=== PATIENT | female | born 2005 | race Caucasian/White ===

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

== ENCOUNTER 2025-04-12 18:46 | Emergency (ER) | payer OTHER, SELFPAY ==
--- OUTSIDE RECORDS SUMMARY | 2025-04-12 18:53 | XMS REPORT | Continuity of Care Document ---
Author Name Unknown Address [address] [facility] [address] [place] [address] [facility] Address [address] [facility] [place] [address] Care Team Providers Care [facility] Name Role Phone Deon Pradip Primary Care Physician [phone] Maggy Lee CNM Attending Clinician [phone] CHRISTEL VERA Attending Clinician Unavailable CHEPE LIU Attending Clinician Unavailable Teena Rao Attending Clinician [phone] Debbie Rasheed MD Attending Clinician [phone] DEBBIE RASHEED Attending Clinician Unavailable Unknown, Attending Attending Clinician Unavailab Maira Beckham RN Attending Clinician Unav ailJAMIL Pitts Attending Clinician Unavail able Doctor Unassigned, [place] Attending Clinician U navailable [place] WHJamil VELEZ Attending Clinician + MAGGY LEE Attending Clinician Unavaila glenna Loyola RN, [place]line Attending Clinician Unavailjaquelin Willis MD, Lonnie Loco Attending Clinician [phone] CARIDAD BONE Attending Clinician Unavailable Douglas Adan MD Attending Clinician [phone] Johanna Reis MD Attending Clinician [phone] Duncan SIMMONS, Michelle Ornelas Attending Clinician Unavaila LETTY Blanco Attending Clinician Unav ailable Ultrasound, Ang-Mfm Attending Clinician UnavailFemi Smith MD Attending Clinician [phone] Andria Moore MD, Letty Attending Clinician + FEMI SORIANO Attending Clinician Unavailable FEMI SORIANO Attending Clinician Unavailable Mk COFFEY, Violeta Cottrell Attending Clinician [phone] VIOLETA SEGURA Attending Clinician Unavailable WAQAS RODRIGUEZ Attending Clinician Unavailable Liliana Saenz Attending Clinician Unavailjaquelin Rodriguez MD, Waqas Hampton Attending Clinician [phone] Tomas COFFEY, Mariajose Attending Clinician [phone] MARIAJOSE NUNEZ Attending Clinician Unavailable MARIAJOSE NUNEZ Attending Clinician Unavailable Jacquie Moon RN Attending Clinician Unavailab le Only, Adc Pob2 Test Attending Clinician Unavailtacos Sage INTERPRETIVE PROGRAM COORDINATOR, Kristine Attending Clinician [phone] KRISTINE SAGE Attending Clinician Unavailable Only, Adc Test Attending Clinician Unavailable Johanna Conti MD Attending Clinician [phone] JOHANNA CONTI Attending Clinician UnavailLonnie Maynard MD Admitting Clinician [phone] LONNIE WILLIS Admitting Clinician Unavailjaquelin driscoll Payers Payer Name Policy Type Policy Number Effective Date Expirati on Date Source Problems Condition Name Condition Details Condition Category Status Onset Date Resolution Date Last Treatment Date Treating Clinician Comments Source Encounter for IUD insertion Encounter for IUD insertion Disease Active 2022-09 0-30 00:00: 00 [facility] control counseling control counseling Disease Active 6-16 00:00: 00 [facility] PUPP (pruritic urticarial papules and plaques of ) PUPP (pruritic urticarial papules and plaques of ) Disease Active 3-15 00:00: 00 [facility] Anemia of mother in , antepartum Anemia of mother in , antepartum Disease Active 2-02 00:00: 00 [facility] Anemia, Anemia, Disease Resolve d 5-02 00:00: 00 2023-02-18 00:00:00 2023-02-18 12:59:45 [facility] Chorioamni onitis Chorioamni onitis Disease Resolve d 2022-0 4-11 00:00: 00 2023-02-18 00:00:00 2023-02-18 12:59:44 [facility] Pre-eclamp harrison in third trimester Pre-eclamp harrison in third trimester Disease Resolve d 2022-0 4-10 00:00: 00 2023-02-18 00:00:00 2023-02-18 12:59:43 [facility] PUPP (pruritic urticarial papules and plaques of ) PUPP (pruritic urticarial papules and plaques of ) Disease Resolve d 2022-0 3-15 00:00: 00 2023-02-18 00:00:00 2023-02-18 12:59:41 [facility] (spontaneo us vaginal delivery) (spontaneo us vaginal delivery) Disease Resolve d 2022-0 4-12 00:00: 00 2023-01-04 00:00:00 2023-01-04 13:27:29 [facility] Single live Single live Disease Resolve d 2022-0 4-12 00:00: 00 2023-01-04 00:00:00 2023-01-04 13:27:25 [facility] Acute blood loss anemia Acute blood loss anemia Disease Resolve d 2022-0 4-12 00:00: 00 2023-01-04 00:00:00 2023-01-04 13:27:15 [facility] Obstetrica l laceration Obstetrica l laceration Disease Resolve d 2022-0 4-12 00:00: 00 2023-01-04 00:00:00 2023-01-04 13:27:13 [facility] Chlamydia infection during Chlamydia infection during Disease Resolve d 2022-0 3-24 00:00: 00 2023-01-04 00:00:00 2023-01-04 13:27:18 Overview: Formattin g of this note might be different from the original. pendign trish [facility] Anemia of mother in , antepartum Anemia of mother in , antepartum Disease Resolve d 0 2-02 00:00: 00 2023-01-04 00:00:00 2023-01-04 13:27:16 [facility] Abnormal quad screen Abnormal quad screen Disease Resolve d 2022-0 1-05 00:00: 00 2023-01-04 00:00:00 2023-01-04 13:27:14 Overview: Formattin g of this note might be different from the original. pendign detailed ultrasoun d/ genetics [facility] GBS (group B streptococ cus) UTI complicati ng GBS (group B streptococ cus) UTI complicati ng Disease Resolve d 2021-09 0-18 00:00: 00 2023-01-04 00:00:00 2023-01-04 13:27:11 Overview: Formattin g of this note might be different from the original. neg trish [facility] Susceptibl e to varicella (non-immun e), currently Susceptibl e to varicella (non-immun e), currently Disease Resolve d 2021-09 0-13 00:00: 00 2023-01-04 00:00:00 2023-01-04 13:27:28 [facility] Rubella non-immune status, antepartum Rubella non-immune status, antepartum Disease Resolve d 2021-09 0-13 00:00: 00 2023-01-04 00:00:00 2023-01-04 13:27:24 Overview: Formattin g of this note might be different from the original. Address pp [facility] Supervisio n of high-risk with insufficie nt care Supervisio n of high-risk with insufficie nt care Disease Resolve d 2021-09 0-12 00:00: 00 2023-01-04 00:00:00 2023-01-04 13:27:26 [facility] Nausea/vom iting in Nausea/vom iting in Disease Resolve d 2021-09 0-12 00:00: 00 2023-01-04 00:00:00 2023-01-04 13:27:21 [facility] UTI symptoms UTI symptoms Disease Resolve d 2021-09 0-12 00:00: 00 2023-01-04 00:00:00 2023-01-04 13:27:30 [facility] Allergies, Adverse Reactions, Alerts Allergy Name Allergy Type Status Severity Reaction(s) Onset Date Inactive Date Treating Clinician Comments Source NO KNOWN ALLERGIE S Drug Class Active [facility] Social History Social Habit Start Date Stop Date Quantity Comments Source ASSERTION 2022-03-31 00:00:00 [facility] Alcoholic beverage intake 2024-03-07 00:00:00 2024-03-07 00:00:00 Ex-drinker (finding) [facility] Alcohol intake 2023-12-16 00:00:00 2023-12-16 00:00:00 Ex-drinker (finding) [facility] History of Social function 2023-02-18 00:00:00 2023-02-18 00:00:00 [facility] Exposure to SARS-CoV-2 (event) 2022-12-25 00:00:00 2023-01-04 09:11:00 Not sure [facility] Tobacco use and exposure 2022-12-14 00:00:00 2022-12-14 00:00:00 Smokeless tobacco non-user [facility] Sex assigned at 2005 00:00:00 2005 00:00:00 [facility] Smoking Status Start Date Stop Date Source Tobacco smoking consumption unknown [facility] Never smoked tobacco [facility] Medications Ordered Medication Name Filled Medication Name Start Date Stop Date Current Medication? Ordering Clinician Indication Dosage Frequency Signature (SIG) Comments Components Source doxycycline hyclate 100 mg capsule 7-03 00:00: 00 Yes [id number] 100mg Take 1 capsule by mouth every 12 (twelve) hours. [facility] moxifloxaci n 400 mg tablet 4-14 00:00: 00 Yes [id number] 400mg Take 1 tablet by mouth in the morning. [facility] doxycycline hyclate 100 mg tablet 12-17 00:00: 00 03-07 00:00 :00 No [id number] 100mg Take 1 tablet by mouth in the morning and 1 tablet in the evening. [facility] doxycycline hyclate 100 mg tablet 12-16 00:00: 00 12-17 00:00 :00 No [id number] 100mg Take 1 tablet by mouth in the morning and 1 tablet in the evening. Do all this for 7 days. [facility] moxifloxaci n 400 mg tablet 12-16 00:00: 00 12-17 00:00 :00 No [id number] 400mg Take 1 tablet by mouth in the morning for 7 days. [facility] copper (PARAGARD T 380A) IUD 1 Intra Uterine Device 2022-09 21:00: 00 07-04 20:03 :00 No [id number] 1{IUD} [facility] human papillomav vac,9-guido(P F) (GARDASIL-9 ) syringe 0.5 mL 12-15 00:14: 00 Yes .5mL 0.5 mL, Intramuscu lar, ONCE-PRIOR TO DISCHARGE, 1 dose, Starting on Tue12/14/22 at 1914, Until Discontinu ed, Routine, Give vaccine prior to discharge [facility] rho(D) immune globulin (RHOGAM) syringe 300 mcg 12-15 00:14: 00 Yes 300ug 300 mcg, Intramuscu lar, ONCE, For 1 dose, Conditiona l, Routine [facility] ampicillin (POLYCILLIN -N) 2,000 mg in NaCl 0.9% (NS) 100 mL MINI-BAG 12-14 20:00: 00 12-15 19:59 :00 No 2g 2,000 mg (2 g), IV Piggyback, Q6H ABX, 4 doses, First dose (after last reorder) on Tue12/14/22 at 1500, Last dose on Tue12/15/22 at 0900, Administer over 30 Minutes, 100 mL
Reas on for Anti-Infec tive: Empiric Therapy for Suspected Infection< br>Empiric Therapy Site: Pelvic
Duration of therapy: 72 hours [facility] ibuprofen (IBU) tablet 600 mg 12-14 13:31: 28 Yes 600mg 600 mg, Oral, Q6HPRN, Starting on Tue12/14/22 at 08, Until Discontinu ed, Routine, Pain (scale 4-6) [facility] acetaminoph en (TYLENOL) tablet 650 mg 12-14 13:31: 28 Yes 650mg 650 mg, Oral, Q6HPRN, Starting on Tue12/14/22 at 0831, Until Discontinu ed, Routine, Pain (scale 1-3) [facility] diphenhydrA MINE (BENADRYL) tablet 25 mg 12-14 13:31: 28 Yes 25mg 25 mg, Oral, Q6HPRN, Starting on Tue12/14/22 at 08, Until Discontinu ed, Routine, Sleep, Itching [facility] ondansetron (ZOFRAN (PF)) injection 4 mg 12-14 13:31: 28 Yes 4mg 4 mg, Slow IV Push, Q8HPRN, Starting on Tue12/14/22 at 0831, Until Discontinu ed, Routine, Nausea and Vomiting (N/V) [facility] simethicone (GAS RELIEF (SIMETHICON E)) chewable tablet 160 mg 12-14 13:31: 28 Yes 160mg 160 mg, Oral, PC+HSPRN, Starting on Tue12/14/22 at 0831, Until Discontinu ed, Routine, Gas [facility] docusate (COLACE) capsule 200 mg 12-14 13:31: 28 Yes 200mg 200 mg, Oral, QDAILYPRN, Starting on Tue12/14/22 at 0831, Until Discontinu ed, Routine, Constipati on [facility] magnesium hydroxide (MILK OF MAGNESIA) 400 mg/5 mL suspension 30 mL 12-14 13:31: 28 Yes 30mL 30 mL, Oral, QDAILYPRN, Starting on Tue12/14/22 at 0831, Until Discontinu ed, Routine, Constipati on [facility] benzocaine- menthol (DERMOPLAST ) 20-0.5 % topical spray 12-14 13:31: 28 Yes Topical, PRN, Starting on Tue12/14/22 at 0831, Until Discontinu ed, Routine, Perineum discomfort [facility] tobramycin (NEBCIN) 280 mg in NaCl 0.9% (NS) piggyback 12-14 13:30: 00 12-14 13:31 :33 No 5mg/kg 280 mg (rounded from 288 mg = 5 mg/kg ?57.6 kg Adjusted weight), IV Piggyback, Q24H ABX, 2 doses, First dose on Tue12/14/22 at 0830, Last dose on Tue12/15/22 at 0830, Administer over 30 Minutes, 50 mL
Reas on for Anti-Infec tive: Empiric Therapy for Suspected Infection< br>Empiric Therapy Site: Pelvic
Duration of therapy: 72 hours [facility] lactated ringers IV infusion 500 mL 12-14 07:45: 00 12-14 07:08 :00 No 500mL at 999 mL/hr, 500 mL, IV Infusion, ONCE, 1 dose, On Tue12/14/22 at 0245, Routine [facility] ropivacaine 0.2 % (NAROPIN (PF)) epidural infusion 12-14 07:24: 00 12-14 14:11 :53 No Epidural, CONTINUOUS PRN, Starting on Tue12/14/22 at 0224, Until Discontinu ed, Routine, Intra-op [facility] lidocaine-e pinephrine (XYLOCAINE W/EPINEPHRI NE) 1.5 %-1:200,000 injection 12-14 07:16: 00 12-14 14:11 :53 No Epidural, ONCE INTRA PROCEDURE, Starting on Tue12/14/22 at 0216, Until Discontinu ed, Routine, Intra-op [facility] sodium citrate-cit juan antonio acid (BICITRA) 500-334 mg/5 mL solution 30 mL 12-14 06:51: 03 12-14 07:07 :00 No 30mL 30 mL, Oral, PRE-PROCED URE ONCE, 1 dose, Starting on Tue12/14/22 at 0151, Until Tue12/14/22 at 0207, Routine, Surgery/Pr ocedure [facility] proMETHazin e (PHENERGAN) 25 mg in NS 50 mL IV piggyback (CNR) 12-14 04:45: 00 12-14 05:10 :48 No 25mg 25 mg, IV Piggyback, at 200 mL/hr Administer over 15 Minutes, ONCE, 1 dose, On Tue12/13/22 at 2345, Routine [facility] butorphanol (STADOL) injection 1 mg 12-14 04:45: 00 12-14 04:16 :00 No 1mg 1 mg, IV Push, ONCE, 1 dose, On Tue12/13/22 at 2345, Routine [facility] oxytocin (PITOCIN) 30 units in NS 500 mL IV infusion 12-14 04:34: 31 12-14 13:31 :30 No 2mU/min at 2-40 mL/hr, IV Infusion, TITRATE, Starting on Tue12/13/22 at 2334, Until Tue12/14/22 at 0831, JAZMYNE [facility] D5W-LR IV infusion 1,000 mL 12-14 02:25: 17 12-14 13:31 :30 No 1000mL at 1-125 mL/hr, IV Infusion, TITRATE, Starting on Tue12/13/22 at 2125, Until Tue12/14/22 at 0831, Routine [facility] ferrous sulfate 325 mg (65 mg iron) tablet 11-26 00:00: 00 12-16 00:00 :00 No [id number] 325mg Take 1 tablet by mouth in the morning and 1 tablet in the evening. [facility] ascorbic acid, vitamin C, 500 mg tablet 11-26 00:00: 00 12-16 00:00 :00 No [id number] 500mg Take 1 tablet by mouth in the morning and 1 tablet at noon and 1 tablet in the evening. [facility] azithromyci n 500 mg tablet 11-26 00:00: 00 11-27 04:59 :00 No [id number] 1000mg Take 2 tablets by mouth once now for 1 dose. [facility] fluconazole (DIFLUCAN) 150 mg tablet 11-24 00:00: 00 11-25 04:59 :00 No [id number] 150mg Take 1 tablet by mouth once now for 1 dose. [facility] ferrous sulfate 325 mg (65 mg iron) tablet 10-07 00:00: 00 12-16 00:00 :00 No [id number] 325mg Take 1 tablet by mouth in the morning and 1 tablet in the evening. [facility] ascorbic acid, vitamin C, 500 mg tablet 10-07 00:00: 00 12-16 00:00 :00 No [id number] 500mg Take 1 tablet by mouth in the morning and 1 tablet at noon and 1 tablet in the evening. [facility] ampicillin 500 mg capsule 2021-09 00:00: 00 07-03 04:59 :00 No [id number] 500mg Take 1 capsule by mouth 4 (four) times daily for 10 days. [facility] multivitami n ( VITAMIN) tablet 2021-09 00:00: 00 12-16 00:00 :00 No [id number] 1{tbl} Take 1 tablet by mouth in the morning. [facility] proMETHazin e 25 mg tablet 2021-09 00:00: 00 12-16 00:00 :00 No [id number] 25mg Take 1 tablet by mouth every 6 (six) hours as needed for Nausea and Vomiting (N/V). [facility] Nitrofurant oin&Nit. Macrocryst (MACROBID) 100 mg capsule 2022-1 0-12 00:00: 00 06-27 04:59 :00 No [id number] 100mg Take 1 capsule by mouth in the morning and 1 capsule in the evening. Do all this for 10 days. [facility] No known medications 24 16:02: 25 No [facility] Immunizations Ordered Immunization Name Filled Immunization Name Date Status Comments Source TDAP 2022-10-06 00:00:00 Completed [facility] TDAP 2022-10-06 00:00:00 Completed [facility] TDAP 2022-10-06 00:00:00 Completed [facility] TDAP 2022-10-06 00:00:00 Completed [facility] TDAP 2022-10-06 00:00:00 Completed [facility] TDAP 2022-10-06 00:00:00 Completed [facility] TDAP 2022-10-06 00:00:00 Completed [facility] TDAP 2022-10-06 00:00:00 Completed [facility] TDAP 2022-10-06 00:00:00 Completed [facility] TDAP 2022-10-06 00:00:00 Completed [facility] TDAP 2022-10-06 00:00:00 Completed [facility] TDAP 2022-10-06 00:00:00 Completed [facility] TDAP 2022-10-06 00:00:00 Completed [facility] TDAP 2022-10-06 00:00:00 Completed [facility] TDAP 2022-10-06 00:00:00 Completed [facility] TDAP 2022-10-06 00:00:00 Completed [facility] TDAP 2022-10-06 00:00:00 Completed [facility] TDAP 2022-10-06 00:00:00 Completed [facility] TDAP 2022-10-06 00:00:00 Completed [facility] TDAP 2022-10-06 00:00:00 Completed [facility] TDAP 2022-10-06 00:00:00 Completed [facility] TDAP 2022-10-06 00:00:00 Completed [facility] TDAP 2022-10-06 00:00:00 Completed [facility] TDAP 2022-10-06 00:00:00 Completed [facility] TDAP 2022-10-06 00:00:00 Completed [facility] TDAP 2022-10-06 00:00:00 Completed [facility] Meningococcal Polysaccharide (groups A, C, Y and W-135) conjugate vaccine (MCV4P) 2017-01-26 00:00:00 Completed [facility] TDAP 2017-01-26 00:00:00 Completed [facility] HPV9 2017-01-26 00:00:00 Completed [facility] Meningococcal Polysaccharide (groups A, C, Y and W-135) conjugate vaccine (MCV4P) 2017-01-26 00:00:00 Completed [facility] TDAP 2017-01-26 00:00:00 Completed [facility] HPV9 2017-01-26 00:00:00 Completed [facility] HPV9 2017-01-26 00:00:00 Completed [facility] HPV9 2017-01-26 00:00:00 Completed [facility] HPV9 2017-01-26 00:00:00 Completed [facility] Meningococcal Polysaccharide (groups A, C, Y and W-135) conjugate vaccine (MCV4P) 2017-01-26 00:00:00 Completed [facility] TDAP 2017-01-26 00:00:00 Completed [facility] HPV9 2017-01-26 00:00:00 Completed [facility] Meningococcal Polysaccharide (groups A, C, Y and W-135) conjugate vaccine (MCV4P) 2017-01-26 00:00:00 Completed [facility] TDAP 2017-01-26 00:00:00 Completed [facility] HPV9 2017-01-26 00:00:00 Completed [facility] HPV9 2016-05-12 00:00:00 Completed [facility] HPV9 2016-05-12 00:00:00 Completed [facility] HPV9 2016-05-12 00:00:00 Completed [facility] HPV9 2016-05-12 00:00:00 Completed [facility] HPV9 2016-05-12 00:00:00 Completed [facility] HPV9 2016-05-12 00:00:00 Completed [facility] HPV9 2016-05-12 00:00:00 Completed [facility] MMR 2009-04-28 00:00:00 Completed [facility] Polio (IPV/OPV) 2009-04-28 00:00:00 Completed [facility] Varicella (varivax)(chicken pox) 2009-04-28 00:00:00 Completed [facility] HEPA,NOS 2009-04-28 00:00:00 Completed [facility] MMR 2009-04-28 00:00:00 Completed [facility] Polio (IPV/OPV) 2009-04-28 00:00:00 Completed [facility] Varicella (varivax)(chicken pox) 2009-04-28 00:00:00 Completed [facility] HEPA,NOS 2009-04-28 00:00:00 Completed [facility] MMR 2009-04-28 00:00:00 Completed [facility] Polio (IPV/OPV) 2009-04-28 00:00:00 Completed [facility] Varicella (varivax)(chicken pox) 2009-04-28 00:00:00 Completed [facility] HEPA,NOS 2009-04-28 00:00:00 Completed [facility] MMR 2009-04-28 00:00:00 Completed [facility] Polio (IPV/OPV) 2009-04-28 00:00:00 Completed [facility] Varicella (varivax)(chicken pox) 2009-04-28 00:00:00 Completed [facility] HEPA,NOS 2009-04-28 00:00:00 Completed [facility] DTaP, Unspecified Formulation 2006-07-11 00:00:00 Completed [facility] HIB 4 Dose Schedule 2006-07-11 00:00:00 Completed [facility] DTaP, Unspecified Formulation 2006-07-11 00:00:00 Completed [facility] HIB 4 Dose Schedule 2006-07-11 00:00:00 Completed [facility] DTaP, Unspecified Formulation 2006-07-11 00:00:00 Completed [facility] HIB 4 Dose Schedule 2006-07-11 00:00:00 Completed [facility] DTaP, Unspecified Formulation 2006-07-11 00:00:00 Completed [facility] HIB 4 Dose Schedule 2006-07-11 00:00:00 Completed [facility] MMR 2006-05-18 00:00:00 Completed [facility] Pneumococcal 7 Conjugate, PCV7 (Prevnar7) 2006-05-18 00:00:00 Completed [facility] Varicella (varivax)(chicken pox) 2006-05-18 00:00:00 Completed [facility] HEPATITIS A 2006-05-18 00:00:00 Completed [facility] MMR 2006-05-18 00:00:00 Completed [facility] Pneumococcal 7 Conjugate, PCV7 (Prevnar7) 2006-05-18 00:00:00 Completed [facility] Varicella (varivax)(chicken pox) 2006-05-18 00:00:00 Completed [facility] HEPATITIS A 2006-05-18 00:00:00 Completed [facility] MMR 2006-05-18 00:00:00 Completed [facility] Pneumococcal 7 Conjugate, PCV7 (Prevnar7) 2006-05-18 00:00:00 Completed [facility] Varicella (varivax)(chicken pox) 2006-05-18 00:00:00 Completed [facility] HEPATITIS A 2006-05-18 00:00:00 Completed [facility] MMR 2006-05-18 00:00:00 Completed [facility] Pneumococcal 7 Conjugate, PCV7 (Prevnar7) 2006-05-18 00:00:00 Completed [facility] Varicella (varivax)(chicken pox) 2006-05-18 00:00:00 Completed [facility] HEPATITIS A 2006-05-18 00:00:00 Completed [facility] Pneumococcal 7 Conjugate, PCV7 (Prevnar7) 2005 00:00:00 Completed [facility] IPV 2005 00:00:00 Completed [facility] DTaP, Unspecified Formulation 2005 00:00:00 Completed [facility] Hep B, Adol or Pedi Dosage 2005 00:00:00 Completed [facility] HIB 4 Dose Schedule 2005 00:00:00 Completed [facility] Pneumococcal 7 Conjugate, PCV7 (Prevnar7) 2005 00:00:00 Completed [facility] IPV 2005 00:00:00 Completed [facility] DTaP, Unspecified Formulation 2005 00:00:00 Completed [facility] Hep B, Adol or Pedi Dosage 2005 00:00:00 Completed [facility] HIB 4 Dose Schedule 2005 00:00:00 Completed [facility] Pneumococcal 7 Conjugate, PCV7 (Prevnar7) 2005 00:00:00 Completed [facility] IPV 2005 00:00:00 Completed [facility] DTaP, Unspecified Formulation 2005 00:00:00 Completed [facility] Hep B, Adol or Pedi Dosage 2005 00:00:00 Completed [facility] HIB 4 Dose Schedule 2005 00:00:00 Completed [facility] Pneumococcal 7 Conjugate, PCV7 (Prevnar7) 2005 00:00:00 Completed [facility] IPV 2005 00:00:00 Completed [facility] DTaP, Unspecified Formulation 2005 00:00:00 Completed [facility] Hep B, Adol or Pedi Dosage 2005 00:00:00 Completed [facility] HIB 4 Dose Schedule 2005 00:00:00 Completed [facility] Pneumococcal 7 Conjugate, PCV7 (Prevnar7) 2005 00:00:00 Completed [facility] IPV 2005 00:00:00 Completed [facility] DTaP, Unspecified Formulation 2005 00:00:00 Completed [facility] Hep B, Adol or Pedi Dosage 2005 00:00:00 Completed [facility] HIB 4 Dose Schedule 2005 00:00:00 Completed [facility] Pneumococcal 7 Conjugate, PCV7 (Prevnar7) 2005 00:00:00 Completed [facility] IPV 2005 00:00:00 Completed [facility] DTaP, Unspecified Formulation 2005 00:00:00 Completed [facility] Hep B, Adol or Pedi Dosage 2005 00:00:00 Completed [facility] HIB 4 Dose Schedule 2005 00:00:00 Completed [facility] Pneumococcal 7 Conjugate, PCV7 (Prevnar7) 2005 00:00:00 Completed [facility] IPV 2005 00:00:00 Completed [facility] DTaP, Unspecified Formulation 2005 00:00:00 Completed [facility] Hep B, Adol or Pedi Dosage 2005 00:00:00 Completed [facility] HIB 4 Dose Schedule 2005 00:00:00 Completed [facility] Pneumococcal 7 Conjugate, PCV7 (Prevnar7) 2005 00:00:00 Completed [facility] IPV 2005 00:00:00 Completed [facility] DTaP, Unspecified Formulation 2005 00:00:00 Completed [facility] Hep B, Adol or Pedi Dosage 2005 00:00:00 Completed [facility] HIB 4 Dose Schedule 2005 00:00:00 Completed [facility] Pneumococcal 7 Conjugate, PCV7 (Prevnar7) 2005 00:00:00 Completed [facility] IPV 2005 00:00:00 Completed [facility] DTaP, Unspecified Formulation 2005 00:00:00 Completed [facility] Hep B, Adol or Pedi Dosage 2005 00:00:00 Completed [facility] HIB 4 Dose Schedule 2005 00:00:00 Completed [facility] Pneumococcal 7 Conjugate, PCV7 (Prevnar7) 2005 00:00:00 Completed [facility] IPV 2005 00:00:00 Completed [facility] DTaP, Unspecified Formulation 2005 00:00:00 Completed [facility] Hep B, Adol or Pedi Dosage 2005 00:00:00 Completed [facility] HIB 4 Dose Schedule 2005 00:00:00 Completed [facility] Pneumococcal 7 Conjugate, PCV7 (Prevnar7) 2005 00:00:00 Completed [facility] IPV 2005 00:00:00 Completed [facility] DTaP, Unspecified Formulation 2005 00:00:00 Completed [facility] Hep B, Adol or Pedi Dosage 2005 00:00:00 Completed [facility] HIB 4 Dose Schedule 2005 00:00:00 Completed [facility] Pneumococcal 7 Conjugate, PCV7 (Prevnar7) 2005 00:00:00 Completed [facility] IPV 2005 00:00:00 Completed [facility] DTaP, Unspecified Formulation 2005 00:00:00 Completed [facility] Hep B, Adol or Pedi Dosage 2005 00:00:00 Completed [facility] HIB 4 Dose Schedule 2005 00:00:00 Completed [facility] Hep B, Adol or Pedi Dosage 2005 00:00:00 Completed [facility] Hep B, Adol or Pedi Dosage 2005 00:00:00 Completed [facility] Hep B, Adol or Pedi Dosage 2005 00:00:00 Completed [facility] Hep B, Adol or Pedi Dosage 2005 00:00:00 Completed [facility] TDAP Unknown Completed [facility] HPV9 Unknown Completed [facility] DTaP, Unspecified Formulation Unknown Completed [facility] HEPA,NOS Unknown Completed [facility] HEPATITIS A Unknown Completed [facility] Hep B, Adol or Pedi Dosage Unknown Completed [facility] HIB 4 Dose Schedule Unknown Completed [facility] Meningococcal Polysaccharide (groups A, C, Y and W-135) conjugate vaccine (MCV4P) Unknown Completed [facility] MMR Unknown Completed [facility] Pneumococcal 7 Conjugate, PCV7 (Prevnar7) Unknown Completed [facility] Polio (IPV/OPV) Unknown Completed [facility] IPV Unknown Completed [facility] Varicella (varivax)(chicken pox) Unknown Completed [facility] TDAP Unknown Completed [facility] HPV9 Unknown Completed [facility] DTaP, Unspecified Formulation Unknown Completed [facility] HEPA,NOS Unknown Completed [facility] HEPATITIS A Unknown Completed [facility] Hep B, Adol or Pedi Dosage Unknown Completed [facility] HIB 4 Dose Schedule Unknown Completed [facility] Meningococcal Polysaccharide (groups A, C, Y and W-135) conjugate vaccine (MCV4P) Unknown Completed [facility] MMR Unknown Completed [facility] Pneumococcal 7 Conjugate, PCV7 (Prevnar7) Unknown Completed [facility] Polio (IPV/OPV) Unknown Completed [facility] IPV Unknown Completed [facility] Varicella (varivax)(chicken pox) Unknown Completed [facility] TDAP Unknown Completed [facility] HPV9 Unknown Completed [facility] DTaP, Unspecified Formulation Unknown Completed [facility] HEPA,NOS Unknown Completed [facility] HEPATITIS A Unknown Completed [facility] Hep B, Adol or Pedi Dosage Unknown Completed [facility] HIB 4 Dose Schedule Unknown Completed [facility] Meningococcal Polysaccharide (groups A, C, Y and W-135) conjugate vaccine (MCV4P) Unknown Completed [facility] MMR Unknown Completed [facility] Pneumococcal 7 Conjugate, PCV7 (Prevnar7) Unknown Completed [facility] Polio (IPV/OPV) Unknown Completed [facility] IPV Unknown Completed [facility] Varicella (varivax)(chicken pox) Unknown Completed [facility] TDAP Unknown Completed [facility] HPV9 Unknown Completed [facility] DTaP, Unspecified Formulation Unknown Completed [facility] HEPA,NOS Unknown Completed [facility] HEPATITIS A Unknown Completed [facility] Hep B, Adol or Pedi Dosage Unknown Completed [facility] HIB 4 Dose Schedule Unknown Completed [facility] Meningococcal Polysaccharide (groups A, C, Y and W-135) conjugate vaccine (MCV4P) Unknown Completed [facility] MMR Unknown Completed [facility] Pneumococcal 7 Conjugate, PCV7 (Prevnar7) Unknown Completed [facility] Polio (IPV/OPV) Unknown Completed [facility] IPV Unknown Completed [facility] Varicella (varivax)(chicken pox) Unknown Completed [facility] TDAP Unknown Completed [facility] HPV9 Unknown Completed [facility] DTaP, Unspecified Formulation Unknown Completed [facility] HEPA,NOS Unknown Completed [facility] HEPATITIS A Unknown Completed [facility] Hep B, Adol or Pedi Dosage Unknown Completed [facility] HIB 4 Dose Schedule Unknown Completed [facility] Meningococcal Polysaccharide (groups A, C, Y and W-135) conjugate vaccine (MCV4P) Unknown Completed [facility] MMR Unknown Completed [facility] Pneumococcal 7 Conjugate, PCV7 (Prevnar7) Unknown Completed [facility] Polio (IPV/OPV) Unknown Completed [facility] IPV Unknown Completed [facility] Varicella (varivax)(chicken pox) Unknown Completed [facility] HEPA,NOS Unknown Completed [facility] HEPATITIS A Unknown Completed [facility] Meningococcal Polysaccharide (groups A, C, Y and W-135) conjugate vaccine (MCV4P) Unknown Completed [facility] Polio (IPV/OPV) Unknown Completed [facility] TDAP Unknown Completed [facility] HPV9 Unknown Completed [facility] DTaP, Unspecified Formulation Unknown Completed [facility] Hep B, Adol or Pedi Dosage Unknown Completed [facility] HIB 4 Dose Schedule Unknown Completed [facility] MMR Unknown Completed [facility] Pneumococcal 7 Conjugate, PCV7 (Prevnar7) Unknown Completed [facility] IPV Unknown Completed [facility] Varicella (varivax)(chicken pox) Unknown Completed [facility] HEPA,NOS Unknown Completed [facility] HEPATITIS A Unknown Completed [facility] Meningococcal Polysaccharide (groups A, C, Y and W-135) conjugate vaccine (MCV4P) Unknown Completed [facility] Polio (IPV/OPV) Unknown Completed [facility] TDAP Unknown Completed [facility] HPV9 Unknown Completed [facility] DTaP, Unspecified Formulation Unknown Completed [facility] Hep B, Adol or Pedi Dosage Unknown Completed [facility] HIB 4 Dose Schedule Unknown Completed [facility] MMR Unknown Completed [facility] Pneumococcal 7 Conjugate, PCV7 (Prevnar7) Unknown Completed [facility] IPV Unknown Completed [facility] Varicella (varivax)(chicken pox) Unknown Completed [facility] TDAP Unknown Completed [facility] HPV9 Unknown Completed [facility] DTaP, Unspecified Formulation Unknown Completed [facility] HEPA,NOS Unknown Completed [facility] HEPATITIS A Unknown Completed [facility] Hep B, Adol or Pedi Dosage Unknown Completed [facility] HIB 4 Dose Schedule Unknown Completed [facility] Meningococcal Polysaccharide (groups A, C, Y and W-135) conjugate vaccine (MCV4P) Unknown Completed [facility] MMR Unknown Completed [facility] Pneumococcal 7 Conjugate, PCV7 (Prevnar7) Unknown Completed [facility] Polio (IPV/OPV) Unknown Completed [facility] IPV Unknown Completed [facility] Varicella (varivax)(chicken pox) Unknown Completed [facility] TDAP Unknown Completed [facility] HPV9 Unknown Completed [facility] DTaP, Unspecified Formulation Unknown Completed [facility] HEPA,NOS Unknown Completed [facility] HEPATITIS A Unknown Completed [facility] Hep B, Adol or Pedi Dosage Unknown Completed [facility] HIB 4 Dose Schedule Unknown Completed [facility] Meningococcal Polysaccharide (groups A, C, Y and W-135) conjugate vaccine (MCV4P) Unknown Completed [facility] MMR Unknown Completed [facility] Pneumococcal 7 Conjugate, PCV7 (Prevnar7) Unknown Completed [facility] Polio (IPV/OPV) Unknown Completed [facility] IPV Unknown Completed [facility] Varicella (varivax)(chicken pox) Unknown Completed [facility] Vital Signs Vital Name Observation Time Observation Value Comments S ource Systolic blood pressure 2024-03-07 21:13:00 106 mm[Hg] [facility] Diastolic blood pressure 2024-03-07 21:13:00 69 mm[Hg] [facility] Heart rate 2024-03-07 21:13:00 91 /min [facility] Body temperature 2024-03-07 21:13:00 36 Ner[facility] Respiratory rate 2024-03-07 21:13:00 18 /min [facility] Body height 2024-03-07 21:13:00 165.1 cm [facility] Body weight 2024-03-07 21:13:00 46.176 kg [facility] BMI 2024-03-07 21:13:00 16.94 kg/m2 [facility] Systolic blood pressure 2023-12-17 00:27:00 130 mm[Hg] [facility] Diastolic blood pressure 2023-12-17 00:27:00 72 mm[Hg] [facility] Heart rate 2023-12-17 00:27:00 90 /min [facility] Body temperature 2023-12-17 00:27:00 37.06 Neris [facility] Respiratory rate 2023-12-17 00:27:00 15 /min [facility] Body height 2023-12-17 00:27:00 165.1 cm [facility] Body weight 2023-12-17 00:27:00 45.587 kg [facility] BMI 2023-12-17 00:27:00 16.72 kg/m2 [facility] Body mass index (BMI) [Percentile] Per age and sex 2023-12-17 00:27:00 1.03 % [facility] Oxygen saturation in Arterial blood by Pulse oximetry 2023-12-17 00:27:00 100 /min [facility] Systolic blood pressure 2023-07-04 19:38:00 133 mm[Hg] [facility] Diastolic blood pressure 2023-07-04 19:38:00 89 mm[Hg] [facility] Heart rate 2023-07-04 19:38:00 87 /min [facility] Body temperature 2023-07-04 19:38:00 36.5 Ner[place] [facility] Body height 2023-07-04 19:38:00 167.6 cm [facility] Body weight 2023-07-04 19:38:00 43.545 kg [facility] BMI 2023-07-04 19:38:00 15.49 kg/m2 [facility] Body mass index (BMI) [Percentile] Per age and sex 2023-07-04 19:38:00 0.06 % [facility] Oxygen saturation in Arterial blood by Pulse oximetry 2023-07-04 19:38:00 97 /min [facility] Systolic blood pressure 2023-02-18 16:07:00 117 mm[Hg] [facility] Diastolic blood pressure 2023-02-18 16:07:00 78 mm[Hg] [facility] Heart rate 2023-02-18 16:07:00 86 /min [facility] Body temperature 2023-02-18 16:07:00 36.56 Neris [facility] Respiratory rate 2023-02-18 16:07:00 16 /min [facility] Body height 2023-02-18 16:07:00 165.1 cm [facility] Body weight 2023-02-18 16:07:00 47.265 kg [facility] BMI 2023-02-18 16:07:00 17.34 kg/m2 [facility] Body mass index (BMI) [Percentile] Per age and sex 2023-02-18 16:07:00 3.81 % [facility] Systolic blood pressure 2023-01-04 14:12:00 127 mm[Hg] [facility] Diastolic blood pressure 2023-01-04 14:12:00 82 mm[Hg] [facility] Heart rate 2023-01-04 14:12:00 88 /min [facility] Body temperature 2023-01-04 14:12:00 36.22 [place]er[place] [facility] Respiratory rate 2023-01-04 14:12:00 18 /min [facility] Body height 2023-01-04 14:12:00 165.1 cm [facility] Body weight 2023-01-04 14:12:00 48.11 kg [facility] BMI 2023-01-04 14:12:00 17.65 kg/m2 [facility] Body mass index (BMI) [Percentile] Per age and sex 2023-01-04 14:12:00 5.90 % [facility] Systolic blood pressure 2022-12-16 12:46:00 138 mm[Hg] [facility] Diastolic blood pressure 2022-12-16 12:46:00 96 mm[Hg] [facility] Heart rate 2022-12-16 12:46:00 75 /min [facility] Body temperature 2022-12-16 12:46:00 36.44 Ner[place] [facility] Respiratory rate 2022-12-16 12:46:00 18 /min [facility] Oxygen saturation in Arterial blood by Pulse oximetry 2022-12-16 12:46:00 100 /min [facility] Body height 2022-12-14 00:51:00 165.1 cm [facility] Body weight 2022-12-14 00:51:00 58.605 kg [facility] BMI 2022-12-14 00:51:00 21.50 kg/m2 [facility] Body mass index (BMI) [Percentile] Per age and sex 2022-12-14 00:51:00 53.59 % [facility] Systolic blood pressure 2022-12-13 21:11:00 140 mm[Hg] [facility] Diastolic blood pressure 2022-12-13 21:11:00 60 mm[Hg] [facility] Heart rate 2022-12-13 21:08:00 82 /min [facility] Body temperature 2022-12-13 21:04:00 36.33 Ner[place] [facility] Respiratory rate 2022-12-13 21:04:00 18 /min [facility] Body height 2022-12-13 21:04:00 165.1 cm [facility] Body weight 2022-12-13 21:04:00 58.605 kg [facility] BMI 2022-12-13 21:04:00 21.50 kg/m2 [facility] Body mass index (BMI) [Percentile] Per age and sex 2022-12-13 21:04:00 53.59 % [facility] Systolic blood pressure 2022-12-08 19:28:00 131 mm[Hg] [facility] Diastolic blood pressure 2022-12-08 19:28:00 89 mm[Hg] [facility] Heart rate 2022-12-08 19:28:00 83 /min [facility] Body temperature 2022-12-08 19:28:00 36.39 Ner[place] [facility] Respiratory rate 2022-12-08 19:28:00 18 /min [facility] Body height 2022-12-08 19:28:00 165.1 cm [facility] Body weight 2022-12-08 19:28:00 58.605 kg [facility] BMI 2022-12-08 19:28:00 21.50 kg/m2 [facility] Body mass index (BMI) [Percentile] Per age and sex 2022-12-08 19:28:00 53.64 % [facility] Systolic blood pressure 2022-11-24 20:23:00 128 mm[Hg] [facility] Diastolic blood pressure 2022-11-24 20:23:00 82 mm[Hg] [facility] Heart rate 2022-11-24 20:23:00 77 /min [facility] Body temperature 2022-11-24 20:23:00 36.39 Ner[place] [facility] Respiratory rate 2022-11-24 20:23:00 18 /min [facility] Body height 2022-11-24 20:23:00 165.1 cm [facility] Body weight 2022-11-24 20:23:00 57.743 kg [facility] BMI 2022-11-24 20:23:00 21.18 kg/m2 [facility] Body mass index (BMI) [Percentile] Per age and sex 2022-11-24 20:23:00 49.81 % [facility] Systolic blood pressure 2022-11-17 20:37:00 121 mm[Hg] [facility] Diastolic blood pressure 2022-11-17 20:37:00 62 mm[Hg] [facility] Heart rate 2022-11-17 20:37:00 84 /min [facility] Body temperature 2022-11-17 20:37:00 36.33 Ner[place] [facility] Respiratory rate 2022-11-17 20:37:00 18 /min [facility] Body height 2022-11-17 20:37:00 165.1 cm [facility] Body weight 2022-11-17 20:37:00 57.561 kg [facility] BMI 2022-11-17 20:37:00 21.12 kg/m2 [facility] Body mass index (BMI) [Percentile] Per age and sex 2022-11-17 20:37:00 49.12 % [facility] Systolic blood pressure 2022-11-03 21:43:00 107 mm[Hg] [facility] Diastolic blood pressure 2022-11-03 21:43:00 74 mm[Hg] [facility] Heart rate 2022-11-03 21:43:00 85 /min [facility] Body temperature 2022-11-03 21:43:00 36 Ner[place] [facility] Respiratory rate 2022-11-03 21:43:00 18 /min [facility] Body height 2022-11-03 21:43:00 165.1 cm [facility] Body weight 2022-11-03 21:43:00 56.382 kg [facility] BMI 2022-11-03 21:43:00 20.68 kg/m2 [facility] Body mass index (BMI) [Percentile] Per age and sex 2022-11-03 21:43:00 43.45 % [facility] Systolic blood pressure 2022-10-20 20:06:00 100 mm[Hg] [facility] Diastolic blood pressure 2022-10-20 20:06:00 62 mm[Hg] [facility] Heart rate 2022-10-20 20:06:00 80 /min [facility] Body temperature 2022-10-20 20:06:00 35.33 Ner[place] [facility] Respiratory rate 2022-10-20 20:06:00 18 /min [facility] Body height 2022-10-20 20:06:00 165.1 cm [facility] Body weight 2022-10-20 20:06:00 53.842 kg [facility] BMI 2022-10-20 20:06:00 19.75 kg/m2 [facility] Body mass index (BMI) [Percentile] Per age and sex 2022-10-20 20:06:00 30.59 % [facility] Systolic blood pressure 2022-10-06 19:31:00 110 mm[Hg] [facility] Diastolic blood pressure 2022-10-06 19:31:00 69 mm[Hg] [facility] Heart rate 2022-10-06 19:31:00 82 /min [facility] Body temperature 2022-10-06 19:31:00 36.33 Ner[place] [facility] Respiratory rate 2022-10-06 19:31:00 18 /min [facility] Body height 2022-10-06 19:31:00 160 cm [facility] Body weight 2022-10-06 19:31:00 53.252 kg [facility] BMI 2022-10-06 19:31:00 20.80 kg/m2 [facility] Body mass index (BMI) [Percentile] Per age and sex 2022-10-06 19:31:00 45.44 % [facility] Systolic blood pressure 2022-09-08 21:21:00 99 mm[Hg] [facility] Diastolic blood pressure 2022-09-08 21:21:00 67 mm[Hg] [facility] Heart rate 2022-09-08 21:21:00 94 /min [facility] Body temperature 2022-09-08 21:21:00 36.94 Ner[place] [facility] Respiratory rate 2022-09-08 21:21:00 16 /min [facility] Body height 2022-09-08 21:21:00 160 cm [facility] Body weight 2022-09-08 21:21:00 51.166 kg [facility] BMI 2022-09-08 21:21:00 19.98 kg/m2 [facility] Body mass index (BMI) [Percentile] Per age and sex 2022-09-08 21:21:00 34.41 % [facility] Systolic blood pressure 2022-08-25 19:13:00 102 mm[Hg] [facility] Diastolic blood pressure 2022-08-25 19:13:00 49 mm[Hg] [facility] Heart rate 2022-08-25 19:13:00 81 /min [facility] Body temperature 2022-08-25 19:13:00 36.61 Neris [facility] Respiratory rate 2022-08-25 19:13:00 18 /min [facility] Body height 2022-08-25 19:13:00 160 cm [facility] Body weight 2022-08-25 19:13:00 50.037 kg [facility] BMI 2022-08-25 19:13:00 19.54 kg/m2 [facility] Body mass index (BMI) [Percentile] Per age and sex 2022-08-25 19:13:00 28.38 % [facility] Systolic blood pressure 2022-06-16 15:09:00 121 mm[Hg] [facility] Diastolic blood pressure 2022-06-16 15:09:00 85 mm[Hg] [facility] Heart rate 2022-06-16 15:09:00 100 /min [facility] Body temperature 2022-06-16 15:09:00 36.44 Ner[place] [facility] Respiratory rate 2022-06-16 15:09:00 18 /min [facility] Body height 2022-06-16 15:09:00 160 cm [facility] Body weight 2022-06-16 15:09:00 45.927 kg [facility] BMI 2022-06-16 15:09:00 17.94 kg/m2 [facility] Body mass index (BMI) [Percentile] Per age and sex 2022-06-16 15:09:00 9.73 % [facility] Procedures Procedure Date / Time Performed Performing Clinician Source DISCLOSURE AND CONSENT, MEDICAL AND SURGICAL PROCEDURES 2023-07-08 05:01:00 Doctor Unassigned, [place] [facility] POCT TEST 2023-07-04 19:40:00 Benjamin Shipman [facility] POCT TEST 2023-02-18 16:20:00 Benjamin Shipman [facility] URINALYSIS 2022-12-16 14:27:00 Tamara Isamar [facility] SGOT (ASPARTATE AMINO TRANSFER) 2022-12-16 13:49:00 Tamara [facility] CREATININE 2022-12-16 13:49:00 Tamara [facility] ALANINE AMINO TRANSFERASE(SGPT 2022-12-16 13:49:00 Tamara [facility] LACTATE DEHYDROGENASE 2022-12-16 13:49:00 Tamara [facility] URIC ACID 2022-12-16 13:49:00 Tamara [facility] CBC WITH DIFF 2022-12-16 13:49:00 Tamara Isamar [facility] EXTRA TUBE LAV 2022-12-16 13:49:00 Lonnie Willis [facility] EXTRA TUBE LT. GREEN 2022-12-16 13:49:00 Ricky Willis [facility] CBC WITH DIFF 2022-12-15 08:53:00 Leda Orosco [facility] VENOUS CORD GAS 2022-12-14 12:58:00 Davian Warren [facility] CENTRAL NEURAXIAL BLOCK 2022-12-14 07:24:00 Douglas Adan [facility] SGOT (ASPARTATE AMINO TRANSFER) 2022-12-14 02:40:00 [facility] 2022-12-14 02:40:00 Moni [facility] ALANINE AMINO TRANSFERASE(SGPT 2022-12-14 02:40:00 Moni [facility] LACTATE DEHYDROGENASE 2022-12-14 02:40:00 Moni [facility] URIC ACID 2022-12-14 02:40:00 Moni [facility] CBC WITH DIFF 2022-12-14 02:40:00 Alley Montenegro [facility] URINALYSIS 2022-12-14 02:40:00 Moni [facility] HEPATITIS B SURFACE ANTIGEN 2022-12-14 02:40:00 Kelvin [facility] HB ABO GROUPING 2022-12-14 02:40:00 Kelvni [facility] GC & CHLAMYDIA AMPLIFIED ASSAY 2022-12-14 02:40:00 Kelvin [facility] RHO (D) IMMUNE GLOBULIN 2022-12-14 02:40:00 Chilango Orosco [facility] PROTEIN CREAT RATIO URINE RANDOM 2022-12-14 02:40:00 Moni [facility] HIV 1/2 AG-AB WITH REFLEX 2022-12-14 02:40:00 Kelvin [facility] SYPHILIS IGG/IGM 2022-12-14 02:40:00 Kelvin [facility] POCT URINALYSIS 2022-12-13 21:06:00 Jamil Shipman [facility] DME/SUPPLY JUSTIFICATION 2022-12-10 05:01:00 Doc tor Unassigned, [place] [facility] POCT URINALYSIS 2022-12-08 19:30:00 Jamil Shipman [facility] POCT URINALYSIS 2022-11-24 20:24:00 Jamil Shipman [facility] POCT URINALYSIS 2022-11-17 20:40:00 Jamil Shipman [facility] SECOND AND THIRD TRIMESTER ULTRASOUND 2022-11-10 19:46:00 Jamil Shipman [facility] POCT URINALYSIS 2022-11-03 21:44:00 Jamil Shipman [facility] POCT URINALYSIS 2022-10-20 20:07:00 Jamil Shipman [facility] TDAP VACCINE, >11 YRS, IM 2022-10-06 19:56:47 Jamil Shipman [facility] POCT URINALYSIS 2022-10-06 19:34:00 Jamil Shipman [facility] ASSIGNMENT OF BENEFITS 2022-10-06 19:23:02 Docto r Unassigned, [place] [facility] POCT URINALYSIS 2022-09-08 00:00:00 Jamil Shipman [facility] POCT URINALYSIS 2022-08-25 19:14:00 Jamil Shipman [facility] CBC WITH DIFF 2022-06-16 16:25:00 Jamil Shipman [facility] RUBELLA SCREEN IGG 2022-06-16 16:25:00 Fam Shipman [facility] VZV ANTIBODY SCREEN 2022-06-16 16:25:00 Benjamin Shipman [facility] HEPATITIS B SURFACE ANTIGEN 2022-06-16 16:25:00 Jamil Shipman [facility] HB ABO GROUPING 2022-06-16 16:25:00 Jamil Shipman [facility] URINE CULTURE 2022-06-16 16:25:00 Jamil Shipman [facility] GC & CHLAMYDIA AMPLIFIED ASSAY 2022-06-16 16:25:00 Jamil Shipman [facility] HIV 1/2 AG-AB WITH REFLEX 2022-06-16 16:25:00 Jamil Shipman [facility] GALV ONLY - SYPHILIS IGG/IGM 2022-06-16 16:25:00 Jamil Shipman [facility] POCT URINALYSIS W/O SPECIFIC GRAVITY 2022-06-16 15:01:00 Jamil Shipman [facility] POCT TEST 2022-06-16 15:00:00 Benjamin Shipman [facility] VACCINATION OF A MINOR 2022-06-16 14:36:53 Docto r Unassigned, [place] [facility] Encounters Start Date/Time End Date/Time Encounter Type Admission Type Attending Clinicians Care Facility Care Department Encounter ID Source 2024-03-09 00:00:00 2024-03-09 10:53:17 Telephone Maggy Lee [facility] INSURANCE REPRESENTATIVE [facility] & CHILD [facility] 1.2.840.114 350.1.13.10 4.2.7.2.686 [id number] [facility] 2024-03-07 15:45:00 2024-03-07 16:37:51 Outpatient R CHRISTEL VERA [facility] [id number] [facility] 2024-03-07 15:45:00 2024-03-07 16:37:51 Office Visit Christel Vera [facility] INSURANCE REPRESENTATIVE [facility] MATERNAL & CHILD [facility] 1.2.840.114 350.1.13.10 4.2.7.2.686 [id number] 107 [id number] [facility] 2024-01-18 10:00:00 2024-01-18 10:00:00 Outpatient R CHEPE LIU [facility] [id number] [facility] 2023-12-18 00:00:00 2023-12-18 00:00:00 Telephone Teena Leahy [facility] 1.2.840.114 350.1.13.10 4.2.7.2.686 [id number] 370 [id number] [facility] 2023-12-18 00:00:00 2023-12-18 00:00:00 Telephone Debbie Rasheed [facility] 1.84114 350.1.13.10 4.2.7.2.686 [id number] 370 [id number] [facility] 2023-12-17 00:00:00 2023-12-17 00:00:00 Telephone ElianTeena stevens [facility] 1.84114 350.1.13.10 4.2.7.2.686 [id number] [facility] 2023-12-16 19:20:00 2023-12-16 19:44:08 Outpatient R DEBBIE RASHEED [facility] [id number] [facility] 2023-12-16 19:20:00 2023-12-16 19:44:08 Urgent Care Debbie Rasheed Unknown, Attending [facility] 1.84114 350.1.13.10 4.2.7.2.686 [id number] 370 [id number] [facility] 2023-11-09 00:00:00 2023-11-09 00:00:00 Telephone Maira Temple [facility] 1..114 350.1.13.10 4.2.7.2.686 [id number] [facility] 2023-08-17 13:30:00 2023-08-17 13:30:00 Outpatient R JAMIL SHIPMAN [facility] [id number] [facility] 2023-07-08 00:00:00 2023-07-08 00:00:00 Orders Only Doctor Unassigned, [place] [facility] 1..114 350.1.13.10 4.2.7.2.686 [id number] [facility] 2023-07-04 14:30:00 2023-07-04 15:04:48 Outpatient R JAMIL SHIPMAN [facility] [id number] [facility] 2023-07-04 14:30:00 2023-07-04 15:04:48 Office Visit Jamil Shipman [facility] INSURANCE REPRESENTATIVE [facility] CHILD [facility] 1.2.840.114 350.1.13.10 4.2.7.2.686 [id number] 107 [id number] [facility] 2023-04-27 14:30:00 2023-04-27 14:30:00 Outpatient R JAMIL SHIPMAN [facility] [id number] [facility] 2023-04-27 00:00:00 2023-04-27 00:00:00 Telephone Jamil Shipman [facility] INSURANCE REPRESENTATIVE [facility] 1..840.114 350.1.13.10 4.2.7.2.686 [id number] 107 [id number] [facility] 2023-03-31 08:30:00 2023-03-31 08:30:00 Outpatient R JAMIL SHIPMAN [facility] [id number] [facility] 2023-03-16 00:00:00 2023-03-16 00:00:00 Telephone Jamil [facility] .2.840.114 350.1.13.10 4.2.7.2.686 [id number] 107 [id number] [facility] 2023-03-09 13:00:00 2023-03-09 13:00:00 Outpatient R JAMIL SHIPMAN [facility] [id number] [facility] 2023-02-18 10:45:00 2023-02-18 11:25:44 Outpatient R JAMIL SHIPMAN [facility] [id number] [facility] 2023-02-18 10:45:00 2023-02-18 11:25:44 Office Visit Jamil Shipman [facility] INSURANCE REPRESENTATIVE [facility] 1.2.840.114 350.1.13.10 4.2.7.2.686 [id number] [facility] 2023-01-04 08:45:00 2023-01-04 13:05:21 Outpatient R SANJIVCeciMAGGY [facility] [id number] [facility] 2023-01-04 08:45:00 2023-01-04 13:05:21 Routine Visit Maggy Lee [facility] INSURANCE REPRESENTATIVE [facility] MATERNAL & CHILD [facility] 1.2.840.114 350.1.13.10 4.2.7.2.686 [id number] 107 [id number] [facility] 2022-12-25 00:00:00 2022-12-25 00:00:00 Nurse Triage Milla [facility] 1.2.840.114 350.1.13.10 4.2.7.2.686 [id number] [facility] 2022-12-13 19:11:00 2022-12-16 12:49:00 Hospital Encounter Lonnie Willis [facility] 1.2.840.114 350.1.13.10 4.2.7.2.686 [id number] [facility] 2022-12-16 00:00:00 2022-12-16 00:00:00 Encounter 1.2.840.1 [id number] 3.104.2.7 .[id number] 1.2.840.114 350.1.13.10 4.2.7.2.696 [id number] [facility] 2022-12-14 01:54:00 2022-12-14 08:53:00 [facility] 1.2.840.114 350.1.13.10 4.2.7.2.686 [id number] [facility] 2022-12-13 16:00:00 2022-12-13 16:15:08 Outpatient R JAMIL SHIPMAN [facility] [id number] [facility] 2022-12-13 16:00:00 2022-12-13 16:15:08 Outpatient R JAMIL SHIPMAN [facility] [id number] [facility] 2022-12-13 16:00:00 2022-12-13 16:15:08 Routine Visit Jamil Shipman [facility] INSURANCE REPRESENTATIVE [facility] & CHILD [facility] 1.2.840.114 350.1.13.10 4.2.7.2.686 [id number] [facility] 2022-12-10 00:00:00 2022-12-10 00:00:00 Orders Only Doctor Unassigned, [place] [facility] 1.2.840.114 350.1.13.10 4.2.7.2.686 [id number] [facility] 2022-12-10 00:00:00 2022-12-10 00:00:00 Nurse Triage Michelle Song [facility] 1.2840.114 350.1.13.10 4.2.7.2.686 [id number] [facility] 2022-12-09 00:00:00 2022-12-09 00:00:00 Abstract Jamil Shipman [facility] INSURANCE REPRESENTATIVE [facility] & CHILD [facility] 1.2840.114 350.1.13.10 4.2.7.2.686 [id number] [facility] 2022-12-08 15:30:00 2022-12-08 15:30:00 Routine Visit Jamil Shipman [facility] INSURANCE REPRESENTATIVE [facility] & [facility]ILD [facility] 1.2.840.114 350.1.13.10 4.2.7.2.686 [id number] [facility] 2022-12-08 13:30:00 2022-12-08 14:57:22 Outpatient P LETTY MARTÍNEZ [facility] [id number] [facility] 2022-12-08 13:30:00 2022-12-08 14:00:00 Front Office Clerk Visit Ultrasound, Femi Parker Gay [facility] INSURANCE REPRESENTATIVE [facility] & CHILD [facility] .840.114 350.1.13.10 4.2.7.2.686 [id number] [facility] 2022-12-01 16:00:00 2022-12-01 16:00:00 Outpatient R JAMIL SHIPMAN [facility] [id number] [facility] 2022-11-25 00:00:00 2022-11-25 00:00:00 Telephone Jamil Shipman [facility] INSURANCE REPRESENTATIVE [facility] & [facility] .840.114 350.1.13.10 4.2.7.2.686 [id number] 107 [id number] [facility] 2022-11-24 15:45:00 2022-11-24 16:00:00 Routine Visit Jamil Shipman [facility] INSURANCE REPRESENTATIVE [facility] & [facility] .840.114 350.1.13.10 4.2.7.2.686 [id number] 107 [id number] [facility] 2022-11-24 15:45:00 2022-11-24 15:45:00 Outpatient R JAMIL SIHPMAN [facility] [id number] [facility] 2022-11-18 00:00:00 2022-11-18 00:00:00 Abstract Jamil Shipman [facility] INSURANCE REPRESENTATIVE [facility] ..840.114 350.1.13.10 4.2.7.2.686 [id number] 107 [id number] [facility] 2022-11-17 15:30:00 2022-11-17 15:57:14 Outpatient R JAMIL SHIPMAN [facility] [id number] [facility] 2022-11-17 15:30:00 2022-11-17 15:57:14 Routine Visit Jamil Shipman [facility] INSURANCE REPRESENTATIVE [facility] & [facility] 1.2840.114 350.1.13.10 4.2.7.2.686 [id number] 107 [id number] [facility] 2022-11-13 00:00:00 2022-11-13 00:00:00 Nurse Triage Merline Loyola [facility] 1.2.114 350.1.13.10 4.2.7.2.686 [id number] [facility] 2022-11-10 13:30:00 2022-11-10 14:20:18 Front Office Clerk Visit Ultrasound, Femi Parker [facility] INSURANCE REPRESENTATIVE [facility] 1.840.114 350.1.13.10 4.2.7.2.686 [id number] [facility] 2022-11-10 13:30:00 2022-11-10 13:30:00 Outpatient P FEMI SORIANO SHANNON [facility] [id number] [facility] 2022-11-03 15:30:00 2022-11-03 15:58:36 Outpatient R JAMIL SHIPMAN [facility] [id number] [facility] 2022-11-03 15:30:00 2022-11-03 15:58:36 Routine Visit Jamil Shipman [facility] INSURANCE REPRESENTATIVE [facility] 1.2840.114 350.1.13.10 4.2.7.2.686 [id number] 107 [id number] [facility] 2022-10-20 14:00:00 2022-10-20 14:32:17 Outpatient R JAMIL SHIPMAN [facility] [id number] [facility] 2022-10-20 14:00:00 2022-10-20 14:32:17 Routine Visit Jamil Shipman [facility] INSURANCE REPRESENTATIVE [facility] 1.2.840.114 350.1.13.10 4.2.7.2.686 [id number] 107 [id number] [facility] 2022-10-18 00:00:00 2022-10-18 00:00:00 Telephone Jamil Shipman [facility] INSURANCE REPRESENTATIVE [facility] 1.2.840.114 350.1.13.10 4.2.7.2.686 [id number] 107 [id number] [facility] 2022-10-07 00:00:00 2022-10-07 00:00:00 Telephone Jamil Shipman [facility] INSURANCE REPRESENTATIVE [facility] 1.2.840.114 350.1.13.10 4.2.7.2.686 [id number] 107 [id number] [facility] 2022-10-06 13:15:00 2022-10-06 14:15:36 Outpatient R JAMIL SHIPMAN [facility] [id number] [facility] 2022-10-06 13:15:00 2022-10-06 14:15:36 Routine Visit Jamil Shipman [facility] INSURANCE REPRESENTATIVE [facility] 1.2.840.114 350.1.13.10 4.2.7.2.686 [id number] 107 [id number] [facility] 2022-10-06 00:00:00 2022-10-06 00:00:00 Orders Only Doctor Unassigned, [place] [facility] 1.2.840.114 350.1.13.10 4.2.7.2.686 [id number] [facility] 2022-10-06 00:00:00 2022-10-06 00:00:00 Abstract Fam Shipmanjaiden Martínez [facility] INSURANCE REPRESENTATIVE [facility] MATERNAL & CHILD [facility] 1.2.840.114 350.1.13.10 4.2.7.2.686 [id number] [facility] 2022-09-30 13:00:00 2022-09-30 14:12:43 Front Office Clerk Visit Ultrasound, Violeta Graham [facility] INSURANCE REPRESENTATIVE [facility] 1.2.840.114 350.1.13.10 4.2.7.2.686 [id number] [facility] 2022-09-30 13:00:00 2022-09-30 13:00:00 Outpatient VIOLETA AMOS [facility] [id number] [facility] 2022-09-17 09:45:00 2022-09-17 09:56:01 Outpatient WAQAS BETANCUR [facility] [id number] [facility] 2022-09-17 09:45:00 2022-09-17 09:56:01 Telemedici ne Visit Liliana Saenz Joseph W [facility] INSURANCE REPRESENTATIVE [facility] 1.2.840.114 350.1.13.10 4.2.7.2.686 [id number] [facility] 2022-09-09 15:00:00 2022-09-09 16:00:00 Front Office Clerk Visit Ultrasound, Mariajose Esparza [facility] INSURANCE REPRESENTATIVE [facility] 1.2.840.114 350.1.13.10 4.2.7.2.686 [id number] [facility] 2022-09-09 15:00:00 2022-09-09 15:00:00 Outpatient MARIAJOSE HERRERA SANGEETA [facility] [id number] [facility] 2022-09-09 00:00:00 2022-09-09 00:00:00 Telephone Arjunwenceslaofelix Jamil [facility] INSURANCE REPRESENTATIVE [facility] 1.2.840.114 350.1.13.10 4.2.7.2.686 [id number] [facility] 2022-09-09 00:00:00 2022-09-09 00:00:00 Abstract Umberto Jamil Martínez [facility] INSURANCE REPRESENTATIVE [facility] 1.2.840.114 350.1.13.10 4.2.7.2.686 [id number] 107 [id number] [facility] 2022-09-08 14:45:00 2022-09-08 15:42:06 Outpatient R JAMIL SHIPMAN [facility] [id number] [facility] 2022-09-08 14:45:00 2022-09-08 15:42:06 Routine Visit Jamil Shipman [facility] INSURANCE REPRESENTATIVE [facility] CHILD [facility] 1.2.840.114 350.1.13.10 4.2.7.2.686 [id number] [facility] 2022-08-25 13:15:00 2022-08-25 13:46:15 Outpatient R JAMIL SHIPMAN [facility] [id number] [facility] 2022-08-25 13:15:00 2022-08-25 13:46:15 Routine Visit Jamil [facility] INSURANCE REPRESENTATIVE [facility] 1.2.840.114 350.1.13.10 4.2.7.2.686 [id number] [facility] 2022-08-23 00:00:00 2022-08-23 00:00:00 Telephone Jamil Shipman [facility] INSURANCE REPRESENTATIVE [facility] 1.2.840.114 350.1.13.10 4.2.7.2.686 [id number] 107 [id number] [facility] 2022-08-17 00:00:00 2022-08-17 00:00:00 Telephone Jamil Shipman [facility] INSURANCE REPRESENTATIVE [facility] 1.2.840.114 350.1.13.10 4.2.7.2.686 [id number] 107 [id number] [facility] 2022-07-14 11:00:00 2022-07-14 11:00:00 Outpatient P [facility] [id number] [facility] 2022-07-07 13:30:00 2022-07-07 13:30:00 Outpatient P [facility] [id number] [facility] 2022-07-01 00:00:00 2022-07-01 00:00:00 Telephone Jamil Shipman [facility] INSURANCE REPRESENTATIVE [facility] 1.2840.114 350.1.13.10 4.2.7.2.686 [id number] [facility] 2022-06-22 00:00:00 2022-06-22 00:00:00 Telephone Jamil Shipman [facility] INSURANCE REPRESENTATIVE [facility] 1.2.840.114 350.1.13.10 4.2.7.2.686 [id number] 107 [id number] [facility] 2022-06-16 10:00:00 2022-06-16 11:32:10 Outpatient R JAMIL SHIPMAN [facility] [id number] [facility] 2022-06-16 10:00:00 2022-06-16 11:32:10 Initial Visit Jamil Shipman [facility] INSURANCE REPRESENTATIVE [facility] 1.2.840.114 350.1.13.10 4.2.7.2.686 [id number] 107 [id number] [facility] 2022-06-16 00:00:00 2022-06-16 00:00:00 Orders Only Doctor Unassigned, [place] [facility] 1.840.114 350.1.13.10 4.2.7.2.686 [id number] [facility] 2022-06-11 10:00:00 2022-06-11 10:00:00 Outpatient JAMIL SINCLAIR [facility] [id number] [facility] 2021-09-29 00:00:00 2021-09-29 00:00:00 Letter (Out) Jacquie Moon [facility] 1.840.114 350.1.13.10 4.2.7.2.686 [id number] [facility] 2021-09-28 15:15:00 2021-09-28 16:05:33 Laboratory Only Only, Adc Pob2 Test Kristine Sage [facility] 1.840.114 350.1.13.10 4.2.7.2.686 [id number] [facility] 2021-09-28 15:15:00 2021-09-28 15:15:00 Outpatient KRISTINE CERVANTES [facility] [id number] [facility] 2021-09-24 15:00:00 2021-09-24 15:15:00 Laboratory Only Only, Adc Test Johanna Conti [facility] 1.840.114 350.1.13.10 4.2.7.2.686 [id number] [facility] 2021-09-24 15:00:00 2021-09-24 15:00:00 Outpatient Mary Alice [facility] [id number] [facility] 2021-09-24 00:00:00 2021-09-24 00:00:00 Orders Only Doctor Unassigned, [place] [facility] 1.2840.114 350.1.13.10 4.2.7.2.686 [id number] [facility] Results Test Description Test Time Test Comments Results Result Co mments Source [facility] [id number] 19:40:00* Test Item Value Reference Range Interpretation Comme nts POCT PREG (test code = 1605) Negative On board controls acceptable with C Line (test code = 3574) Yes POCT PREG LOT # (test code = 3575) POCT PREG TEST DATE ( test code = 3576) Lab Interpretation (test cod e = 19886-5) Normal [facility] [id number] 16:24:00* Test Item Value Reference Range Interpretation Comme nts POCT PREG (test code = 1605) Negative On board controls acceptable with C Line (test code = 3574) Yes POCT PREG LOT # (test code = 3575) POCT PREG TEST DATE (test code = 3576) RICHELLE (test code = RICHELLE) accurate developme nt and interpretation of all internal controls [facility] [id number] 16:24:00* Test Item Value Reference Range Interpretation Comme nts POCT PREG (test code = 1605) Negative On board controls acceptable with C Line (test code = 3574) Yes POCT PREG LOT # (test code = 3575) POCT PREG TEST DATE (test code = 3576) RICHELLE (test code = RICHELLE) accurate developme nt and interpretation of all internal controls [facility] [id number] 16:24:00* Test Item Value Reference Range Interpretation Comme nts POCT PREG (test code = 1605) Negative On board controls acceptable with C Line (test code = 3574) Yes POCT PREG LOT # (test code = 3575) POCT PREG TEST DATE (test code = 3576) RICHELLE (test code = RICHELLE) accurate developme nt and interpretation of all internal controls [facility] [id number] 16:24:00* Test Item Value Reference Range Interpretation Comme nts POCT PREG (test code = 1605) Negative On board controls acceptable with C Line (test code = 3574) Yes POCT PREG LOT # (test code = 3575) POCT PREG TEST DATE (test code = 3576) RICHELLE (test code = RICHELLE) accurate developme nt and interpretation of all internal controls [facility][id number] 14:16:06* Test Item Value Reference Range Interpretation Comme nts ALTv (test code = 1742-6) 12 U/L 5-35 Lab Interpretation (test cod e = 73480-3) [facility] AM[facility]2022-12-16 14:16:06* Test Item Value Reference Range Interpretation Comme nts AST(SGOT) (test code = 2417223692) 37 U/L 13-40 Lab Interpretation (test cod e = 56327-8) [facility] 14:16:05* Test Item Value Reference Range Interpretation Comme nts CREATININE (test code = 0630173903) 0.59 mg/dL 0.50-1.04 RICHELLE (test code = RICHELLE) Association of Glomerular Filtration Rate (GFR) and Staging of Kidney Disease* + --+ --+ ------+| GFR (mL/min/1.73 m2) ?| With Kidney Damage ?| ?Without Kidney Damage+ --------+ --------+ +| ?>90 ?| ?Stage one ?| ? Normal ?+ ---+ ---+ -------+| ?60-89 ?| ?Stage two ?| ? Decreased GFR ? + --+ --+ ------+| ?30-59 ?| ?Stage three ?| ? Stage three ? + --+ --+ ------+| ?15-29 ?| ?Stage four ? | ? Stage four ?+ ---+ ---+ -------+| ?<15 (or dialysis) ? ?| ?Stage five ? | ? Stage five ?+ ---+ ---+ -------+ *Each stage assumes the associated GFR level has been in effect for at least three months. ?Stages 1 to 5, with or without kidney disease, indicate chronic kidney disease. Notes: Determination of stages one and two (with eGFR >59mL/min/1.73 m2) requires estimation of kidney damage for at least three months as defined by structural or functional abnormalities of the kidney, manifested by either:Pathological abnormalities or Markers of kidney damage (including abnormalities in the composition of the blood or urine or abnormalities in imaging tests). Lab Interpretation (test code = 83117-9) [id number] 14:16:05* Test Item Value Reference Range Interpretation Comme nts URIC ACID (test code = 4256235991) 5.9 mg/dL 2.9-6.0 Lab Interpretation (test cod e = 62131-5) Normal [facility] HospitalLACTATE [id number] 14:16:05* Test Item Value Reference Range Interpretation Comme nts LDH (test code = 4183879207) 235 U/L 120-246 Lab Interpretation (test cod e = 37381-0) Normal [facility]CB WITH [id number] 14:09:06* Test Item Value Reference Range Interpretation Comme nts WBC (test code = 6690-2) 11.18 See_Comment [Automated joiza [email or web address]] The system which generated this result transmitted reference range: 4.50 - 13.50 10*3/?L. The reference range was not used to interpret this result as normal/abnormal. RBC (test code = 789-8) 2.78 See_Comment L [Automated joiza [email or web address]] The system which generated this result transmitted reference range: 4.10 - 5.10 10*6/?L. The reference range was not used to interpret this result as normal/abnormal. HGB (test code = 718-7) 7.3 g/dL 12.0-16.0 L HCT (test code = 4544-3) 23.6 % 36.0-45.0 L MCV (test code = 787-2) 84.9 fL 78.0-95.0 MCH (test code = 785-6) 26.3 pg 26.0-32.0 MCHC (test code = 786-4) 30.9 g/dL 32.0-36.0 L RDW-SD (test code = 62063-1) 53.2 fL 38.5-49.0 H RDW-CV (test code = 788-0) 17.6 % 11.5-14.0 H PLT (test code = 777-3) 214 See_Comment [Automated messa ge] The system which generated this result transmitted reference range: 135 - 361 10*3/?L. The reference range was not used to interpret this result as normal/abnormal. MPV (test code = 98617-3) 10.8 fL 9.4-13.3 NRBC/100 WBC (test code = 1981870879) 0.0 See_Comment [Automated me ssage] The system which generated this result transmitted reference range: 0.0 - 10.0 /100 WBCs. The reference range was not used to interpret this result as normal/abnormal. NRBC x10^3 (test code = 3375811093) See_Comment [Automated messa ge] The system which generated this result transmitted reference range: 10*3/?L. The reference range was not used to interpret this result as normal/abnormal. GRAN MAT (NEUT) % (test code = 770-8) 72.2 % IMM GRAN % (test code = 4036102888) 0.70 % LYMPH % (test code = 736-9) 21.5 % MONO % (test code = 5905-5) 4.0 % EOS % (test code = 713-8) 1.4 % BASO % (test code = 706-2) 0.2 % GRAN MAT x10^3(ANC) (test code = 5599921002) 8.07 10*3/uL 1.50-10.30 IMM GRAN x10^3 (test code = 7733038140) 0.08 10*3/uL 0.00-0.06 H LYMPH x10^3 (test code = 731-0) 2.40 10*3/uL 0.70-7.40 MONO x10^3 (test code = 742-7) 0.45 10*3/uL 0.00-0.50 EOS x10^3 (test code = 711-2) 0.16 10*3/uL 0.00-0.40 BASO x10^3 (test code = 704-7) 0.00-0.10 Lab Interpretation (test code = 88862-0) [facility]normal [facility] IMMUNE [id number] 00:14:56* Test Item Value Reference Range Interpretation Comme nts RHIG CANDIDATE? (test code = 5188) No- see comment Patient is not a candidate for RhIg- Patient is Rh Positive.Performed at [facility] Laboratory Services - [facility] [address] [place] [id number] Free: [phone] No. [id number] [facility] ONLY - SYPHILIS IGG/[id number] 14:37:43* Test Item Value Reference Range Interpretation Comme [facility] Syphilis IgG/IgM (test code = 25253-3) Non-reactive Non-reactive RICHELLE (test code = RICHELLE) Non-reactive - No serologic evidence of T. pallidum infection. Cannot exclude incubating or early syphilis. Submit a second specimen in 2-4 weeks if syphilis is clinically suspected. Equivocal - Further testing to follow. Reactive - Further testing to follow. Lab Interpretation (test code = 72479-4) Normal [facility] HospitalVENOUS CORD [id number] 13:10:06* Test Item Value Reference Range Interpretation Comme [facility] VENOUS BASE EXCESS, CORD (test code = 5975165584) -4.4 mEq/L VENOUS PH, CORD (test code = 3960401063) 7.33 7.25-7.45 VENOUS PC02, CORD (test code = 9407128442) 42 See_Comment [Automated me ssage] The system which generated this result transmitted reference range: 27 - 49 mmHg. The reference range was not used to interpret this result as normal/abnormal. VENOUS PO2, CORD (test code = 2595784428) 16 See_Comment L [Automated me ssage] The system which generated this result transmitted reference range: 17 - 41 mmHg. The reference range was not used to interpret this result as normal/abnormal. VENOUS BICARBONATE, CORD (test code = 2815721362) 21 See_Comment [Automa chan message] The system which generated this result transmitted reference range: 12 - 29 mEq/L. The reference range was not used to interpret this result as normal/abnormal. Lab Interpretation (test code = 11206-5) Abnormal [facility] 1/2 AG-AB WITH [id number] 04:11:14* Test Item Value Reference Range Interpretation Comme [facility] HIV Semi-quantitative (test code = 64857-6) 0.08 Negative RICHELLE (test code = RICHELLE) Non-reactive for HIV-1 antigen and HIV-1/HIV-2 antibodies. ?No laboratory evidence of HIV infection. ?Repeat in 2-4 weeks if acute HIV infection is suspected. [facility] HospitalHepatitis B Surface [id number] 04:02:55 * Test Item Value Reference Range Interpretation Comme [facility] HBsAg Semi-Quantitative (linda t code = 5195-3) 0.05 Negative [facility] HospitalLactate Nymghjxwyovvz5461-41-36 03:29:49* Test Item Value Reference Range Interpretation Comme nts LDH (test code = 2374820375) 378 U/L 120-246 H Slight hemolysis Lab Interpretation (test code = 61431-5) Abnormal [facility] HospitalUric Acid [id number] 03:29:29* Test Item Value Reference Range Interpretation Comme [facility] URIC ACID (test code = 7539235901) 7.1 mg/dL 2.9-6.0 H Lab Interpretation (test cod e = 25592-4) Abnormal [facility] HospitalSerum Lhncqwitnt5334-67-22 03:29:29* Test Item Value Reference Range Interpretation Comme nts CREATININE (test code = 4309044395) 0.60 mg/dL 0.50-1.04 RICHELLE (test code = RICHELLE) Association of Glomerular Filtration Rate (GFR) and Staging of Kidney Disease* + --+ --+ ------+| GFR (mL/min/1.73 m2) ?| With Kidney Damage ?| ?Without Kidney Damage+ --------+ --------+ +| ?>90 ?| ?Stage one ?| ? Normal ?+ ---+ ---+ -------+| ?60-89 ?| ?Stage two ?| ? Decreased GFR ? + --+ --+ ------+| ?30-59 ?| ?Stage three ?| ? Stage three ? + --+ --+ ------+| ?15-29 ?| ?Stage four ? | ? Stage four ?+ ---+ ---+ -------+| ?<15 (or dialysis) ? ?| ?Stage five ? | ? Stage five ?+ ---+ ---+ -------+ *Each stage assumes the associated GFR level has been in effect for at least three months. ?Stages 1 to 5, with or without kidney disease, indicate chronic kidney disease. Notes: Determination of stages one and two (with eGFR >59mL/min/1.73 m2) requires estimation of kidney damage for at least three months as defined by structural or functional abnormalities of the kidney, manifested by either:Pathological abnormalities or Markers of kidney damage (including abnormalities in the composition of the blood or urine or abnormalities in imaging tests). Lab Interpretation (test code = 95840-2) Normal [facility] HospitalSGOT (Asparate Amino Transfer)2022-12-14 03:29:29* Test Item Value Reference Range Interpretation Comme nts AST(SGOT) (test code = 8195201365) 24 U/L 13-40 Lab Interpretation (test cod e = 61645-7) Normal [facility] HospitalAlanine Amino Transferase (SGPT)2022-12-14 03:29:29* Test Item Value Reference Range Interpretation Comme nts ALTv (test code = 1742-6) 10 U/L 5-35 Lab Interpretation (test cod e = 76400-4) Normal [facility] HospitalCBC with [id number] 03:06:00* Test Item Value Reference Range Interpretation Comme nts WBC (test code = 6690-2) 8.50 See_Comment [Automated joiza ge] The system which generated this result transmitted reference range: 4.50 - 13.50 10*3/?L. The reference range was not used to interpret this result as normal/abnormal. RBC (test code = 789-8) 3.23 See_Comment L [Automated joiza ge] The system which generated this result transmitted reference range: 4.10 - 5.10 10*6/?L. The reference range was not used to interpret this result as normal/abnormal. HGB (test code = 718-7) 8.5 g/dL 12.0-16.0 L HCT (test code = 4544-3) 27.5 % 36.0-45.0 L MCV (test code = 787-2) 85.1 fL 78.0-95.0 MCH (test code = 785-6) 26.3 pg 26.0-32.0 MCHC (test code = 786-4) 30.9 g/dL 32.0-36.0 L RDW-SD (test code = 48513-4) 52.6 fL 38.5-49.0 H RDW-CV (test code = 788-0) 17.1 % 11.5-14.0 H PLT (test code = 777-3) 218 See_Comment [Automated messa ge] The system which generated this result transmitted reference range: 135 - 361 10*3/?L. The reference range was not used to interpret this result as normal/abnormal. MPV (test code = 02699-8) 11.8 fL 9.4-13.3 NRBC/100 WBC (test code = 5189806602) 0.0 See_Comment [Automated me ssage] The system which generated this result transmitted reference range: 0.0 - 10.0 /100 WBCs. The reference range was not used to interpret this result as normal/abnormal. NRBC x10^3 (test code = 3231149081) See_Comment [Automated messa ge] The system which generated this result transmitted reference range: 10*3/?L. The reference range was not used to interpret this result as normal/abnormal. GRAN MAT (NEUT) % (test code = 770-8) 81.1 % IMM GRAN % (test code = 3025948013) 0.60 % LYMPH % (test code = 736-9) 12.5 % MONO % (test code = 5905-5) 5.6 % EOS % (test code = 713-8) 0.0 % BASO % (test code = 706-2) 0.2 % GRAN MAT x10^3(ANC) (test code = 9098427723) 6.89 10*3/uL 1.50-10.30 IMM GRAN x10^3 (test code = 0155203970) 0.05 10*3/uL 0.00-0.06 LYMPH x10^3 (test code = 731-0) 1.06 10*3/uL 0.70-7.40 MONO x10^3 (test code = 742-7) 0.48 10*3/uL 0.00-0.50 EOS x10^3 (test code = 711-2) 0.00-0.40 BASO x10^3 (test code = 704-7) 0.00-0.10 Lab Interpretation (test code = 32839-3) Abnormal [facility] HospitalType and Screen - ONCE [id number] 02:47:00 * Test Item Value Reference Range Interpretation Comme nts ABO & RH (test code = 20) A POSITIVE IAT (test code = 1185) Negative [facility] URINALYSIS W SPECIFIC [id number] 21:06:00* Test Item Value Reference Range Interpretation Comme nts POCT U SP GRAV (test code = 3255) . 1.005-1.025 POCT PH U (test code = 3254) . 5-8 POCT U LEUK EST (test code = 3263) . Negative - N egative POCT U NIT (test code = 3262) . Negative - Negati ve POCT U PROT (test code = 3259) 3+ Negative - Negat kelvin POCT U GLU (test code = 3256) neg Negative - Negati ve POCT U KETONE (test code = 3258) . Negative - Neg ative POCT U UROBILI (test code = 3260) . 0.2-1 POCT U BILI (test code = 3261) . Negative - Negat kelvin POCT U BLD (test code = 3257) . Negative - Negati ve POCT U COLOR (test code = 3266) . POCT U APPEAR (test code = 3267) . [facility] URINALYSIS W SPECIFIC [id number] 19:30:00* Test Item Value Reference Range Interpretation Comme nts POCT U SP GRAV (test code = 3255) . 1.005-1.025 POCT PH U (test code = 3254) . 5-8 POCT U LEUK EST (test code = 3263) . Negative - N egative POCT U NIT (test code = 3262) . Negative - Negati ve POCT U PROT (test code = 3259) . Negative - Negat kelvin POCT U GLU (test code = 3256) trace Negative - Negati ve POCT U KETONE (test code = 3258) neg Negative - Neg ative POCT U UROBILI (test code = 3260) . 0.2-1 POCT U BILI (test code = 3261) . Negative - Negat kelvin POCT U BLD (test code = 3257) . Negative - Negati ve POCT U COLOR (test code = 3266) . POCT U APPEAR (test code = 3267) . [facility] URINALYSIS W SPECIFIC [id number] 20:24:00* Test Item Value Reference Range Interpretation Comme nts POCT U SP GRAV (test code = 3255) . 1.005-1.025 POCT PH U (test code = 3254) . 5-8 POCT U LEUK EST (test code = 3263) . Negative - N egative POCT U NIT (test code = 3262) . Negative - Negati ve POCT U PROT (test code = 3259) 1+ Negative - Negat kelvin POCT U GLU (test code = 3256) Neg Negative - Negati ve POCT U KETONE (test code = 3258) . Negative - Neg ative POCT U UROBILI (test code = 3260) . 0.2-1 POCT U BILI (test code = 3261) . Negative - Negat kelvin POCT U BLD (test code = 3257) . Negative - Negati ve POCT U COLOR (test code = 3266) . POCT U APPEAR (test code = 3267) . [facility] URINALYSIS W SPECIFIC [id number] 20:40:00* Test Item Value Reference Range Interpretation Comme nts POCT U SP GRAV (test code = 3255) . 1.005-1.025 POCT PH U (test code = 3254) . 5-8 POCT U LEUK EST (test code = 3263) . Negative - N egative POCT U NIT (test code = 3262) . Negative - Negati ve POCT U PROT (test code = 3259) 1+ Negative - Negat kelvin POCT U GLU (test code = 3256) Neg Negative - Negati ve POCT U KETONE (test code = 3258) . Negative - Neg ative POCT U UROBILI (test code = 3260) . 0.2-1 POCT U BILI (test code = 3261) . Negative - Negat kelvin POCT U BLD (test code = 3257) . Negative - Negati ve POCT U COLOR (test code = 3266) . POCT U APPEAR (test code = 3267) [facility] URINALYSIS W SPECIFIC [id number] 21:44:00* Test Item Value Reference Range Interpretation Comme nts POCT U SP GRAV (test code = 3255) . 1.005-1.025 POCT PH U (test code = 3254) . 5-8 POCT U LEUK EST (test code = 3263) . Negative - N egative POCT U NIT (test code = 3262) . Negative - Negati ve POCT U PROT (test code = 3259) trace Negative - Negat kelvin POCT U GLU (test code = 3256) neg Negative - Negati ve POCT U KETONE (test code = 3258) . Negative - Neg ative POCT U UROBILI (test code = 3260) . 0.2-1 POCT U BILI (test code = 3261) . Negative - Negat kelvin POCT U BLD (test code = 3257) . Negative - Negati ve POCT U COLOR (test code = 3266) . POCT U APPEAR (test code = 3267) . [facility] URINALYSIS W SPECIFIC [id number] 20:08:00* Test Item Value Reference Range Interpretation Comme nts POCT U SP GRAV (test code = 3255) . 1.005-1.025 POCT PH U (test code = 3254) . 5-8 POCT U LEUK EST (test code = 3263) . Negative - N egative POCT U NIT (test code = 3262) . Negative - Negati ve POCT U PROT (test code = 3259) 1+ Negative - Negat kelvin POCT U GLU (test code = 3256) neg Negative - Negati ve POCT U KETONE (test code = 3258) . Negative - Neg ative POCT U UROBILI (test code = 3260) . 0.2-1 POCT U BILI (test code = 3261) . Negative - Negat kelvin POCT U BLD (test code = 3257) . Negative - Negati ve POCT U COLOR (test code = 3266) . POCT U APPEAR (test code = 3267) . [facility] URINALYSIS W SPECIFIC [id number] 19:34:00* Test Item Value Reference Range Interpretation Comme nts POCT U SP GRAV (test code = 3255) . 1.005-1.025 POCT PH U (test code = 3254) . 5-8 POCT U LEUK EST (test code = 3263) . Negative - N egative POCT U NIT (test code = 3262) . Negative - Negati ve POCT U PROT (test code = 3259) 1+ Negative - Negat kelvin POCT U GLU (test code = 3256) Neg Negative - Negati ve POCT U KETONE (test code = 3258) . Negative - Neg ative POCT U UROBILI (test code = 3260) . 0.2-1 POCT U BILI (test code = 3261) . Negative - Negat kelvin POCT U BLD (test code = 3257) . Negative - Negati ve POCT U COLOR (test code = 3266) POCT U APPEAR (test code = 3267) [facility] URINALYSIS W SPECIFIC [id number] 19:34:00* Test Item Value Reference Range Interpretation Comme nts POCT U SP GRAV (test code = 3255) . 1.005-1.025 POCT PH U (test code = 3254) . 5-8 POCT U LEUK EST (test code = 3263) . Negative - N egative POCT U NIT (test code = 3262) . Negative - Negati ve POCT U PROT (test code = 3259) 1+ Negative - Negat kelvin POCT U GLU (test code = 3256) Neg Negative - Negati ve POCT U KETONE (test code = 3258) . Negative - Neg ative POCT U UROBILI (test code = 3260) . 0.2-1 POCT U BILI (test code = 3261) . Negative - Negat kelvin POCT U BLD (test code = 3257) . Negative - Negati ve POCT U COLOR (test code = 3266) POCT U APPEAR (test code = 3267) [facility] URINALYSIS W SPECIFIC [id number] 19:34:00* Test Item Value Reference Range Interpretation Comme nts POCT U SP GRAV (test code = 3255) . 1.005-1.025 POCT PH U (test code = 3254) . 5-8 POCT U LEUK EST (test code = 3263) . Negative - N egative POCT U NIT (test code = 3262) . Negative - Negati ve POCT U PROT (test code = 3259) 1+ Negative - Negat kelvin POCT U GLU (test code = 3256) Neg Negative - Negati ve POCT U KETONE (test code = 3258) . Negative - Neg ative POCT U UROBILI (test code = 3260) . 0.2-1 POCT U BILI (test code = 3261) . Negative - Negat kelvin POCT U BLD (test code = 3257) . Negative - Negati ve POCT U COLOR (test code = 3266) POCT U APPEAR (test code = 3267) [facility] URINALYSIS W SPECIFIC [id number] 21:24:00* Test Item Value Reference Range Interpretation Comme nts POCT U SP GRAV (test code = 3255) . 1.005-1.025 POCT PH U (test code = 3254) . 5-8 POCT U LEUK EST (test code = 3263) . Negative - Negative POCT U NIT (test code = 3262) . Negative - Negati ve POCT U PROT (test code = 3259) trace Negative - Negat kelvin POCT U GLU (test code = 3256) negative Negative - Negati ve POCT U KETONE (test code = 3258) . Negative - Neg ative POCT U UROBILI (test code = 3260) . 0.2-1 POCT U BILI (test code = 3261) . Negative - Negat kelvin POCT U BLD (test code = 3257) . Negative - Negati ve POCT U COLOR (test code = 3266) . POCT U APPEAR (test code = 3267) . [facility] URINALYSIS W SPECIFIC [id number] 19:14:00* Test Item Value Reference Range Interpretation Comme nts POCT U SP GRAV (test code = 3255) . 1.005-1.025 POCT PH U (test code = 3254) . 5-8 POCT U LEUK EST (test code = 3263) . Negative - N egative POCT U NIT (test code = 3262) . Negative - Negati ve POCT U PROT (test code = 3259) Trace Negative - Negat kelvin POCT U GLU (test code = 3256) Neg Negative - Negati ve POCT U KETONE (test code = 3258) . Negative - Neg ative POCT U UROBILI (test code = 3260) . 0.2-1 POCT U BILI (test code = 3261) . Negative - Negat kelvin POCT U BLD (test code = 3257) . Negative - Negati ve POCT U COLOR (test code = 3266) . POCT U APPEAR (test code = 3267) . [facility] URINALYSIS W SPECIFIC [id number] 19:14:00* Test Item Value Reference Range Interpretation Comme nts POCT U SP GRAV (test code = 3255) . 1.005-1.025 POCT PH U (test code = 3254) . 5-8 POCT U LEUK EST (test code = 3263) . Negative - N egative POCT U NIT (test code = 3262) . Negative - Negati ve POCT U PROT (test code = 3259) Trace Negative - Negat kelvin POCT U GLU (test code = 3256) Neg Negative - Negati ve POCT U KETONE (test code = 3258) . Negative - Neg ative POCT U UROBILI (test code = 3260) . 0.2-1 POCT U BILI (test code = 3261) . Negative - Negat kelvin POCT U BLD (test code = 3257) . Negative - Negati ve POCT U COLOR (test code = 3266) . POCT U APPEAR (test code = 3267) . [facility] URINALYSIS W SPECIFIC [id number] 19:14:00* Test Item Value Reference Range Interpretation Comme nts POCT U SP GRAV (test code = 3255) . 1.005-1.025 POCT PH U (test code = 3254) . 5-8 POCT U LEUK EST (test code = 3263) . Negative - N egative POCT U NIT (test code = 3262) . Negative - Negati ve POCT U PROT (test code = 3259) Trace Negative - Negat kelvin POCT U GLU (test code = 3256) Neg Negative - Negati ve POCT U KETONE (test code = 3258) . Negative - Neg ative POCT U UROBILI (test code = 3260) . 0.2-1 POCT U BILI (test code = 3261) . Negative - Negat kelvin POCT U BLD (test code = 3257) . Negative - Negati ve POCT U COLOR (test code = 3266) . POCT U APPEAR (test code = 3267) . [facility] [id number] 19:14:00* Test Item Value Reference Range Interpretation Comme nts POCT U SP GRAV (test code = 3255) . 1.005-1.025 POCT PH U (test code = 3254) . 5-8 POCT U LEUK EST (test code = 3263) . Negative - N egative POCT U NIT (test code = 3262) . Negative - Negati ve POCT U PROT (test code = 3259) Trace Negative - Negat kelvin POCT U GLU (test code = 3256) Neg Negative - Negati ve POCT U KETONE (test code = 3258) . Negative - Neg ative POCT U UROBILI (test code = 3260) . 0.2-1 POCT U BILI (test code = 3261) . Negative - Negat kelvin POCT U BLD (test code = 3257) . Negative - Negati ve POCT U COLOR (test code = 3266) . POCT U APPEAR (test code = 3267) . [facility] HospitalVZV ANTIBODY [id number] 17:05:33* Test Item Value Reference Range Interpretation Comme [facility] VZV IgG antibody (test code = 10136-5) Negative Negative RICHELLE (test code = RICHELLE) Positive - Indicat es the patient was exposed to VZV through infection or vaccination.Negative - Indicates the patient could be susceptible to VZV infection.Equivocal - A second specimen should be sent for testing. [facility] HospitalRUBELLA SCREEN (ERLINDA) [id number] 17:05:13 * Test Item Value Reference Range Interpretation Comme [facility] Rubella screen IgG (test code = 0082117374) Equivocal Negative RICHELLE (test code = RICHELLE) Positive - Indicat es the patient was exposed to Rubella through infection or vaccination.Negative - Indicates the patient could be susceptible to Rubella infection.Equivocal - A second specimen should be sent. [facility]GAL[facility] - [place]PHILIS [id number] 15:58:45* Test Item Value Reference Range Interpretation Comme nts Syphilis IgG/IgM (test code = 80242-3) Non-reactive Non-reactive RICHELLE (test code = RICHELLE) Non-reactive - No serologic evidence of T. pallidum infection. Cannot exclude incubating or early syphilis. Submit a second specimen in 2-4 weeks if syphilis is clinically suspected. Equivocal - Further testing to follow. Reactive - Further testing to follow. Lab Interpretation (test code = 35425-9) Normal [facility]HIV [facility]/2 AG-AB WITH [id number] 06:51:47* Test Item Value Reference Range Interpretation Comme nts HIV Semi-quantitative (test code = 76652-3) Negative Negative RICHELLE (test code = RICHELLE) Non-reactive for HIV-1 antigen and HIV-1/HIV-2 antibodies. ?No laboratory evidence of HIV infection. ?Repeat in 2-4 weeks if acute HIV infection is suspected. [facility] HospitalHEPATITIS B SURFACE [id number] 04:40:24 * Test Item Value Reference Range Interpretation Comme nts HBsAg Semi-Quantitative (linda t code = 5195-3) Negative Negative [facility] HospitalCBC WITH [id number] 04:08:51* Test Item Value Reference Range Interpretation Comme nts WBC (test code = 6690-2) See_Comment [Automated joiza ge] The system which generated this result transmitted reference range: 4.50 - 13.50 10*3/?L. The reference range was not used to interpret this result as normal/abnormal. RBC (test code = 789-8) See_Comment [Automated joiza ge] The system which generated this result transmitted reference range: 4.10 - 5.10 10*6/?L. The reference range was not used to interpret this result as normal/abnormal. HGB (test code = 718-7) 13.3 g/dL 12-16 HCT (test code = 4544-3) 38.7 % 36-45 MCV (test code = 787-2) 90.6 fL 78-95 MCH (test code = 785-6) 31.1 pg 26-32 MCHC (test code = 786-4) 34.4 g/dL 32-36 RDW-SD (test code = 62658-9) 38.3 fL 38.5-49 L RDW-CV (test code = 788-0) 11.7 % 11.5-14 PLT (test code = 777-3) See_Comment [Automated joiza [email or web address]] The system which generated this result transmitted reference range: 135 - 361 10*3/?L. The reference range was not used to interpret this result as normal/abnormal. MPV (test code = 03356-1) 10.6 fL 9.4-13.3 IPF % (test code = 4551192545) 3.2 % 0-7.4 Platelet count measured by fluorescence method. NRBC/100 WBC (test code = 5220885518) See_Comment [Automated 1010datage] The system which generated this result transmitted reference range: 0.0 - 10.0 /100 WBCs. The reference range was not used to interpret this result as normal/abnormal. NRBC x10^3 (test code = 1040677827) See_Comment [Automated Instabeat] The system which generated this result transmitted reference range: 10*3/?L. The reference range was not used to interpret this result as normal/abnormal. GRAN MAT (NEUT) % (test code = 770-8) 77.9 % IMM GRAN % (test code = 2638896529) 0.40 % LYMPH % (test code = 736-9) 15.9 % MONO % (test code = 5905-5) 5.5 % EOS % (test code = 713-8) 0.1 % BASO % (test code = 706-2) 0.2 % GRAN MAT x10^3(ANC) (test code = 9910037332) 7.06 10*3/uL 1.5-10.3 IMM GRAN x10^3 (test code = 4671046422) 0.04 10*3/uL 0-0.06 LYMPH x10^3 (test code = 731-0) 1.44 10*3/uL 0.7-7.4 MONO x10^3 (test code = 742-7) 0.50 10*3/uL 0-0.5 EOS x10^3 (test code = 711-2) 0-0.4 BASO x10^3 (test code = 704-7) 0-0.1 BANDS (test code = 9775360478) Increased A Lab Interpretation (test code = 11931-1) [facility]normal [facility] [id number] 04:05:19 * Test Item Value Reference Range Interpretation Comme nts ABO & RH (test code = 20) A POSITIVE Performed at [facility] Laboratory Services - [facility] Blood [address] Free: [phone] No. [id number] IAT (test code = 1185) Negative Performed at [facility] Laboratory Services [facility] Blood [address] Free: [phone] No. [id number] [facility]/O SPECIFIC [id number] 15:01:00* Test Item Value Reference Range Interpretation Comme nts POCT PH U (test code = 3254) 6 mg/dl 5-8 POCT U LEUK EST (test code = 3263) 2+ Negative - Negative POCT U NIT (test code = 3262) Neg Negative - Negati ve POCT U PROT (test code = 3259) 1+ Negative - Negat kelvin POCT U GLU (test code = 3256) Neg Negative - Negati ve POCT U KETONE (test code = 3258) None Negative - Neg ative POCT U BLD (test code = 3257) Large Negative - Negati ve [facility] W/O SPECIFIC [id number] 15:01:00* Test Item Value Reference Range Interpretation Comme nts POCT PH U (test code = 3254) 6 mg/dl 5-8 POCT U LEUK EST (test code = 3263) 2+ Negative - Negative POCT U NIT (test code = 3262) Neg Negative - Negati ve POCT U PROT (test code = 3259) 1+ Negative - Negat kelvin POCT U GLU (test code = 3256) Neg Negative - Negati ve POCT U KETONE (test code = 3258) None Negative - Neg ative POCT U BLD (test code = 3257) Large Negative - Negati ve [facility] [id number] 15:00:00* Test Item Value Reference Range Interpretation Comme nts POCT PREG (test code = 1605) Positive On board controls acceptable with C Line (test code = 3574) Yes POCT PREG LOT # (test code = 3575) POCT PREG TEST DATE ( test code = 3576) [facility] [id number] 15:00:00* Test Item Value Reference Range Interpretation Comme nts POCT PREG (test code = 1605) Positive On board controls acceptable with C Line (test code = 3574) Yes POCT PREG LOT # (test code = 3575) POCT PREG TEST DATE ( test code = 3576) [facility], NAAT, [id number] 19:24:50* Test Item Value Reference Range Interpretation Comme nts GONORRHEA, NAAT (test code = 28986) NEGATIVE NEGATIVE IMPORTANT NO JOSÉ MIGUEL: SEE ANNOUNCEMENT AT [email or web address] Note: Assay methodology is nucleic acid amplification by traffic counter mediated amplification (TMA) utilizing the Aptima Combo 2 Assay. CHLAMYDIA, NAAT (test code = 04412) NEGATIVE NEGATIVE IMPORTANT NO JOSÉ MIGUEL: SEE ANNOUNCEMENT AT [email or web address] [email or web address] Note: Assay methodology is nucleic acid amplification by traffic counter mediated amplification (TMA) utilizing the Aptima Combo 2 Assay. VAGINAL PATHOGENS DNA [id number] 17:16:50* Test Item Value Reference Range Interpretation Comme nts PARAG SPECIES (test code = 32201) NEGATIVE NEGATIVE G. VAGINALIS (test code = 86920) POSITIVE NEGATIVE A T. VAGINALIS (test code = 11186) NEGATIVE NEGATIVE UNLESS OTHERWISE INDICATED, ALL TESTING PERFORMED [facility] [address] [place] [address] BRIM PLATER: VAMSI HEATON M.D. CLIA NUMBER [id number] [facility] [place]. [id number] 04:27:22* Test Item Value Reference Range Interpretation Comme nts RPR RESULT (test code = 3501) NON-REACTIVE NON-REACTIVE RPR TITER (test code = 3500) NOT INDIC. TITER NOT INDIC. HIV 1/2 4TH GEN, RFLX [id number] 03:17:47* Test Item Value Reference Range Interpretation Comme nts HIV 1/2 4TH GEN, RFLX CONF ( test code = 3514) NON-REACTIVE NON-REACTIVE HEPATITIS PANEL, [id number] 03:17:47* Test Item Value Reference Range Interpretation Comme nts HEPATITIS A IgM (test code = 02395) NON-REACTIVE NON-REACTIVE HEPATITIS B CORE IgM (test code = 4644) NON-REACTIVE NON-REACTIVE HEPATITIS B SURF AG (test code = 2739) NON-REACTIVE NON-REACTIVE HEPATITIS C ANTIBODY (test code = 4675) NON-REACTIVE NON-REACTIVE INTERPRETATION HEPATITIS A: (test code = 2552) (NOTE) Hepatitis A serology shows no evidence of acute hepatitis A. INTERPRETATION HEPATITIS B: (test code = 63447) (NOTE) Hepatitis B serology shows no evidence of acute hepatitis B andno indication of exposure to hepatitis B virus in the previous von eight months. INTERPRETATION HEPATITIS C: (test code = 67335) (NOTE) Hepatitis C serology shows no evidence of exposure to hepatitisC virus at this time. It can take up to 12 months after exposure tothe hepatitis C virus for antibodies to become detectable in the blood in certain patients. Notes Date/Time Note Provider Source 2024-03-09 10:52:32 Called pt, discussed results and poc. Verbalized understanding. Elizabeth Durand RN 03/09/24 10:53 AM [facility], [facility] 2024-03-09 08:14:03 Called pt, no answer. Left vm. Elizabeth Durand RN 03/09/24 8:14 AM [facility] 2024-03-09 07:00:38 Please call patient and let her know she does have chlamydia and to take doxycycline that was prescribed to her on 03/07. Her partner already tested positive and is being treated. T [facility] 2023-12-18 16:56:51 Pt states moxifloxacin is not covered under insurance plan. Pt advised this is the preferred tx and she could use a GoodRx coupon or pay out of pocket. Pt states she will try t find a coupon but may need alternative rx if original is unaffordable. Pt will call back for further assistance. Lauren Matos RN [facility] 2023-12-18 16:28:43 LM for pt to return call. Lauren Matos RN [facility] 2023-12-18 16:24:12 Carlos Jefferson is a 18 year old female Patient calling about medication and questions regarding what they are for. Please call [phone] (home) Shani Bansal [facility] 2023-12-18 09:13:09 Resent medications to [facility] 2023-12-18 08:53:58 Carlos Jefferson is a 18 year old female Patient would like doxycycline hyclate 100 mg tablet and moxifloxacin 400 mg tablet be sent to [facility] [address] [facility] 2023-12-17 17:13:34 Patient positive for Chlamydia and M. Genitalium Reviewed results with her, educated on safe sex practices. LMP was last week and she has IUD All questions were answered. [facility] 2023-11-09 09:01:55 Carlos Jefferson [id number] 11/09/23 Incoming call from patient after receiving a text message from [facility] regarding Wellness preventative womens exam. Current overdue topics are as follows Health Maintenance Due Topic Date Due MENINGOCOCCAL VACCINE (2 - 2-dose series) 2021 MENINGOCOCCAL B VACCINES (1 of 2 - Risk Bexsero 2-dose series) Never done SDOH Financial Resource Strain Never done SDOH Food Insecurity Never done SDOH Transportation Needs Never done HEPATITIS C (HCV) SCREEN Never done WELL CARE VISIT: 12-21 YEARS (yearly) 06/16/2023 Incoming call from patient who received a text for a wellness visit. Patient states "I have not had a pap smear in a couple of years and I have an IUD that needs to be checked also. Can you please schedule me for a Well women exam in [place], [place]. It is closer to where I live. Thank you." Patient was scheduled for Thursday January 18, 2024 at 10:00 AM and arriving at 9:45 AM at our [facility]. Patient was given the date, time and location of our clinic. Maira Temple RN 11/09/2023 9:02 AM NDER Maira Temple RN [facility] 2023-04-27 16:11:06 Formatting of this n ote might be different from the original. Patient has appointment scheduled for 07/04/23. Rafaela Sosa [facility] 2023-04-27 15:12:13 Formatting of this n ote might be different from the original. Pt requesting r/s procedure appt Anastasiia Cline [facility]
--- NOTE | 2025-04-12 18:54 | EDPHYS ---
Physician Documentation [facility] Name: Samina Daly Age: 20 yrs Sex: Female : 2005 Arrival Date: 04/12/2025 Time: 18:46 Bed IW1 Private MD: ED Physician Arik Calles HPI: 04/12 18:51 This 20 yrs old Female presents to ER via Unassigned with complaints of STD Exposure. kb 18:51 Pt is a 20 year old female who presents for possible STD. States her sexual partner kb developed bumps on his penis yesterday so she wanted to get checked. Denies any symptoms, including dysuria, vaginal discharge, lesions. . Historical: - Allergies: 19:10 NKDA; bp - PMHx: 19:10 allergies; bp - Immunization history:: Adult Immunizations up to date. - Infectious Disease History:: Denies. - Social history:: Smoking status: Patient reports the use of cigarette tobacco products, unknown amount. ROS: 18:50 Constitutional: As per HPI kb Exam: 18:53 Constitutional: This is a well developed, well nourished patient who is awake, alert, kb and in no acute distress. Head/Face: Normocephalic, atraumatic. ENT: Moist Mucous membranes Respiratory: Respirations even and unlabored. No increased work of breathing. Talking in full sentences Skin: Warm, dry with normal turgor. Normal color. MS/ Extremity: Pulses equal, no cyanosis. Neurovascular intact. Full, normal range of motion. Neuro: Awake and alert, GCS 15, oriented to person, place, time, and situation. Vital Signs: 19:09 BP 121 / 76; Pulse 80; Resp 16; Temp 98; Pulse Ox 100% ; bp MDM: 18:49 Medical Screening Exam initiated kb 18:53 Differential diagnosis: sti, uti. Data reviewed: vital signs, nurses notes. Historians kb other than the Patient: Spouse/Significant Other: significant other. Counseling: I had a detailed discussion with the patient and/or guardian regarding the historical points, exam findings, and any diagnostic results supporting the discharge/admit diagnosis, the need for outpatient follow up, an OB/Gyne specialist, to return to the emergency department if symptoms worsen or persist or if there are any questions or concerns that arise at home. Administered Medications: No medications were administered Disposition Summary: 04/12/25 18:54 Discharge Ordered Notes: Location: Home kb Condition: Stable kb Diagnosis - Person with feared health complaint in whom no diagnosis is made kb Followup: kb - With: Emergency Department - When: As needed - Reason: Worsening of condition Followup: kb - With: Private Physician - When: 2 - 3 days - Reason: Recheck today's complaints, Continuance of care, Re-evaluation by your physician Discharge Instructions: - Discharge Summary Sheet kb - Preventing Sexually Transmitted Infections, Adult kb Forms: - Medication Reconciliation Form kb - Antibiotic Education kb - Prescription Opioid Use kb - Patient Portal Instructions kb - Leadership Thank You Letter kb Signatures: Cynthia Jordan FNP-C FNP-Bonifacio Menjivar, RN RN bp
--- NOTE | 2025-04-12 19:11 | ER ---
Nurse's Notes [facility] Name: Samina Daly Age: 20 yrs Sex: Female : 2005 Arrival Date: 04/12/2025 Time: 18:46 Bed IW1 Private MD: Diagnosis: Person with feared health complaint in whom no diagnosis is made Presentation: 04/12 19:09 Chief complaint: Patient states: EXPOSURE TO POSSIBLE HERPES. Coronavirus screen: At bp this time, the client does not indicate any symptoms associated with coronavirus-19. Ebola Screen: No symptoms or risks identified at this time. Initial Sepsis Screen: Does the patient meet any 2 criteria? No. Patient's initial sepsis screen is negative. Does the patient have a suspected source of infection? No. Patient's initial sepsis screen is negative. Risk Assessment: Do you want to hurt yourself or someone else? Patient reports no desire to harm self or others. Onset of symptoms is unknown. 19:09 Method Of Arrival: Ambulatory bp 19:09 Acuity: SOCORRO 5 bp Triage Assessment: 19:10 General: Appears in no apparent distress. Behavior is appropriate for age. Pain: Denies bp pain. EENT: No deficits noted. Neuro: No deficits noted. Cardiovascular: No deficits noted. Respiratory: No deficits noted. GI: No signs and/or symptoms were reported involving the gastrointestinal system. : No deficits noted. Derm: No deficits noted. Musculoskeletal: No deficits noted. Historical: - Allergies: 19:10 NKDA; bp - PMHx: 19:10 allergies; bp - Immunization history:: Adult Immunizations up to date. - Infectious Disease History:: Denies. - Social history:: Smoking status: Patient reports the use of cigarette tobacco products, unknown amount. Screenin:[address] [facility] ED Fall Risk Assessment (Adult) History of falling in the last 3 months, kd3 including since admission No falls in past 3 months (0 pts) Confusion or Disorientation No (0 pts) Intoxicated or Sedated No (0 pts) Impaired Gait No (0 pts) Mobility Assist Device Used No (0 pt) Altered Elimination No (0 pt) Score/Fall Risk Level 0 - 2 = Low Risk Maintained a safe environment. Abuse screen: Denies threats or abuse. Denies injuries from another. Nutritional screening: No deficits noted. Tuberculosis screening: No symptoms or risk factors identified. Assessment: 19:09 General: Appears in no apparent distress. Behavior is calm, cooperative. Pain: Denies kd3 pain. Neuro: Level of Consciousness is awake, alert, obeys commands, Oriented to person, place, time, situation. Cardiovascular: Patient's skin is warm and dry. Respiratory: Airway is patent Trachea midline Respiratory effort is even, unlabored, Respiratory pattern is regular, symmetrical. Vital Signs: 19:09 BP 121 / 76; Pulse 80; Resp 16; Temp 98; Pulse Ox 100% ; bp ED Course: 18:48 Patient arrived in ED. gl 18:49 Cyn[facility]C [facility] kb 18:49 Arik Calles MD is Attending Physician. kb 19:09 Bonifacio Blair, RN is Primary Nurse. bp 19:09 Patient has correct armband on for positive identification. Provided Education on: STD kd3 clinic . 19:09 No provider procedures requiring assistance completed. Patient did not have IV access kd3 during this emergency room visit. 19:10 Triage completed. bp 19:10 Arm band placed on. bp Administered Medications: No medications were administered Medication: 19:09 VIS not applicable for this client. kd3 Outcome: 18:54 Discharge ordered by MD. kb 19:09 Discharged to home ambulatory, kd3 19:09 Condition: stable 19:09 Discharge instructions given to patient, Instructed on discharge instructions, follow up and referral plans. Demonstrated understanding of instructions, follow-up care, 19:11 Patient left the ED. kd3 Signatures: Cynthia Jordan FNP-C FNP-Bonifacio Menjivar, RN RN bp Jessy Sahni RN RN kd3 Rosalie Hamm, Reg Reg gl
[2025-04-12 19:30] VITALS: BP 121/76; TEMP 98; O2SAT 100
== END 2025-04-12 19:11 | disposition home or self-care (01) ==
LOC: ER 18:46
DX: Z71.1 Person with feared health complaint in whom no diagnosis is made (principal)
CPT/HCPCS: 99282

== ENCOUNTER 2025-04-14 13:23 | Emergency (ER) | payer SELFPAY ==
--- OUTSIDE RECORDS SUMMARY | 2025-04-14 13:33 | XMS REPORT | Continuity of Care Document ---
Author Name Unknown Address [address] [facility] [address] [place] [address] [facility] Address [address] [facility] [place] [address] Care Team Providers Care Control Specialist Name Role Phone Amyjackie Pradip Primary Care Physician [phone] Maggy Lee CNM Attending Clinician [phone] CHARLIE EWING Attending Clinician Unavailable CHEPE LIU Attending Clinician Unavailable Teena Rao Attending Clinician [phone] Wili COFFEY, Debbie Attending Clinician [phone] DEBBIE RASHEED Attending Clinician Unavailable Unknown, Attending Attending Clinician Unavailab Maira Beckham RN Attending Clinician Unav ailable AKINSIJAMIL KINGSLEY Attending Clinician Unavail able Doctor Unassigned, [place] Attending Clinician U navailable Akinsipe WHJamil VELEZ Attending Clinician + MAGGY LEE Attending Clinician Unavaila glenna Loyola RN, Merline Attending Clinician Unavailjaquelin Willis MD, Lonnie Loco Attending Clinician [phone] CARIDAD BONE Attending Clinician Unavailable Antionette COFFEY, Douglas Attending Clinician [phone] Chato COFFEY, Johanna Attending Clinician [phone] Duncan SIMMONS, Michelle Ornelas Attending Clinician Unavaila LETTY Blanco Attending Clinician Unav ailable Ultrasound, Ang-Mfm Attending Clinician Unavaila glenna Soriano MD, Femi Loco Attending Clinician [phone] Andria Moore MD, Letty Attending Clinician + FEMI SORIANO Attending Clinician Unavailable FEMI SORIANO Attending Clinician Unavailable Mk COFFEY, Violeta Cottrell Attending Clinician [phone] VIOLETA SEGURA Attending Clinician Unavailable WAQAS RODRIGUEZ Attending Clinician Unavailable Liliana Saenz Attending Clinician Unavailjaquelin Rodriguez MD, Waqas Hampton Attending Clinician [phone] Tomas COFFEY, Mariajose Attending Clinician [phone] MARIAJOSE NUNEZ Attending Clinician Unavailable MARIAJOSE NUNEZ Attending Clinician Unavailable Red SIMMONS, Jacquie Ornelas Attending Clinician Unavailab le Only, Adc Pob2 Test Attending Clinician Unavailtacos COLLINSP, Kristine Attending Clinician [phone] KRISTINE SAGE Attending Clinician Unavailable Only, Adc Test Attending Clinician Unavailable Johanna Conti MD Attending Clinician [phone] JOHANNA CONTI Attending Clinician UnavailLonnie Maynard MD Admitting Clinician [phone] LONNIE WILLIS Admitting Clinician Unavailjaquelin driscoll Payers Payer Name Policy Type Policy Number Effective Date Expirati on Date Source Problems Condition Name Condition Details Condition Category Status Onset Date Resolution Date Last Treatment Date Treating Clinician Comments Source Encounter for IUD insertion Encounter for IUD insertion Disease Active 2022-09 0-30 00:00: 00 [facility] control counseling control counseling Disease Active 6-16 00:00: 00 [facility] PUPP (pruritic urticarial papules and plaques of ) PUPP (pruritic urticarial papules and plaques of ) Disease Active 3-15 00:00: 00 [facility] Anemia of mother in , antepartum Anemia of mother in , antepartum Disease Active 2-02 00:00: 00 [facility] Anemia, Anemia, Disease Resolve d 5-02 00:00: 00 2023-02-18 00:00:00 2023-02-18 12:59:45 [facility] Chorioamni onitis Chorioamni onitis Disease Resolve d 2022-0 4-11 00:00: 00 2023-02-18 00:00:00 2023-02-18 12:59:44 [facility] Pre-eclamp harrison in third trimester Pre-eclamp harrison in third trimester Disease Resolve d 2022-0 4-10 00:00: 00 2023-02-18 00:00:00 2023-02-18 12:59:43 [facility] PUPP (pruritic urticarial papules and plaques of ) PUPP (pruritic urticarial papules and plaques of ) Disease Resolve d 2022-0 3-15 00:00: 00 2023-02-18 00:00:00 2023-02-18 12:59:41 [facility] (spontaneo us vaginal delivery) (spontaneo us vaginal delivery) Disease Resolve d 2022-0 4-12 00:00: 00 2023-01-04 00:00:00 2023-01-04 13:27:29 [facility] Single live Single live Disease Resolve d 2022-0 4-12 00:00: 00 2023-01-04 00:00:00 2023-01-04 13:27:25 [facility] Acute blood loss anemia Acute blood loss anemia Disease Resolve d 2022-0 4-12 00:00: 00 2023-01-04 00:00:00 2023-01-04 13:27:15 [facility] Obstetrica l laceration Obstetrica l laceration Disease Resolve d 2022-0 4-12 00:00: 00 2023-01-04 00:00:00 2023-01-04 13:27:13 [facility] Chlamydia infection during Chlamydia infection during Disease Resolve d 2022-0 3-24 00:00: 00 2023-01-04 00:00:00 2023-01-04 13:27:18 Overview: Formattin g of this note might be different from the original. pendign trish [facility] Anemia of mother in , antepartum Anemia of mother in , antepartum Disease Resolve d 2-02 00:00: 00 2023-01-04 00:00:00 2023-01-04 13:27:16 [facility] Abnormal quad screen Abnormal quad screen Disease Resolve d 1-05 00:00: 00 2023-01-04 00:00:00 2023-01-04 13:27:14 Overview: Formattin g of this note might be different from the original. pendign detailed ultrasoun d/ genetics [facility] GBS (group B streptococ cus) UTI complicati ng GBS (group B streptococ cus) UTI complicati ng Disease Resolve d 2021-09 0-18 00:00: 00 2023-01-04 00:00:00 2023-01-04 13:27:11 Overview: Formattin g of this note might be different from the original. neg trish [facility] Susceptibl e to varicella (non-immun e), currently Susceptibl e to varicella (non-immun e), currently Disease Resolve d 2021-09 0-13 00:00: 00 2023-01-04 00:00:00 2023-01-04 13:27:28 [facility] Rubella non-immune status, antepartum Rubella non-immune status, antepartum Disease Resolve d 2021-09 0-13 00:00: 00 2023-01-04 00:00:00 2023-01-04 13:27:24 Overview: Formattin g of this note might be different from the original. Address pp [facility] Supervisio n of high-risk with insufficie nt care Supervisio n of high-risk with insufficie nt care Disease Resolve d 2021-09 0-12 00:00: 00 2023-01-04 00:00:00 2023-01-04 13:27:26 [facility] Nausea/vom iting in Nausea/vom iting in Disease Resolve d 2021-09 0-12 00:00: 00 2023-01-04 00:00:00 2023-01-04 13:27:21 [facility] UTI symptoms UTI symptoms Disease Resolve d 2021-09 0-12 00:00: 00 2023-01-04 00:00:00 2023-01-04 13:27:30 [facility] Allergies, Adverse Reactions, Alerts Allergy Name Allergy Type Status Severity Reaction(s) Onset Date Inactive Date Treating Clinician Comments Source NO KNOWN ALLERGIE S Drug Class Active [facility] Social History Social Habit Start Date Stop Date Quantity Comments Source ASSERTION 2022-03-31 00:00:00 [facility] Gender identity [facility] Alcoholic beverage intake 2024-03-07 00:00:00 2024-03-07 00:00:00 Ex-drinker (finding) [facility] Alcohol intake 2023-12-16 00:00:00 2023-12-16 00:00:00 Ex-drinker (finding) [facility] History of Social function 2023-02-18 00:00:00 2023-02-18 00:00:00 [facility] Exposure to SARS-CoV-2 (event) 2022-12-25 00:00:00 2023-01-04 09:11:00 Not sure [facility] Tobacco use and exposure 2022-12-14 00:00:00 2022-12-14 00:00:00 Smokeless tobacco non-user [facility] Sex assigned at 2005 00:00:00 2005 00:00:00 [facility] Smoking Status Start Date Stop Date Source Tobacco smoking consumption unknown [facility] Never smoked tobacco [facility] Medications Ordered Medication Name Filled Medication Name Start Date Stop Date Current Medication? Ordering Clinician Indication Dosage Frequency Signature (SIG) Comments Components Source doxycycline hyclate 100 mg capsule 7-03 00:00: 00 Yes [id number] 100mg Take 1 capsule by mouth every 12 (twelve) hours. [facility] moxifloxaci n 400 mg tablet 4-14 00:00: 00 Yes [id number] 400mg Take 1 tablet by mouth in the morning. [facility] doxycycline hyclate 100 mg tablet 12-17 00:00: 00 03-07 00:00 :00 No [id number] 100mg Take 1 tablet by mouth in the morning and 1 tablet in the evening. [facility] doxycycline hyclate 100 mg tablet 12-16 00:00: 00 12-17 00:00 :00 No [id number] 100mg Take 1 tablet by mouth in the morning and 1 tablet in the evening. Do all this for 7 days. [facility] moxifloxaci n 400 mg tablet 12-16 00:00: 00 12-17 00:00 :00 No [id number] 400mg Take 1 tablet by mouth in the morning for 7 days. [facility] copper (PARAGARD T 380A) IUD 1 Intra Uterine Device 2022-09 21:00: 00 07-04 20:03 :00 No [id number] 1{IUD} [facility] human papillomav vac,9-guido(P F) (GARDASIL-9 ) syringe 0.5 mL 12-15 00:14: 00 Yes .5mL 0.5 mL, Intramuscu lar, ONCE-PRIOR TO DISCHARGE, 1 dose, Starting on Tue12/14/22 at 1914, Until Discontinu ed, Routine, Give vaccine prior to discharge [facility] rho(D) immune globulin (RHOGAM) syringe 300 mcg 12-15 00:14: 00 Yes 300ug 300 mcg, Intramuscu lar, ONCE, For 1 dose, Conditiona l, Routine [facility] ampicillin (POLYCILLIN -N) 2,000 mg in NaCl [...] Site: Pelvic
Duration of therapy: 72 hours [facility] ibuprofen (IBU) tablet 600 mg 12-14 13:31: 28 Yes 600mg 600 mg, Oral, Q6HPRN, Starting on Tue12/14/22 at 0831, Until Discontinu ed, Routine, Pain (scale 4-6) [facility] acetaminoph en (TYLENOL) tablet 650 mg 12-14 13:31: 28 Yes 650mg 650 mg, Oral, Q6HPRN, Starting on Tue12/14/22 at 0831, Until Discontinu ed, Routine, Pain (scale 1-3) [facility] diphenhydrA MINE (BENADRYL) tablet 25 mg 12-14 13:31: 28 Yes 25mg 25 mg, Oral, Q6HPRN, Starting on Tue12/14/22 at 830, Until Discontinu ed, Routine, Sleep, Itching [facility] ondansetron (ZOFRAN (PF)) injection 4 mg 12-14 13:31: 28 Yes 4mg 4 mg, Slow IV Push, Q8HPRN, Starting on Tue12/14/22 at 0831, Until Discontinu ed, Routine, Nausea and Vomiting (N/V) [facility] simethicone (GAS RELIEF (SIMETHICON E)) chewable tablet 160 mg 12-14 13:31: 28 Yes 160mg 160 mg, Oral, PC+HSPRN, Starting on Tue12/14/22 at 0831, Until Discontinu ed, Routine, Gas [facility] docusate (COLACE) capsule 200 mg 12-14 13:31: 28 Yes 200mg 200 mg, Oral, QDAILYPRN, Starting on Tue12/14/22 at 0831, Until Discontinu ed, Routine, Constipati on [facility] magnesium hydroxide (MILK OF MAGNESIA) 400 mg/5 mL suspension 30 mL 12-14 13:31: 28 Yes 30mL 30 mL, Oral, QDAILYPRN, Starting on Tue12/14/22 at 0831, Until Discontinu ed, Routine, Constipati on [facility] benzocaine- menthol (DERMOPLAST ) 20-0.5 % topical spray 12-14 13:31: 28 Yes Topical, PRN, Starting on Tue12/14/22 at 0831, Until Discontinu ed, Routine, Perineum discomfort [facility] tobramycin (NEBCIN) 280 mg in NaCl 0.9% [...] Site: Pelvic
Duration of therapy: 72 hours [facility] lactated ringers IV infusion 500 mL 12-14 07:45: 00 12-14 07:08 :00 No 500mL at 999 mL/hr, 500 mL, IV Infusion, ONCE, 1 dose, On Tue12/14/22 at 0245, Routine [facility] ropivacaine 0.2 % (NAROPIN (PF)) epidural infusion 12-14 07:24: 00 12-14 14:11 :53 No Epidural, CONTINUOUS PRN, Starting on Tue12/14/22 at 0224, Until Discontinu ed, Routine, Intra-op [facility] lidocaine-e pinephrine (XYLOCAINE W/EPINEPHRI NE) 1.5 %-1:200,000 injection 12-14 07:16: 00 12-14 14:11 :53 No Epidural, ONCE INTRA PROCEDURE, Starting on Tue12/14/22 at 0216, Until Discontinu ed, Routine, Intra-op [facility] sodium citrate-cit juan antonio acid (BICITRA) 500-334 mg/5 mL solution 30 mL 12-14 06:51: 03 12-14 07:07 :00 No 30mL 30 mL, Oral, PRE-PROCED URE ONCE, 1 dose, Starting on Tue12/14/22 at 0151, Until Tue12/14/22 at 0207, Routine, Surgery/Pr ocedure [facility] proMETHazin e (PHENERGAN) 25 mg in NS 50 mL IV piggyback (CNR) 12-14 04:45: 00 12-14 05:10 :48 No 25mg 25 mg, IV Piggyback, at 200 mL/hr Administer over 15 Minutes, ONCE, 1 dose, On Tue12/13/22 at 2345, Routine [facility] butorphanol (STADOL) injection 1 mg 12-14 04:45: 00 12-14 04:16 :00 No 1mg 1 mg, IV Push, ONCE, 1 dose, On Tue12/13/22 at 2345, Routine [facility] oxytocin (PITOCIN) 30 units in NS 500 mL IV infusion 12-14 04:34: 31 12-14 13:31 :30 No 2mU/min at 2-40 mL/hr, IV Infusion, TITRATE, Starting on Tue12/13/22 at 2334, Until Tue12/14/22 at 0831, JAZMYNE [facility] D5W-LR IV infusion 1,000 mL 12-14 02:25: 17 12-14 13:31 :30 No 1000mL at 1-125 mL/hr, IV Infusion, TITRATE, Starting on Tue12/13/22 at 2125, Until Tue12/14/22 at 0831, Routine [facility] ferrous sulfate 325 mg (65 mg iron) tablet 11-26 00:00: 00 12-16 00:00 :00 No [id number] 325mg Take 1 tablet by mouth in the morning and 1 tablet in the evening. [facility] ascorbic acid, vitamin C, 500 mg tablet 11-26 00:00: 00 12-16 00:00 :00 No [id number] 500mg Take 1 tablet by mouth in the morning and 1 tablet at noon and 1 tablet in the evening. [facility] azithromyci n 500 mg tablet 11-26 00:00: 00 11-27 04:59 :00 No [id number] 1000mg Take 2 tablets by mouth once now for 1 dose. [facility] fluconazole (DIFLUCAN) 150 mg tablet 11-24 00:00: 00 11-25 04:59 :00 No [id number] 150mg Take 1 tablet by mouth once now for 1 dose. [facility] ferrous sulfate 325 mg (65 mg iron) tablet 10-07 00:00: 00 12-16 00:00 :00 No [id number] 325mg Take 1 tablet by mouth in the morning and 1 tablet in the evening. [facility] ascorbic acid, vitamin C, 500 mg tablet 10-07 00:00: 12-16 00:00 :00 No [id number] 500mg Take 1 tablet by mouth in the morning and 1 tablet at noon and 1 tablet in the evening. [facility] ampicillin 500 mg capsule 2021-09 00:00: 00 07-03 04:59 :00 No [id number] 500mg Take 1 capsule by mouth 4 (four) times daily for 10 days. [facility] multivitami n ( VITAMIN) tablet 2021-09 00:00: 00 12-16 00:00 :00 No [id number] 09 1{tbl} Take 1 tablet by mouth in the morning. [facility] proMETHazin e 25 mg tablet 2021-09 00:00: 00 12-16 00:00 :00 No [id number] 25mg Take 1 tablet by mouth every 6 (six) hours as needed for Nausea and Vomiting (N/V). [facility] Nitrofurant oin&Nit. Macrocryst (MACROBID) 100 mg capsule 2021-09 0 00:00: 00 06-27 04:59 :00 No [id number] 100mg Take 1 capsule by mouth in the morning and 1 capsule in the evening. Do all this for 10 days. [facility] No known medications 24 16:02: 25 No [facility] Immunizations Ordered Immunization Name Filled Immunization Name Date Status Comments Source TDAP 2022-10-06 00:00:00 Completed [facility] TDAP 2022-10-06 00:00:00 Completed [facility] TDAP 2022-10-06 00:00:00 Completed [facility] TDAP 2022-10-06 00:00:00 Completed [facility] TDAP 2022-10-06 00:00:00 Completed [facility] TDAP 2022-10-06 00:00:00 Completed [facility] TDAP 2022-10-06 00:00:00 Completed [facility] TDAP 2022-10-06 00:00:00 Completed [facility] TDAP 2022-10-06 00:00:00 Completed [facility] TDAP 2022-10-06 00:00:00 Completed [facility] TDAP 2022-10-06 00:00:00 Completed [facility] TDAP 2022-10-06 00:00:00 Completed [facility] TDAP 2022-10-06 00:00:00 Completed [facility] TDAP 2022-10-06 00:00:00 Completed [facility] TDAP 2022-10-06 00:00:00 Completed [facility] TDAP 2022-10-06 00:00:00 Completed [facility] TDAP 2022-10-06 00:00:00 Completed [facility] TDAP 2022-10-06 00:00:00 Completed [facility] TDAP 2022-10-06 00:00:00 Completed [facility] TDAP 2022-10-06 00:00:00 Completed [facility] TDAP 2022-10-06 00:00:00 Completed [facility] TDAP 2022-10-06 00:00:00 Completed [facility] TDAP 2022-10-06 00:00:00 Completed [facility] TDAP 2022-10-06 00:00:00 Completed [facility] TDAP 2022-10-06 00:00:00 Completed [facility] TDAP 2022-10-06 00:00:00 Completed [facility] Meningococcal Polysaccharide (groups A, C, Y and W-135) conjugate vaccine (MCV4P) 2017-01-26 00:00:00 Completed [facility] TDAP 2017-01-26 00:00:00 Completed [facility] HPV9 2017-01-26 00:00:00 Completed [facility] Meningococcal Polysaccharide (groups A, C, Y and W-135) conjugate vaccine (MCV4P) 2017-01-26 00:00:00 Completed [facility] TDAP 2017-01-26 00:00:00 Completed [facility] HPV9 2017-01-26 00:00:00 Completed [facility] HPV9 2017-01-26 00:00:00 Completed [facility] HPV9 2017-01-26 00:00:00 Completed [facility] HPV9 2017-01-26 00:00:00 Completed [facility] Meningococcal Polysaccharide (groups A, C, Y and W-135) conjugate vaccine (MCV4P) 2017-01-26 00:00:00 Completed [facility] TDAP 2017-01-26 00:00:00 Completed [facility] HPV9 2017-01-26 00:00:00 Completed [facility] Meningococcal Polysaccharide (groups A, C, Y and W-135) conjugate vaccine (MCV4P) 2017-01-26 00:00:00 Completed [facility] TDAP 2017-01-26 00:00:00 Completed [facility] HPV9 2017-01-26 00:00:00 Completed [facility] HPV9 2016-05-12 00:00:00 Completed [facility] HPV9 2016-05-12 00:00:00 Completed [facility] HPV9 2016-05-12 00:00:00 Completed [facility] HPV9 2016-05-12 00:00:00 Completed [facility] HPV9 2016-05-12 00:00:00 Completed [facility] HPV9 2016-05-12 00:00:00 Completed [facility] HPV9 2016-05-12 00:00:00 Completed [facility] MMR 2009-04-28 00:00:00 Completed [facility] Polio (IPV/OPV) 2009-04-28 00:00:00 Completed [facility] Varicella (varivax)(chicken pox) 2009-04-28 00:00:00 Completed [facility] HEPA,NOS 2009-04-28 00:00:00 Completed [facility] MMR 2009-04-28 00:00:00 Completed [facility] Polio (IPV/OPV) 2009-04-28 00:00:00 Completed [facility] Varicella (varivax)(chicken pox) 2009-04-28 00:00:00 Completed [facility] HEPA,NOS 2009-04-28 00:00:00 Completed [facility] MMR 2009-04-28 00:00:00 Completed [facility] Polio (IPV/OPV) 2009-04-28 00:00:00 Completed [facility] Varicella (varivax)(chicken pox) 2009-04-28 00:00:00 Completed [facility] HEPA,NOS 2009-04-28 00:00:00 Completed [facility] MMR 2009-04-28 00:00:00 Completed [facility] Polio (IPV/OPV) 2009-04-28 00:00:00 Completed [facility] Varicella (varivax)(chicken pox) 2009-04-28 00:00:00 Completed [facility] HEPA,NOS 2009-04-28 00:00:00 Completed [facility] DTaP, Unspecified Formulation 2006-07-11 00:00:00 Completed [facility] HIB 4 Dose Schedule 2006-07-11 00:00:00 Completed [facility] DTaP, Unspecified Formulation 2006-07-11 00:00:00 Completed [facility] HIB 4 Dose Schedule 2006-07-11 00:00:00 Completed [facility] DTaP, Unspecified Formulation 2006-07-11 00:00:00 Completed [facility] HIB 4 Dose Schedule 2006-07-11 00:00:00 Completed [facility] DTaP, Unspecified Formulation 2006-07-11 00:00:00 Completed [facility] HIB 4 Dose Schedule 2006-07-11 00:00:00 Completed [facility] MMR 2006-05-18 00:00:00 Completed [facility] Pneumococcal 7 Conjugate, PCV7 (Prevnar7) 2006-05-18 00:00:00 Completed [facility] Varicella (varivax)(chicken pox) 2006-05-18 00:00:00 Completed [facility] HEPATITIS A 2006-05-18 00:00:00 Completed [facility] MMR 2006-05-18 00:00:00 Completed [facility] Pneumococcal 7 Conjugate, PCV7 (Prevnar7) 2006-05-18 00:00:00 Completed [facility] Varicella (varivax)(chicken pox) 2006-05-18 00:00:00 Completed [facility] HEPATITIS A 2006-05-18 00:00:00 Completed [facility] MMR 2006-05-18 00:00:00 Completed [facility] Pneumococcal 7 Conjugate, PCV7 (Prevnar7) 2006-05-18 00:00:00 Completed [facility] Varicella (varivax)(chicken pox) 2006-05-18 00:00:00 Completed [facility] HEPATITIS A 2006-05-18 00:00:00 Completed [facility] MMR 2006-05-18 00:00:00 Completed [facility] Pneumococcal 7 Conjugate, PCV7 (Prevnar7) 2006-05-18 00:00:00 Completed [facility] Varicella (varivax)(chicken pox) 2006-05-18 00:00:00 Completed [facility] HEPATITIS A 2006-05-18 00:00:00 Completed [facility] Pneumococcal 7 Conjugate, PCV7 (Prevnar7) 2005 00:00:00 Completed [facility] IPV 2005 00:00:00 Completed [facility] DTaP, Unspecified Formulation 2005 00:00:00 Completed [facility] [facility] Adol or Pedi Dosage 2005 00:00:00 Completed [facility] HIB 4 Dose Schedule 2005 00:00:00 Completed [facility] Pneumococcal 7 Conjugate, PCV7 (Prevnar7) 2005 00:00:00 Completed [facility] IPV 2005 00:00:00 Completed [facility] DTaP, Unspecified Formulation 2005 00:00:00 Completed [facility] Hep B, Adol or Pedi Dosage 2005 00:00:00 Completed [facility] HIB 4 Dose Schedule 2005 00:00:00 Completed [facility] Pneumococcal 7 Conjugate, PCV7 (Prevnar7) 2005 00:00:00 Completed [facility] IPV 2005 00:00:00 Completed [facility] DTaP, Unspecified Formulation 2005 00:00:00 Completed [facility] Hep B, Adol or Pedi Dosage 2005 00:00:00 Completed [facility] HIB 4 Dose Schedule 2005 00:00:00 Completed [facility] Pneumococcal 7 Conjugate, PCV7 (Prevnar7) 2005 00:00:00 Completed [facility] IPV 2005 00:00:00 Completed [facility] DTaP, Unspecified Formulation 2005 00:00:00 Completed [facility] Hep B, Adol or Pedi Dosage 2005 00:00:00 Completed [facility] HIB 4 Dose Schedule 2005 00:00:00 Completed [facility] Pneumococcal 7 Conjugate, PCV7 (Prevnar7) 2005 00:00:00 Completed [facility] IPV 2005 00:00:00 Completed [facility] DTaP, Unspecified Formulation 2005 00:00:00 Completed [facility] Hep B, Adol or Pedi Dosage 2005 00:00:00 Completed [facility] HIB 4 Dose Schedule 2005 00:00:00 Completed [facility] Pneumococcal 7 Conjugate, PCV7 (Prevnar7) 2005 00:00:00 Completed [facility] IPV 2005 00:00:00 Completed [facility] DTaP, Unspecified Formulation 2005 00:00:00 Completed [facility] Hep B, Adol or Pedi Dosage 2005 00:00:00 Completed [facility] HIB 4 Dose Schedule 2005 00:00:00 Completed [facility] Pneumococcal 7 Conjugate, PCV7 (Prevnar7) 2005 00:00:00 Completed [facility] IPV 2005 00:00:00 Completed [facility] DTaP, Unspecified Formulation 2005 00:00:00 Completed [facility] Hep B, Adol or Pedi Dosage 2005 00:00:00 Completed [facility] HIB 4 Dose Schedule 2005 00:00:00 Completed [facility] Pneumococcal 7 Conjugate, PCV7 (Prevnar7) 2005 00:00:00 Completed [facility] IPV 2005 00:00:00 Completed [facility] DTaP, Unspecified Formulation 2005 00:00:00 Completed [facility] Hep B, Adol or Pedi Dosage 2005 00:00:00 Completed [facility] HIB 4 Dose Schedule 2005 00:00:00 Completed [facility] Pneumococcal 7 Conjugate, PCV7 (Prevnar7) 2005 00:00:00 Completed [facility] IPV 2005 00:00:00 Completed [facility] DTaP, Unspecified Formulation 2005 00:00:00 Completed [facility] Hep B, Adol or Pedi Dosage 2005 00:00:00 Completed [facility] HIB 4 Dose Schedule 2005 00:00:00 Completed [facility] Pneumococcal 7 Conjugate, PCV7 (Prevnar7) 2005 00:00:00 Completed [facility] IPV 2005 00:00:00 Completed [facility] DTaP, Unspecified Formulation 2005 00:00:00 Completed [facility] Hep B, Adol or Pedi Dosage 2005 00:00:00 Completed [facility] HIB 4 Dose Schedule 2005 00:00:00 Completed [facility] Pneumococcal 7 Conjugate, PCV7 (Prevnar7) 2005 00:00:00 Completed [facility] IPV 2005 00:00:00 Completed [facility] DTaP, Unspecified Formulation 2005 00:00:00 Completed [facility] Hep B, Adol or Pedi Dosage 2005 00:00:00 Completed [facility] HIB 4 Dose Schedule 2005 00:00:00 Completed [facility] Pneumococcal 7 Conjugate, PCV7 (Prevnar7) 2005 00:00:00 Completed [facility] IPV 2005 00:00:00 Completed [facility] DTaP, Unspecified Formulation 2005 00:00:00 Completed [facility] Hep B, Adol or Pedi Dosage 2005 00:00:00 Completed [facility] HIB 4 Dose Schedule 2005 00:00:00 Completed [facility] Hep B, Adol or Pedi Dosage 2005 00:00:00 Completed [facility] Hep B, Adol or Pedi Dosage 2005 00:00:00 Completed [facility] Hep B, Adol or Pedi Dosage 2005 00:00:00 Completed [facility] Hep B, Adol or Pedi Dosage 2005 00:00:00 Completed [facility] TDAP Unknown Completed [facility] HPV9 Unknown Completed [facility] DTaP, Unspecified Formulation Unknown Completed [facility] HEPA,NOS Unknown Completed [facility] HEPATITIS A Unknown Completed [facility] Hep B, Adol or Pedi Dosage Unknown Completed [facility] HIB 4 Dose Schedule Unknown Completed [facility] Meningococcal Polysaccharide (groups A, C, Y and W-135) conjugate vaccine (MCV4P) Unknown Completed [facility] MMR Unknown Completed [facility] Pneumococcal 7 Conjugate, PCV7 (Prevnar7) Unknown Completed [facility] Polio (IPV/OPV) Unknown Completed [facility] IPV Unknown Completed [facility] Varicella (varivax)(chicken pox) Unknown Completed [facility] TDAP Unknown Completed [facility] HPV9 Unknown Completed [facility] DTaP, Unspecified Formulation Unknown Completed [facility] HEPA,NOS Unknown Completed [facility] HEPATITIS A Unknown Completed [facility] Hep B, Adol or Pedi Dosage Unknown Completed [facility] HIB 4 Dose Schedule Unknown Completed [facility] Meningococcal Polysaccharide (groups A, C, Y and W-135) conjugate vaccine (MCV4P) Unknown Completed [facility] MMR Unknown Completed [facility] Pneumococcal 7 Conjugate, PCV7 (Prevnar7) Unknown Completed [facility] Polio (IPV/OPV) Unknown Completed [facility] IPV Unknown Completed [facility] Varicella (varivax)(chicken pox) Unknown Completed [facility] TDAP Unknown Completed [facility] HPV9 Unknown Completed [facility] DTaP, Unspecified Formulation Unknown Completed [facility] HEPA,NOS Unknown Completed [facility] HEPATITIS A Unknown Completed [facility] Hep B, Adol or Pedi Dosage Unknown Completed [facility] HIB 4 Dose Schedule Unknown Completed [facility] Meningococcal Polysaccharide (groups A, C, Y and W-135) conjugate vaccine (MCV4P) Unknown Completed [facility] MMR Unknown Completed [facility] Pneumococcal 7 Conjugate, PCV7 (Prevnar7) Unknown Completed [facility] Polio (IPV/OPV) Unknown Completed [facility] IPV Unknown Completed [facility] Varicella (varivax)(chicken pox) Unknown Completed [facility] TDAP Unknown Completed [facility] HPV9 Unknown Completed [facility] DTaP, Unspecified Formulation Unknown Completed [facility] HEPA,NOS Unknown Completed [facility] HEPATITIS A Unknown Completed [facility] Hep B, Adol or Pedi Dosage Unknown Completed [facility] HIB 4 Dose Schedule Unknown Completed [facility] Meningococcal Polysaccharide (groups A, C, Y and W-135) conjugate vaccine (MCV4P) Unknown Completed [facility] MMR Unknown Completed [facility] Pneumococcal 7 Conjugate, PCV7 (Prevnar7) Unknown Completed [facility] Polio (IPV/OPV) Unknown Completed [facility] IPV Unknown Completed [facility] Varicella (varivax)(chicken pox) Unknown Completed [facility] TDAP Unknown Completed [facility] HPV9 Unknown Completed [facility] DTaP, Unspecified Formulation Unknown Completed [facility] HEPA,NOS Unknown Completed [facility] HEPATITIS A Unknown Completed [facility] Hep B, Adol or Pedi Dosage Unknown Completed [facility] HIB 4 Dose Schedule Unknown Completed [facility] Meningococcal Polysaccharide (groups A, C, Y and W-135) conjugate vaccine (MCV4P) Unknown Completed [facility] MMR Unknown Completed [facility] Pneumococcal 7 Conjugate, PCV7 (Prevnar7) Unknown Completed [facility] Polio (IPV/OPV) Unknown Completed [facility] IPV Unknown Completed [facility] Varicella (varivax)(chicken pox) Unknown Completed [facility] HEPA,NOS Unknown Completed [facility] HEPATITIS A Unknown Completed [facility] Meningococcal Polysaccharide (groups A, C, Y and W-135) conjugate vaccine (MCV4P) Unknown Completed [facility] Polio (IPV/OPV) Unknown Completed [facility] TDAP Unknown Completed [facility] HPV9 Unknown Completed [facility] DTaP, Unspecified Formulation Unknown Completed [facility] Hep B, Adol or Pedi Dosage Unknown Completed [facility] HIB 4 Dose Schedule Unknown Completed [facility] MMR Unknown Completed [facility] Pneumococcal 7 Conjugate, PCV7 (Prevnar7) Unknown Completed [facility] IPV Unknown Completed [facility] Varicella (varivax)(chicken pox) Unknown Completed [facility] HEPA,NOS Unknown Completed [facility] HEPATITIS A Unknown Completed [facility] Meningococcal Polysaccharide (groups A, C, Y and W-135) conjugate vaccine (MCV4P) Unknown Completed [facility] Polio (IPV/OPV) Unknown Completed [facility] TDAP Unknown Completed [facility] HPV9 Unknown Completed [facility] DTaP, Unspecified Formulation Unknown Completed [facility] Hep B, Adol or Pedi Dosage Unknown Completed [facility] HIB 4 Dose Schedule Unknown Completed [facility] MMR Unknown Completed [facility] Pneumococcal 7 Conjugate, PCV7 (Prevnar7) Unknown Completed [facility] IPV Unknown Completed [facility] Varicella (varivax)(chicken pox) Unknown Completed [facility] TDAP Unknown Completed [facility] HPV9 Unknown Completed [facility] DTaP, Unspecified Formulation Unknown Completed [facility] HEPA,NOS Unknown Completed [facility] HEPATITIS A Unknown Completed [facility] Hep B, Adol or Pedi Dosage Unknown Completed [facility] HIB 4 Dose Schedule Unknown Completed [facility] Meningococcal Polysaccharide (groups A, C, Y and W-135) conjugate vaccine (MCV4P) Unknown Completed [facility] MMR Unknown Completed [facility] Pneumococcal 7 Conjugate, PCV7 (Prevnar7) Unknown Completed [facility] Polio (IPV/OPV) Unknown Completed [facility] IPV Unknown Completed [facility] Varicella (varivax)(chicken pox) Unknown Completed [facility] TDAP Unknown Completed [facility] HPV9 Unknown Completed [facility] DTaP, Unspecified Formulation Unknown Completed [facility] HEPA,NOS Unknown Completed [facility] HEPATITIS A Unknown Completed [facility] Hep B, Adol or Pedi Dosage Unknown Completed [facility] HIB 4 Dose Schedule Unknown Completed [facility] Meningococcal Polysaccharide (groups A, C, Y and W-135) conjugate vaccine (MCV4P) Unknown Completed [facility] MMR Unknown Completed [facility] Pneumococcal 7 Conjugate, PCV7 (Prevnar7) Unknown Completed [facility] Polio (IPV/OPV) Unknown Completed [facility] IPV Unknown Completed [facility] Varicella (varivax)(chicken pox) Unknown Completed [facility] Vital Signs Vital Name Observation Time Observation Value Comments S ource Systolic blood pressure 2024-03-07 21:13:00 106 mm[Hg] [facility] Diastolic blood pressure 2024-03-07 21:13:00 69 mm[Hg] [facility] Heart rate 2024-03-07 21:13:00 91 /min [facility] Body temperature 2024-03-07 21:13:00 36 Neris [facility] Respiratory rate 2024-03-07 21:13:00 18 /min [facility] Body height 2024-03-07 21:13:00 165.1 cm [facility] Body weight 2024-03-07 21:13:00 46.176 kg [facility] BMI 2024-03-07 21:13:00 16.94 kg/m2 [facility] Systolic blood pressure 2023-12-17 00:27:00 130 mm[Hg] [facility] Diastolic blood pressure 2023-12-17 00:27:00 72 mm[Hg] [facility] Heart rate 2023-12-17 00:27:00 90 /min [facility] Body temperature 2023-12-17 00:27:00 37.06 [place]eris [facility] Respiratory rate 2023-12-17 00:27:00 15 /min [facility] Body height 2023-12-17 00:27:00 165.1 cm [facility] Body weight 2023-12-17 00:27:00 45.587 kg [facility] BMI 2023-12-17 00:27:00 16.72 kg/m2 [facility] Body mass index (BMI) [Percentile] Per age and sex 2023-12-17 00:27:00 1.03 % [facility] Oxygen saturation in Arterial blood by Pulse oximetry 2023-12-17 00:27:00 100 /min [facility] Systolic blood pressure 2023-07-04 19:38:00 133 mm[Hg] [facility] Diastolic blood pressure 2023-07-04 19:38:00 89 mm[Hg] [facility] Heart rate 2023-07-04 19:38:00 87 /min [facility] Body temperature 2023-07-04 19:38:00 36.5 Neris [facility] Body height 2023-07-04 19:38:00 167.6 cm [facility] Body weight 2023-07-04 19:38:00 43.545 kg [facility] BMI 2023-07-04 19:38:00 15.49 kg/m2 [facility] Body mass index (BMI) [Percentile] Per age and sex 2023-07-04 19:38:00 0.06 % [facility] Oxygen saturation in Arterial blood by Pulse oximetry 2023-07-04 19:38:00 97 /min [facility] Systolic blood pressure 2023-02-18 16:07:00 117 mm[Hg] [facility] Diastolic blood pressure 2023-02-18 16:07:00 78 mm[Hg] [facility] Heart rate 2023-02-18 16:07:00 86 /min [facility] Body temperature 2023-02-18 16:07:00 36.56 Neris [facility] Respiratory rate 2023-02-18 16:07:00 16 /min [facility] Body height 2023-02-18 16:07:00 165.1 cm [facility] Body weight 2023-02-18 16:07:00 47.265 kg [facility] BMI 2023-02-18 16:07:00 17.34 kg/m2 [facility] Body mass index (BMI) [Percentile] Per age and sex 2023-02-18 16:07:00 3.81 % [facility] Systolic blood pressure 2023-01-04 14:12:00 127 mm[Hg] [facility] Diastolic blood pressure 2023-01-04 14:12:00 82 mm[Hg] [facility] Heart rate 2023-01-04 14:12:00 88 /min [facility] Body temperature 2023-01-04 14:12:00 36.22 Neris [facility] Respiratory rate 2023-01-04 14:12:00 18 /min [facility] Body height 2023-01-04 14:12:00 165.1 cm [facility] Body weight 2023-01-04 14:12:00 48.11 kg [facility] BMI 2023-01-04 14:12:00 17.65 kg/m2 [facility] Body mass index (BMI) [Percentile] Per age and sex 2023-01-04 14:12:00 5.90 % [facility] Systolic blood pressure 2022-12-16 12:46:00 138 mm[Hg] [facility] Diastolic blood pressure 2022-12-16 12:46:00 96 mm[Hg] [facility] Heart rate 2022-12-16 12:46:00 75 /min [facility] Body temperature 2022-12-16 12:46:00 36.44 Neris [facility] Respiratory rate 2022-12-16 12:46:00 18 /min [facility] Oxygen saturation in Arterial blood by Pulse oximetry 2022-12-16 12:46:00 100 /min [facility] Body height 2022-12-14 00:51:00 165.1 cm [facility] Body weight 2022-12-14 00:51:00 58.605 kg [facility] BMI 2022-12-14 00:51:00 21.50 kg/m2 [facility] Body mass index (BMI) [Percentile] Per age and sex 2022-12-14 00:51:00 53.59 % [facility] Systolic blood pressure 2022-12-13 21:11:00 140 mm[Hg] [facility] Diastolic blood pressure 2022-12-13 21:11:00 60 mm[Hg] [facility] Heart rate 2022-12-13 21:08:00 82 /min [facility] Body temperature 2022-12-13 21:04:00 36.33 Neirs [facility] Respiratory rate 2022-12-13 21:04:00 18 /min [facility] Body height 2022-12-13 21:04:00 165.1 cm [facility] Body weight 2022-12-13 21:04:00 58.605 kg [facility] BMI 2022-12-13 21:04:00 21.50 kg/m2 [facility] Body mass index (BMI) [Percentile] Per age and sex 2022-12-13 21:04:00 53.59 % [facility] Systolic blood pressure 2022-12-08 19:28:00 131 mm[Hg] [facility] Diastolic blood pressure 2022-12-08 19:28:00 89 mm[Hg] [facility] Heart rate 2022-12-08 19:28:00 83 /min [facility] Body temperature 2022-12-08 19:28:00 36.39 Neris [facility] Respiratory rate 2022-12-08 19:28:00 18 /min [facility] Body height 2022-12-08 19:28:00 165.1 cm [facility] Body weight 2022-12-08 19:28:00 58.605 kg [facility] BMI 2022-12-08 19:28:00 21.50 kg/m2 [facility] Body mass index (BMI) [Percentile] Per age and sex 2022-12-08 19:28:00 53.64 % [facility] Systolic blood pressure 2022-11-24 20:23:00 128 mm[Hg] [facility] Diastolic blood pressure 2022-11-24 20:23:00 82 mm[Hg] [facility] Heart rate 2022-11-24 20:23:00 77 /min [facility] Body temperature 2022-11-24 20:23:00 36.39 Neris [facility] Respiratory rate 2022-11-24 20:23:00 18 /min [facility] Body height 2022-11-24 20:23:00 165.1 cm [facility] Body weight 2022-11-24 20:23:00 57.743 kg [facility] BMI 2022-11-24 20:23:00 21.18 kg/m2 [facility] Body mass index (BMI) [Percentile] Per age and sex 2022-11-24 20:23:00 49.81 % [facility] Systolic blood pressure 2022-11-17 20:37:00 121 mm[Hg] [facility] Diastolic blood pressure 2022-11-17 20:37:00 62 mm[Hg] [facility] Heart rate 2022-11-17 20:37:00 84 /min [facility] Body temperature 2022-11-17 20:37:00 36.33 Neris [facility] Respiratory rate 2022-11-17 20:37:00 18 /min [facility] Body height 2022-11-17 20:37:00 165.1 cm [facility] Body weight 2022-11-17 20:37:00 57.561 kg [facility] BMI 2022-11-17 20:37:00 21.12 kg/m2 [facility] Body mass index (BMI) [Percentile] Per age and sex 2022-11-17 20:37:00 49.12 % [facility] Systolic blood pressure 2022-11-03 21:43:00 107 mm[Hg] [facility] Diastolic blood pressure 2022-11-03 21:43:00 74 mm[Hg] [facility] Heart rate 2022-11-03 21:43:00 85 /min [facility] Body temperature 2022-11-03 21:43:00 36 Neris [facility] Respiratory rate 2022-11-03 21:43:00 18 /min [facility] Body height 2022-11-03 21:43:00 165.1 cm [facility] Body weight 2022-11-03 21:43:00 56.382 kg [facility] BMI 2022-11-03 21:43:00 20.68 kg/m2 [facility] Body mass index (BMI) [Percentile] Per age and sex 2022-11-03 21:43:00 43.45 % [facility] Systolic blood pressure 2022-10-20 20:06:00 100 mm[Hg] [facility] Diastolic blood pressure 2022-10-20 20:06:00 62 mm[Hg] [facility] Heart rate 2022-10-20 20:06:00 80 /min [facility] Body temperature 2022-10-20 20:06:00 35.33 Neris [facility] Respiratory rate 2022-10-20 20:06:00 18 /min [facility] Body height 2022-10-20 20:06:00 165.1 cm [facility] Body weight 2022-10-20 20:06:00 53.842 kg [facility] BMI 2022-10-20 20:06:00 19.75 kg/m2 [facility] Body mass index (BMI) [Percentile] Per age and sex 2022-10-20 20:06:00 30.59 % [facility] Systolic blood pressure 2022-10-06 19:31:00 110 mm[Hg] [facility] Diastolic blood pressure 2022-10-06 19:31:00 69 mm[Hg] [facility] Heart rate 2022-10-06 19:31:00 82 /min [facility] Body temperature 2022-10-06 19:31:00 36.33 Neirs [facility] Respiratory rate 2022-10-06 19:31:00 18 /min [facility] Body height 2022-10-06 19:31:00 160 cm [facility] Body weight 2022-10-06 19:31:00 53.252 kg [facility] BMI 2022-10-06 19:31:00 20.80 kg/m2 [facility] Body mass index (BMI) [Percentile] Per age and sex 2022-10-06 19:31:00 45.44 % [facility] Systolic blood pressure 2022-09-08 21:21:00 99 mm[Hg] [facility] Diastolic blood pressure 2022-09-08 21:21:00 67 mm[Hg] [facility] Heart rate 2022-09-08 21:21:00 94 /min [facility] Body temperature 2022-09-08 21:21:00 36.94 [place]eris [facility] Respiratory rate 2022-09-08 21:21:00 16 /min [facility] Body height 2022-09-08 21:21:00 160 cm [facility] Body weight 2022-09-08 21:21:00 51.166 kg [facility] BMI 2022-09-08 21:21:00 19.98 kg/m2 [facility] Body mass index (BMI) [Percentile] Per age and sex 2022-09-08 21:21:00 34.41 % [facility] Systolic blood pressure 2022-08-25 19:13:00 102 mm[Hg] [facility] Diastolic blood pressure 2022-08-25 19:13:00 49 mm[Hg] [facility] Heart rate 2022-08-25 19:13:00 81 /min [facility] Body temperature 2022-08-25 19:13:00 36.61 Neris [facility] Respiratory rate 2022-08-25 19:13:00 18 /min [facility] Body height 2022-08-25 19:13:00 160 cm [facility] Body weight 2022-08-25 19:13:00 50.037 kg [facility] BMI 2022-08-25 19:13:00 19.54 kg/m2 [facility] Body mass index (BMI) [Percentile] Per age and sex 2022-08-25 19:13:00 28.38 % [facility] Systolic blood pressure 2022-06-16 15:09:00 121 mm[Hg] [facility] Diastolic blood pressure 2022-06-16 15:09:00 85 mm[Hg] [facility] Heart rate 2022-06-16 15:09:00 100 /min [facility] Body temperature 2022-06-16 15:09:00 36.44 Neris [facility] Respiratory rate 2022-06-16 15:09:00 18 /min [facility] Body height 2022-06-16 15:09:00 160 cm [facility] Body weight 2022-06-16 15:09:00 45.927 kg [facility] BMI 2022-06-16 15:09:00 17.94 kg/m2 [facility] Body mass index (BMI) [Percentile] Per age and sex 2022-06-16 15:09:00 9.73 % [facility] Procedures Procedure Date / Time Performed Performing Clinician Source DISCLOSURE AND CONSENT, MEDICAL AND SURGICAL PROCEDURES 2023-07-08 05:01:00 Doctor Unassigned, [place] [facility] POCT TEST 2023-07-04 19:40:00 Benjamin Shipman [facility] POCT TEST 2023-02-18 16:20:00 Benjamin Shipman [facility] URINALYSIS 2022-12-16 14:27:00 Tamara Isamar [facility] SGOT (ASPARTATE AMINO TRANSFER) 2022-12-16 13:49:00 Tamara [facility] CREATININE 2022-12-16 13:49:00 Tamara [facility] ALANINE AMINO TRANSFERASE(SGPT 2022-12-16 13:49:00 Tamara [facility] LACTATE DEHYDROGENASE 2022-12-16 13:49:00 Tamara [facility] URIC ACID 2022-12-16 13:49:00 Tamara [facility] CBC WITH DIFF 2022-12-16 13:49:00 Tamara Isamar [facility] EXTRA TUBE LAV 2022-12-16 13:49:00 Lonnie Willis [facility] EXTRA TUBE LT. GREEN 2022-12-16 13:49:00 Ricky Willis [facility] CBC WITH DIFF 2022-12-15 08:53:00 Leda Orosco [facility] VENOUS CORD GAS 2022-12-14 12:58:00 Davian Warren [facility] CENTRAL NEURAXIAL BLOCK 2022-12-14 07:24:00 Douglas Adan [facility] SGOT (ASPARTATE AMINO TRANSFER) 2022-12-14 02:40:00 Younes, [facility] CREATININE 2022-12-14 02:40:00 [facility] ALANINE AMINO TRANSFERASE(SGPT 2022-12-14 02:40:00 Moni [facility] LACTATE DEHYDROGENASE 2022-12-14 02:40:00 Moni [facility] URIC ACID 2022-12-14 02:40:00 [facility] CBC WITH DIFF 2022-12-14 02:40:00 Alley Montenegro [facility] URINALYSIS 2022-12-14 02:40:00 Mon[facility] HEPATITIS B SURFACE ANTIGEN 2022-12-14 02:40:00 [facility] HB ABO GROUPING 2022-12-14 02:40:00 [facility] GC & CHLAMYDIA AMPLIFIED ASSAY 2022-12-14 02:40:00 [facility] RHO (D) IMMUNE GLOBULIN 2022-12-14 02:40:00 Chilango Orosco [facility] PROTEIN CREAT RATIO URINE RANDOM 2022-12-14 02:40:00 Moni [facility] HIV 1/2 AG-AB WITH REFLEX 2022-12-14 02:40:00 [facility] SYPHILIS IGG/IGM 2022-12-14 02:40:00 [facility] POCT URINALYSIS 2022-12-13 21:06:00 Jamil Shipman [facility] DME/SUPPLY JUSTIFICATION 2022-12-10 05:01:00 Doc tor Unassigned, [place] [facility] POCT URINALYSIS 2022-12-08 19:30:00 Jamil Shipman [facility] POCT URINALYSIS 2022-11-24 20:24:00 Jamil Shipman [facility] POCT URINALYSIS 2022-11-17 20:40:00 Jamil Shipman [facility] SECOND AND THIRD TRIMESTER ULTRASOUND 2022-11-10 19:46:00 Jamil Shipman [facility] POCT URINALYSIS 2022-11-03 21:44:00 Jamil Shipman [facility] POCT URINALYSIS 2022-10-20 20:07:00 Jamil Shipman [facility] TDAP VACCINE, >11 YRS, IM 2022-10-06 19:56:47 Jamil Shipman [facility] POCT URINALYSIS 2022-10-06 19:34:00 Jamil Shipman [facility] ASSIGNMENT OF BENEFITS 2022-10-06 19:23:02 Docto r Unassigned, [place] [facility] POCT URINALYSIS 2022-09-08 00:00:00 Jamil Shipman [facility] POCT URINALYSIS 2022-08-25 19:14:00 Jamil Shipman [facility] CBC WITH DIFF 2022-06-16 16:25:00 Jamil Shipman [facility] RUBELLA SCREEN IGG 2022-06-16 16:25:00 Mikki Shipman [facility] VZV ANTIBODY SCREEN 2022-06-16 16:25:00 Benjamin Shipman [facility] HEPATITIS B SURFACE ANTIGEN 2022-06-16 16:25:00 Jamil Shipman [facility] HB ABO GROUPING 2022-06-16 16:25:00 Jamil Shipman [facility] URINE CULTURE 2022-06-16 16:25:00 Jamil Shipman [facility] GC & CHLAMYDIA AMPLIFIED ASSAY 2022-06-16 16:25:00 Jamil Shipman [facility] HIV 1/2 AG-AB WITH REFLEX 2022-06-16 16:25:00 Jamil Shipman [facility] GALV ONLY - SYPHILIS IGG/IGM 2022-06-16 16:25:00 Jamil Shipman [facility] POCT URINALYSIS W/O SPECIFIC GRAVITY 2022-06-16 15:01:00 Jamil Shipman [facility] POCT TEST 2022-06-16 15:00:00 Benjamin Shipman [facility] VACCINATION OF A MINOR 2022-06-16 14:36:53 Docto r Unassigned, [place] [facility] Encounters Start Date/Time End Date/Time Encounter Type Admission Type Attending Clinicians Care Facility Care Department Encounter ID Source 2024-03-09 00:00:00 2024-03-09 10:53:17 Telephone Maggy Lee [facility] MAKEUP ARTIST [facility] MATERNAL & CHILD HEALTH [facility] 1..840.114 350.1.13.10 4.2.7.2.686 [id number] 107 [id number] [facility] 2024-03-07 15:45:00 2024-03-07 16:37:51 Outpatient R CHARLIE EWING [facility] [id number] [facility] 2024-03-07 15:45:00 2024-03-07 16:37:51 Office Visit [facility] MAKEUP ARTIST [facility] MATERNAL & CHILD [facility] 1..840.114 350.1.13.10 4.2.7.2.686 [id number] [facility] 2024-01-18 10:00:00 2024-01-18 10:00:00 Outpatient R CHEPE LIU [facility] [id number] [facility] 2023-12-18 00:00:00 2023-12-18 00:00:00 Telephone Teena Leahy [facility] 1..840.114 350.1.13.10 4.2.7.2.686 [id number] [facility] 2023-12-18 00:00:00 2023-12-18 00:00:00 Telephone Debbie Rasheed [facility] MEDICAL OFFICE BU[facility] 1.840.114 350.1.13.10 4.2.7.2.686 [id number] 370 [id number] [facility] 2023-12-17 00:00:00 2023-12-17 00:00:00 Telephone EliandmitriallynTeena [facility] MED[facility] OFFICE BU[facility] 1..114 350.1.13.10 4.2.7.2.686 [id number] [facility] 2023-12-16 19:20:00 2023-12-16 19:44:08 Outpatient R DEBBIE RASHEED [facility] [id number] [facility] 2023-12-16 19:20:00 2023-12-16 19:44:08 Urgent Care WiliDebbie Unknown, Attending [facility] MEDICAL OFFICE BUILDING 1.114 350.1.13.10 4.2.7.2.686 [id number] [facility] 2023-11-09 00:00:00 2023-11-09 00:00:00 Telephone Maira Temple [facility] 1..114 350.1.13.10 4.2.7.2.686 [id number] [facility] 2023-08-17 13:30:00 2023-08-17 13:30:00 Outpatient R JAMIL SHIPMAN [facility] [id number] [facility] 2023-07-08 00:00:00 2023-07-08 00:00:00 Orders Only Doctor Unassigned, [place] [facility] 1.114 350.1.13.10 4.2.7.2.686 [id number] [facility] 2023-07-04 14:30:00 2023-07-04 15:04:48 Outpatient R JAMIL SHIPMAN [facility] [id number] [facility] 2023-07-04 14:30:00 2023-07-04 15:04:48 Office Visit Jamil Shipman [place] MAKEUP ARTIST [facility] CHILD [facility] 1..840.114 350.1.13.10 4.2.7.2.686 [id number] [facility] 2023-04-27 14:30:00 2023-04-27 14:30:00 Outpatient R JAMIL SHIPMAN [facility] [id number] [facility] 2023-04-27 00:00:00 2023-04-27 00:00:00 Telephone Jamil Shipman [place] MAKEUP ARTIST [facility] 1..840.114 350.1.13.10 4.2.7.2.686 [id number] [facility] 2023-03-31 08:30:00 2023-03-31 08:30:00 Outpatient R JAMIL SHIPMAN [facility] [id number] [facility] 2023-03-16 00:00:00 2023-03-16 00:00:00 Telephone Jamil Shipman [facility] MAKEUP ARTIST [facility] 1..840.114 350.1.13.10 4.2.7.2.686 [id number] [facility] 2023-03-09 13:00:00 2023-03-09 13:00:00 Outpatient R JAMIL SHIPMAN [facility] [id number] [facility] 2023-02-18 10:45:00 2023-02-18 11:25:44 Outpatient R JAMIL SHIPMAN [facility] [id number] [facility] 2023-02-18 10:45:00 2023-02-18 11:25:44 Office Visit Jamil Shipman [facility] MAKEUP ARTIST [facility] 1.2.840.114 350.1.13.10 4.2.7.2.686 [id number] [facility] 2023-01-04 08:45:00 2023-01-04 13:05:21 Outpatient R MILINDMADAYMAGGY [facility] [id number] [facility] 2023-01-04 08:45:00 2023-01-04 13:05:21 Routine Visit Maggy Lee [facility] MAKEUP ARTIST [facility] MATERNAL & [facility] 1.2.840.114 350.1.13.10 4.2.7.2.686 [id number] 107 [id number] [facility] 2022-12-25 00:00:00 2022-12-25 00:00:00 Nurse Triage Milla [facility] 1.2.840.114 350.1.13.10 4.2.7.2.686 [id number] [facility] 2022-12-13 19:11:00 2022-12-16 12:49:00 Hospital Encounter Lonnie Willis [facility] 1.2.840.114 350.1.13.10 4.2.7.2.686 [id number] [facility] 2022-12-16 00:00:00 2022-12-16 00:00:00 Encounter 1.2.840.1 [id number] 3.104.2.7 [id number] 1.2.840.114 350.1.13.10 4.2.7.2.696 [id number] [facility] 2022-12-14 01:54:00 2022-12-14 08:53:00 [facility] 1.2.840.114 350.1.13.10 4.2.7.2.686 [id number] [facility] 2022-12-13 16:00:00 2022-12-13 16:15:08 Outpatient R JAMIL SHIPMAN [facility] [id number] [facility] 2022-12-13 16:00:00 2022-12-13 16:15:08 Outpatient R JAMIL SHIPMAN [place] JAIM[facility] [id number] [facility] 2022-12-13 16:00:00 2022-12-13 16:15:08 Routine Visit Jamil Shipman [facility] MAKEUP ARTIST [facility] & CHILD [facility] 1.2.840.114 350.1.13.10 4.2.7.2.686 [id number] [facility] 2022-12-10 00:00:00 2022-12-10 00:00:00 Orders Only Doctor Unassigned, [place] [facility] 1.2.840.114 350.1.13.10 4.2.7.2.686 [id number] [facility] 2022-12-10 00:00:00 2022-12-10 00:00:00 Nurse Triage Michelle Song [facility] 1.2.840.114 350.1.13.10 4.2.7.2.686 [id number] [facility] 2022-12-09 00:00:00 2022-12-09 00:00:00 Abstract Jamil Shipman [facility] MAKEUP ARTIST [facility] & CHILD [facility] 1.2.840.114 350.1.13.10 4.2.7.2.686 [id number] [facility] 2022-12-08 15:30:00 2022-12-08 15:30:00 Routine Visit Jamil Shipman [facility] MAKEUP ARTIST [facility] CHILD [facility] 1.2.840.114 350.1.13.10 4.2.7.2.686 [id number] [facility] 2022-12-08 13:30:00 2022-12-08 14:57:22 Outpatient P LETTY MARTÍNEZ [facility] [id number] [facility] 2022-12-08 13:30:00 2022-12-08 14:00:00 Manager Of Sustainability Visit Ultrasound, Femi Parker Gay [facility] MAKEUP ARTIST [facility] CHILD [facility] 1..840.114 350.1.13.10 4.2.7.2.686 [id number] [facility] 2022-12-01 16:00:00 2022-12-01 16:00:00 Outpatient R JAMIL SHIPMAN [facility] [id number] [facility] 2022-11-25 00:00:00 2022-11-25 00:00:00 Telephone Jamil Shipman [facility] MAKEUP ARTIST [facility] 1..840.114 350.1.13.10 4.2.7.2.686 [id number] [facility] 2022-11-24 15:45:00 2022-11-24 16:00:00 Routine Visit Jamil Shipman [facility] MAKEUP ARTIST [facility]ILD [facility] ..840.114 350.1.13.10 4.2.7.2.686 [id number] 107 [id number] [facility] 2022-11-24 15:45:00 2022-11-24 15:45:00 Outpatient R JAMIL SHIPMAN [facility] [id number] [facility] 2022-11-18 00:00:00 2022-11-18 00:00:00 Abstract Jamil Shipman [facility] MAKEUP ARTIST [facility] 1..840.114 350.1.13.10 4.2.7.2.686 [id number] [facility] 2022-11-17 15:30:00 2022-11-17 15:57:14 Outpatient R JAMIL SHIPMAN [facility] [id number] [facility] 2022-11-17 15:30:00 2022-11-17 15:57:14 Routine Visit Jamil Shipman [facility] MAKEUP ARTIST [facility]ILD [facility] 1.2.840.114 350.1.13.10 4.2.7.2.686 [id number] [facility] 2022-11-13 00:00:00 2022-11-13 00:00:00 Nurse Triage Merline Loyola [facility] 1.2840.114 350.1.13.10 4.2.7.2.686 [id number] [facility] 2022-11-10 13:30:00 2022-11-10 14:20:18 Manager Of Sustainability Visit Ultrasound, Femi Parker [facility] MAKEUP ARTIST [facility] 1.2.840.114 350.1.13.10 4.2.7.2.686 [id number] [facility] 2022-11-10 13:30:00 2022-11-10 13:30:00 Outpatient FEMI MELCHOR SHANNON [facility] [id number] [facility] 2022-11-03 15:30:00 2022-11-03 15:58:36 Outpatient R JAMIL SHIPMAN [facility] [id number] [facility] 2022-11-03 15:30:00 2022-11-03 15:58:36 Routine Visit Jamil [facility] 1.2840.114 350.1.13.10 4.2.7.2.686 [id number] 107 [id number] [facility] 2022-10-20 14:00:00 2022-10-20 14:32:17 Outpatient R JAMIL SHIPMAN [facility] [id number] [facility] 2022-10-20 14:00:00 2022-10-20 14:32:17 Routine Visit Jamil Shipman [place] MAKEUP ARTIST [facility] 1.2.840.114 350.1.13.10 4.2.7.2.686 [id number] [facility] 2022-10-18 00:00:00 2022-10-18 00:00:00 Telephone Jamil Shipman [facility] MAKEUP ARTIST [facility] 1.2.840.114 350.1.13.10 4.2.7.2.686 [id number] [facility] 2022-10-07 00:00:00 2022-10-07 00:00:00 Telephone Jamil Shipman [facility] MAKEUP ARTIST [facility] 1.2.840.114 350.1.13.10 4.2.7.2.686 [id number] [facility] 2022-10-06 13:15:00 2022-10-06 14:15:36 Outpatient R JAMIL SHIPMAN [facility] [id number] [facility] 2022-10-06 13:15:00 2022-10-06 14:15:36 Routine Visit Jamil Shipman [facility] MAKEUP ARTIST [facility] 1.2.840.114 350.1.13.10 4.2.7.2.686 [id number] [facility] 2022-10-06 00:00:00 2022-10-06 00:00:00 Orders Only Doctor Unassigned, [place] [facility] 1.2.840.114 350.1.13.10 4.2.7.2.686 [id number] [facility] 2022-10-06 00:00:00 2022-10-06 00:00:00 Abstract Jamil Shipman [facility] MAKEUP ARTIST [facility] MATERNAL & CHILD [facility] 1.2.840.114 350.1.13.10 4.2.7.2.686 [id number] [facility] 2022-09-30 13:00:00 2022-09-30 14:12:43 Manager Of Sustainability Visit Ultrasound, Violeta Graham [facility] MAKEUP ARTIST [facility] CHILD [facility] 1.2.840.114 350.1.13.10 4.2.7.2.686 [id number] [facility] 2022-09-30 13:00:00 2022-09-30 13:00:00 Outpatient VIOLETA AMOS [facility] [id number] [facility] 2022-09-17 09:45:00 2022-09-17 09:56:01 Outpatient WAQAS BETANCUR [facility] [id number] [facility] 2022-09-17 09:45:00 2022-09-17 09:56:01 Telemedici ne Visit Liliana Saenz Joseph W [facility] MAKEUP ARTIST [facility]ILD [facility] 1.2.840.114 350.1.13.10 4.2.7.2.686 [id number] [facility] 2022-09-09 15:00:00 2022-09-09 16:00:00 Manager Of Sustainability Visit Ultrasound, Mariajose Esparza [facility] MAKEUP ARTIST [facility]ILD [facility] 1.2.840.114 350.1.13.10 4.2.7.2.686 [id number] [facility] 2022-09-09 15:00:00 2022-09-09 15:00:00 Outpatient P MARIAJOSE NUNEZ SANGEETA [facility] [id number] [facility] 2022-09-09 00:00:00 2022-09-09 00:00:00 Telephone Jamil Shipman [facility] MAKEUP ARTIST [facility] 1.2.840.114 350.1.13.10 4.2.7.2.686 [id number] [facility] 2022-09-09 00:00:00 2022-09-09 00:00:00 Abstract Jamil Shipman [facility] MAKEUP ARTIST [facility] 1.2.840.114 350.1.13.10 4.2.7.2.686 [id number] [facility] 2022-09-08 14:45:00 2022-09-08 15:42:06 Outpatient R JAMIL SHIPMAN [facility] [id number] [facility] 2022-09-08 14:45:00 2022-09-08 15:42:06 Routine Visit UmbertoJamil Tanya [facility] MAKEUP ARTIST [facility] 1.840.114 350.1.13.10 4.2.7.2.686 [id number] [facility] 2022-08-25 13:15:00 2022-08-25 13:46:15 Outpatient R MIKKI SHIPMANOLA [facility] [id number] [facility] 2022-08-25 13:15:00 2022-08-25 13:46:15 Routine Visit Jamil Shipman [place] MAKEUP ARTIST [facility] 1.2.840.114 350.1.13.10 4.2.7.2.686 [id number] [facility] 2022-08-23 00:00:00 2022-08-23 00:00:00 Telephone ArjunwenceslaofelixJamil Tanya [facility] MAKEUP ARTIST [facility] 1.2.840.114 350.1.13.10 4.2.7.2.686 [id number] [facility] 2022-08-17 00:00:00 2022-08-17 00:00:00 Telephone Jamil Shipman [facility] MAKE[facility] ARTIST [facility] 1.2.840.114 350.1.13.10 4.2.7.2.686 [id number] [facility] 2022-07-14 11:00:00 2022-07-14 11:00:00 Outpatient P [facility] [id number] [facility] 2022-07-07 13:30:00 2022-07-07 13:30:00 Outpatient P [facility] [id number] [facility] 2022-07-01 00:00:00 2022-07-01 00:00:00 Telephone Jamil Shipman [facility] MAKEUP ARTIST [facility] 1.2.840.114 350.1.13.10 4.2.7.2.686 [id number] [facility] 2022-06-22 00:00:00 2022-06-22 00:00:00 Telephone Jamil Shipman [facility] MAKEUP ARTIST [facility] 1.2.840.114 350.1.13.10 4.2.7.2.686 [id number] [facility] 2022-06-16 10:00:00 2022-06-16 11:32:10 Outpatient R JAMIL SHIPMAN [facility] [id number] [facility] 2022-06-16 10:00:00 2022-06-16 11:32:10 Initial Visit Jamil Shipman [facility] MAKEUP ARTIST [facility] 1.2.840.114 350.1.13.10 4.2.7.2.686 [id number] [facility] 2022-06-16 00:00:00 2022-06-16 00:00:00 Orders Only Doctor Unassigned, [place] [facility] 1.840.114 350.1.13.10 4.2.7.2.686 [id number] [facility] 2022-06-11 10:00:00 2022-06-11 10:00:00 Outpatient JAMIL SINCLAIR [facility] [id number] [facility] 2021-09-29 00:00:00 2021-09-29 00:00:00 Letter (Out) Jacquie Moon [facility] 1.84.114 350.1.13.10 4.2.7.2.686 [id number] [facility] 2021-09-28 15:15:00 2021-09-28 16:05:33 Laboratory Only Only, Adc Pob2 Test DonnyKristine morales [facility] 1.84.114 350.1.13.10 4.2.7.2.686 [id number] [facility] 2021-09-28 15:15:00 2021-09-28 15:15:00 Outpatient HENOK CERVANTESTA [facility] [id number] [facility] 2021-09-24 15:00:00 2021-09-24 15:15:00 Laboratory Only Only, Adc Test Johanna Conti [facility] 1.84.114 350.1.13.10 4.2.7.2.686 [id number] [facility] 2021-09-24 15:00:00 2021-09-24 15:00:00 Outpatient R [facility]ITO [facility] [id number] [facility] 2021-09-24 00:00:00 2021-09-24 00:00:00 Orders Only Doctor Unassigned, [place] [facility] 1.84114 350.1.13.10 4.2.7.2.686 [id number] [facility] Results Test Description Test Time Test Comments Results Result Co mments Source [facility] [id number] 19:40:00* Test Item Value Reference Range Interpretation Comme nts POCT PREG (test code = 1605) Negative On board controls acceptable with C Line (test code = 3574) Yes POCT PREG LOT # (test code = 3575) POCT PREG TEST DATE ( test code = 3576) Lab Interpretation (test cod e = 91889-0) Normal [facility] [id number] 16:24:00* Test Item Value Reference Range Interpretation Comme nts POCT PREG (test code = 1605) Negative On board controls acceptable with C Line (test code = 3574) Yes POCT PREG LOT # (test code = 3575) POCT PREG TEST DATE (test code = 3576) RICHELLE (test code = RICHELLE) accurate developme nt and interpretation of all internal controls [facility] [id number] 16:24:00* Test Item Value Reference Range Interpretation Comme nts POCT PREG (test code = 1605) Negative On board controls acceptable with C Line (test code = 3574) Yes POCT PREG LOT # (test code = 3575) POCT PREG TEST DATE (test code = 3576) RICHELLE (test code = RICHELLE) accurate developme nt and interpretation of all internal controls [facility] [id number] 16:24:00* Test Item Value Reference Range Interpretation Comme nts POCT PREG (test code = 1605) Negative On board controls acceptable with C Line (test code = 3574) Yes POCT PREG LOT # (test code = 3575) POCT PREG TEST DATE (test code = 3576) RICHELLE (test code = RICHELLE) accurate developme nt and interpretation of all internal controls [facility] [id number] 16:24:00* Test Item Value Reference Range Interpretation Comme nts POCT PREG (test code = 1605) Negative On board controls acceptable with C Line (test code = 3574) Yes POCT PREG LOT # (test code = 3575) POCT PREG TEST DATE (test code = 3576) RICHELLE (test code = RICHELLE) accurate developme nt and interpretation of all internal controls [facility] AMINO TRANSFERASE([id number] 14:16:06* Test Item Value Reference Range Interpretation Comme nts ALTv (test code = 1742-6) 12 U/L 5-35 Lab Interpretation (test cod e = 15316-6) Normal [facility] (ASPARTATE AMINO TRANSFER)2022-12-16 14:16:06* Test Item Value Reference Range Interpretation Comme nts AST(SGOT) (test code = 8604352710) 37 U/L 13-40 Lab Interpretation (test cod e = 87058-9) Normal [facility]AT[facility]INE2023-04-13 14:16:05* Test Item Value Reference Range Interpretation Comme nts CREATININE (test code = 4243910377) 0.59 mg/dL 0.50-1.04 RICHELLE (test code = [...] imaging tests). Lab Interpretation (test code = 35562-7) Normal [facility] CampusURIC [id number] 14:16:05* Test Item Value Reference Range Interpretation Comme nts URIC ACID (test code = 6334090465) 5.9 mg/dL 2.9-6.0 Lab Interpretation (test cod e = 99912-0) Normal [facility] CampusLACTATE [id number] 14:16:05* Test Item Value Reference Range Interpretation Comme nts LDH (test code = 1037958572) 235 U/L 120-246 Lab Interpretation (test cod e = 38478-4) Normal [facility] CampusCB WITH [id number] 14:09:06* Test Item Value Reference Range Interpretation Comme nts WBC (test code = 6690-2) 11.18 See_Comment [Automated BIBA Apparels] The system which generated this result transmitted reference range: 4.50 - 13.50 10*3/?L. The reference range was not used to interpret this result as normal/abnormal. RBC (test code = 789-8) 2.78 See_Comment L [Automated BIBA Apparels] The system which generated this result transmitted [...] g/dL 32.0-36.0 L RDW-SD (test code = 81558-4) 53.2 fL 38.5-49.0 H RDW-CV (test code = 788-0) 17.6 % 11.5-14.0 H PLT (test code = 777-3) 214 See_Comment [Automated messa ge] The system which generated this result transmitted reference range: 135 - 361 10*3/?L. The reference range was not used to interpret this result as normal/abnormal. MPV (test code = 63922-5) 10.8 fL 9.4-13.3 NRBC/100 WBC (test code = 2655156586) 0.0 See_Comment [Automated me ssage] The system which generated this result transmitted reference range: 0.0 - 10.0 /100 WBCs. The reference range was not used to interpret this result as normal/abnormal. NRBC x10^3 (test code = 8006797128) See_Comment [Automated messa ge] The system which generated this result transmitted reference range: 10*3/?L. The reference range was not used to interpret this result as normal/abnormal. GRAN MAT (NEUT) % (test code = 770-8) 72.2 % IMM GRAN % (test code = 3171578277) 0.70 % LYMPH % (test code = 736-9) 21.5 % MONO % (test code = 5905-5) 4.0 % EOS % (test code = 713-8) 1.4 % BASO % (test code = 706-2) 0.2 % GRAN MAT x10^3(ANC) (test code = 2571947608) 8.07 10*3/uL 1.50-10.30 IMM GRAN x10^3 (test code = 6612520793) 0.08 10*3/uL 0.00-0.06 H LYMPH x10^3 (test code = 731-0) 2.40 10*3/uL 0.70-7.40 MONO x10^3 (test code = 742-7) 0.45 10*3/uL 0.00-0.50 EOS x10^3 (test code = 711-2) 0.16 10*3/uL 0.00-0.40 BASO x10^3 (test code = 704-7) 0.00-0.10 Lab Interpretation (test code = 00804-9) Abnormal [facility] (D) IMMUNE [id number] 00:14:56* Test Item Value Reference Range Interpretation Comme nts RHIG CANDIDATE? (test code = 5188) No- see comment Patient is not a candidate for RhIg- Patient is Rh Positive.Performed at [facility] Laboratory Services - [facility] Blood [address] [address] Free: [phone] No. [id number] [facility] ONLY - SYPHILIS [id number] 14:37:43* Test Item Value Reference Range Interpretation Comme nts Syphilis IgG/IgM (test code = 68253-1) Non-reactive Non-reactive RICHELLE (test code = RICHELLE) Non-reactive - No serologic evidence of T. pallidum infection. Cannot exclude incubating or early syphilis. Submit a second specimen in 2-4 weeks if syphilis is clinically suspected. Equivocal - Further testing to follow. Reactive - Further testing to follow. Lab Interpretation (test code = 10877-3) Normal [facility] CampusVENOUS CORD [id number] 13:10:06* Test Item Value Reference Range Interpretation Comme [facility] VENOUS BASE EXCESS, CORD (test code = 0273216197) -4.4 mEq/L VENOUS PH, CORD (test code = 9186248415) 7.33 7.25-7.45 VENOUS PC02, CORD (test code = 0001241280) 42 See_Comment [Automated me ssage] The system which generated this result transmitted reference range: 27 - 49 mmHg. The reference range was not used to interpret this result as normal/abnormal. VENOUS PO2, CORD (test code = 7214084714) 16 See_Comment L [Automated me ssage] The system which generated this result transmitted reference range: 17 - 41 mmHg. The reference range was not used to interpret this result as normal/abnormal. VENOUS BICARBONATE, CORD (test code = 2873937439) 21 See_Comment [Automa chan message] The system which generated this result transmitted reference range: 12 - 29 mEq/L. The reference range was not used to interpret this result as normal/abnormal. Lab Interpretation (test code = 23185-2) Abnormal [facility] CampusHI 1/2 AG-AB WITH [id number] 04:11:14* Test Item Value Reference Range Interpretation Comme [facility] HIV Semi-quantitative (test code = 81639-5) 0.08 Negative RICHELLE (test code = RICHELLE) Non-reactive for HIV-1 antigen and HIV-1/HIV-2 antibodies. ?No laboratory evidence of HIV infection. ?Repeat in 2-4 weeks if acute HIV infection is suspected. [facility] CampusHepatitis B Surface [id number] 04:02:55 * Test Item Value Reference Range Interpretation Comme [facility] HBsAg Semi-Quantitative (linda t code = 5195-3) 0.05 Negative [facility] CampusLactate [id number] 03:29:49* Test Item Value Reference Range Interpretation Comme [facility] LDH (test code = 3714665778) 378 U/L 120-246 H Slight hemolysis Lab Interpretation (test code = 76112-2) Abnormal [facility] CampusUric Acid [id number] 03:29:29* Test Item Value Reference Range Interpretation Comme [facility] URIC ACID (test code = 4696660649) 7.1 mg/dL 2.9-6.0 H Lab Interpretation (test cod e = 46028-8) Abnormal [facility] CampusSerum [id number] 03:29:29* Test Item Value Reference Range Interpretation Comme [facility] CREATININE (test code = 2370719812) 0.60 mg/dL 0.50-1.04 RICHELLE (test code = [...] imaging tests). Lab Interpretation (test code = 80503-2) Normal [facility] CampusSGOT (Asparate Amino Transfer)2022-12-14 03:29:29* Test Item Value Reference Range Interpretation Comme nts AST(SGOT) (test code = 0486461848) 24 U/L 13-40 Lab Interpretation (test cod e = 43287-6) Normal [facility] CampusAlanine Amino Transferase (SGPT)2022-12-14 03:29:29* Test Item Value Reference Range Interpretation Comme nts ALTv (test code = 1742-6) 10 U/L 5-35 Lab Interpretation (test cod e = 72030-4) Normal [facility] CampusCBC with [id number] 03:06:00* Test Item Value Reference Range Interpretation Comme nts WBC (test code = 6690-2) 8.50 See_Comment [Automated Loehmann'sa ge] The system which generated this result transmitted reference range: 4.50 - 13.50 10*3/?L. The reference range was not used to interpret this result as normal/abnormal. RBC (test code = 789-8) 3.23 See_Comment L [Automated Loehmann'sa ge] The system which generated this result [...] g/dL 32.0-36.0 L RDW-SD (test code = 57624-5) 52.6 fL 38.5-49.0 H RDW-CV (test code = 788-0) 17.1 % 11.5-14.0 H PLT (test code = 777-3) 218 See_Comment [Automated messa ge] The system which generated this result transmitted reference range: 135 - 361 10*3/?L. The reference range was not used to interpret this result as normal/abnormal. MPV (test code = 23114-7) 11.8 fL 9.4-13.3 NRBC/100 WBC (test code = 0321004658) 0.0 See_Comment [Automated GoldenSUN ssage] The system which generated this result transmitted reference range: 0.0 - 10.0 /100 WBCs. The reference range was not used to interpret this result as normal/abnormal. NRBC x10^3 (test code = 6020147877) See_Comment [Automated messa ge] The system which generated this result transmitted reference range: 10*3/?L. The reference range was not used to interpret this result as normal/abnormal. GRAN MAT (NEUT) % (test code = 770-8) 81.1 % IMM GRAN % (test code = 4799496666) 0.60 % LYMPH % (test code = 736-9) 12.5 % MONO % (test code = 5905-5) 5.6 % EOS % (test code = 713-8) 0.0 % BASO % (test code = 706-2) 0.2 % GRAN MAT x10^3(ANC) (test code = 0136876013) 6.89 10*3/uL 1.50-10.30 IMM GRAN x10^3 (test code = 7571670321) 0.05 10*3/uL 0.00-0.06 LYMPH x10^3 (test code = 731-0) 1.06 10*3/uL 0.70-7.40 MONO x10^3 (test code = 742-7) 0.48 10*3/uL 0.00-0.50 EOS x10^3 (test code = 711-2) 0.00-0.40 BASO x10^3 (test code = 704-7) 0.00-0.10 Lab Interpretation (test code = 59863-8) Abnormal [facility] CampusType and Screen - ONCE [id number] 02:47:00 * Test Item Value Reference Range Interpretation Comme nts ABO & RH (test code = 20) A POSITIVE IAT (test code = 1185) Negative [facility] CampusPOCT URINALYSIS W SPECIFIC [id number] 21:06:00* Test Item Value Reference Range Interpretation [...] U APPEAR (test code = 3267) . [facility] CampusPOCT URINALYSIS W SPECIFIC [id number] 19:30:00* Test Item Value Reference Range Interpretation [...] U APPEAR (test code = 3267) . [facility] URINALYSIS W SPECIFIC [id number] 20:24:00* Test Item Value Reference Range Interpretation [...] U APPEAR (test code = 3267) . [facility] URINALYSIS W SPECIFIC [id number] 20:40:00* Test Item Value Reference Range Interpretation [...] POCT U APPEAR (test code = 3267) [facility] URINALYSIS W SPECIFIC [id number] 21:44:00* Test Item Value Reference Range Interpretation [...] U APPEAR (test code = 3267) . [facility] URINALYSIS W SPECIFIC [id number] 20:08:00* Test Item Value Reference Range Interpretation [...] U APPEAR (test code = 3267) . [facility] URINALYSIS W SPECIFIC [id number] 19:34:00* Test Item Value Reference Range Interpretation [...] POCT U APPEAR (test code = 3267) [facility] URINALYSIS W SPECIFIC [id number] 19:34:00* Test Item Value Reference Range Interpretation [...] POCT U APPEAR (test code = 3267) [facility] URINALYSIS W SPECIFIC [id number] 19:34:00* Test Item Value Reference Range Interpretation [...] POCT U APPEAR (test code = 3267) [facility] URINALYSIS W SPECIFIC [id number] 21:24:00* Test Item Value Reference Range Interpretation [...] U APPEAR (test code = 3267) . [facility] URINALYSIS W SPECIFIC [id number] 19:14:00* Test Item Value Reference Range Interpretation [...] U APPEAR (test code = 3267) . [facility] URINALYSIS W SPECIFIC [id number] 19:14:00* Test Item Value Reference Range Interpretation [...] U APPEAR (test code = 3267) . [facility] URINALYSIS W SPECIFIC [id number] 19:14:00* Test Item Value Reference Range Interpretation [...] U APPEAR (test code = 3267) . [facility]POCT URINALYSIS W SPECIFIC [id number] 19:14:00* Test Item Value Reference Range Interpretation [...] U APPEAR (test code = 3267) . [facility] CampusVZV ANTIBODY [id number] 17:05:33* Test Item Value Reference Range Interpretation Comme [facility] VZV IgG antibody (test code = 02260-1) Negative Negative RICHELLE (test code = RICHELLE) Positive - Indicat es the patient was exposed to VZV through infection or vaccination.Negative - Indicates the patient could be susceptible to VZV infection.Equivocal - A second specimen should be sent for testing. [facility] CampusRUBELLA SCREEN (ERLINDA) [id number] 17:05:13 * Test Item Value Reference Range Interpretation Comme [facility] Rubella screen IgG (test code = 6584426457) Equivocal Negative RICHELLE (test code = RICHELLE) Positive - Indicat es the patient was exposed to Rubella through infection or vaccination.Negative - Indicates the patient could be susceptible to Rubella infection.Equivocal - A second specimen should be sent. [facility] CampusGALV ONLY - SYPHILIS [id number] 15:58:45* Test Item Value Reference Range Interpretation Comme nts Syphilis IgG/IgM (test code = 87096-0) Non-reactive Non-reactive RICHELLE (test code = RICHELLE) Non-reactive - No serologic evidence of T. pallidum infection. Cannot exclude incubating or early syphilis. Submit a second specimen in 2-4 weeks if syphilis is clinically suspected. Equivocal - Further testing to follow. Reactive - Further testing to follow. Lab Interpretation (test code = 17851-2) [facility] WITH [id number] 06:51:47* Test Item Value Reference Range Interpretation Comme nts HIV Semi-quantitative (test code = 35544-3) Negative Negative RICHELLE (test code = RICHELLE) Non-reactive for HIV-1 antigen and HIV-1/HIV-2 antibodies. ?No laboratory evidence of HIV infection. ?Repeat in 2-4 weeks if acute HIV infection is suspected. [facility] CampusHEPATITIS B SURFACE [id number] 04:40:24 * Test Item Value Reference Range Interpretation Comme nts HBsAg Semi-Quantitative (linda t code = 5195-3) Negative Negative [facility] CampusCBC WITH [id number] 04:08:51* Test Item Value Reference Range Interpretation Comme nts WBC (test code = 6690-2) See_Comment [Automated Loehmann'sa ge] The system which generated this result transmitted reference range: 4.50 - 13.50 10*3/?L. The reference range was not used to interpret this result as normal/abnormal. RBC (test code = 789-8) See_Comment [Automated Loehmann'sa ge] The system which generated this result [...] 34.4 g/dL 32-36 RDW-SD (test code = 14372-9) 38.3 fL 38.5-49 L RDW-CV (test code = 788-0) 11.7 % 11.5-14 PLT (test code = 777-3) See_Comment [Automated Loehmann'sa ge] The system which generated this result transmitted reference range: 135 - 361 10*3/?L. The reference range was not used to interpret this result as normal/abnormal. MPV (test code = 31635-7) 10.6 fL 9.4-13.3 IPF % (test code = 7985386818) 3.2 % 0-7.4 Platelet count measured by fluorescence method. NRBC/100 WBC (test code = 5900051981) See_Comment [Automated GoldenSUN ssage] The system which generated this result transmitted reference range: 0.0 - 10.0 /100 WBCs. The reference range was not used to interpret this result as normal/abnormal. NRBC x10^3 (test code = 1196064402) See_Comment [Automated Loehmann'sa [employer]] The system which generated this result transmitted reference range: 10*3/?L. The reference range was not used to interpret this result as normal/abnormal. GRAN MAT (NEUT) % (test code = 770-8) 77.9 % IMM GRAN % (test code = 0299095453) 0.40 % LYMPH % (test code = 736-9) 15.9 % MONO % (test code = 5905-5) 5.5 % EOS % (test code = 713-8) 0.1 % BASO % (test code = 706-2) 0.2 % GRAN MAT x10^3(ANC) (test code = 1975306713) 7.06 10*3/uL 1.5-10.3 IMM GRAN x10^3 (test code = 2312740376) 0.04 10*3/uL 0-0.06 LYMPH x10^3 (test code = 731-0) 1.44 10*3/uL 0.7-7.4 MONO x10^3 (test code = 742-7) 0.50 10*3/uL 0-0.5 EOS x10^3 (test code = 711-2) 0-0.4 BASO x10^3 (test code = 704-7) 0-0.1 BANDS (test code = 4480686710) Increased A Lab Interpretation (test code = 22166-3) Abnormal [facility] CampusPRENATAL WORKUP, BLOOD [id number] 04:05:19 * Test Item Value Reference Range Interpretation Comme nts ABO & RH (test code = 20) A POSITIVE Performed at [facility] Laboratory Services - [facility] Blood [address] [address]X[employer] Free: [phone] No. [id number] IAT (test code = 1185) Negative Performed at [facility] Laboratory Services [facility] Blood [address] Free: [phone] No. [id number] [facility] URINALYSIS W/O SPECIFIC [id number] 15:01:00* Test Item Value Reference Range Interpretation [...] = 3257) Large Negative - Negati ve [facility] URINALYSIS W/O SPECIFIC [id number] 15:01:00* Test Item Value Reference Range Interpretation [...] = 3257) Large Negative - Negati ve [facility] CampusPOCT [id number] 15:00:00* Test Item Value Reference Range Interpretation Comme nts POCT PREG (test code = 1605) Positive On board controls acceptable with C Line (test code = 3574) Yes POCT PREG LOT # (test code = 3575) POCT PREG TEST DATE ( test code = 3576) [facility] CampusPOCT [id number] 15:00:00* Test Item Value Reference Range Interpretation Comme nts POCT PREG (test code = 1605) Positive On board controls acceptable with C Line (test code = 3574) Yes POCT PREG LOT # (test code = 3575) POCT PREG TEST DATE ( test code = 3576) [facility] CampusCT/NG, NAAT, [id number] 19:24:50* Test Item Value Reference Range Interpretation Comme nts GONORRHEA, NAAT (test code = 91693) NEGATIVE NEGATIVE IMPORTANT NO JOSÉ MIGUEL: SEE ANNOUNCEMENT AT [email or web address] heCobasUrineKit Note: Assay methodology is nucleic acid amplification by registered nurse renal mediated amplification (TMA) utilizing the Aptima Combo 2 Assay. CHLAMYDIA, NAAT (test code = 89574) NEGATIVE NEGATIVE IMPORTANT NO JOSÉ MIGUEL: SEE ANNOUNCEMENT AT [email or web address] heCobasUrineKit Note: Assay methodology is nucleic acid amplification by registered nurse renal mediated amplification (TMA) utilizing the Aptima Combo 2 Assay. VAGINAL PATHOGENS DNA [id number] 17:16:50* Test Item Value Reference Range Interpretation Comme nts PARAG SPECIES (test code = 53750) NEGATIVE NEGATIVE G. VAGINALIS (test code = 31158) POSITIVE NEGATIVE A T. VAGINALIS (test code = 19264) NEGATIVE NEGATIVE UNLESS OTHERWISE INDICATED, ALL TESTING PERFORMED ATCLINICAL PATHOLOGY [employer] [address] [place] [address] [employer]: VAMSI HEATON M.D. CLIA NUMBER [id number] [place]. [id number] 04:27:22* Test Item Value Reference Range Interpretation Comme nts RPR RESULT (test code = 3501) NON-REACTIVE NON-REACTIVE RPR TITER (test code = 3500) NOT INDIC. TITER NOT INDIC. HIV 1/2 4TH GEN, RFLX [id number] 03:17:47* Test Item Value Reference Range Interpretation Comme nts HIV 1/2 4TH GEN, RFLX CONF ( test code = 3514) NON-REACTIVE NON-REACTIVE HEPATITIS PANEL, [id number] 03:17:47* Test Item Value Reference Range Interpretation Comme nts HEPATITIS A IgM (test code = 27991) NON-REACTIVE NON-REACTIVE HEPATITIS B CORE IgM (test code = 4644) NON-REACTIVE NON-REACTIVE HEPATITIS B SURF AG (test code = 2739) NON-REACTIVE NON-REACTIVE HEPATITIS C ANTIBODY (test code = 4675) NON-REACTIVE NON-REACTIVE INTERPRETATION HEPATITIS A: (test code = 2552) (NOTE) Hepatitis A serology shows no evidence of acute hepatitis A. INTERPRETATION HEPATITIS B: (test code = 57634) (NOTE) Hepatitis B serology shows no evidence of acute hepatitis B andno indication of exposure to hepatitis B virus in the previous von eight months. INTERPRETATION HEPATITIS C: (test code = 49184) (NOTE) Hepatitis C serology shows no evidence of exposure to hepatitisC virus at this time. It can take up to 12 months after exposure tothe hepatitis C virus for antibodies to become detectable in the blood in certain patients. Notes Date/Time Note Provider Source 2024-03-09 10:52:32 Called pt, discussed results and poc. Verbalized understanding. Elizabeth Durand RN 03/09/24 10:53 [facility] 2024-03-09 08:14:03 Called pt, no answer. Left vm. Elizabeth Durand RN 03/09/24 8:14 [facility] 2024-03-09 07:00:38 Please call patient and let her know she does have chlamydia and to take doxycycline that was prescribed to her on 03/07. Her partner already tested positive and is being treated. T [facility] 2023-12-18 16:56:51 Pt states moxifloxacin is not covered under insurance plan. Pt advised this is the preferred tx and she could use a GoodRx coupon or pay out of pocket. Pt states she will try t find a coupon but may need alternative rx if original is unaffordable. Pt will call back for further assistance. Lauren Matos RN [facility] 2023-12-18 16:28:43 LM for pt to return call. Lauren Matos RN [facility] 2023-12-18 16:24:12 Carlos Jefferson is a 18 year old female Patient calling about medication and questions regarding what they are for. Please call [phone] (home) Shani Bansal [facility] 2023-12-18 09:13:09 Resent medications to [facility] 2023-12-18 08:53:58 Carlos Jefferson is a 18 year old female Patient would like doxycycline hyclate 100 mg tablet and moxifloxacin 400 mg tablet be sent to [facility] [address] [id number] Irene Puente [facility] 2023-12-17 17:13:34 Patient positive for Chlamydia and M. Genitalium Reviewed results with her, educated on safe sex practices. LMP was last week and she has IUD All questions were answered. [facility] 2023-11-09 09:01:55 Carlos Jefferson [id number] 11/09/23 Incoming call from patient after receiving [...] me for a [facility] exam in [place], [place]. It is closer to where I live. Thank you." Patient was scheduled for Thursday January 18, 2024 at 10:00 AM and arriving at 9:45 AM at our [facility]. Patient was given the date, time and location of our clinic. Maira Temple RN 11/09/2023 9:02 AM [employer] ATTACHER Maira Temple RN [facility] 2023-04-27 16:11:06 Formatting of this n ote might be different from the original. Patient has appointment scheduled for 07/04/23. Rafaela Sosa [facility] 2023-04-27 15:12:13 Formatting of this n ote might be different from the original. Pt requesting r/s procedure appt Anastasiia Cline [facility]
--- NOTE | 2025-04-14 13:55 | EDPHYS ---
Physician Documentation [facility] Name: Samina Daly Age: 20 yrs Sex: Female : 2005 Arrival Date: 04/14/2025 Time: 13:23 Bed 12 Private MD: ED Physician Candice Barcenas HPI: 04/14 14:41 This 20 yrs old Female presents to ER via Ambulatory with complaints of dr5 Vaginal Itching, Vaginal Discomfort, Vaginal Swelling, Pain With Urination. 14:41 The patient presents with a possible exposure to a sexually transmitted disease. Onset: dr5 The symptoms/episode began/occurred acutely. Patient is a 20-year-old female with no past history coming in with vaginal pain and burning this been going on for the past day. Patient reports she had sexual intercourse with her boyfriend who was diagnosed with herpes. Patient reports that her rash looks just like his rash. Patient is requesting medications for herpes.. 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 - Infectious Disease History:: Denies. - Social history:: Smoking status: Patient uses street drugs, marijuana. ROS: 14:41 Constitutional: as per hpi dr5 Exam: 14:41 Constitutional: This is a well developed, well nourished patient who is awake, alert, dr5 and in no acute distress. Head/Face: Normocephalic, atraumatic. Eyes: Pupils equal round and reactive to light, extra-ocular motions intact. Lids and lashes normal. Conjunctiva and sclera are non-icteric and not injected. Cornea within normal limits. Periorbital areas with no swelling, redness, or edema. Neck: Trachea midline, no thyromegaly or masses palpated, and no cervical lymphadenopathy. Supple, full range of motion without nuchal rigidity, or vertebral point tenderness. No Meningismus. Chest/axilla: Normal chest wall appearance and motion. Nontender with no deformity. No lesions are appreciated. Cardiovascular: Regular rate and rhythm with a normal S1 and S2. Normal PMI, no JVD. No pulse deficits. Respiratory: Lungs have equal breath sounds bilaterally, clear to auscultation. No rales, rhonchi or wheezes noted. No increased work of breathing, no retractions or nasal flaring. Back: No spinal tenderness. No costovertebral tenderness. Full range of motion. Skin: Warm, dry with normal turgor. Normal color with no rashes, no lesions, and no evidence of cellulitis. Neuro: Awake and alert, GCS 15, oriented to person, place, time, and situation. Cranial nerves II-XII grossly intact. Motor strength 5/5 in all extremities. Sensory grossly intact. Cerebellar exam normal. Normal gait. 14:56 : Patient declined exam., dr5 Vital Signs: 13:45 BP 118 / 62; Pulse 105; Resp 20; Temp 100.4; Pulse Ox 99% on R/A; Weight 45.36 kg; kj2 Height 5 ft. 5 in. ; 13:57 BP 119 / 64; Pulse 102; Resp 18; Temp 100.2; Pulse Ox 100% ; kj2 13:45 Body Mass Index 16.64 (45.36 kg, 165.1 cm) kj2 MDM: 13:35 Medical Screening Exam initiated dr5 14:41 Differential diagnosis: vaginosis, Herpes, gonorrhea, chlamydia. Data reviewed: vital dr5 signs, nurses notes. Care significantly affected by the following Social Determinants of Health: Poor access to healthcare and/or lack of insurance, Poor access to transportation, Problems related to employment. Counseling: I had a detailed discussion with the patient and/or guardian regarding the historical points, exam findings, and any diagnostic results supporting the discharge/admit diagnosis, the presence of at least one elevated blood pressure reading (>120/80) during this emergency department visit, the need for outpatient follow up, for definitive care, a family practitioner, to return to the emergency department if symptoms worsen or persist or if there are any questions or concerns that arise at home. Special discussion: I discussed with the patient/guardian in detail that at this point there is no indication for admission to the hospital. It is understood, however, that if the symptoms persist or worsen the patient needs to return immediately for re-evaluation. ED course: I gave patient [facility] on Tuesday information for free sexually-transmitted infection diseases screening. Given patient has intercourse with boyfriend with diagnosed herpes, will treat patient with Valtrex and have her follow-up primary care doctor as well as [facility]. Recommend alternating Tylenol and Motrin as needed for pain.. Administered Medications: No medications were administered Disposition Summary: 04/14/25 13:55 Discharge Ordered Notes: Location: Home dr5 Condition: Stable dr5 Diagnosis - Herpesviral infection, unspecified dr5 Followup: dr5 - With: Emergency Department - When: As needed - Reason: Worsening of condition Followup: dr5 - With: Private Physician - When: 1 - 2 days - Reason: Recheck today's complaints, Continuance of care, Re-evaluation by your physician Discharge Instructions: - Discharge Summary Sheet dr5 - Genital Herpes dr5 Forms: - Medication Reconciliation Form dr5 - Patient Portal Instructions dr5 - Leadership Thank You Letter dr5 Prescriptions: - Valtrex 1 gram Oral tablet - take 1 tablet ORAL route every 8 hours for 14 days; 40 tablet; Refills: 0, dr5 Product Selection Permitted Signatures: Dispatcher [employer] Kayleigh Padilla RN RN kj2 Kevin Posey, LINE OPERATOR-C LINE OPERATOR-Cdr5
--- NOTE | 2025-04-14 13:55 | ER ---
Nurse's Notes [facility] Name: Samina Daly Age: 20 yrs Sex: Female : 2005 Arrival Date: 04/14/2025 Time: 13:23 Bed 12 Private MD: Diagnosis: Herpesviral infection, unspecified Presentation: 04/14 13:45 Chief complaint: Patient states: vaginal discharge, luis, feels like my vagina is kj2 inflammed, spotting, body is hot and cold. Coronavirus screen: Client denies travel out of the [place] in the last 14 days. Ebola Screen: No symptoms or risks identified at this time. Initial Sepsis Screen: Does the patient meet any 2 criteria? No. Patient's initial sepsis screen is negative. Does the patient have a suspected source of infection? No. Patient's initial sepsis screen is negative. Risk Assessment: Do you want to hurt yourself or someone else? Patient reports no desire to harm self or others. Onset of symptoms was April 14, 2025. 13:45 Method Of Arrival: Ambulatory [facility] 13:45 Acuity: SOCORRO 3 kj2 Triage Assessment: 13:49 General: Appears in no apparent distress. Behavior is cooperative, anxious. Pain: kj2 Complains of pain in vagina Pain currently is 3 out of 10 on a pain scale. Neuro: Level of Consciousness is awake, alert, obeys commands, Oriented to person, place, time, situation. Cardiovascular: Patient's skin is warm and dry. Respiratory: Airway is patent Respiratory effort is unlabored. GI: No signs and/or symptoms were reported involving the gastrointestinal system. : Reports burning with urination, since yesterday. 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 - Infectious Disease History:: Denies. - Social history:: Smoking status: Patient uses street drugs, marijuana. Screenin:52 [facility] ED Fall Risk Assessment (Adult) History of falling in the last 3 months, kj2 including since admission No falls in past 3 months (0 pts) Confusion or Disorientation No (0 pts) Intoxicated or Sedated No (0 pts) Impaired Gait No (0 pts) Mobility Assist Device Used No (0 pt) Altered Elimination No (0 pt) Score/Fall Risk Level 0 - 2 = Low Risk Maintained a safe environment, Hourly rounding (assess needs \T\ fall precautionary measures) done. Abuse screen: Denies threats or abuse. Denies injuries from another. Nutritional screening: No deficits noted. Tuberculosis screening: No symptoms or risk factors identified. Assessment: 13:51 General: see triage assessment. kj2 14:13 Reassessment: UA cancelled per provider. kj2 Vital Signs: 13:45 BP 118 / 62; Pulse 105; Resp 20; Temp 100.4; Pulse Ox 99% on R/A; Weight 45.36 kg; kj2 Height 5 ft. 5 in. ; 13:57 BP 119 / 64; Pulse 102; Resp 18; Temp 100.2; Pulse Ox 100% ; kj2 13:45 Body Mass Index 16.64 (45.36 kg, 165.1 cm) kj2 ED Course: 13:30 Patient arrived in ED. cj3 13:34 [facility]C [facility]5 13:34 Candice Barcenas MD is Attending Physician. dr5 13:44 Kayleigh Serrano RN is Primary Nurse. kj2 13:48 Triage completed. kj2 13:50 Arm band placed on Patient placed in the treatment room. kj2 13:52 Patient has correct armband on for positive identification. Bed in low position. Call kj2 light in reach. Adult w/ patient. Provided Education on: call light. 14:12 No provider procedures requiring assistance completed. Patient did not have IV access kj2 during this emergency room visit. Administered Medications: No medications were administered Medication: 13:53 VIS not applicable for this client. kj2 Outcome: 13:55 Discharge ordered by . dr5 14:12 Discharged to home ambulatory, with friend, kj2 14:12 Condition: stable 14:12 Discharge instructions given to patient, Instructed on discharge instructions, follow up and referral plans. Demonstrated understanding of instructions, follow-up care, medications, Prescriptions given X 1, 14:13 Patient left the ED. kj2 Signatures: Kayleigh Serrano RN RN kj2 Kevin Posey FNP-C CASE REPAIRER-Cdr5 Ale Jones cj3
[2025-04-14 14:20] VITALS: BP 119/64; TEMP 100.2; O2SAT 100
== END 2025-04-14 14:13 | disposition home or self-care (01) ==
LOC: ER 13:23
DX: B00.9 Herpesviral infection, unspecified (principal)
CPT/HCPCS: 99283

== ENCOUNTER 2025-04-15 15:46 | Emergency (ER) | payer SELFPAY ==
--- OUTSIDE RECORDS SUMMARY | 2025-04-15 15:54 | XMS REPORT | Continuity of Care Document ---
Author Name Unknown Address [address] [facility] [address] [place] [address] [facility] Address [address] [facility] [place] [address] Care Team Providers Care Buyer Tobacco Head Name Role Phone Amyjackie Pradip Primary Care Physician [phone] Maggy Lee CNM Attending Clinician [phone] CHARLIE EWING Attending Clinician Unavailable CHEPE LIU Attending Clinician Unavailable Teena Rao Attending Clinician [phone] Wili COFFEY, Debbie Attending Clinician [phone] DEBBIE RASHEED Attending Clinician Unavailable Unknown, Attending Attending Clinician Unavailab Maira Beckham RN Attending Clinician Unav ailable AKINSIJAMIL KINGSLEY Attending Clinician Unavail able Doctor Unassigned, [place] Attending Clinician U navailable Akinsipe WHJamil VELEZ Attending Clinician + MAGGY LEE Attending Clinician Unavaila glenna Loyola RN, Merline Attending Clinician Unavailjaquelin Willis MD, Lonnie Loco Attending Clinician [phone] CARIDAD BONE Attending Clinician Unavailable Antionette COFFEY, Douglas Attending Clinician [phone] Chato COFFEY, Johanna Attending Clinician [phone] Duncan SIMMONS, Michelle Ornelas Attending Clinician Unavaila LETTY Blanco Attending Clinician Unav ailable Ultrasound, Ang-Mfm Attending Clinician Unavaila glenna Soriano MD, Femi Loco Attending Clinician [phone] Andria Moore MD, Letty Attending Clinician + FEMI SORIANO Attending Clinician Unavailable FEMI SORIANO Attending Clinician Unavailable Mk COFFEY, Violeta Cottrell Attending Clinician [phone] VIOLETA SEGURA Attending Clinician Unavailable AWQAS RODRIGUEZ Attending Clinician Unavailable Liliana Saenz Attending Clinician Unavailjaquelin Rodriguez MD, Waqas Hampton Attending Clinician [phone] Tomas COFFEY, Mariajose Attending Clinician [phone] MARIAJOSE NUNEZ Attending Clinician Unavailable MARIAJOSE NUNEZ Attending Clinician Unavailable Red SIMMONS, Jacquie Ornelas Attending Clinician Unavailab le Only, Adc Pob2 Test Attending Clinician Unavailtacos COLLINSP, Kristine Attending Clinician [phone] KRISTINE SAGE Attending Clinician Unavailable Only, Adc Test Attending Clinician Unavailable Johanna Conti MD Attending Clinician [phone] JOHANNA CONTI Attending Clinician UnavailLonnie Maynard MD Admitting Clinician [phone] LONNIE WILLIS Admitting Clinician Unavailjaquelin driscoll Payers Payer Name Policy Type Policy Number Effective Date Expirati on Date Source Problems Condition Name Condition Details Condition Category Status Onset Date Resolution Date Last Treatment Date Treating Clinician Comments Source Encounter for IUD insertion Encounter for IUD insertion Disease Active 2022-09 0-30 00:00: 00 [facility] control counseling control counseling Disease Active 6-16 00:00: 00 [facility] PUPP (pruritic urticarial papules and plaques of ) PUPP (pruritic urticarial papules and plaques of ) Disease Active 3-15 00:00: 00 [facility] Anemia of mother in , antepartum Anemia of mother in , antepartum Disease Active 2-02 00:00: 00 [facility] Anemia, Anemia, Disease Resolve d 5-02 00:00: 00 2023-02-18 00:00:00 2023-02-18 12:59:45 [facility] Chorioamni onitis Chorioamni onitis Disease Resolve d 2022-0 4-11 00:00: 00 2023-02-18 00:00:00 2023-02-18 12:59:44 [facility] Pre-eclamp harrison in third trimester Pre-eclamp harrison in third trimester Disease Resolve d 2022-0 4-10 00:00: 00 2023-02-18 00:00:00 2023-02-18 12:59:43 [facility] PUPP (pruritic urticarial papules and plaques of ) PUPP (pruritic urticarial papules and plaques of ) Disease Resolve d 2022-0 3-15 00:00: 00 2023-02-18 00:00:00 2023-02-18 12:59:41 [facility] (spontaneo us vaginal delivery) (spontaneo us vaginal delivery) Disease Resolve d 2022-0 4-12 00:00: 00 2023-01-04 00:00:00 2023-01-04 13:27:29 [facility] Single live Single live Disease Resolve d 2022-0 4-12 00:00: 00 2023-01-04 00:00:00 2023-01-04 13:27:25 [facility] Acute blood loss anemia Acute blood loss anemia Disease Resolve d 2022-0 4-12 00:00: 00 2023-01-04 00:00:00 2023-01-04 13:27:15 [facility] Obstetrica l laceration Obstetrica l laceration Disease Resolve d 2022-0 4-12 00:00: 00 2023-01-04 00:00:00 2023-01-04 13:27:13 [facility] Chlamydia infection during Chlamydia infection during Disease Resolve d 2022-0 3-24 00:00: 00 2023-01-04 00:00:00 2023-01-04 13:27:18 Overview: Formattin g of this note might be different from the original. pendign trish [facility] Anemia of mother in , antepartum Anemia of mother in , antepartum Disease Resolve d 2-02 00:00: 00 2023-01-04 00:00:00 2023-01-04 13:27:16 [facility] Abnormal quad screen Abnormal quad screen Disease Resolve d 1-05 00:00: 00 2023-01-04 00:00:00 2023-01-04 13:27:14 Overview: Formattin g of this note might be different from the original. pendign detailed ultrasoun d/ genetics [facility] GBS (group B streptococ cus) UTI complicati ng GBS (group B streptococ cus) UTI complicati ng Disease Resolve d 2021-09 0-18 00:00: 00 2023-01-04 00:00:00 2023-01-04 13:27:11 Overview: Formattin g of this note might be different from the original. neg trish [facility] Susceptibl e to varicella (non-immun e), currently Susceptibl e to varicella (non-immun e), currently Disease Resolve d 2021-09 0-13 00:00: 00 2023-01-04 00:00:00 2023-01-04 13:27:28 [facility] Rubella non-immune status, antepartum Rubella non-immune status, antepartum Disease Resolve d 2021-09 0-13 00:00: 00 2023-01-04 00:00:00 2023-01-04 13:27:24 Overview: Formattin g of this note might be different from the original. Address pp [facility] Supervisio n of high-risk with insufficie nt care Supervisio n of high-risk with insufficie nt care Disease Resolve d 2021-09 0-12 00:00: 00 2023-01-04 00:00:00 2023-01-04 13:27:26 [facility] Nausea/vom iting in Nausea/vom iting in Disease Resolve d 2021-09 0-12 00:00: 00 2023-01-04 00:00:00 2023-01-04 13:27:21 [facility] UTI symptoms UTI symptoms Disease Resolve d 2021-09 0-12 00:00: 00 2023-01-04 00:00:00 2023-01-04 13:27:30 [facility] Allergies, Adverse Reactions, Alerts Allergy Name Allergy Type Status Severity Reaction(s) Onset Date Inactive Date Treating Clinician Comments Source NO KNOWN ALLERGIE S Drug Class Active [facility] Social History Social Habit Start Date Stop Date Quantity Comments Source ASSERTION 2022-03-31 00:00:00 [facility] Gender identity [facility] Alcoholic beverage intake 2024-03-07 00:00:00 2024-03-07 00:00:00 Ex-drinker (finding) [facility] Alcohol intake 2023-12-16 00:00:00 2023-12-16 00:00:00 Ex-drinker (finding) [facility] History of Social function 2023-02-18 00:00:00 2023-02-18 00:00:00 [facility] Exposure to SARS-CoV-2 (event) 2022-12-25 00:00:00 2023-01-04 09:11:00 Not sure [facility] Tobacco use and exposure 2022-12-14 00:00:00 2022-12-14 00:00:00 Smokeless tobacco non-user [facility] Sex assigned at 2005 00:00:00 2005 00:00:00 [facility] Smoking Status Start Date Stop Date Source Tobacco smoking consumption unknown [facility] Never smoked tobacco [facility] Medications Ordered Medication Name Filled Medication Name Start Date Stop Date Current Medication? Ordering Clinician Indication Dosage Frequency Signature (SIG) Comments Components Source doxycycline hyclate 100 mg capsule 7-03 00:00: 00 Yes [id number] 100mg Take 1 capsule by mouth every 12 (twelve) hours. [facility] moxifloxaci n 400 mg tablet 4-14 00:00: 00 Yes [id number] 400mg Take 1 tablet by mouth in the morning. [facility] doxycycline hyclate 100 mg tablet 12-17 00:00: 00 03-07 00:00 :00 No [id number] 100mg Take 1 tablet by mouth in the morning and 1 tablet in the evening. [facility] doxycycline hyclate 100 mg tablet 12-16 00:00: 00 12-17 00:00 :00 No [id number] 100mg Take 1 tablet by mouth in the morning and 1 tablet in the evening. Do all this for 7 days. [facility] moxifloxaci n 400 mg tablet 12-16 00:00: 00 12-17 00:00 :00 No [id number] 400mg Take 1 tablet by mouth in the morning for 7 days. [facility] copper (PARAGARD T 380A) IUD 1 Intra Uterine Device 2022-09 21:00: 00 07-04 20:03 :00 No [id number] 1{IUD} [facility] human papillomav vac,9-guido(P F) (GARDASIL-9 ) syringe 0.5 mL 12-15 00:14: 00 Yes .5mL 0.5 mL, Intramuscu lar, ONCE-PRIOR TO DISCHARGE, 1 dose, Starting on Tue12/14/22 at 1914, Until Discontinu ed, Routine, Give vaccine prior to discharge [facility] rho(D) immune globulin (RHOGAM) syringe 300 mcg 12-15 00:14: 00 Yes 300ug 300 mcg, Intramuscu lar, ONCE, For 1 dose, Conditiona l, Routine [facility] ampicillin (POLYCILLIN -N) 2,000 mg in [...] Site: Pelvic
Duration of therapy: 72 hours [facility] ibuprofen (IBU) tablet 600 mg 12-14 13:31: 28 Yes 600mg 600 mg, Oral, Q6HPRN, Starting on Tue12/14/22 at 0831, Until Discontinu ed, Routine, Pain (scale 4-6) [facility] acetaminoph en (TYLENOL) tablet 650 mg 12-14 13:31: 28 Yes 650mg 650 mg, Oral, Q6HPRN, Starting on Tue12/14/22 at 0831, Until Discontinu ed, Routine, Pain (scale 1-3) [facility] diphenhydrA MINE (BENADRYL) tablet 25 mg 12-14 13:31: 28 Yes 25mg 25 mg, Oral, Q6HPRN, Starting on Tue12/14/22 at 830, Until Discontinu ed, Routine, Sleep, Itching [facility] ondansetron (ZOFRAN (PF)) injection 4 mg 12-14 13:31: 28 Yes 4mg 4 mg, Slow IV Push, Q8HPRN, Starting on Tue12/14/22 at 0831, Until Discontinu ed, Routine, Nausea and Vomiting (N/V) [facility] simethicone (GAS RELIEF (SIMETHICON E)) chewable tablet 160 mg 12-14 13:31: 28 Yes 160mg 160 mg, Oral, PC+HSPRN, Starting on Tue12/14/22 at 0831, Until Discontinu ed, Routine, Gas [facility] docusate (COLACE) capsule 200 mg 12-14 13:31: 28 Yes 200mg 200 mg, Oral, QDAILYPRN, Starting on Tue12/14/22 at 0831, Until Discontinu ed, Routine, Constipati on [facility] magnesium hydroxide (MILK OF MAGNESIA) 400 mg/5 mL suspension 30 mL 12-14 13:31: 28 Yes 30mL 30 mL, Oral, QDAILYPRN, Starting on Tue12/14/22 at 0831, Until Discontinu ed, Routine, Constipati on [facility] benzocaine- menthol (DERMOPLAST ) 20-0.5 % topical spray 12-14 13:31: 28 Yes Topical, PRN, Starting on Tue12/14/22 at 0831, Until Discontinu ed, Routine, Perineum discomfort [facility] tobramycin (NEBCIN) 280 mg in NaCl [...] Site: Pelvic
Duration of therapy: 72 hours [facility] lactated ringers IV infusion 500 mL 12-14 07:45: 00 12-14 07:08 :00 No 500mL at 999 mL/hr, 500 mL, IV Infusion, ONCE, 1 dose, On Tue12/14/22 at 0245, Routine [facility] ropivacaine 0.2 % (NAROPIN (PF)) epidural infusion 12-14 07:24: 00 12-14 14:11 :53 No Epidural, CONTINUOUS PRN, Starting on Tue12/14/22 at 0224, Until Discontinu ed, Routine, Intra-op [facility] lidocaine-e pinephrine (XYLOCAINE W/EPINEPHRI NE) 1.5 %-1:200,000 injection 12-14 07:16: 00 12-14 14:11 :53 No Epidural, ONCE INTRA PROCEDURE, Starting on Tue12/14/22 at 0216, Until Discontinu ed, Routine, Intra-op [facility] sodium citrate-cit juan antonio acid (BICITRA) 500-334 mg/5 mL solution 30 mL 12-14 06:51: 03 12-14 07:07 :00 No 30mL 30 mL, Oral, PRE-PROCED URE ONCE, 1 dose, Starting on Tue12/14/22 at 0151, Until Tue12/14/22 at 0207, Routine, Surgery/Pr ocedure [facility] proMETHazin e (PHENERGAN) 25 mg in NS 50 mL IV piggyback (CNR) 12-14 04:45: 00 12-14 05:10 :48 No 25mg 25 mg, IV Piggyback, at 200 mL/hr Administer over 15 Minutes, ONCE, 1 dose, On Tue12/13/22 at 2345, Routine [facility] butorphanol (STADOL) injection 1 mg 12-14 04:45: 00 12-14 04:16 :00 No 1mg 1 mg, IV Push, ONCE, 1 dose, On Tue12/13/22 at 2345, Routine [facility] oxytocin (PITOCIN) 30 units in NS 500 mL IV infusion 12-14 04:34: 31 12-14 13:31 :30 No 2mU/min at 2-40 mL/hr, IV Infusion, TITRATE, Starting on Tue12/13/22 at 2334, Until Tue12/14/22 at 0831, JAZMYNE [facility] D5W-LR IV infusion 1,000 mL 12-14 02:25: 17 12-14 13:31 :30 No 1000mL at 1-125 mL/hr, IV Infusion, TITRATE, Starting on Tue12/13/22 at 2125, Until Tue12/14/22 at 0831, Routine [facility] ferrous sulfate 325 mg (65 mg iron) tablet 11-26 00:00: 00 12-16 00:00 :00 No [id number] 325mg Take 1 tablet by mouth in the morning and 1 tablet in the evening. [facility] ascorbic acid, vitamin C, 500 mg tablet 11-26 00:00: 00 12-16 00:00 :00 No [id number] 500mg Take 1 tablet by mouth in the morning and 1 tablet at noon and 1 tablet in the evening. [facility] azithromyci n 500 mg tablet 11-26 00:00: 00 11-27 04:59 :00 No [id number] 1000mg Take 2 tablets by mouth once now for 1 dose. [facility] fluconazole (DIFLUCAN) 150 mg tablet 11-24 00:00: 00 11-25 04:59 :00 No [id number] 150mg Take 1 tablet by mouth once now for 1 dose. [facility] ferrous sulfate 325 mg (65 mg iron) tablet 10-07 00:00: 00 12-16 00:00 :00 No [id number] 325mg Take 1 tablet by mouth in the morning and 1 tablet in the evening. [facility] ascorbic acid, vitamin C, 500 mg tablet 10-07 00:00: 12-16 00:00 :00 No [id number] 500mg Take 1 tablet by mouth in the morning and 1 tablet at noon and 1 tablet in the evening. [facility] ampicillin 500 mg capsule 2021-09 00:00: 00 07-03 04:59 :00 No [id number] 500mg Take 1 capsule by mouth 4 (four) times daily for 10 days. [facility] multivitami n ( VITAMIN) tablet 2021-09 00:00: 00 12-16 00:00 :00 No [id number] 09 1{tbl} Take 1 tablet by mouth in the morning. [facility] proMETHazin e 25 mg tablet 2021-09 00:00: 00 12-16 00:00 :00 No [id number] 25mg Take 1 tablet by mouth every 6 (six) hours as needed for Nausea and Vomiting (N/V). [facility] Nitrofurant oin&Nit. Macrocryst (MACROBID) 100 mg capsule 2021-09 0 00:00: 00 06-27 04:59 :00 No [id number] 100mg Take 1 capsule by mouth in the morning and 1 capsule in the evening. Do all this for 10 days. [facility] No known medications 24 16:02: [address] [facility] Immunizations Ordered Immunization Name Filled Immunization Name Date Status Comments Source TDAP 2022-10-06 00:00:00 Completed [facility] TDAP 2022-10-06 00:00:00 Completed [facility] TDAP 2022-10-06 00:00:00 Completed [facility] TDAP 2022-10-06 00:00:00 Completed [facility] TDAP 2022-10-06 00:00:00 Completed [facility] TDAP 2022-10-06 00:00:00 Completed [facility] TDAP 2022-10-06 00:00:00 Completed [facility] TDAP 2022-10-06 00:00:00 Completed [facility] TDAP 2022-10-06 00:00:00 Completed [facility] TDAP 2022-10-06 00:00:00 Completed [facility] TDAP 2022-10-06 00:00:00 Completed [facility] TDAP 2022-10-06 00:00:00 Completed [facility] TDAP 2022-10-06 00:00:00 Completed [facility] TDAP 2022-10-06 00:00:00 Completed [facility] TDAP 2022-10-06 00:00:00 Completed [facility] TDAP 2022-10-06 00:00:00 Completed [facility] TDAP 2022-10-06 00:00:00 Completed [facility] TDAP 2022-10-06 00:00:00 Completed [facility] TDAP 2022-10-06 00:00:00 Completed [facility] TDAP 2022-10-06 00:00:00 Completed [facility] TDAP 2022-10-06 00:00:00 Completed [facility] TDAP 2022-10-06 00:00:00 Completed [facility] TDAP 2022-10-06 00:00:00 Completed [facility] TDAP 2022-10-06 00:00:00 Completed [facility] TDAP 2022-10-06 00:00:00 Completed [facility] TDAP 2022-10-06 00:00:00 Completed [facility] Meningococcal Polysaccharide (groups A, C, Y and W-135) conjugate vaccine (MCV4P) 2017-01-26 00:00:00 Completed [facility] TDAP 2017-01-26 00:00:00 Completed [facility] HPV9 2017-01-26 00:00:00 Completed [facility] Meningococcal Polysaccharide (groups A, C, Y and W-135) conjugate vaccine (MCV4P) 2017-01-26 00:00:00 Completed [facility] TDAP 2017-01-26 00:00:00 Completed [facility] HPV9 2017-01-26 00:00:00 Completed [facility] HPV9 2017-01-26 00:00:00 Completed [facility] HPV9 2017-01-26 00:00:00 Completed [facility] HPV9 2017-01-26 00:00:00 Completed [facility] Meningococcal Polysaccharide (groups A, C, Y and W-135) conjugate vaccine (MCV4P) 2017-01-26 00:00:00 Completed [facility] TDAP 2017-01-26 00:00:00 Completed [facility] HPV9 2017-01-26 00:00:00 Completed [facility] Meningococcal Polysaccharide (groups A, C, Y and W-135) conjugate vaccine (MCV4P) 2017-01-26 00:00:00 Completed [facility] TDAP 2017-01-26 00:00:00 Completed [facility] HPV9 2017-01-26 00:00:00 Completed [facility] HPV9 2016-05-12 00:00:00 Completed [facility] HPV9 2016-05-12 00:00:00 Completed [facility] HPV9 2016-05-12 00:00:00 Completed [facility] HPV9 2016-05-12 00:00:00 Completed [facility] HPV9 2016-05-12 00:00:00 Completed [facility] HPV9 2016-05-12 00:00:00 Completed [facility] HPV9 2016-05-12 00:00:00 Completed [facility] MMR 2009-04-28 00:00:00 Completed [facility] Polio (IPV/OPV) 2009-04-28 00:00:00 Completed [facility] Varicella (varivax)(chicken pox) 2009-04-28 00:00:00 Completed [facility] HEPA,NOS 2009-04-28 00:00:00 Completed [facility] MMR 2009-04-28 00:00:00 Completed [facility] Polio (IPV/OPV) 2009-04-28 00:00:00 Completed [facility] Varicella (varivax)(chicken pox) 2009-04-28 00:00:00 Completed [facility] HEPA,NOS 2009-04-28 00:00:00 Completed [facility] MMR 2009-04-28 00:00:00 Completed [facility] Polio (IPV/OPV) 2009-04-28 00:00:00 Completed [facility] Varicella (varivax)(chicken pox) 2009-04-28 00:00:00 Completed [facility] HEPA,NOS 2009-04-28 00:00:00 Completed [facility] MMR 2009-04-28 00:00:00 Completed [facility] Polio (IPV/OPV) 2009-04-28 00:00:00 Completed [facility] Varicella (varivax)(chicken pox) 2009-04-28 00:00:00 Completed [facility] HEPA,NOS 2009-04-28 00:00:00 Completed [facility] DTaP, Unspecified Formulation 2006-07-11 00:00:00 Completed [facility] HIB 4 Dose Schedule 2006-07-11 00:00:00 Completed [facility] DTaP, Unspecified Formulation 2006-07-11 00:00:00 Completed [facility] HIB 4 Dose Schedule 2006-07-11 00:00:00 Completed [facility] DTaP, Unspecified Formulation 2006-07-11 00:00:00 Completed [facility] HIB 4 Dose Schedule 2006-07-11 00:00:00 Completed [facility] DTaP, Unspecified Formulation 2006-07-11 00:00:00 Completed [facility] HIB 4 Dose Schedule 2006-07-11 00:00:00 Completed [facility] MMR 2006-05-18 00:00:00 Completed [facility] Pneumococcal 7 Conjugate, PCV7 (Prevnar7) 2006-05-18 00:00:00 Completed [facility] Varicella (varivax)(chicken pox) 2006-05-18 00:00:00 Completed [facility] HEPATITIS A 2006-05-18 00:00:00 Completed [facility] MMR 2006-05-18 00:00:00 Completed [facility] Pneumococcal 7 Conjugate, PCV7 (Prevnar7) 2006-05-18 00:00:00 Completed [facility] Varicella (varivax)(chicken pox) 2006-05-18 00:00:00 Completed [facility] HEPATITIS A 2006-05-18 00:00:00 Completed [facility] MMR 2006-05-18 00:00:00 Completed [facility] Pneumococcal 7 Conjugate, PCV7 (Prevnar7) 2006-05-18 00:00:00 Completed [facility] Varicella (varivax)(chicken pox) 2006-05-18 00:00:00 Completed [facility] HEPATITIS A 2006-05-18 00:00:00 Completed [facility] MMR 2006-05-18 00:00:00 Completed [facility] Pneumococcal 7 Conjugate, PCV7 (Prevnar7) 2006-05-18 00:00:00 Completed [facility] Varicella (varivax)(chicken pox) 2006-05-18 00:00:00 Completed [facility] HEPATITIS A 2006-05-18 00:00:00 Completed [facility] Pneumococcal 7 Conjugate, PCV7 (Prevnar7) 2005 00:00:00 Completed [facility] IPV 2005 00:00:00 Completed [facility] DTaP, Unspecified Formulation 2005 00:00:00 Completed [facility] Hep B, Adol or Pedi Dosage 2005 00:00:00 Completed [facility] HIB 4 Dose Schedule 2005 00:00:00 Completed [facility] Pneumococcal 7 Conjugate, PCV7 (Prevnar7) 2005 00:00:00 Completed [facility] IPV 2005 00:00:00 Completed [facility] DTaP, Unspecified Formulation 2005 00:00:00 Completed [facility] Hep B, Adol or Pedi Dosage 2005 00:00:00 Completed [facility] HIB 4 Dose Schedule 2005 00:00:00 Completed [facility] Pneumococcal 7 Conjugate, PCV7 (Prevnar7) 2005 00:00:00 Completed [facility] IPV 2005 00:00:00 Completed [facility] DTaP, Unspecified Formulation 2005 00:00:00 Completed [facility] Hep B, Adol or Pedi Dosage 2005 00:00:00 Completed [facility] HIB 4 Dose Schedule 2005 00:00:00 Completed [facility] Pneumococcal 7 Conjugate, PCV7 (Prevnar7) 2005 00:00:00 Completed [facility] IPV 2005 00:00:00 Completed [facility] DTaP, Unspecified Formulation 2005 00:00:00 Completed [facility] Hep B, Adol or Pedi Dosage 2005 00:00:00 Completed [facility] HIB 4 Dose Schedule 2005 00:00:00 Completed [facility] Pneumococcal 7 Conjugate, PCV7 (Prevnar7) 2005 00:00:00 Completed [facility] IPV 2005 00:00:00 Completed [facility] DTaP, Unspecified Formulation 2005 00:00:00 Completed [facility] Hep B, Adol or Pedi Dosage 2005 00:00:00 Completed [facility] HIB 4 Dose Schedule 2005 00:00:00 Completed [facility] Pneumococcal 7 Conjugate, PCV7 (Prevnar7) 2005 00:00:00 Completed [facility] IPV 2005 00:00:00 Completed [facility] DTaP, Unspecified Formulation 2005 00:00:00 Completed [facility] Hep B, Adol or Pedi Dosage 2005 00:00:00 Completed [facility] HIB 4 Dose Schedule 2005 00:00:00 Completed [facility] Pneumococcal 7 Conjugate, PCV7 (Prevnar7) 2005 00:00:00 Completed [facility] IPV 2005 00:00:00 Completed [facility] DTaP, Unspecified Formulation 2005 00:00:00 Completed [facility] Hep B, Adol or Pedi Dosage 2005 00:00:00 Completed [facility] HIB 4 Dose Schedule 2005 00:00:00 Completed [facility] Pneumococcal 7 Conjugate, PCV7 (Prevnar7) 2005 00:00:00 Completed [facility] IPV 2005 00:00:00 Completed [facility] DTaP, Unspecified Formulation 2005 00:00:00 Completed [facility] Hep B, Adol or Pedi Dosage 2005 00:00:00 Completed [facility] HIB 4 Dose Schedule 2005 00:00:00 Completed [facility] Pneumococcal 7 Conjugate, PCV7 (Prevnar7) 2005 00:00:00 Completed [facility] IPV 2005 00:00:00 Completed [facility] DTaP, Unspecified Formulation 2005 00:00:00 Completed [facility] Hep B, Adol or Pedi Dosage 2005 00:00:00 Completed [facility] HIB 4 Dose Schedule 2005 00:00:00 Completed [facility] Pneumococcal 7 Conjugate, PCV7 (Prevnar7) 2005 00:00:00 Completed [facility] IPV 2005 00:00:00 Completed [facility] DTaP, Unspecified Formulation 2005 00:00:00 Completed [facility] Hep B, Adol or Pedi Dosage 2005 00:00:00 Completed [facility] HIB 4 Dose Schedule 2005 00:00:00 Completed [facility] Pneumococcal 7 Conjugate, PCV7 (Prevnar7) 2005 00:00:00 Completed [facility] IPV 2005 00:00:00 Completed [facility] DTaP, Unspecified Formulation 2005 00:00:00 Completed [facility] Hep B, Adol or Pedi Dosage 2005 00:00:00 Completed [facility] HIB 4 Dose Schedule 2005 00:00:00 Completed [facility] Pneumococcal 7 Conjugate, PCV7 (Prevnar7) 2005 00:00:00 Completed [facility] IPV 2005 00:00:00 Completed [facility] DTaP, Unspecified Formulation 2005 00:00:00 Completed [facility] Hep B, Adol or Pedi Dosage 2005 00:00:00 Completed [facility] HIB 4 Dose Schedule 2005 00:00:00 Completed [facility] Hep B, Adol or Pedi Dosage 2005 00:00:00 Completed [facility] Hep B, Adol or Pedi Dosage 2005 00:00:00 Completed [facility] Hep B, Adol or Pedi Dosage 2005 00:00:00 Completed [facility] Hep B, Adol or Pedi Dosage 2005 00:00:00 Completed [facility] TDAP Unknown Completed [facility] HPV9 Unknown Completed [facility] DTaP, Unspecified Formulation Unknown Completed [facility] HEPA,NOS Unknown Completed [facility] HEPATITIS A Unknown Completed [facility] Hep B, Adol or Pedi Dosage Unknown Completed [facility] HIB 4 Dose Schedule Unknown Completed [facility] Meningococcal Polysaccharide (groups A, C, Y and W-135) conjugate vaccine (MCV4P) Unknown Completed [facility] MMR Unknown Completed [facility] Pneumococcal 7 Conjugate, PCV7 (Prevnar7) Unknown Completed [facility] Polio (IPV/OPV) Unknown Completed [facility] IPV Unknown Completed [facility] Varicella (varivax)(chicken pox) Unknown Completed [facility] TDAP Unknown Completed [facility] HPV9 Unknown Completed [facility] DTaP, Unspecified Formulation Unknown Completed [facility] HEPA,NOS Unknown Completed [facility] HEPATITIS A Unknown Completed [facility] Hep B, Adol or Pedi Dosage Unknown Completed [facility] HIB 4 Dose Schedule Unknown Completed [facility] Meningococcal Polysaccharide (groups A, C, Y and W-135) conjugate vaccine (MCV4P) Unknown Completed [facility] MMR Unknown Completed [facility] Pneumococcal 7 Conjugate, PCV7 (Prevnar7) Unknown Completed [facility] Polio (IPV/OPV) Unknown Completed [facility] IPV Unknown Completed [facility] Varicella (varivax)(chicken pox) Unknown Completed [facility] TDAP Unknown Completed [facility] HPV9 Unknown Completed [facility] DTaP, Unspecified Formulation Unknown Completed [facility] HEPA,NOS Unknown Completed [facility] HEPATITIS A Unknown Completed [facility] Hep B, Adol or Pedi Dosage Unknown Completed [facility] HIB 4 Dose Schedule Unknown Completed [facility] Meningococcal Polysaccharide (groups A, C, Y and W-135) conjugate vaccine (MCV4P) Unknown Completed [facility] MMR Unknown Completed [facility] Pneumococcal 7 Conjugate, PCV7 (Prevnar7) Unknown Completed [facility] Polio (IPV/OPV) Unknown Completed [facility] IPV Unknown Completed [facility] Varicella (varivax)(chicken pox) Unknown Completed [facility] TDAP Unknown Completed [facility] HPV9 Unknown Completed [facility] DTaP, Unspecified Formulation Unknown Completed [facility] HEPA,NOS Unknown Completed [facility] HEPATITIS A Unknown Completed [facility] Hep B, Adol or Pedi Dosage Unknown Completed [facility] HIB 4 Dose Schedule Unknown Completed [facility] Meningococcal Polysaccharide (groups A, C, Y and W-135) conjugate vaccine (MCV4P) Unknown Completed [facility] MMR Unknown Completed [facility] Pneumococcal 7 Conjugate, PCV7 (Prevnar7) Unknown Completed [facility] Polio (IPV/OPV) Unknown Completed [facility] IPV Unknown Completed [facility] Varicella (varivax)(chicken pox) Unknown Completed [facility] TDAP Unknown Completed [facility] HPV9 Unknown Completed [facility] DTaP, Unspecified Formulation Unknown Completed [facility] HEPA,NOS Unknown Completed [facility] HEPATITIS A Unknown Completed [facility] Hep B, Adol or Pedi Dosage Unknown Completed [facility] HIB 4 Dose Schedule Unknown Completed [facility] Meningococcal Polysaccharide (groups A, C, Y and W-135) conjugate vaccine (MCV4P) Unknown Completed [facility] MMR Unknown Completed [facility] Pneumococcal 7 Conjugate, PCV7 (Prevnar7) Unknown Completed [facility] Polio (IPV/OPV) Unknown Completed [facility] IPV Unknown Completed [facility] Varicella (varivax)(chicken pox) Unknown Completed [facility] HEPA,NOS Unknown Completed [facility] HEPATITIS A Unknown Completed [facility] Meningococcal Polysaccharide (groups A, C, Y and W-135) conjugate vaccine (MCV4P) Unknown Completed [facility] Polio (IPV/OPV) Unknown Completed [facility] TDAP Unknown Completed [facility] HPV9 Unknown Completed [facility] DTaP, Unspecified Formulation Unknown Completed [facility] Hep B, Adol or Pedi Dosage Unknown Completed [facility] HIB 4 Dose Schedule Unknown Completed [facility] MMR Unknown Completed [facility] Pneumococcal 7 Conjugate, PCV7 (Prevnar7) Unknown Completed [facility] IPV Unknown Completed [facility] Varicella (varivax)(chicken pox) Unknown Completed [facility] HEPA,NOS Unknown Completed [facility] HEPATITIS A Unknown Completed [facility] Meningococcal Polysaccharide (groups A, C, Y and W-135) conjugate vaccine (MCV4P) Unknown Completed [facility] Polio (IPV/OPV) Unknown Completed [facility] TDAP Unknown Completed [facility] HPV9 Unknown Completed [facility] DTaP, Unspecified Formulation Unknown Completed [facility] Hep B, Adol or Pedi Dosage Unknown Completed [facility] HIB 4 Dose Schedule Unknown Completed [facility] MMR Unknown Completed [facility] Pneumococcal 7 Conjugate, PCV7 (Prevnar7) Unknown Completed [facility] IPV Unknown Completed [facility] Varicella (varivax)(chicken pox) Unknown Completed [facility] TDAP Unknown Completed [facility] HPV9 Unknown Completed [facility] DTaP, Unspecified Formulation Unknown Completed [facility] HEPA,NOS Unknown Completed [facility] HEPATITIS A Unknown Completed [facility] Hep B, Adol or Pedi Dosage Unknown Completed [facility] HIB 4 Dose Schedule Unknown Completed [facility] Meningococcal Polysaccharide (groups A, C, Y and W-135) conjugate vaccine (MCV4P) Unknown Completed [facility] MMR Unknown Completed [facility] Pneumococcal 7 Conjugate, PCV7 (Prevnar7) Unknown Completed [facility] Polio (IPV/OPV) Unknown Completed [facility] IPV Unknown Completed [facility] Varicella (varivax)(chicken pox) Unknown Completed [facility] TDAP Unknown Completed [facility] HPV9 Unknown Completed [facility] DTaP, Unspecified Formulation Unknown Completed [facility] HEPA,NOS Unknown Completed [facility] HEPATITIS A Unknown Completed [facility] Hep B, Adol or Pedi Dosage Unknown Completed [facility] HIB 4 Dose Schedule Unknown Completed [facility] Meningococcal Polysaccharide (groups A, C, Y and W-135) conjugate vaccine (MCV4P) Unknown Completed [facility] MMR Unknown Completed [facility] Pneumococcal 7 Conjugate, PCV7 (Prevnar7) Unknown Completed [facility] Polio (IPV/OPV) Unknown Completed [facility] IPV Unknown Completed [facility] Varicella (varivax)(chicken pox) Unknown Completed [facility] Vital Signs Vital Name Observation Time Observation Value Comments S ource Systolic blood pressure 2024-03-07 21:13:00 106 mm[Hg] [facility] Diastolic blood pressure 2024-03-07 21:13:00 69 mm[Hg] [facility] Heart rate 2024-03-07 21:13:00 91 /min [facility] Body temperature 2024-03-07 21:13:00 36 [place] Respiratory rate 2024-03-07 21:13:00 18 /min [facility] Body height 2024-03-07 21:13:00 165.1 cm [facility] Body weight 2024-03-07 21:13:00 46.176 kg [facility] BMI 2024-03-07 21:13:00 16.94 kg/m2 [facility] Systolic blood pressure 2023-12-17 00:27:00 130 mm[Hg] [facility] Diastolic blood pressure 2023-12-17 00:27:00 72 mm[Hg] [facility] Heart rate 2023-12-17 00:27:00 90 /min [facility] Body temperature 2023-12-17 00:27:00 37.06 [place] [facility] Respiratory rate 2023-12-17 00:27:00 15 /min [facility] Body height 2023-12-17 00:27:00 165.1 cm [facility] Body weight 2023-12-17 00:27:00 45.587 kg [facility] BMI 2023-12-17 00:27:00 16.72 kg/m2 [facility] Body mass index (BMI) [Percentile] Per age and sex 2023-12-17 00:27:00 1.03 % [facility] Oxygen saturation in Arterial blood by Pulse oximetry 2023-12-17 00:27:00 100 /min [facility] Systolic blood pressure 2023-07-04 19:38:00 133 mm[Hg] [facility] Diastolic blood pressure 2023-07-04 19:38:00 89 mm[Hg] [facility] Heart rate 2023-07-04 19:38:00 87 /min [facility] Body temperature 2023-07-04 19:38:00 36.5 [place] [facility] Body height 2023-07-04 19:38:00 167.6 cm [facility] Body weight 2023-07-04 19:38:00 43.545 kg [facility] BMI 2023-07-04 19:38:00 15.49 kg/m2 [facility] Body mass index (BMI) [Percentile] Per age and sex 2023-07-04 19:38:00 0.06 % [facility] Oxygen saturation in Arterial blood by Pulse oximetry 2023-07-04 19:38:00 97 /min [facility] Systolic blood pressure 2023-02-18 16:07:00 117 mm[Hg] [facility] Diastolic blood pressure 2023-02-18 16:07:00 78 mm[Hg] [facility] Heart rate 2023-02-18 16:07:00 86 /min [facility] Body temperature 2023-02-18 16:07:00 36.56 [place] [facility] Respiratory rate 2023-02-18 16:07:00 16 /min [facility] Body height 2023-02-18 16:07:00 165.1 cm [facility] Body weight 2023-02-18 16:07:00 47.265 kg [facility] BMI 2023-02-18 16:07:00 17.34 kg/m2 [facility] Body mass index (BMI) [Percentile] Per age and sex 2023-02-18 16:07:00 3.81 % [facility] Systolic blood pressure 2023-01-04 14:12:00 127 mm[Hg] [facility] Diastolic blood pressure 2023-01-04 14:12:00 82 mm[Hg] [facility] Heart rate 2023-01-04 14:12:00 88 /min [facility] Body temperature 2023-01-04 14:12:00 36.22 [place] [facility] Respiratory rate 2023-01-04 14:12:00 18 /min [facility] Body height 2023-01-04 14:12:00 165.1 cm [facility] Body weight 2023-01-04 14:12:00 48.11 kg [facility] BMI 2023-01-04 14:12:00 17.65 kg/m2 [facility] Body mass index (BMI) [Percentile] Per age and sex 2023-01-04 14:12:00 5.90 % [facility] Systolic blood pressure 2022-12-16 12:46:00 138 mm[Hg] [facility] Diastolic blood pressure 2022-12-16 12:46:00 96 mm[Hg] [facility] Heart rate 2022-12-16 12:46:00 75 /min [facility] Body temperature 2022-12-16 12:46:00 36.44 [place] [facility] Respiratory rate 2022-12-16 12:46:00 18 /min [facility] Oxygen saturation in Arterial blood by Pulse oximetry 2022-12-16 12:46:00 100 /min [facility] Body height 2022-12-14 00:51:00 165.1 cm [facility] Body weight 2022-12-14 00:51:00 58.605 kg [facility] BMI 2022-12-14 00:51:00 21.50 kg/m2 [facility] Body mass index (BMI) [Percentile] Per age and sex 2022-12-14 00:51:00 53.59 % [facility] Systolic blood pressure 2022-12-13 21:11:00 140 mm[Hg] [facility] Diastolic blood pressure 2022-12-13 21:11:00 60 mm[Hg] [facility] Heart rate 2022-12-13 21:08:00 82 /min [facility] Body temperature 2022-12-13 21:04:00 36.33 [place] [facility] Respiratory rate 2022-12-13 21:04:00 18 /min [facility] Body height 2022-12-13 21:04:00 165.1 cm [facility] Body weight 2022-12-13 21:04:00 58.605 kg [facility] [facility] 2022-12-13 21:04:00 21.50 kg/m2 [facility] Body mass index (BMI) [Percentile] Per age and sex 2022-12-13 21:04:00 53.59 % [facility] Systolic blood pressure 2022-12-08 19:28:00 131 mm[Hg] [facility] Diastolic blood pressure 2022-12-08 19:28:00 89 mm[Hg] [facility] Heart rate 2022-12-08 19:28:00 83 /min [facility] Body temperature 2022-12-08 19:28:00 36.39 [facility] Respiratory rate 2022-12-08 19:28:00 18 /min [facility] Body height 2022-12-08 19:28:00 165.1 cm [facility] Body weight 2022-12-08 19:28:00 58.605 kg [facility] BMI 2022-12-08 19:28:00 21.50 kg/m2 [facility] Body mass index (BMI) [Percentile] Per age and sex 2022-12-08 19:28:00 53.64 % [facility] Systolic blood pressure 2022-11-24 20:23:00 128 mm[Hg] [facility] Diastolic blood pressure 2022-11-24 20:23:00 82 mm[Hg] [facility] Heart rate 2022-11-24 20:23:00 77 /min [facility] Body temperature 2022-11-24 20:23:00 36.39 [facility] Respiratory rate 2022-11-24 20:23:00 18 /min [facility] Body height 2022-11-24 20:23:00 165.1 cm [facility] Body weight 2022-11-24 20:23:00 57.743 kg [facility] BMI 2022-11-24 20:23:00 21.18 kg/m2 [facility] Body mass index (BMI) [Percentile] Per age and sex 2022-11-24 20:23:00 49.81 % [facility] Systolic blood pressure 2022-11-17 20:37:00 121 mm[Hg] [facility] Diastolic blood pressure 2022-11-17 20:37:00 62 mm[Hg] [facility] Heart rate 2022-11-17 20:37:00 84 /min [facility] Body temperature 2022-11-17 20:37:00 36.33 [place] Respiratory rate 2022-11-17 20:37:00 18 /min [facility] Body height 2022-11-17 20:37:00 165.1 cm [facility] Body weight 2022-11-17 20:37:00 57.561 kg [facility] BMI 2022-11-17 20:37:00 21.12 kg/m2 [facility] Body mass index (BMI) [Percentile] Per age and sex 2022-11-17 20:37:00 49.12 % [facility] Systolic blood pressure 2022-11-03 21:43:00 107 mm[Hg] [facility] Diastolic blood pressure 2022-11-03 21:43:00 74 mm[Hg] [facility] Heart rate 2022-11-03 21:43:00 85 /min [facility] Body temperature 2022-11-03 21:43:00 36 [place] [facility] Respiratory rate 2022-11-03 21:43:00 18 /min [facility] Body height 2022-11-03 21:43:00 165.1 cm [facility] Body weight 2022-11-03 21:43:00 56.382 kg [facility] BMI 2022-11-03 21:43:00 20.68 kg/m2 [facility] Body mass index (BMI) [Percentile] Per age and sex 2022-11-03 21:43:00 43.45 % [facility] Systolic blood pressure 2022-10-20 20:06:00 100 mm[Hg] [facility] Diastolic blood pressure 2022-10-20 20:06:00 62 mm[Hg] [facility] Heart rate 2022-10-20 20:06:00 80 /min Un[facility] Body temperature 2022-10-20 20:06:00 35.33 [place] Respiratory rate 2022-10-20 20:06:00 18 /min [facility] Body height 2022-10-20 20:06:00 165.1 cm [facility] Body weight 2022-10-20 20:06:00 53.842 kg [facility] BMI 2022-10-20 20:06:00 19.75 kg/m2 [facility] Body mass index (BMI) [Percentile] Per age and sex 2022-10-20 20:06:00 30.59 % [facility] Systolic blood pressure 2022-10-06 19:31:00 110 mm[Hg] [facility] Diastolic blood pressure 2022-10-06 19:31:00 69 mm[Hg] [facility] Heart rate 2022-10-06 19:31:00 82 /min [facility] Body temperature 2022-10-06 19:31:00 36.33 [place]er[place] [facility] Respiratory rate 2022-10-06 19:31:00 18 /min [facility] Body height 2022-10-06 19:31:00 160 cm [facility] Body weight 2022-10-06 19:31:00 53.252 kg [facility] BMI 2022-10-06 19:31:00 20.80 kg/m2 [facility] Body mass index (BMI) [Percentile] Per age and sex 2022-10-06 19:31:00 45.44 % [facility] Systolic blood pressure 2022-09-08 21:21:00 99 mm[Hg] [facility] Diastolic blood pressure 2022-09-08 21:21:00 67 mm[Hg] [facility] Heart rate 2022-09-08 21:21:00 94 /min [facility] Body temperature 2022-09-08 21:21:00 36.94 [place] [facility] Respiratory rate 2022-09-08 21:21:00 16 /min [facility] Body height 2022-09-08 21:21:00 160 cm [facility] Body weight 2022-09-08 21:21:00 51.166 kg [facility] BMI 2022-09-08 21:21:00 19.98 kg/m2 [facility] Body mass index (BMI) [Percentile] Per age and sex 2022-09-08 21:21:00 34.41 % [facility] Systolic blood pressure 2022-08-25 19:13:00 102 mm[Hg] [facility] Diastolic blood pressure 2022-08-25 19:13:00 49 mm[Hg] [facility] Heart rate 2022-08-25 19:13:00 81 /min [facility] Body temperature 2022-08-25 19:13:00 36.61 [place]er[place] [facility] Respiratory rate 2022-08-25 19:13:00 18 /min [facility] Body height 2022-08-25 19:13:00 160 cm [facility] Body weight 2022-08-25 19:13:00 50.037 kg [facility] BMI 2022-08-25 19:13:00 19.54 kg/m2 [facility] Body mass index (BMI) [Percentile] Per age and sex 2022-08-25 19:13:00 28.38 % [facility] Systolic blood pressure 2022-06-16 15:09:00 121 mm[Hg] [facility] Diastolic blood pressure 2022-06-16 15:09:00 85 mm[Hg] [facility] Heart rate 2022-06-16 15:09:00 100 /min [facility] Body temperature 2022-06-16 15:09:00 36.44 [place] [facility] Respiratory rate 2022-06-16 15:09:00 18 /min [facility] Body height 2022-06-16 15:09:00 160 cm [facility] Body weight 2022-06-16 15:09:00 45.927 kg [facility] BMI 2022-06-16 15:09:00 17.94 kg/m2 [facility] Body mass index (BMI) [Percentile] Per age and sex 2022-06-16 15:09:00 9.73 % [facility] Procedures Procedure Date / Time Performed Performing Clinician Source DISCLOSURE AND CONSENT, MEDICAL AND SURGICAL PROCEDURES 2023-07-08 05:01:00 Doctor Unassigned, [place] [facility] POCT TEST 2023-07-04 19:40:00 Benjamin Shipman [facility] POCT TEST 2023-02-18 16:20:00 Benjamin Shipman [facility] URINALYSIS 2022-12-16 14:27:00 Tamara Isamar [facility] SGOT (ASPARTATE AMINO TRANSFER) 2022-12-16 13:49:00 Tamara [facility] CREATININE 2022-12-16 13:49:00 Tamara [facility] ALANINE AMINO TRANSFERASE(SGPT 2022-12-16 13:49:00 Tamara [facility] LACTATE DEHYDROGENASE 2022-12-16 13:49:00 Tamara [facility] URIC ACID 2022-12-16 13:49:00 Tamara [facility] CBC WITH DIFF 2022-12-16 13:49:00 Tamara Isamar [facility] EXTRA TUBE LAV 2022-12-16 13:49:00 Lonnie Willis [facility] EXTRA TUBE LT. GREEN 2022-12-16 13:49:00 Ricky Willis [facility] CBC WITH DIFF 2022-12-15 08:53:00 Leda Orosco [facility] VENOUS CORD GAS 2022-12-14 12:58:00 Davian Warren [facility] CENTRAL NEURAXIAL BLOCK 2022-12-14 07:24:00 Douglas Adan [facility] SGOT (ASPARTATE AMINO TRANSFER) 2022-12-14 02:40:00 Younes, [facility] CREATININE 2022-12-14 02:40:00 Moni [facility] ALANINE AMINO TRANSFERASE(SGPT 2022-12-14 02:40:00 Moni [facility] LACTATE DEHYDROGENASE 2022-12-14 02:40:00 Moni [facility] URIC ACID 2022-12-14 02:40:00 Moni [facility] CBC WITH DIFF 2022-12-14 02:40:00 Alley Montenegro [facility] URINALYSIS 2022-12-14 02:40:00 Moni [facility] HEPATITIS B SURFACE ANTIGEN 2022-12-14 02:40:00 Kelvin [facility] HB ABO GROUPING 2022-12-14 02:40:00 Kelvin [facility] GC & CHLAMYDIA AMPLIFIED ASSAY 2022-12-14 02:40:00 Kelvin [facility] RHO (D) IMMUNE GLOBULIN 2022-12-14 02:40:00 Chilango Orosco [facility] PROTEIN CREAT RATIO URINE RANDOM 2022-12-14 02:40:00 Moni [facility] HIV 1/2 AG-AB WITH REFLEX 2022-12-14 02:40:00 Kelvin [facility] SYPHILIS IGG/IGM 2022-12-14 02:40:00 Kelvin [facility] POCT URINALYSIS 2022-12-13 21:06:00 Jamil Shipman [facility] DME/SUPPLY JUSTIFICATION 2022-12-10 05:01:00 Doc tor Unassigned, [place] [facility] POCT URINALYSIS 2022-12-08 19:30:00 Jamil Shipman [facility] POCT URINALYSIS 2022-11-24 20:24:00 Jamil Shipman [facility] POCT URINALYSIS 2022-11-17 20:40:00 Jamil Shipman [facility] SECOND AND THIRD TRIMESTER ULTRASOUND 2022-11-10 19:46:00 Jamil Shipman [facility] POCT URINALYSIS 2022-11-03 21:44:00 Jamil Shipman [facility] POCT URINALYSIS 2022-10-20 20:07:00 Jamil Shipman [facility] TDAP VACCINE, >11 YRS, IM 2022-10-06 19:56:47 Jamil Shipman [facility] POCT URINALYSIS 2022-10-06 19:34:00 Jamil Shipman [facility] ASSIGNMENT OF BENEFITS 2022-10-06 19:23:02 Docto r Unassigned, [place] [facility] POCT URINALYSIS 2022-09-08 00:00:00 Jamil Shipman [facility] POCT URINALYSIS 2022-08-25 19:14:00 Jamil Shipman [facility] CBC WITH DIFF 2022-06-16 16:25:00 Jamil Shipman [facility] RUBELLA SCREEN IGG 2022-06-16 16:25:00 Mikki Shipman [facility] VZV ANTIBODY SCREEN 2022-06-16 16:25:00 Benjamin Shipman [facility] HEPATITIS B SURFACE ANTIGEN 2022-06-16 16:25:00 Jamil Shipman [facility] HB ABO GROUPING 2022-06-16 16:25:00 Jamil Shipman [facility] URINE CULTURE 2022-06-16 16:25:00 Jamil Shipman [facility] GC & CHLAMYDIA AMPLIFIED ASSAY 2022-06-16 16:25:00 Jamil Shipman [facility] HIV 1/2 AG-AB WITH REFLEX 2022-06-16 16:25:00 Jamil Shipman [facility] GALV ONLY - SYPHILIS IGG/IGM 2022-06-16 16:25:00 Jamil Shipman [facility] POCT URINALYSIS W/O SPECIFIC GRAVITY 2022-06-16 15:01:00 Jamil Shipman [facility] POCT TEST 2022-06-16 15:00:00 Benjamin Shipman [facility] VACCINATION OF A MINOR 2022-06-16 14:36:53 Docto r Unassigned, [place] [facility] Encounters Start Date/Time End Date/Time Encounter Type Admission Type Attending Clinicians Care Facility Care Department Encounter ID Source 2024-03-09 00:00:00 2024-03-09 10:53:17 Telephone Maggy Lee [facility] SECURITY OPERATIONS MANAGER [facility] MATERNAL & CHILD [facility] 1..840.114 350.1.13.10 4.2.7.2.686 [id number] [facility] 2024-03-07 15:45:00 2024-03-07 16:37:51 Outpatient R CHARLIE EWING [facility] [id number] [facility] 2024-03-07 15:45:00 2024-03-07 16:37:51 Office Visit Chuy [facility] SECURITY OPERATIONS MANAGER [facility] MATERNAL & CHILD [facility] 1..840.114 350.1.13.10 4.2.7.2.686 [id number] [facility] 2024-01-18 10:00:00 2024-01-18 10:00:00 Outpatient R CHEPE LIU [facility] [id number] [facility] 2023-12-18 00:00:00 2023-12-18 00:00:00 Telephone Teena Leahy [facility] 1..840.114 350.1.13.10 4.2.7.2.686 [id number] [facility] 2023-12-18 00:00:00 2023-12-18 00:00:00 Telephone Debbie Rasheed [facility] 1.840.114 350.1.13.10 4.2.7.2.686 [id number] [facility] 2023-12-17 00:00:00 2023-12-17 00:00:00 Telephone EliandmitriallynTeena [facility] 1..114 350.1.13.10 4.2.7.2.686 [id number] [facility] 2023-12-16 19:20:00 2023-12-16 19:44:08 Outpatient R DEBBIE RASHEED [facility] [id number] [facility] 2023-12-16 19:20:00 2023-12-16 19:44:08 Urgent Care WiliDebbie Unknown, Attending [facility] 1.114 350.1.13.10 4.2.7.2.686 [id number] [facility] 2023-11-09 00:00:00 2023-11-09 00:00:00 Telephone Maira Temple [facility] 1..114 350.1.13.10 4.2.7.2.686 [id number] [facility] 2023-08-17 13:30:00 2023-08-17 13:30:00 Outpatient R JAMIL SHIPMAN [facility] [id number] [facility] 2023-07-08 00:00:00 2023-07-08 00:00:00 Orders Only Doctor Unassigned, [place] [facility] 1.114 350.1.13.10 4.2.7.2.686 [id number] [facility] 2023-07-04 14:30:00 2023-07-04 15:04:48 Outpatient R JAMIL SHIPMAN [facility] [id number] [facility] 2023-07-04 14:30:00 2023-07-04 15:04:48 Office Visit Jamil Shipman DEANA[facility] SECURITY OPERATIONS MANAGER [facility] CHILD [facility] 1..840.114 350.1.13.10 4.2.7.2.686 [id number] [facility] 2023-04-27 14:30:00 2023-04-27 14:30:00 Outpatient R JAMIL SHIPMAN [facility] [id number] [facility] 2023-04-27 00:00:00 2023-04-27 00:00:00 Telephone Jamil Shipman DEANAMIKA SECURITY OPERATIONS MANAGER [facility] 1..840.114 350.1.13.10 4.2.7.2.686 [id number] [facility] 2023-03-31 08:30:00 2023-03-31 08:30:00 Outpatient R JAMIL SHIPMAN [facility] [id number] [facility] 2023-03-16 00:00:00 2023-03-16 00:00:00 Telephone Jamil Shipman [facility] SECURITY OPERATIONS MANAGER [facility] 1..840.114 350.1.13.10 4.2.7.2.686 [id number] [facility] 2023-03-09 13:00:00 2023-03-09 13:00:00 Outpatient R JAMIL SHIPMAN [facility] [id number] [facility] 2023-02-18 10:45:00 2023-02-18 11:25:44 Outpatient R JAMIL SHIPMAN [facility] [id number] [facility] 2023-02-18 10:45:00 2023-02-18 11:25:44 Office Visit Jamil Shipman [facility] SECURITY OPERATIONS MANAGER [facility] 1.2.840.114 350.1.13.10 4.2.7.2.686 [id number] [facility] 2023-01-04 08:45:00 2023-01-04 13:05:21 Outpatient R MILINDMADAYMAGGY [facility] [id number] [facility] 2023-01-04 08:45:00 2023-01-04 13:05:21 Routine Visit Maggy Lee [facility] SECURITY OPERATIONS MANAGER [facility] MATERNAL & [facility] 1.2.840.114 350.1.13.10 4.2.7.2.686 [id number] [facility] 2022-12-25 00:00:00 2022-12-25 00:00:00 Nurse Triage Milla [facility] 1.2.840.114 350.1.13.10 4.2.7.2.686 [id number] [facility] 2022-12-13 19:11:00 2022-12-16 12:49:00 Hospital Encounter Lonnie Willis [facility] 1.2.840.114 350.1.13.10 4.2.7.2.686 [id number] [facility] 2022-12-16 00:00:00 2022-12-16 00:00:00 Encounter 1.2.840.1 [id number] [id number] 1.2.840.114 350.1.13.10 4.2.7.2.696 [id number] [facility] 2022-12-14 01:54:00 2022-12-14 08:53:00 [facility] 1.2.840.114 350.1.13.10 4.2.7.2.686 [id number] [facility] 2022-12-13 16:00:00 2022-12-13 16:15:08 Outpatient R JAMIL SHIPMAN [facility] [id number] [facility] 2022-12-13 16:00:00 2022-12-13 16:15:08 Outpatient R JAMIL SHIPMAN DEANAMIKA JAIMIE [id number] [facility] 2022-12-13 16:00:00 2022-12-13 16:15:08 Routine Visit Jamil Shipman [facility] SECURITY OPERATIONS MANAGER [facility] & CHILD [facility] 1.2.840.114 350.1.13.10 4.2.7.2.686 [id number] [facility] 2022-12-10 00:00:00 2022-12-10 00:00:00 Orders Only Doctor Unassigned, [place] [facility] 1.2.840.114 350.1.13.10 4.2.7.2.686 [id number] [facility] 2022-12-10 00:00:00 2022-12-10 00:00:00 Nurse Triage Michelle Song [facility] 1.2.840.114 350.1.13.10 4.2.7.2.686 [id number] [facility] 2022-12-09 00:00:00 2022-12-09 00:00:00 Abstract Jamil Shipman [facility] SECURITY OPERATIONS MANAGER [facility] & CHILD [facility] 1.2.840.114 350.1.13.10 4.2.7.2.686 [id number] [facility] 2022-12-08 15:30:00 2022-12-08 15:30:00 Routine Visit Jamil Shipman [facility] SECURITY OPERATIONS MANAGER [facility] & CHILD [facility] 1.2.840.114 350.1.13.10 4.2.7.2.686 [id number] [facility] 2022-12-08 13:30:00 2022-12-08 14:57:22 Outpatient P LETTY MARTÍNEZ [facility] [id number] [facility] 2022-12-08 13:30:00 2022-12-08 14:00:00 Supervisor Telephone Information Visit Ultrasound, Femi Parker Gay [facility] SECURITY OPERATIONS MANAGER [facility] & CHILD [facility] 1..840.114 350.1.13.10 4.2.7.2.686 [id number] [facility] 2022-12-01 16:00:00 2022-12-01 16:00:00 Outpatient R JAMIL SHIPMAN [facility] [id number] [facility] 2022-11-25 00:00:00 2022-11-25 00:00:00 Telephone Jamil Shipman [facility] SECURITY OPERATIONS MANAGER [facility] & CHILD [facility] 1..840.114 350.1.13.10 4.2.7.2.686 [id number] [facility] 2022-11-24 15:45:00 2022-11-24 16:00:00 Routine Visit Jamil Shipman [facility] SECURITY OPERATIONS MANAGER [facility] & CHILD [facility] ..840.114 350.1.13.10 4.2.7.2.686 [id number] [facility] 2022-11-24 15:45:00 2022-11-24 15:45:00 Outpatient R JAMIL SHIPMAN [facility] [id number] [facility] 2022-11-18 00:00:00 2022-11-18 00:00:00 Abstract Jamil Shipman [facility] SECURITY OPERATIONS MANAGER [facility] & CHILD [facility] 1..840.114 350.1.13.10 4.2.7.2.686 [id number] [facility] 2022-11-17 15:30:00 2022-11-17 15:57:14 Outpatient R JAMIL SHIPMAN [facility] [id number] [facility] 2022-11-17 15:30:00 2022-11-17 15:57:14 Routine Visit Jamil Shipman [facility] SECURITY OPERATIONS MANAGER [facility] & CHILD [facility] 1.2.840.114 350.1.13.10 4.2.7.2.686 [id number] [facility] 2022-11-13 00:00:00 2022-11-13 00:00:00 Nurse Triage Merline Loyola [facility] 1.2840.114 350.1.13.10 4.2.7.2.686 [id number] [facility] 2022-11-10 13:30:00 2022-11-10 14:20:18 Supervisor Telephone Information Visit Ultrasound, Fmei Parker [facility] SECURITY OPERATIONS MANAGER [facility] & CHILD [facility] 1.2.840.114 350.1.13.10 4.2.7.2.686 [id number] [facility] 2022-11-10 13:30:00 2022-11-10 13:30:00 Outpatient FEMI MELCHOR SHANNON [facility] [id number] [facility] 2022-11-03 15:30:00 2022-11-03 15:58:36 Outpatient R JAMIL SHIPMAN [facility] [id number] [facility] 2022-11-03 15:30:00 2022-11-03 15:58:36 Routine Visit Jamil Shipman [facility] 1.2840.114 350.1.13.10 4.2.7.2.686 [id number] [facility] 2022-10-20 14:00:00 2022-10-20 14:32:17 Outpatient R JAMIL SHIPMAN [facility] [id number] [facility] 2022-10-20 14:00:00 2022-10-20 14:32:17 Routine Visit Jamil Shipman DEANAMIKA SECURITY OPERATIONS MANAGER [facility] & CHILD [facility] 1.2.840.114 350.1.13.10 4.2.7.2.686 [id number] [facility] 2022-10-18 00:00:00 2022-10-18 00:00:00 Telephone Jamil Shipman [facility] SECURITY OPERATIONS MANAGER [facility] & CHILD [facility] 1.2.840.114 350.1.13.10 4.2.7.2.686 [id number] [facility] 2022-10-07 00:00:00 2022-10-07 00:00:00 Telephone Jamil Shipman [facility] SECURITY OPERATIONS MANAGER [facility] & CHILD [facility] 1.2.840.114 350.1.13.10 4.2.7.2.686 [id number] [facility] 2022-10-06 13:15:00 2022-10-06 14:15:36 Outpatient R JAMIL SHIPMAN [facility] [id number] [facility] 2022-10-06 13:15:00 2022-10-06 14:15:36 Routine Visit Jamil Shipman [facility] SECURITY OPERATIONS MANAGER [facility] [id number] [id number] [id number] [id number] [facility] 2022-10-06 00:00:00 2022-10-06 00:00:00 Orders Only Doctor Unassigned, [place] [facility] [id number] [id number] [id number] [id number] [facility] 2022-10-06 00:00:00 2022-10-06 00:00:00 Abstract Jamil Shipman [facility] [employer] OPER[employer] [facility] [place] [facility] & CHILD [facility] 1.2.840.114 350.1.13.10 4.2.7.2.686 [id number] [facility] 2022-09-30 13:00:00 2022-09-30 14:12:43 Supervisor Telephone Information Visit Ultrasound, Violeta Graham [facility] SECURITY OPERATIONS MANAGER [facility] CHILD [facility] 1.2.840.114 350.1.13.10 4.2.7.2.686 [id number] [facility] 2022-09-30 13:00:00 2022-09-30 13:00:00 Outpatient VIOLETA AMOS [facility] [id number] [facility] 2022-09-17 09:45:00 2022-09-17 09:56:01 Outpatient WAQAS BETANCUR [facility] [id number] [facility] 2022-09-17 09:45:00 2022-09-17 09:56:01 Telemedici ne Visit Liliana Saenz Joseph W [facility] SECURITY OPERATIONS MANAGER [facility] & CHILD [facility] 1.2.840.114 350.1.13.10 4.2.7.2.686 [id number] [facility] 2022-09-09 15:00:00 2022-09-09 16:00:00 Supervisor Telephone Information Visit Ultrasound, Mariajose Esparza [facility] SECURITY OPERATIONS MANAGER [facility] & CHILD [facility] 1.2.840.114 350.1.13.10 4.2.7.2.686 [id number] [facility] 2022-09-09 15:00:00 2022-09-09 15:00:00 Outpatient P MARIAJOSE NUNEZ SANGEETA [facility] [id number] [facility] 2022-09-09 00:00:00 2022-09-09 00:00:00 Telephone Jamil Shipman [facility] SECURITY OPERATIONS MANAGER [facility] & CHILD [facility] 1.2.840.114 350.1.13.10 4.2.7.2.686 [id number] [facility] 2022-09-09 00:00:00 2022-09-09 00:00:00 Abstract Jamil Shipman [facility] SECURITY OPERATIONS MANAGER [facility] & CHILD [facility] 1.2.840.114 350.1.13.10 4.2.7.2.686 [id number] [facility] 2022-09-08 14:45:00 2022-09-08 15:42:06 Outpatient R JAMIL SHIPMAN [facility] [id number] [facility] 2022-09-08 14:45:00 2022-09-08 15:42:06 Routine Visit UmbertoJamil Tanya [facility] SECURITY OPERATIONS MANAGER [facility] CHILD [facility] 1.840.114 350.1.13.10 4.2.7.2.686 [id number] [facility] 2022-08-25 13:15:00 2022-08-25 13:46:15 Outpatient R MIKKI SHIPMANOLA [facility] [id number] [facility] 2022-08-25 13:15:00 2022-08-25 13:46:15 Routine Visit Jamil Shipman DEANAMIKA SECURITY OPERATIONS MANAGER [facility] & CHILD [facility] 1.2.840.114 350.1.13.10 4.2.7.2.686 [id number] [facility] 2022-08-23 00:00:00 2022-08-23 00:00:00 Telephone ArjunwenceslaofelixJamil Tanya [facility] SECURITY OPERATIONS MANAGER [facility] CHILD [facility] 1.2.840.114 350.1.13.10 4.2.7.2.686 [id number] [facility] 2022-08-17 00:00:00 2022-08-17 00:00:00 Telephone Jamil Shipman [facility] SECURITY OPERATIONS MANAGER [facility] CHILD [facility] 1.2.840.114 350.1.13.10 4.2.7.2.686 [id number] [facility] 2022-07-14 11:00:00 2022-07-14 11:00:00 Outpatient P [facility] [id number] [facility] 2022-07-07 13:30:00 2022-07-07 13:30:00 Outpatient P DEMB [facility] [id number] [facility] 2022-07-01 00:00:00 2022-07-01 00:00:00 Telephone Jamil Shipman [facility] SECURITY OPERATIONS MANAGER [facility] CHILD [facility] 1.2.840.114 350.1.13.10 4.2.7.2.686 [id number] [facility] 2022-06-22 00:00:00 2022-06-22 00:00:00 Telephone Jamil Shipman [facility] SECURITY OPERATIONS MANAGER [facility] CHILD [facility] 1.2.840.114 350.1.13.10 4.2.7.2.686 [id number] [facility] 2022-06-16 10:00:00 2022-06-16 11:32:10 Outpatient R JAMIL SHIPMAN [facility] [id number] [facility] 2022-06-16 10:00:00 2022-06-16 11:32:10 Initial Visit Jamil Shipman [facility] SECURITY OPERATIONS MANAGER [facility] CHILD [facility] 1.2.840.114 350.1.13.10 4.2.7.2.686 [id number] [facility] 2022-06-16 00:00:00 2022-06-16 00:00:00 Orders Only Doctor Unassigned, [place] [facility] 1.840.114 350.1.13.10 4.2.7.2.686 [id number] [facility] 2022-06-11 10:00:00 2022-06-11 10:00:00 Outpatient JAMIL SINCLAIR [facility] [id number] [facility] 2021-09-29 00:00:00 2021-09-29 00:00:00 Letter (Out) Jacquie Moon [facility] 1.84.114 350.1.13.10 4.2.7.2.686 [id number] [facility] 2021-09-28 15:15:00 2021-09-28 16:05:33 Laboratory Only Only, Adc Pob2 Test DonnyKristine morales [facility] 1.84.114 350.1.13.10 4.2.7.2.686 [id number] [facility] 2021-09-28 15:15:00 2021-09-28 15:15:00 Outpatient HENOK CERVANTESTA [facility] [id number] [facility] 2021-09-24 15:00:00 2021-09-24 15:15:00 Laboratory Only Only, Adc Test Johanna Conti [facility] 1.84.114 350.1.13.10 4.2.7.2.686 [id number] [facility] 2021-09-24 15:00:00 2021-09-24 15:00:00 Outpatient R GALLITO [facility] [id number] [facility] 2021-09-24 00:00:00 2021-09-24 00:00:00 Orders Only Doctor Unassigned, [place] [facility] 1.84114 350.1.13.10 4.2.7.2.686 [id number] [facility] Results Test Description Test Time Test Comments Results Result Co mments Source [facility] [id number] 19:40:00* Test Item Value Reference Range Interpretation Comme nts POCT PREG (test code = 1605) Negative On board controls acceptable with C Line (test code = 3574) Yes POCT PREG LOT # (test code = 3575) POCT PREG TEST DATE ( test code = 3576) Lab Interpretation (test cod e = 74088-5) Normal [facility] [id number] 16:24:00* Test Item Value Reference Range Interpretation Comme nts POCT PREG (test code = 1605) Negative On board controls acceptable with C Line (test code = 3574) Yes POCT PREG LOT # (test code = 3575) POCT PREG TEST DATE (test code = 3576) RICHELLE (test code = RICHELLE) accurate developme nt and interpretation of all internal controls [facility] [id number] 16:24:00* Test Item Value Reference Range Interpretation Comme nts POCT PREG (test code = 1605) Negative On board controls acceptable with C Line (test code = 3574) Yes POCT PREG LOT # (test code = 3575) POCT PREG TEST DATE (test code = 3576) RICHELLE (test code = RICHELLE) accurate developme nt and interpretation of all internal controls [facility] [id number] 16:24:00* Test Item Value Reference Range Interpretation Comme nts POCT PREG (test code = 1605) Negative On board controls acceptable with C Line (test code = 3574) Yes POCT PREG LOT # (test code = 3575) POCT PREG TEST DATE (test code = 3576) RICHELLE (test code = RICHELLE) accurate developme nt and interpretation of all internal controls [facility] [id number] 16:24:00* Test Item Value Reference Range Interpretation Comme nts POCT PREG (test code = 1605) Negative On board controls acceptable with C Line (test code = 3574) Yes POCT PREG LOT # (test code = 3575) POCT PREG TEST DATE (test code = 3576) RICHELLE (test code = RICHELLE) accurate developme nt and interpretation of all internal controls [facility] Resources[facility] AMINO TRANSFERASE([id number] 14:16:06* Test Item Value Reference Range Interpretation Comme nts ALTv (test code = 1742-6) 12 U/L 5-35 Lab Interpretation (test cod e = 25175-1) Normal [facility] (ASPARTATE AMINO TRANSFER)2022-12-16 14:16:06* Test Item Value Reference Range Interpretation Comme nts AST(SGOT) (test code = 6939599157) 37 U/L 13-40 Lab Interpretation (test cod e = 82053-3) Normal [facility] ResourcesCREATININE2023-04-13 14:16:05* Test Item Value Reference Range Interpretation Comme nts CREATININE (test code = 4471142318) 0.59 mg/dL 0.50-1.04 RICHELLE (test code = [...] imaging tests). Lab Interpretation (test code = 28598-6) Normal [facility] ResourcesURIC [id number] 14:16:05* Test Item Value Reference Range Interpretation Comme nts URIC ACID (test code = 3791969914) 5.9 mg/dL 2.9-6.0 Lab Interpretation (test cod e = 82646-0) Normal [facility] ResourcesLACTATE [id number] 14:16:05* Test Item Value Reference Range Interpretation Comme nts LDH (test code = 6539979615) 235 U/L 120-246 Lab Interpretation (test cod e = 64703-8) Normal [facility] ResourcesCB WITH [id number] 14:09:06* Test Item Value Reference Range Interpretation Comme nts WBC (test code = 6690-2) 11.18 See_Comment [Automated [employer]] The system which generated this result transmitted reference range: 4.50 - 13.50 10*3/?L. The reference range was not used to interpret this result as normal/abnormal. RBC (test code = 789-8) 2.78 See_Comment L [Automated [employer]] The system which generated this result transmitted [...] g/dL 32.0-36.0 L RDW-SD (test code = 64702-2) 53.2 fL 38.5-49.0 H RDW-CV (test code = 788-0) 17.6 % 11.5-14.0 H PLT (test code = 777-3) 214 See_Comment [Automated messa ge] The system which generated this result transmitted reference range: 135 - 361 10*3/?L. The reference range was not used to interpret this result as normal/abnormal. MPV (test code = 67406-7) 10.8 fL 9.4-13.3 NRBC/100 WBC (test code = 1436349008) 0.0 See_Comment [Automated me ssage] The system which generated this result transmitted reference range: 0.0 - 10.0 /100 WBCs. The reference range was not used to interpret this result as normal/abnormal. NRBC x10^3 (test code = 6076979416) See_Comment [Automated messa ge] The system which generated this result transmitted reference range: 10*3/?L. The reference range was not used to interpret this result as normal/abnormal. GRAN MAT (NEUT) % (test code = 770-8) 72.2 % IMM GRAN % (test code = 9912198574) 0.70 % LYMPH % (test code = 736-9) 21.5 % MONO % (test code = 5905-5) 4.0 % EOS % (test code = 713-8) 1.4 % BASO % (test code = 706-2) 0.2 % GRAN MAT x10^3(ANC) (test code = 3252045892) 8.07 10*3/uL 1.50-10.30 IMM GRAN x10^3 (test code = 0183006154) 0.08 10*3/uL 0.00-0.06 H LYMPH x10^3 (test code = 731-0) 2.40 10*3/uL 0.70-7.40 MONO x10^3 (test code = 742-7) 0.45 10*3/uL 0.00-0.50 EOS x10^3 (test code = 711-2) 0.16 10*3/uL 0.00-0.40 BASO x10^3 (test code = 704-7) 0.00-0.10 Lab Interpretation (test code = 02444-1) Abnormal [facility] (D) IMMUNE [id number] 00:14:56* Test Item Value Reference Range Interpretation Comme nts RHIG CANDIDATE? (test code = 5188) No- see comment Patient is not a candidate for RhIg- Patient is Rh Positive.Performed at [facility] Laboratory Services - [facility] Blood [address] [address]: [phone] No. [id number] [facility] ONLY - SYPHILIS [id number] 14:37:43* Test Item Value Reference Range Interpretation Comme nts Syphilis IgG/IgM (test code = 95217-0) Non-reactive Non-reactive RICHELLE (test code = RICHELLE) Non-reactive - No serologic evidence of T. pallidum infection. Cannot exclude incubating or early syphilis. Submit a second specimen in 2-4 weeks if syphilis is clinically suspected. Equivocal - Further testing to follow. Reactive - Further testing to follow. Lab Interpretation (test code = 10581-6) Normal [facility] ResourcesVENOUS CORD [id number] 13:10:06* Test Item Value Reference Range Interpretation Comme [facility] VENOUS BASE EXCESS, CORD (test code = 8277103982) -4.4 mEq/L VENOUS PH, CORD (test code = 0931800142) 7.33 7.25-7.45 VENOUS PC02, CORD (test code = 7848118736) 42 See_Comment [Automated me ssage] The system which generated this result transmitted reference range: 27 - 49 mmHg. The reference range was not used to interpret this result as normal/abnormal. VENOUS PO2, CORD (test code = 5379705086) 16 See_Comment L [Automated me ssage] The system which generated this result transmitted reference range: 17 - 41 mmHg. The reference range was not used to interpret this result as normal/abnormal. VENOUS BICARBONATE, CORD (test code = 0922786046) 21 See_Comment [Automa chan message] The system which generated this result transmitted reference range: 12 - 29 mEq/L. The reference range was not used to interpret this result as normal/abnormal. Lab Interpretation (test code = 65630-0) Abnormal [facility] ResourcesHI 1/2 AG-AB WITH [id number] 04:11:14* Test Item Value Reference Range Interpretation Comme [facility] HIV Semi-quantitative (test code = 97033-3) 0.08 Negative RICHELLE (test code = RICHELLE) Non-reactive for HIV-1 antigen and HIV-1/HIV-2 antibodies. ?No laboratory evidence of HIV infection. ?Repeat in 2-4 weeks if acute HIV infection is suspected. [facility] ResourcesHepatitis B Surface [id number] 04:02:55 * Test Item Value Reference Range Interpretation Comme [facility] HBsAg Semi-Quantitative (linda t code = 5195-3) 0.05 Negative [facility] ResourcesLactate Lwmjfjfarmqwf4415-19-74 03:29:49* Test Item Value Reference Range Interpretation Comme [facility] LDH (test code = 1406594387) 378 U/L 120-246 H Slight hemolysis Lab Interpretation (test code = 69108-1) Abnormal [facility] ResourcesUric Acid [id number] 03:29:29* Test Item Value Reference Range Interpretation Comme [facility] URIC ACID (test code = 9225975560) 7.1 mg/dL 2.9-6.0 H Lab Interpretation (test cod e = 37735-6) Abnormal [facility] ResourcesSerum Royjjmncvw1712-05-66 03:29:29* Test Item Value Reference Range Interpretation Comme [facility] CREATININE (test code = 3435155512) 0.60 mg/dL 0.50-1.04 RICHELLE (test code = [...] imaging tests). Lab Interpretation (test code = 13889-5) Normal [facility] ResourcesSGOT (Asparate Amino Transfer)2022-12-14 03:29:29* Test Item Value Reference Range Interpretation Comme nts AST(SGOT) (test code = 2939024678) 24 U/L 13-40 Lab Interpretation (test cod e = 94850-3) Normal [facility] ResourcesAlanine Amino Transferase (SGPT)2022-12-14 03:29:29* Test Item Value Reference Range Interpretation Comme nts ALTv (test code = 1742-6) 10 U/L 5-35 Lab Interpretation (test cod e = 51684-6) Normal [facility] ResourcesCBC with Pavemruwcbha0011-47-70 03:06:00* Test Item Value Reference Range Interpretation Comme nts WBC (test code = 6690-2) 8.50 See_Comment [Automated [employer]] The system which generated this result transmitted reference range: 4.50 - 13.50 10*3/?L. The reference range was not used to interpret this result as normal/abnormal. RBC (test code = 789-8) 3.23 See_Comment L [Automated [employer]] The system which generated this result [...] g/dL 32.0-36.0 L RDW-SD (test code = 10842-2) 52.6 fL 38.5-49.0 H RDW-CV (test code = 788-0) 17.1 % 11.5-14.0 H PLT (test code = 777-3) 218 See_Comment [Automated messa ge] The system which generated this result transmitted reference range: 135 - 361 10*3/?L. The reference range was not used to interpret this result as normal/abnormal. MPV (test code = 79194-0) 11.8 fL 9.4-13.3 NRBC/100 WBC (test code = 6576445141) 0.0 See_Comment [Automated [employer] ss[employer]] The system which generated this result transmitted reference range: 0.0 - 10.0 /100 WBCs. The reference range was not used to interpret this result as normal/abnormal. NRBC x10^3 (test code = 2529369075) See_Comment [Automated messa ge] The system which generated this result transmitted reference range: 10*3/?L. The reference range was not used to interpret this result as normal/abnormal. GRAN MAT (NEUT) % (test code = 770-8) 81.1 % IMM GRAN % (test code = 7123722802) 0.60 % LYMPH % (test code = 736-9) 12.5 % MONO % (test code = 5905-5) 5.6 % EOS % (test code = 713-8) 0.0 % BASO % (test code = 706-2) 0.2 % GRAN MAT x10^3(ANC) (test code = 6111889796) 6.89 10*3/uL 1.50-10.30 IMM GRAN x10^3 (test code = 9058161204) 0.05 10*3/uL 0.00-0.06 LYMPH x10^3 (test code = 731-0) 1.06 10*3/uL 0.70-7.40 MONO x10^3 (test code = 742-7) 0.48 10*3/uL 0.00-0.50 EOS x10^3 (test code = 711-2) 0.00-0.40 BASO x10^3 (test code = 704-7) 0.00-0.10 Lab Interpretation (test code = 30600-9) Abnormal [facility] ResourcesType and Screen - ONCE [id number] 02:47:00 * Test Item Value Reference Range Interpretation Comme nts ABO & RH (test code = 20) A POSITIVE IAT (test code = 1185) Negative [facility] ResourcesPOCT URINALYSIS W SPECIFIC [id number] 21:06:00* Test Item Value Reference Range Interpretation [...] U APPEAR (test code = 3267) . [facility] ResourcesPOCT URINALYSIS W SPECIFIC [id number] 19:30:00* Test Item Value Reference Range Interpretation [...] U APPEAR (test code = 3267) . [facility] URINALYSIS W SPECIFIC [id number] 20:24:00* Test Item Value Reference Range Interpretation [...] U APPEAR (test code = 3267) . [facility] URINALYSIS W SPECIFIC [id number] 20:40:00* Test Item Value Reference Range Interpretation [...] POCT U APPEAR (test code = 3267) [facility] URINALYSIS W SPECIFIC [id number] 21:44:00* Test Item Value Reference Range Interpretation [...] U APPEAR (test code = 3267) . [facility] URINALYSIS W SPECIFIC [id number] 20:08:00* Test Item Value Reference Range Interpretation [...] U APPEAR (test code = 3267) . [facility] URINALYSIS W SPECIFIC [id number] 19:34:00* Test Item Value Reference Range Interpretation [...] POCT U APPEAR (test code = 3267) [facility] URINALYSIS W SPECIFIC [id number] 19:34:00* Test Item Value Reference Range Interpretation [...] POCT U APPEAR (test code = 3267) [facility] URINALYSIS W SPECIFIC [id number] 19:34:00* Test Item Value Reference Range Interpretation [...] POCT U APPEAR (test code = 3267) [facility] URINALYSIS W SPECIFIC [id number] 21:24:00* Test Item Value Reference Range Interpretation [...] U APPEAR (test code = 3267) . [facility] URINALYSIS W SPECIFIC [id number] 19:14:00* Test Item Value Reference Range Interpretation [...] U APPEAR (test code = 3267) . [facility] URINALYSIS W SPECIFIC [id number] 19:14:00* Test Item Value Reference Range Interpretation [...] U APPEAR (test code = 3267) . [facility] URINALYSIS W SPECIFIC [id number] 19:14:00* Test Item Value Reference Range Interpretation [...] U APPEAR (test code = 3267) . [facility] ResourcesPO[facility] URINALYSIS W SPECIFIC [id number] 19:14:00* Test Item Value Reference Range Interpretation [...] U APPEAR (test code = 3267) . [facility] ResourcesVZV ANTIBODY [id number] 17:05:33* Test Item Value Reference Range Interpretation Comme [facility] VZV IgG antibody (test code = 31420-7) Negative Negative RICHELLE (test code = RICHELLE) Positive - Indicat es the patient was exposed to VZV through infection or vaccination.Negative - Indicates the patient could be susceptible to VZV infection.Equivocal - A second specimen should be sent for testing. [facility] ResourcesRUBELLA SCREEN (ERLINDA) [id number] 17:05:13 * Test Item Value Reference Range Interpretation Comme [facility] Rubella screen IgG (test code = 4172858043) Equivocal Negative RICHELLE (test code = RICHELLE) Positive - Indicat es the patient was exposed to Rubella through infection or vaccination.Negative - Indicates the patient could be susceptible to Rubella infection.Equivocal - A second specimen should be sent. [facility] ResourcesGALV ONLY - SYPHILIS IGG/[id number] 15:58:45* Test Item Value Reference Range Interpretation Comme nts Syphilis IgG/IgM (test code = 81050-4) Non-reactive Non-reactive RICHELLE (test code = RICHELLE) Non-reactive - No serologic evidence of T. pallidum infection. Cannot exclude incubating or early syphilis. Submit a second specimen in 2-4 weeks if syphilis is clinically suspected. Equivocal - Further testing to follow. Reactive - Further testing to follow. Lab Interpretation (test code = 29677-8) [facility] WITH [id number] 06:51:47* Test Item Value Reference Range Interpretation Comme nts HIV Semi-quantitative (test code = 37377-4) Negative Negative RICHELLE (test code = RICHELLE) Non-reactive for HIV-1 antigen and HIV-1/HIV-2 antibodies. ?No laboratory evidence of HIV infection. ?Repeat in 2-4 weeks if acute HIV infection is suspected. [facility] ResourcesHEPATITIS B SURFACE [id number] 04:40:24 * Test Item Value Reference Range Interpretation Comme nts HBsAg Semi-Quantitative (linda t code = 5195-3) Negative Negative [facility] ResourcesCBC WITH [id number] 04:08:51* Test Item Value Reference Range Interpretation Comme nts WBC (test code = 6690-2) See_Comment [Automated [employer]] The system which generated this result transmitted reference range: 4.50 - 13.50 10*3/?L. The reference range was not used to interpret this result as normal/abnormal. RBC (test code = 789-8) See_Comment [Automated [employer]] The system which generated this result [...] 34.4 g/dL 32-36 RDW-SD (test code = 14388-8) 38.3 fL 38.5-49 L RDW-CV (test code = 788-0) 11.7 % 11.5-14 PLT (test code = 777-3) See_Comment [Automated [employer]] The system which generated this result transmitted reference range: 135 - 361 10*3/?L. The reference range was not used to interpret this result as normal/abnormal. MPV (test code = 08201-3) 10.6 fL 9.4-13.3 IPF % (test code = 2077995316) 3.2 % 0-7.4 Platelet count measured by fluorescence method. NRBC/100 WBC (test code = 5706300823) See_Comment [Automated [employer]] The system which generated this result transmitted reference range: 0.0 - 10.0 /100 WBCs. The reference range was not used to interpret this result as normal/abnormal. NRBC x10^3 (test code = 5606262864) See_Comment [Automated [employer]] The system which generated this result transmitted reference range: 10*3/?L. The reference range was not used to interpret this result as normal/abnormal. GRAN MAT (NEUT) % (test code = 770-8) 77.9 % IMM GRAN % (test code = 6976720949) 0.40 % LYMPH % (test code = 736-9) 15.9 % MONO % (test code = 5905-5) 5.5 % EOS % (test code = 713-8) 0.1 % BASO % (test code = 706-2) 0.2 % GRAN MAT x10^3(ANC) (test code = 9575748863) 7.06 10*3/uL 1.5-10.3 IMM GRAN x10^3 (test code = 5584567252) 0.04 10*3/uL 0-0.06 LYMPH x10^3 (test code = 731-0) 1.44 10*3/uL 0.7-7.4 MONO x10^3 (test code = 742-7) 0.50 10*3/uL 0-0.5 EOS x10^3 (test code = 711-2) 0-0.4 BASO x10^3 (test code = 704-7) 0-0.1 BANDS (test code = 6816816121) Increased A Lab Interpretation (test code = 31250-7) Abnormal [facility] ResourcesPRENATAL WORKUP, BLOOD [id number] 04:05:19 * Test Item Value Reference Range Interpretation Comme nts ABO & RH (test code = 20) A POSITIVE Performed at [facility] Laboratory Services - [facility] Blood [address] [id number] Free: [phone] No. [id number] IAT (test code = 1185) Negative Performed at [facility] Laboratory Services [facility] Blood [address] Free: [phone] No. [id number] [facility] URINALYSIS W/O SPECIFIC [id number] 15:01:00* Test Item Value Reference Range Interpretation [...] = 3257) Large Negative - Negati ve [facility] URINALYSIS W/O SPECIFIC [id number] 15:01:00* Test Item Value Reference Range Interpretation [...] = 3257) Large Negative - Negati ve [facility] [id number] 15:00:00* Test Item Value Reference Range Interpretation Comme nts POCT PREG (test code = 1605) Positive On board controls acceptable with C Line (test code = 3574) Yes POCT PREG LOT # (test code = 3575) POCT PREG TEST DATE ( test code = 3576) [facility] [id number] 15:00:00* Test Item Value Reference Range Interpretation Comme nts POCT PREG (test code = 1605) Positive On board controls acceptable with C Line (test code = 3574) Yes POCT PREG LOT # (test code = 3575) POCT PREG TEST DATE ( test code = 3576) [facility]NG, NAAT, [id number] 19:24:50* Test Item Value Reference Range Interpretation Comme nts GONORRHEA, NAAT (test code = 01254) NEGATIVE NEGATIVE IMPORTANT NO JOSÉ MIGUEL: SEE ANNOUNCEMENT AT [email or web address] Note: Assay methodology is nucleic acid amplification by lever miller mediated amplification (TMA) utilizing the Aptima Combo 2 Assay. CHLAMYDIA, NAAT (test code = 63384) NEGATIVE NEGATIVE IMPORTANT NO JOSÉ MIGUEL: SEE ANNOUNCEMENT AT [email or web address] Note: Assay methodology is nucleic acid amplification by lever miller mediated amplification (TMA) utilizing the Aptima Combo 2 Assay. VAGINAL PATHOGENS DNA [id number] 17:16:50* Test Item Value Reference Range Interpretation Comme nts PARAG SPECIES (test code = 02502) NEGATIVE NEGATIVE G. VAGINALIS (test code = 30898) POSITIVE NEGATIVE A T. VAGINALIS (test code = 72289) NEGATIVE NEGATIVE UNLESS OTHERWISE INDICATED, ALL TESTING PERFORMED ATCLINICAL PATHOLOGY [employer] [address] [place] [id number] REHAB TECHNICIAN: VAMSI HEATON M.D. CLIA NUMBER [id number] [place]. [id number] 04:27:22* Test Item Value Reference Range Interpretation Comme nts RPR RESULT (test code = 3501) NON-REACTIVE NON-REACTIVE RPR TITER (test code = 3500) NOT INDIC. TITER NOT INDIC. HIV 1/2 4TH GEN, RFLX [id number] 03:17:47* Test Item Value Reference Range Interpretation Comme nts HIV 1/2 4TH GEN, RFLX CONF ( test code = 3514) NON-REACTIVE NON-REACTIVE HEPATITIS PANEL, [id number] 03:17:47* Test Item Value Reference Range Interpretation Comme nts HEPATITIS A IgM (test code = 05067) NON-REACTIVE NON-REACTIVE HEPATITIS B CORE IgM (test code = 4644) NON-REACTIVE NON-REACTIVE HEPATITIS B SURF AG (test code = 2739) NON-REACTIVE NON-REACTIVE HEPATITIS C ANTIBODY (test code = 4675) NON-REACTIVE NON-REACTIVE INTERPRETATION HEPATITIS A: (test code = 2552) (NOTE) Hepatitis A serology shows no evidence of acute hepatitis A. INTERPRETATION HEPATITIS B: (test code = 81175) (NOTE) Hepatitis B serology shows no evidence of acute hepatitis B andno indication of exposure to hepatitis B virus in the previous von eight months. INTERPRETATION HEPATITIS C: (test code = 62246) (NOTE) Hepatitis C serology shows no evidence of exposure to hepatitisC virus at this time. It can take up to 12 months after exposure tothe hepatitis C virus for antibodies to become detectable in the blood in certain patients. Notes Date/Time Note Provider Source 2024-03-09 10:52:32 Called pt, discussed results and poc. Verbalized understanding. Elizabeth Durand RN 03/09/24 10:53 AM [facility] 2024-03-09 08:14:03 Called pt, no answer. Left vm. Elizabeth Durand RN 03/09/24 8:14 AM [facility] 2024-03-09 07:00:38 Please call patient and let her know she does have chlamydia and to take doxycycline that was prescribed to her on 03/07. Her partner already tested positive and is being treated. T [facility] 2023-12-18 16:56:51 Pt states moxifloxacin is not covered under insurance plan. Pt advised this is the preferred tx and she could use a GoodRx coupon or pay out of pocket. Pt states she will try t find a coupon but may need alternative rx if original is unaffordable. Pt will call back for further assistance. Lauren Matos RN [facility] 2023-12-18 16:28:43 LM for pt to return call. Lauren Matos RN [facility] 2023-12-18 16:24:12 Carlos Jefferson is a 18 year old female Patient calling about medication and questions regarding what they are for. Please call [phone] (home) Shani Bansal [facility] 2023-12-18 09:13:09 Resent medications to [facility] 2023-12-18 08:53:58 Carlos Jefferson is a 18 year old female Patient would like doxycycline hyclate 100 mg tablet and moxifloxacin 400 mg tablet be sent to [facility] [address] [address] Irene Puente [facility] 2023-12-17 17:13:34 Patient positive for Chlamydia and M. Genitalium Reviewed results with her, educated on safe sex practices. LMP was last week and she has IUD All questions were answered. [facility] 2023-11-09 09:01:55 Carlos Jefferson [id number] 11/09/23 Incoming call from patient after receiving [...] me for a [facility] exam in [place], [place]. It is closer to where I live. Thank you." Patient was scheduled for Thursday January 18, 2024 at 10:00 AM and arriving at 9:45 AM at our [facility]. Patient was given the date, time and location of our clinic. Maira Temple RN 11/09/2023 9:02 AM [facility] Maira Temple RN [facility] 2023-04-27 16:11:06 Formatting of this n ote might be different from the original. Patient has appointment scheduled for 07/04/23. Rafaela Sosa [facility] 2023-04-27 15:12:13 Formatting of this n ote might be different from the original. Pt requesting r/s procedure appt Anastasiia Cline [facility]
[2025-04-15 17:29] LABS: Influenza A Ag Negative; Influenza B Ag Negative; SARS-CoV-2 Antigen Rapid Res Negative (Negative)
[2025-04-15 18:12] LABS: Sqamous Epithelial <5 /HPF (None Seen); Urine Crystals Unidentified Few /HPF (None Seen); Urine Culture Reflex Order REFLEXED; Urine Microscopic Reflex YN ORDER UMIC; Urine WBC Clump Rare /HPF (None Seen); Urine Yeast (Budding) Trace /HPF (None Seen)
--- NOTE | 2025-04-15 18:26 | ER ---
Nurse's Notes [facility] Name: Samina Daly Age: 20 yrs Sex: Female : 2005 Arrival Date: 04/15/2025 Time: 15:46 Bed 10 Private MD: Diagnosis: Herpesviral vulvovaginitis;UTI/ Urinary tract infection, site not specified Presentation: 04/15 15:50 Chief complaint: Patient states: Vaginal pain, lesions, fever, not feeling well for 3 ll1 days. Chief complaint: EMS states: 18 R AC, tylenol 1 GM iv and NS given. HR 130, 100 after fluids. [id number] en route. Coronavirus screen: Client denies travel out of the [place] in the last 14 days. fatigue, fever, Client presents with at least one sign or symptom that may indicate coronavirus-19. Standard/surgical mask placed on the client. Ebola Screen: Patient denies travel to an Ebola-affected area in the 21 days before illness onset. Initial Sepsis Screen: Does the patient meet any 2 criteria? No. Patient's initial sepsis screen is negative. Does the patient have a suspected source of infection? No. Patient's initial sepsis screen is negative. Risk Assessment: Do you want to hurt yourself or someone else? Patient reports no desire to harm self or others. Onset of symptoms was April 13, 2025. 15:50 Method Of Arrival: Ambulatory ll1 15:50 Acuity: SOCORRO 4 ll1 Triage Assessment: 15:50 General: Appears distressed, uncomfortable, Behavior is calm, cooperative, appropriate ll1 for age, Reports fatigue for. Pain: Complains of pain in vaginal area Pain currently is 10 out of 10 on a pain scale. Quality of pain is described as aching, throbbing. : Reports painful vaginal lesions. 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 - Infectious Disease History:: Denies. - Social history:: Smoking status: Patient reports the use of cigarette tobacco products, smokes one-half pack cigarettes per day, Patient denies any tobacco usage or history of. Screenin:06 [facility] Fall Risk Assessment (Adult) History of falling in the last 3 months, ap3 including since admission No falls in past 3 months (0 pts) Confusion or Disorientation No (0 pts) Intoxicated or Sedated No (0 pts) Impaired Gait No (0 pts) Mobility Assist Device Used No (0 pt) Altered Elimination No (0 pt) Score/Fall Risk Level 0 - 2 = Low Risk Oriented to surroundings, Maintained a safe environment, Educated pt \T\ family on fall prevention, incl call for assistance when getting out of bed, Assessed \T\ reinforced patient's understanding of fall precautions, Hourly rounding (assess needs \T\ fall precautionary measures) done, Used ambulatory aids as needed (educated on \T\ assisted with). Abuse screen: Denies threats or abuse. Nutritional screening: No deficits noted. Tuberculosis screening: No symptoms or risk factors identified. Assessment: 17:01 Reassessment: Patient and/or family updated on plan of care and expected duration. Pain ll1 level reassessed. 17:06 General: Appears uncomfortable, Behavior is calm, cooperative, appropriate for age. ap3 Pain: Complains of pain in pelvis. Neuro: Level of Consciousness is awake, alert, obeys commands, Oriented to person, place, time, situation, Appropriate for age. Cardiovascular: Patient's skin is warm and dry. Respiratory: Airway is patent Respiratory effort is even, unlabored, Respiratory pattern is regular, symmetrical. 17:46 Reassessment: Patient and/or family updated on plan of care and expected duration. Pain ap3 level reassessed. Patient is alert, oriented x 3, equal unlabored respirations, skin warm/dry/pink. General: Behavior is calm, cooperative, appropriate for age. Vital Signs: 15:50 BP 103 / 83; Pulse 107; Resp 17; Temp 99; Pulse Ox 99% ; Weight 45.36 kg; Height 5 ft. ll1 6 in. ; Pain 10/10; 15:50 Body Mass Index 16.14 (45.36 kg, 167.64 cm) ll1 15:50 Pain Scale: Adult ll1 ED Course: 15:49 Patient arrived in ED. ll1 15:49 Arm band placed on. ll1 15:50 Cynthia Jordan FNP-C is PHCP. kb 15:50 Philipp Fountain MD is Attending Physician. kb 15:52 Triage completed. ll1 16:59 Patient placed in an exam room, on a stretcher. ll1 17:07 Debbie Cross, RN is Primary Nurse. ap3 17:07 Patient has correct armband on for positive identification. Bed in low position. Call ap3 light in reach. Side rails up X 1. Provided Education on: urine collection. Pulse ox on. NIBP on. 18:51 No provider procedures requiring assistance completed. IV discontinued, intact, ap3 bleeding controlled, No redness/swelling at site. Pressure dressing applied. Administered Medications: 18:44 Drug: Macrobid PO 100 mg PO once; administer with food Route: PO; ap3 18:52 Follow up: Response: No adverse reaction ap3 Medication: 18:52 VIS not applicable for this client. ap3 Outcome: 18:26 Discharge ordered by . kb 18:51 Discharged to home via wheelchair, with family, ap3 18:51 Condition: good 18:51 Discharge instructions given to patient, Instructed on discharge instructions, follow up and referral plans. medication usage, Demonstrated understanding of instructions, follow-up care, medications, Prescriptions given X 1, 18:52 Patient left the ED. ap3 Signatures: Cynthia Jordan, NOTCHED BLADE LOADER-C NOTCHED BLADE LOADER-Ckb Debbie Cross, RN RN ap3 Zachary Duarte, RN RN ll1
--- NOTE | 2025-04-15 18:26 | EDPHYS ---
Physician Documentation [facility] Name: Samina Daly Age: 20 yrs Sex: Female : 2005 Arrival Date: 04/15/2025 Time: 15:46 Bed 10 Private MD: Philipp Pedersen HPI: 04/15 18:48 This 20 yrs old Female presents to ER via Ambulatory with complaints of malaise, kb vaginal pain. 18:48 Pt is a 20 year old female who presents for vaginal pain and lesions. States she was kb diagnosed with herpes yesterday and was prescribed valtrex, but it isn't working. States now she is having bodyaches and feels like she has the flu. . 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 - Infectious Disease History:: Denies. - Social history:: Smoking status: Patient reports the use of cigarette tobacco products, smokes one-half pack cigarettes per day, Patient denies any tobacco usage or history of. ROS: 18:46 Constitutional: As per HPI kb Exam: 18:46 Constitutional: This is a well developed, well nourished patient who is awake, alert, kb and in no acute distress. Head/Face: Normocephalic, atraumatic. ENT: Moist Mucous membranes Cardiovascular: Regular rate Respiratory: Respirations even and unlabored. No increased work of breathing. Talking in full sentences Skin: Warm, dry with normal turgor. Normal color. MS/ Extremity: Pulses equal, no cyanosis. Neurovascular intact. Full, normal range of motion. Neuro: Awake and alert, GCS 15, oriented to person, place, time, and situation. 18:46 : Pelvic Exam: External exam: herpes lesions noted, Vital Signs: 15:50 BP 103 / 83; Pulse 107; Resp 17; Temp 99; Pulse Ox 99% ; Weight 45.36 kg; Height 5 ft. ll1 6 in. ; Pain 10/10; 15:50 Body Mass Index 16.14 (45.36 kg, 167.64 cm) ll1 15:50 Pain Scale: Adult ll1 MDM: 15:50 Medical Screening Exam initiated kb 18:47 Differential Diagnosis viral illness, herpes, flu, covid, strep, uti. Data reviewed: kb vital signs, nurses notes. Historians other than the Patient: Spouse/Significant Other: significant other. Counseling: I had a detailed discussion with the patient and/or guardian regarding the historical points, exam findings, and any diagnostic results supporting the discharge/admit diagnosis, lab results, the need for outpatient follow up, an OB/Gyne specialist, to return to the emergency department if symptoms worsen or persist or if there are any questions or concerns that arise at home. ED course: Pt educated on importance of taking valtrex that was previously prescribed. . 04/15 15:54 Order name: COVID-19 Ag + Flu A+B Ag; Complete Time: 17:32 kb 04/15 15:54 Order name: UA Rfx Raphael Cult if indicated; Complete Time: 18:14 kb 04/15 15:54 Order name: Test, Urine; Complete Time: 18:14 kb 04/15 15:54 Order name: Group A Streptococcus Rapid; Complete Time: 17:19 kb 04/15 17:20 Order name: Throat Culture EDMS 04/15 18:15 Order name: Urine Culture EDMS Administered Medications: 18:44 Drug: Macrobid PO 100 mg PO once; administer with food Route: PO; ap3 18:52 Follow up: Response: No adverse reaction ap3 Disposition Summary: 04/15/25 18:26 Discharge Ordered Notes: Location: Home kb Condition: Stable kb Diagnosis - Herpesviral vulvovaginitis kb - UTI/ Urinary tract infection, site not specified kb Followup: kb - With: Private Physician - When: 2 - 3 days - Reason: Recheck today's complaints, Continuance of care, Re-evaluation by your physician Followup: kb - With: Emergency Department - When: As needed - Reason: Worsening of condition Discharge Instructions: - Discharge Summary Sheet kb - Genital Herpes kb - Urinary Tract Infection, Adult, [id number] kb Forms: - Medication Reconciliation Form kb - Antibiotic Education kb - Prescription Opioid Use kb - Patient Portal Instructions kb - Leadership Thank You Letter kb Prescriptions: - Macrobid 100 mg Oral Capsule - take 1 capsule ORAL route every 12 hours for 10 days; 20 capsule; Refills: 0, kb Product Selection Permitted Addendum: 04/18/2025 14:32 Co-signature as Attending Physician, Philipp Fountain MD I agree with the assessment and c hunter plan of care. Signatures: Dispatcher [employer] Cynthia Medeiros, UNINDENTURED APPRENTICE-C UNINDENTURED APPRENTICE-Philipp Ravi MD MD cha Prokisch, Amanda, RN RN ap3 Zachary Duarte RN RN ll1
[2025-04-15] MEDS ORDERED: NITROFURAN MACRO 100 MG CAP PO ONE (18:32)
[2025-04-15 19:46] VITALS: BP 103/83; TEMP 99; O2SAT 99
== END 2025-04-15 18:52 | disposition home or self-care (01) ==
LOC: ER 15:46
DX: A60.04 Herpesviral vulvovaginitis (principal); N39.0 Urinary tract infection, site not specified
CPT/HCPCS: 36415; 81001; 81025; 87070; 87086; 87088; 87428; 99284

== ENCOUNTER 2025-06-21 17:08 | Emergency (ER) | payer SELFPAY ==
--- OUTSIDE RECORDS SUMMARY | 2025-06-21 17:17 | XMS REPORT | Continuity of Care Document ---
Author Name Unknown Address [address] [facility] [address] [place] [address] [facility] Address [address] [facility]. [address] [place] [address] Care Team Providers Care Desk Sergeant Name Role Phone Amyjackie Pradip Primary Care Physician [phone] Maggy Lee CNM Attending Clinician [phone] CHARLIE EWING Attending Clinician Unavailable CHEPE LIU Attending Clinician Unavailable Teena Rao Attending Clinician [phone] Wili COFFEY, Debbie Attending Clinician [phone] DEBBIE RASHEED Attending Clinician Unavailable Unknown, Attending Attending Clinician Unavailab Maira Beckham RN Attending Clinician Unav ailable AKINSIJAMIL KINGSLEY Attending Clinician Unavail able Doctor Unassigned, Fourche Attending Clinician U navailable Akinsipe WHJamil VELEZ Attending Clinician + MAGGY LEE Attending Clinician Unavaila glenna Loyola RN, Merline Attending Clinician Unavailjaquelin Willis MD, Lonnie Loco Attending Clinician [phone] CARIDAD BONE Attending Clinician Unavailable Antionette COFFEY, Douglas Attending Clinician [phone] Chato COFFEY, Johanna Attending Clinician [phone] Duncan SIMMONS, Michelle Ornelas Attending Clinician Unavaila LETTY Blanco Attending Clinician Unav ailable Ultrasound, Ang-Mfm Attending Clinician Unavaila glenna Soriano MD, Femi Loco Attending Clinician [phone] Andria Moore MD, Letty Attending Clinician + FEMI SORIANO Attending Clinician Unavailable FEMI SORIANO Attending Clinician Unavailable Mk COFFEY, Violeta Cottrell Attending Clinician [phone] VIOLETA SEGURA Attending Clinician Unavailable WAQAS RODRIGUEZ Attending Clinician Unavailable Liliana Saenz Attending Clinician Unavailjaquelin Rodriguez MD, Waqas Hampton Attending Clinician [phone] Tomas COFFEY, Mariajose Attending Clinician [phone] MARIAJOSE NUNEZ Attending Clinician Unavailable MARIAJOSE NUNEZ Attending Clinician Unavailable Red SIMMONS, Jacquie Ornelas Attending Clinician Unavailab le Only, Adc Pob2 Test Attending Clinician Unavailtacos COLLINSP, Kristine Attending Clinician [phone] KRISTINE SAGE Attending Clinician Unavailable Only, Adc Test Attending Clinician Unavailable Johanna Conti MD Attending Clinician [phone] JOHANNA CONTI Attending Clinician UnavailLonnie Maynard MD Admitting Clinician [phone] LONNIE WILLIS Admitting Clinician Unavailjaquelin driscoll Payers Payer Name Policy Type Policy Number Effective Date Expirati on Date Source Problems Condition Name Condition Details Condition Category Status Onset Date Resolution Date Last Treatment Date Treating Clinician Comments Source Encounter for IUD insertion Encounter for IUD insertion Disease Active 2022-09 0-30 00:00: 00 [facility] control counseling control counseling Disease Active 6-16 00:00: 00 [facility] PUPP (pruritic urticarial papules and plaques of ) PUPP (pruritic urticarial papules and plaques of ) Disease Active 3-15 00:00: 00 [facility] Anemia of mother in , antepartum Anemia of mother in , antepartum Disease Active 2-02 00:00: 00 [facility] Anemia, Anemia, Disease Resolve d 5-02 00:00: 00 2023-02-18 00:00:00 2023-02-18 12:59:45 [facility] Chorioamni onitis Chorioamni onitis Disease Resolve d 2022-0 4-11 00:00: 00 2023-02-18 00:00:00 2023-02-18 12:59:44 [facility] Pre-eclamp harrison in third trimester Pre-eclamp harrison in third trimester Disease Resolve d 2022-0 4-10 00:00: 00 2023-02-18 00:00:00 2023-02-18 12:59:43 [facility] PUPP (pruritic urticarial papules and plaques of ) PUPP (pruritic urticarial papules and plaques of ) Disease Resolve d 2022-0 3-15 00:00: 00 2023-02-18 00:00:00 2023-02-18 12:59:41 [facility] (spontaneo us vaginal delivery) (spontaneo us vaginal delivery) Disease Resolve d 2022-0 4-12 00:00: 00 2023-01-04 00:00:00 2023-01-04 13:27:29 [facility] Single live Single live Disease Resolve d 2022-0 4-12 00:00: 00 2023-01-04 00:00:00 2023-01-04 13:27:25 [facility] Acute blood loss anemia Acute blood loss anemia Disease Resolve d 2022-0 4-12 00:00: 00 2023-01-04 00:00:00 2023-01-04 13:27:15 [facility] Obstetrica l laceration Obstetrica l laceration Disease Resolve d 2022-0 4-12 00:00: 00 2023-01-04 00:00:00 2023-01-04 13:27:13 [facility] Chlamydia infection during Chlamydia infection during Disease Resolve d 2022-0 3-24 00:00: 00 2023-01-04 00:00:00 2023-01-04 13:27:18 Overview: Formattin g of this note might be different from the original. pendign trish [facility] Anemia of mother in , antepartum Anemia of mother in , antepartum Disease Resolve d 2-02 00:00: 00 2023-01-04 00:00:00 2023-01-04 13:27:16 [facility] Abnormal quad screen Abnormal quad screen Disease Resolve d 1-05 00:00: 00 2023-01-04 00:00:00 2023-01-04 13:27:14 Overview: Formattin g of this note might be different from the original. pendign detailed ultrasoun d/ genetics [facility] GBS (group B streptococ cus) UTI complicati ng GBS (group B streptococ cus) UTI complicati ng Disease Resolve d 2021-09 0-18 00:00: 00 2023-01-04 00:00:00 2023-01-04 13:27:11 Overview: Formattin g of this note might be different from the original. neg trish [facility] Susceptibl e to varicella (non-immun e), currently Susceptibl e to varicella (non-immun e), currently Disease Resolve d 2021-09 0-13 00:00: 00 2023-01-04 00:00:00 2023-01-04 13:27:28 [facility] Rubella non-immune status, antepartum Rubella non-immune status, antepartum Disease Resolve d 2021-09 0-13 00:00: 00 2023-01-04 00:00:00 2023-01-04 13:27:24 Overview: Formattin g of this note might be different from the original. Address pp [facility] Supervisio n of high-risk with insufficie nt care Supervisio n of high-risk with insufficie nt care Disease Resolve d 2021-09 0-12 00:00: 00 2023-01-04 00:00:00 2023-01-04 13:27:26 [facility] Nausea/vom iting in Nausea/vom iting in Disease Resolve d 2021-09 0-12 00:00: 00 2023-01-04 00:00:00 2023-01-04 13:27:21 [facility] UTI symptoms UTI symptoms Disease Resolve d 2021-09 0-12 00:00: 00 2023-01-04 00:00:00 2023-01-04 13:27:30 [facility] Allergies, Adverse Reactions, Alerts Allergy Name Allergy Type Status Severity Reaction(s) Onset Date Inactive Date Treating Clinician Comments Source NO KNOWN ALLERGIE S Drug Class Active [facility] Social History Social Habit Start Date Stop Date Quantity Comments Source ASSERTION 2022-03-31 00:00:00 [facility] Gender identity [facility] Alcoholic beverage intake 2024-03-07 00:00:00 2024-03-07 00:00:00 Ex-drinker (finding) [facility] Alcohol intake 2023-12-16 00:00:00 2023-12-16 00:00:00 Ex-drinker (finding) [facility] History of Social function 2023-02-18 00:00:00 2023-02-18 00:00:00 [facility] Exposure to SARS-CoV-2 (event) 2022-12-25 00:00:00 2023-01-04 09:11:00 Not sure [facility] Tobacco use and exposure 2022-12-14 00:00:00 2022-12-14 00:00:00 Smokeless tobacco non-user [facility] Sex assigned at 2005 00:00:00 2005 00:00:00 [facility] Smoking Status Start Date Stop Date Source Tobacco smoking consumption unknown [facility] Never smoked tobacco [facility] Medications Ordered Medication Name Filled Medication Name Start Date Stop Date Current Medication? Ordering Clinician Indication Dosage Frequency Signature (SIG) Comments Components Source doxycycline hyclate 100 mg capsule 7-03 00:00: 00 Yes [id number] 100mg Take 1 capsule by mouth every 12 (twelve) hours. [facility] moxifloxaci n 400 mg tablet 4-14 00:00: 00 Yes [id number] 400mg Take 1 tablet by mouth in the morning. [facility] doxycycline hyclate 100 mg tablet 12-17 00:00: 00 03-07 00:00 :00 No [id number] 100mg Take 1 tablet by mouth in the morning and 1 tablet in the evening. [facility] doxycycline hyclate 100 mg tablet 12-16 00:00: 00 12-17 00:00 :00 No [id number] 100mg Take 1 tablet by mouth in the morning and 1 tablet in the evening. Do all this for 7 days. [facility] moxifloxaci n 400 mg tablet 12-16 00:00: 00 12-17 00:00 :00 No [id number] 400mg Take 1 tablet by mouth in the morning for 7 days. [facility] copper (PARAGARD T 380A) IUD 1 Intra Uterine Device 2022-09 21:00: 00 07-04 20:03 :00 No [id number] 1{IUD} [facility] human papillomav vac,9-guido(P F) (GARDASIL-9 ) syringe 0.5 mL 12-15 00:14: 00 Yes .5mL 0.5 mL, Intramuscu lar, ONCE-PRIOR TO DISCHARGE, 1 dose, Starting on Tue12/14/22 at 1914, Until Discontinu ed, Routine, Give vaccine prior to discharge [facility] rho(D) immune globulin (RHOGAM) syringe 300 mcg 12-15 00:14: 00 Yes 300ug 300 mcg, Intramuscu lar, ONCE, For 1 dose, Conditiona l, Routine [facility] ampicillin (POLYCILLIN -N) 2,000 mg in [...] Site: Pelvic
Duration of therapy: 72 hours [facility] ibuprofen (IBU) tablet 600 mg 12-14 13:31: 28 Yes 600mg 600 mg, Oral, Q6HPRN, Starting on Tue12/14/22 at 0831, Until Discontinu ed, Routine, Pain (scale 4-6) [facility] acetaminoph en (TYLENOL) tablet 650 mg 12-14 13:31: 28 Yes 650mg 650 mg, Oral, Q6HPRN, Starting on Tue12/14/22 at 0831, Until Discontinu ed, Routine, Pain (scale 1-3) [facility] diphenhydrA MINE (BENADRYL) tablet 25 mg 12-14 13:31: 28 Yes 25mg 25 mg, Oral, Q6HPRN, Starting on Tue12/14/22 at 830, Until Discontinu ed, Routine, Sleep, Itching [facility] ondansetron (ZOFRAN (PF)) injection 4 mg 12-14 13:31: 28 Yes 4mg 4 mg, Slow IV Push, Q8HPRN, Starting on Tue12/14/22 at 0831, Until Discontinu ed, Routine, Nausea and Vomiting (N/V) [facility] simethicone (GAS RELIEF (SIMETHICON E)) chewable tablet 160 mg 12-14 13:31: 28 Yes 160mg 160 mg, Oral, PC+HSPRN, Starting on Tue12/14/22 at 0831, Until Discontinu ed, Routine, Gas [facility] docusate (COLACE) capsule 200 mg 12-14 13:31: 28 Yes 200mg 200 mg, Oral, QDAILYPRN, Starting on Tue12/14/22 at 0831, Until Discontinu ed, Routine, Constipati on [facility] magnesium hydroxide (MILK OF MAGNESIA) 400 mg/5 mL suspension 30 mL 12-14 13:31: 28 Yes 30mL 30 mL, Oral, QDAILYPRN, Starting on Tue12/14/22 at 0831, Until Discontinu ed, Routine, Constipati on [facility] benzocaine- menthol (DERMOPLAST ) 20-0.5 % topical spray 12-14 13:31: 28 Yes Topical, PRN, Starting on Tue12/14/22 at 0831, Until Discontinu ed, Routine, Perineum discomfort [facility] tobramycin (NEBCIN) 280 mg in NaCl [...] Site: Pelvic
Duration of therapy: 72 hours [facility] lactated ringers IV infusion 500 mL 12-14 07:45: 00 12-14 07:08 :00 No 500mL at 999 mL/hr, 500 mL, IV Infusion, ONCE, 1 dose, On Tue12/14/22 at 0245, Routine [facility] ropivacaine 0.2 % (NAROPIN (PF)) epidural infusion 12-14 07:24: 00 12-14 14:11 :53 No Epidural, CONTINUOUS PRN, Starting on Tue12/14/22 at 0224, Until Discontinu ed, Routine, Intra-op [facility] lidocaine-e pinephrine (XYLOCAINE W/EPINEPHRI NE) 1.5 %-1:200,000 injection 12-14 07:16: 00 12-14 14:11 :53 No Epidural, ONCE INTRA PROCEDURE, Starting on Tue12/14/22 at 0216, Until Discontinu ed, Routine, Intra-op [facility] sodium citrate-cit juan antonio acid (BICITRA) 500-334 mg/5 mL solution 30 mL 12-14 06:51: 03 12-14 07:07 :00 No 30mL 30 mL, Oral, PRE-PROCED URE ONCE, 1 dose, Starting on Tue12/14/22 at 0151, Until Tue12/14/22 at 0207, Routine, Surgery/Pr ocedure [facility] proMETHazin e (PHENERGAN) 25 mg in NS 50 mL IV piggyback (CNR) 12-14 04:45: 00 12-14 05:10 :48 No 25mg 25 mg, IV Piggyback, at 200 mL/hr Administer over 15 Minutes, ONCE, 1 dose, On Tue12/13/22 at 2345, Routine [facility] butorphanol (STADOL) injection 1 mg 12-14 04:45: 00 12-14 04:16 :00 No 1mg 1 mg, IV Push, ONCE, 1 dose, On Tue12/13/22 at 2345, Routine [facility] oxytocin (PITOCIN) 30 units in NS 500 mL IV infusion 12-14 04:34: 31 12-14 13:31 :30 No 2mU/min at 2-40 mL/hr, IV Infusion, TITRATE, Starting on Tue12/13/22 at 2334, Until Tue12/14/22 at 0831, JAZMYNE [facility] D5W-LR IV infusion 1,000 mL 12-14 02:25: 17 12-14 13:31 :30 No 1000mL at 1-125 mL/hr, IV Infusion, TITRATE, Starting on Tue12/13/22 at 2125, Until Tue12/14/22 at 0831, Routine [facility] ferrous sulfate 325 mg (65 mg iron) tablet 11-26 00:00: 00 12-16 00:00 :00 No [id number] 325mg Take 1 tablet by mouth in the morning and 1 tablet in the evening. [facility] ascorbic acid, vitamin C, 500 mg tablet 11-26 00:00: 00 12-16 00:00 :00 No [id number] 500mg Take 1 tablet by mouth in the morning and 1 tablet at noon and 1 tablet in the evening. [facility] azithromyci n 500 mg tablet 11-26 00:00: 00 11-27 04:59 :00 No [id number] 1000mg Take 2 tablets by mouth once now for 1 dose. [facility] fluconazole (DIFLUCAN) 150 mg tablet 11-24 00:00: 00 11-25 04:59 :00 No [id number] 150mg Take 1 tablet by mouth once now for 1 dose. [facility] ferrous sulfate 325 mg (65 mg iron) tablet 10-07 00:00: 00 12-16 00:00 :00 No [id number] 325mg Take 1 tablet by mouth in the morning and 1 tablet in the evening. [facility] ascorbic acid, vitamin C, 500 mg tablet 10-07 00:00: 12-16 00:00 :00 No [id number] 500mg Take 1 tablet by mouth in the morning and 1 tablet at noon and 1 tablet in the evening. [facility] ampicillin 500 mg capsule 2021-09 00:00: 00 07-03 04:59 :00 No [id number] 500mg Take 1 capsule by mouth 4 (four) times daily for 10 days. [facility] multivitami n ( VITAMIN) tablet 2021-09 00:00: 00 12-16 00:00 :00 No [id number] 09 1{tbl} Take 1 tablet by mouth in the morning. [facility] proMETHazin e 25 mg tablet 2021-09 00:00: 00 12-16 00:00 :00 No [id number] 25mg Take 1 tablet by mouth every 6 (six) hours as needed for Nausea and Vomiting (N/V). [facility] Nitrofurant oin&Nit. Macrocryst (MACROBID) 100 mg capsule 2021-09 0 00:00: 00 06-27 04:59 :00 No [id number] 100mg Take 1 capsule by mouth in the morning and 1 capsule in the evening. Do all this for 10 days. [facility] No known medications 24 16:02: [address] [facility] Immunizations Ordered Immunization Name Filled Immunization Name Date Status Comments Source TDAP 2022-10-06 00:00:00 Completed [facility] TDAP 2022-10-06 00:00:00 Completed [facility] TDAP 2022-10-06 00:00:00 Completed [facility] TDAP 2022-10-06 00:00:00 Completed [facility] TDAP 2022-10-06 00:00:00 Completed [facility] TDAP 2022-10-06 00:00:00 Completed [facility] TDAP 2022-10-06 00:00:00 Completed [facility] TDAP 2022-10-06 00:00:00 Completed [facility] TDAP 2022-10-06 00:00:00 Completed [facility] TDAP 2022-10-06 00:00:00 Completed [facility] TDAP 2022-10-06 00:00:00 Completed [facility] TDAP 2022-10-06 00:00:00 Completed [facility] TDAP 2022-10-06 00:00:00 Completed [facility] TDAP 2022-10-06 00:00:00 Completed [facility] TDAP 2022-10-06 00:00:00 Completed [facility] TDAP 2022-10-06 00:00:00 Completed [facility] TDAP 2022-10-06 00:00:00 Completed [facility] TDAP 2022-10-06 00:00:00 Completed [facility] TDAP 2022-10-06 00:00:00 Completed [facility] TDAP 2022-10-06 00:00:00 Completed [facility] TDAP 2022-10-06 00:00:00 Completed [facility] TDAP 2022-10-06 00:00:00 Completed [facility] TDAP 2022-10-06 00:00:00 Completed [facility] TDAP 2022-10-06 00:00:00 Completed [facility] TDAP 2022-10-06 00:00:00 Completed [facility] TDAP 2022-10-06 00:00:00 Completed [facility] Meningococcal Polysaccharide (groups A, C, Y and W-135) conjugate vaccine (MCV4P) 2017-01-26 00:00:00 Completed [facility] TDAP 2017-01-26 00:00:00 Completed [facility] HPV9 2017-01-26 00:00:00 Completed [facility] Meningococcal Polysaccharide (groups A, C, Y and W-135) conjugate vaccine (MCV4P) 2017-01-26 00:00:00 Completed [facility] TDAP 2017-01-26 00:00:00 Completed [facility] HPV9 2017-01-26 00:00:00 Completed [facility] HPV9 2017-01-26 00:00:00 Completed [facility] HPV9 2017-01-26 00:00:00 Completed [facility] HPV9 2017-01-26 00:00:00 Completed [facility] Meningococcal Polysaccharide (groups A, C, Y and W-135) conjugate vaccine (MCV4P) 2017-01-26 00:00:00 Completed [facility] TDAP 2017-01-26 00:00:00 Completed [facility] HPV9 2017-01-26 00:00:00 Completed [facility] Meningococcal Polysaccharide (groups A, C, Y and W-135) conjugate vaccine (MCV4P) 2017-01-26 00:00:00 Completed [facility] TDAP 2017-01-26 00:00:00 Completed [facility] HPV9 2017-01-26 00:00:00 Completed [facility] HPV9 2016-05-12 00:00:00 Completed [facility] HPV9 2016-05-12 00:00:00 Completed [facility] HPV9 2016-05-12 00:00:00 Completed [facility] HPV9 2016-05-12 00:00:00 Completed [facility] HPV9 2016-05-12 00:00:00 Completed [facility] HPV9 2016-05-12 00:00:00 Completed [facility] HPV9 2016-05-12 00:00:00 Completed [facility] MMR 2009-04-28 00:00:00 Completed [facility] Polio (IPV/OPV) 2009-04-28 00:00:00 Completed [facility] Varicella (varivax)(chicken pox) 2009-04-28 00:00:00 Completed [facility] HEPA,NOS 2009-04-28 00:00:00 Completed [facility] MMR 2009-04-28 00:00:00 Completed [facility] Polio (IPV/OPV) 2009-04-28 00:00:00 Completed [facility] Varicella (varivax)(chicken pox) 2009-04-28 00:00:00 Completed [facility] HEPA,NOS 2009-04-28 00:00:00 Completed [facility] MMR 2009-04-28 00:00:00 Completed [facility] Polio (IPV/OPV) 2009-04-28 00:00:00 Completed [facility] Varicella (varivax)(chicken pox) 2009-04-28 00:00:00 Completed [facility] HEPA,NOS 2009-04-28 00:00:00 Completed [facility] MMR 2009-04-28 00:00:00 Completed [facility] Polio (IPV/OPV) 2009-04-28 00:00:00 Completed [facility] Varicella (varivax)(chicken pox) 2009-04-28 00:00:00 Completed [facility] HEPA,NOS 2009-04-28 00:00:00 Completed [facility] DTaP, Unspecified Formulation 2006-07-11 00:00:00 Completed [facility] HIB 4 Dose Schedule 2006-07-11 00:00:00 Completed [facility] DTaP, Unspecified Formulation 2006-07-11 00:00:00 Completed [facility] HIB 4 Dose Schedule 2006-07-11 00:00:00 Completed [facility] DTaP, Unspecified Formulation 2006-07-11 00:00:00 Completed [facility] HIB 4 Dose Schedule 2006-07-11 00:00:00 Completed [facility] DTaP, Unspecified Formulation 2006-07-11 00:00:00 Completed [facility] HIB 4 Dose Schedule 2006-07-11 00:00:00 Completed [facility] MMR 2006-05-18 00:00:00 Completed [facility] Pneumococcal 7 Conjugate, PCV7 (Prevnar7) 2006-05-18 00:00:00 Completed [facility] Varicella (varivax)(chicken pox) 2006-05-18 00:00:00 Completed [facility] HEPATITIS A 2006-05-18 00:00:00 Completed [facility] MMR 2006-05-18 00:00:00 Completed [facility] Pneumococcal 7 Conjugate, PCV7 (Prevnar7) 2006-05-18 00:00:00 Completed [facility] Varicella (varivax)(chicken pox) 2006-05-18 00:00:00 Completed [facility] HEPATITIS A 2006-05-18 00:00:00 Completed [facility] MMR 2006-05-18 00:00:00 Completed [facility] Pneumococcal 7 Conjugate, PCV7 (Prevnar7) 2006-05-18 00:00:00 Completed [facility] Varicella (varivax)(chicken pox) 2006-05-18 00:00:00 Completed [facility] HEPATITIS A 2006-05-18 00:00:00 Completed [facility] MMR 2006-05-18 00:00:00 Completed [facility] Pneumococcal 7 Conjugate, PCV7 (Prevnar7) 2006-05-18 00:00:00 Completed [facility] Varicella (varivax)(chicken pox) 2006-05-18 00:00:00 Completed [facility] HEPATITIS A 2006-05-18 00:00:00 Completed [facility] Pneumococcal 7 Conjugate, PCV7 (Prevnar7) 2005 00:00:00 Completed [facility] IPV 2005 00:00:00 Completed [facility] DTaP, Unspecified Formulation 2005 00:00:00 Completed [facility] Hep B, Adol or Pedi Dosage 2005 00:00:00 Completed [facility] HIB 4 Dose Schedule 2005 00:00:00 Completed [facility] Pneumococcal 7 Conjugate, PCV7 (Prevnar7) 2005 00:00:00 Completed [facility] IPV 2005 00:00:00 Completed [facility] DTaP, Unspecified Formulation 2005 00:00:00 Completed [facility] Hep B, Adol or Pedi Dosage 2005 00:00:00 Completed [facility] HIB 4 Dose Schedule 2005 00:00:00 Completed [facility] Pneumococcal 7 Conjugate, PCV7 (Prevnar7) 2005 00:00:00 Completed [facility] IPV 2005 00:00:00 Completed [facility] DTaP, Unspecified Formulation 2005 00:00:00 Completed [facility] Hep B, Adol or Pedi Dosage 2005 00:00:00 Completed [facility] HIB 4 Dose Schedule 2005 00:00:00 Completed [facility] Pneumococcal 7 Conjugate, PCV7 (Prevnar7) 2005 00:00:00 Completed [facility] IPV 2005 00:00:00 Completed [facility] DTaP, Unspecified Formulation 2005 00:00:00 Completed [facility] Hep B, Adol or Pedi Dosage 2005 00:00:00 Completed [facility] HIB 4 Dose Schedule 2005 00:00:00 Completed [facility] Pneumococcal 7 Conjugate, PCV7 (Prevnar7) 2005 00:00:00 Completed [facility] IPV 2005 00:00:00 Completed [facility] DTaP, Unspecified Formulation 2005 00:00:00 Completed [facility] Hep B, Adol or Pedi Dosage 2005 00:00:00 Completed [facility] HIB 4 Dose Schedule 2005 00:00:00 Completed [facility] Pneumococcal 7 Conjugate, PCV7 (Prevnar7) 2005 00:00:00 Completed [facility] IPV 2005 00:00:00 Completed [facility] DTaP, Unspecified Formulation 2005 00:00:00 Completed [facility] Hep B, Adol or Pedi Dosage 2005 00:00:00 Completed [facility] HIB 4 Dose Schedule 2005 00:00:00 Completed [facility] Pneumococcal 7 Conjugate, PCV7 (Prevnar7) 2005 00:00:00 Completed [facility] IPV 2005 00:00:00 Completed [facility] DTaP, Unspecified Formulation 2005 00:00:00 Completed [facility] Hep B, Adol or Pedi Dosage 2005 00:00:00 Completed [facility] HIB 4 Dose Schedule 2005 00:00:00 Completed [facility] Pneumococcal 7 Conjugate, PCV7 (Prevnar7) 2005 00:00:00 Completed [facility] IPV 2005 00:00:00 Completed [facility] DTaP, Unspecified Formulation 2005 00:00:00 Completed [facility] Hep B, Adol or Pedi Dosage 2005 00:00:00 Completed [facility] HIB 4 Dose Schedule 2005 00:00:00 Completed [facility] Pneumococcal 7 Conjugate, PCV7 (Prevnar7) 2005 00:00:00 Completed [facility] IPV 2005 00:00:00 Completed [facility] DTaP, Unspecified Formulation 2005 00:00:00 Completed [facility] Hep B, Adol or Pedi Dosage 2005 00:00:00 Completed [facility] HIB 4 Dose Schedule 2005 00:00:00 Completed [facility] Pneumococcal 7 Conjugate, PCV7 (Prevnar7) 2005 00:00:00 Completed [facility] IPV 2005 00:00:00 Completed [facility] DTaP, Unspecified Formulation 2005 00:00:00 Completed [facility] Hep B, Adol or Pedi Dosage 2005 00:00:00 Completed [facility] HIB 4 Dose Schedule 2005 00:00:00 Completed [facility] Pneumococcal 7 Conjugate, PCV7 (Prevnar7) 2005 00:00:00 Completed [facility] IPV 2005 00:00:00 Completed [facility] DTaP, Unspecified Formulation 2005 00:00:00 Completed [facility] Hep B, Adol or Pedi Dosage 2005 00:00:00 Completed [facility] HIB 4 Dose Schedule 2005 00:00:00 Completed [facility] Pneumococcal 7 Conjugate, PCV7 (Prevnar7) 2005 00:00:00 Completed [facility] IPV 2005 00:00:00 Completed [facility] DTaP, Unspecified Formulation 2005 00:00:00 Completed [facility] Hep B, Adol or Pedi Dosage 2005 00:00:00 Completed [facility] HIB 4 Dose Schedule 2005 00:00:00 Completed [facility] Hep B, Adol or Pedi Dosage 2005 00:00:00 Completed [facility] Hep B, Adol or Pedi Dosage 2005 00:00:00 Completed [facility] Hep B, Adol or Pedi Dosage 2005 00:00:00 Completed [facility] Hep B, Adol or Pedi Dosage 2005 00:00:00 Completed [facility] TDAP Unknown Completed [facility] HPV9 Unknown Completed [facility] DTaP, Unspecified Formulation Unknown Completed [facility] HEPA,NOS Unknown Completed [facility] HEPATITIS A Unknown Completed [facility] Hep B, Adol or Pedi Dosage Unknown Completed [facility] HIB 4 Dose Schedule Unknown Completed [facility] Meningococcal Polysaccharide (groups A, C, Y and W-135) conjugate vaccine (MCV4P) Unknown Completed [facility] MMR Unknown Completed [facility] Pneumococcal 7 Conjugate, PCV7 (Prevnar7) Unknown Completed [facility] Polio (IPV/OPV) Unknown Completed [facility] IPV Unknown Completed [facility] Varicella (varivax)(chicken pox) Unknown Completed [facility] TDAP Unknown Completed [facility] HPV9 Unknown Completed [facility] DTaP, Unspecified Formulation Unknown Completed [facility] HEPA,NOS Unknown Completed [facility] HEPATITIS A Unknown Completed [facility] Hep B, Adol or Pedi Dosage Unknown Completed [facility] HIB 4 Dose Schedule Unknown Completed [facility] Meningococcal Polysaccharide (groups A, C, Y and W-135) conjugate vaccine (MCV4P) Unknown Completed [facility] MMR Unknown Completed [facility] Pneumococcal 7 Conjugate, PCV7 (Prevnar7) Unknown Completed [facility] Polio (IPV/OPV) Unknown Completed [facility] IPV Unknown Completed [facility] Varicella (varivax)(chicken pox) Unknown Completed [facility] TDAP Unknown Completed [facility] HPV9 Unknown Completed [facility] DTaP, Unspecified Formulation Unknown Completed [facility] HEPA,NOS Unknown Completed [facility] HEPATITIS A Unknown Completed [facility] Hep B, Adol or Pedi Dosage Unknown Completed [facility] HIB 4 Dose Schedule Unknown Completed [facility] Meningococcal Polysaccharide (groups A, C, Y and W-135) conjugate vaccine (MCV4P) Unknown Completed [facility] MMR Unknown Completed [facility] Pneumococcal 7 Conjugate, PCV7 (Prevnar7) Unknown Completed [facility] Polio (IPV/OPV) Unknown Completed [facility] IPV Unknown Completed [facility] Varicella (varivax)(chicken pox) Unknown Completed [facility] TDAP Unknown Completed [facility] HPV9 Unknown Completed [facility] DTaP, Unspecified Formulation Unknown Completed [facility] HEPA,NOS Unknown Completed [facility] HEPATITIS A Unknown Completed [facility] Hep B, Adol or Pedi Dosage Unknown Completed [facility] HIB 4 Dose Schedule Unknown Completed [facility] Meningococcal Polysaccharide (groups A, C, Y and W-135) conjugate vaccine (MCV4P) Unknown Completed [facility] MMR Unknown Completed [facility] Pneumococcal 7 Conjugate, PCV7 (Prevnar7) Unknown Completed [facility] Polio (IPV/OPV) Unknown Completed [facility] IPV Unknown Completed [facility] Varicella (varivax)(chicken pox) Unknown Completed [facility] TDAP Unknown Completed [facility] HPV9 Unknown Completed [facility] DTaP, Unspecified Formulation Unknown Completed [facility] HEPA,NOS Unknown Completed [facility] HEPATITIS A Unknown Completed [facility] Hep B, Adol or Pedi Dosage Unknown Completed [facility] HIB 4 Dose Schedule Unknown Completed [facility] Meningococcal Polysaccharide (groups A, C, Y and W-135) conjugate vaccine (MCV4P) Unknown Completed [facility] MMR Unknown Completed [facility] Pneumococcal 7 Conjugate, PCV7 (Prevnar7) Unknown Completed [facility] Polio (IPV/OPV) Unknown Completed [facility] IPV Unknown Completed [facility] Varicella (varivax)(chicken pox) Unknown Completed [facility] HEPA,NOS Unknown Completed [facility] HEPATITIS A Unknown Completed [facility] Meningococcal Polysaccharide (groups A, C, Y and W-135) conjugate vaccine (MCV4P) Unknown Completed [facility] Polio (IPV/OPV) Unknown Completed [facility] TDAP Unknown Completed [facility] HPV9 Unknown Completed [facility] DTaP, Unspecified Formulation Unknown Completed [facility] Hep B, Adol or Pedi Dosage Unknown Completed [facility] HIB 4 Dose Schedule Unknown Completed [facility] MMR Unknown Completed [facility] Pneumococcal 7 Conjugate, PCV7 (Prevnar7) Unknown Completed [facility] IPV Unknown Completed [facility] Varicella (varivax)(chicken pox) Unknown Completed [facility] HEPA,NOS Unknown Completed [facility] HEPATITIS A Unknown Completed [facility] Meningococcal Polysaccharide (groups A, C, Y and W-135) conjugate vaccine (MCV4P) Unknown Completed [facility] Polio (IPV/OPV) Unknown Completed [facility] TDAP Unknown Completed [facility] HPV9 Unknown Completed [facility] DTaP, Unspecified Formulation Unknown Completed [facility] Hep B, Adol or Pedi Dosage Unknown Completed [facility] HIB 4 Dose Schedule Unknown Completed [facility] MMR Unknown Completed [facility] Pneumococcal 7 Conjugate, PCV7 (Prevnar7) Unknown Completed [facility] IPV Unknown Completed [facility] Varicella (varivax)(chicken pox) Unknown Completed [facility] TDAP Unknown Completed [facility] HPV9 Unknown Completed [facility] DTaP, Unspecified Formulation Unknown Completed [facility] HEPA,NOS Unknown Completed [facility] HEPATITIS A Unknown Completed [facility] Hep B, Adol or Pedi Dosage Unknown Completed [facility] HIB 4 Dose Schedule Unknown Completed [facility] Meningococcal Polysaccharide (groups A, C, Y and W-135) conjugate vaccine (MCV4P) Unknown Completed [facility] MMR Unknown Completed [facility] Pneumococcal 7 Conjugate, PCV7 (Prevnar7) Unknown Completed [facility] Polio (IPV/OPV) Unknown Completed [facility] IPV Unknown Completed [facility] Varicella (varivax)(chicken pox) Unknown Completed [facility] TDAP Unknown Completed [facility] HPV9 Unknown Completed [facility] DTaP, Unspecified Formulation Unknown Completed [facility] HEPA,NOS Unknown Completed [facility] HEPATITIS A Unknown Completed [facility] Hep B, Adol or Pedi Dosage Unknown Completed [facility] HIB 4 Dose Schedule Unknown Completed [facility] Meningococcal Polysaccharide (groups A, C, Y and W-135) conjugate vaccine (MCV4P) Unknown Completed [facility] MMR Unknown Completed [facility] Pneumococcal 7 Conjugate, PCV7 (Prevnar7) Unknown Completed [facility] Polio (IPV/OPV) Unknown Completed [facility] IPV Unknown Completed [facility] Varicella (varivax)(chicken pox) Unknown Completed [facility] Vital Signs Vital Name Observation Time Observation Value Comments S ource Systolic blood pressure 2024-03-07 21:13:00 106 mm[Hg] [facility] Diastolic blood pressure 2024-03-07 21:13:00 69 mm[Hg] [facility] Heart rate 2024-03-07 21:13:00 91 /min [facility] Body temperature 2024-03-07 21:13:00 36 Neris [facility] Respiratory rate 2024-03-07 21:13:00 18 /min [facility] Body height 2024-03-07 21:13:00 165.1 cm [facility] Body weight 2024-03-07 21:13:00 46.176 kg [facility] BMI 2024-03-07 21:13:00 16.94 kg/m2 [facility] Systolic blood pressure 2023-12-17 00:27:00 130 mm[Hg] [facility] Diastolic blood pressure 2023-12-17 00:27:00 72 mm[Hg] [facility] Heart rate 2023-12-17 00:27:00 90 /min [facility] Body temperature 2023-12-17 00:27:00 37.06 Neris [facility] Respiratory rate 2023-12-17 00:27:00 15 /min [facility] Body height 2023-12-17 00:27:00 165.1 cm [facility] Body weight 2023-12-17 00:27:00 45.587 kg [facility] BMI 2023-12-17 00:27:00 16.72 kg/m2 [facility] Body mass index (BMI) [Percentile] Per age and sex 2023-12-17 00:27:00 1.03 % [facility] Oxygen saturation in Arterial blood by Pulse oximetry 2023-12-17 00:27:00 100 /min [facility] Systolic blood pressure 2023-07-04 19:38:00 133 mm[Hg] [facility] Diastolic blood pressure 2023-07-04 19:38:00 89 mm[Hg] [facility] Heart rate 2023-07-04 19:38:00 87 /min [facility] Body temperature 2023-07-04 19:38:00 36.5 Neris [facility] Body height 2023-07-04 19:38:00 167.6 cm [facility] Body weight 2023-07-04 19:38:00 43.545 kg [facility] BMI 2023-07-04 19:38:00 15.49 kg/m2 [facility] Body mass index (BMI) [Percentile] Per age and sex 2023-07-04 19:38:00 0.06 % [facility] Oxygen saturation in Arterial blood by Pulse oximetry 2023-07-04 19:38:00 97 /min [facility] Systolic blood pressure 2023-02-18 16:07:00 117 mm[Hg] [facility] Diastolic blood pressure 2023-02-18 16:07:00 78 mm[Hg] [facility] Heart rate 2023-02-18 16:07:00 86 /min [facility] Body temperature 2023-02-18 16:07:00 36.56 Neris [facility] Respiratory rate 2023-02-18 16:07:00 16 /min [facility] Body height 2023-02-18 16:07:00 165.1 cm [facility] Body weight 2023-02-18 16:07:00 47.265 kg [facility] BMI 2023-02-18 16:07:00 17.34 kg/m2 [facility] Body mass index (BMI) [Percentile] Per age and sex 2023-02-18 16:07:00 3.81 % [facility] Systolic blood pressure 2023-01-04 14:12:00 127 mm[Hg] [facility] Diastolic blood pressure 2023-01-04 14:12:00 82 mm[Hg] [facility] Heart rate 2023-01-04 14:12:00 88 /min [facility] Body temperature 2023-01-04 14:12:00 36.22 Neris [facility] Respiratory rate 2023-01-04 14:12:00 18 /min [facility] Body height 2023-01-04 14:12:00 165.1 cm [facility] Body weight 2023-01-04 14:12:00 48.11 kg [facility] BMI 2023-01-04 14:12:00 17.65 kg/m2 [facility] Body mass index (BMI) [Percentile] Per age and sex 2023-01-04 14:12:00 5.90 % [facility] Systolic blood pressure 2022-12-16 12:46:00 138 mm[Hg] [facility] Diastolic blood pressure 2022-12-16 12:46:00 96 mm[Hg] [facility] Heart rate 2022-12-16 12:46:00 75 /min [facility] Body temperature 2022-12-16 12:46:00 36.44 Neris [facility] Respiratory rate 2022-12-16 12:46:00 18 /min [facility] Oxygen saturation in Arterial blood by Pulse oximetry 2022-12-16 12:46:00 100 /min [facility] Body height 2022-12-14 00:51:00 165.1 cm [facility] Body weight 2022-12-14 00:51:00 58.605 kg [facility] BMI 2022-12-14 00:51:00 21.50 kg/m2 [facility] Body mass index (BMI) [Percentile] Per age and sex 2022-12-14 00:51:00 53.59 % [facility] Systolic blood pressure 2022-12-13 21:11:00 140 mm[Hg] [facility] Diastolic blood pressure 2022-12-13 21:11:00 60 mm[Hg] [facility] Heart rate 2022-12-13 21:08:00 82 /min [facility] Body temperature 2022-12-13 21:04:00 36.33 Neris [facility] Respiratory rate 2022-12-13 21:04:00 18 /min [facility] Body height 2022-12-13 21:04:00 165.1 cm [facility] Body weight 2022-12-13 21:04:00 58.605 kg [facility] BMI 2022-12-13 21:04:00 21.50 kg/m2 [facility] Body mass index (BMI) [Percentile] Per age and sex 2022-12-13 21:04:00 53.59 % [facility] Systolic blood pressure 2022-12-08 19:28:00 131 mm[Hg] [facility] Diastolic blood pressure 2022-12-08 19:28:00 89 mm[Hg] [facility] Heart rate 2022-12-08 19:28:00 83 /min [facility] Body temperature 2022-12-08 19:28:00 36.39 Neris [facility] Respiratory rate 2022-12-08 19:28:00 18 /min [facility] Body height 2022-12-08 19:28:00 165.1 cm [facility] Body weight 2022-12-08 19:28:00 58.605 kg [facility] BMI 2022-12-08 19:28:00 21.50 kg/m2 [facility] Body mass index (BMI) [Percentile] Per age and sex 2022-12-08 19:28:00 53.64 % [facility] Systolic blood pressure 2022-11-24 20:23:00 128 mm[Hg] [facility] Diastolic blood pressure 2022-11-24 20:23:00 82 mm[Hg] [facility] Heart rate 2022-11-24 20:23:00 77 /min [facility] Body temperature 2022-11-24 20:23:00 36.39 Neris [facility] Respiratory rate 2022-11-24 20:23:00 18 /min [facility] Body height 2022-11-24 20:23:00 165.1 cm [facility] Body weight 2022-11-24 20:23:00 57.743 kg [facility] BMI 2022-11-24 20:23:00 21.18 kg/m2 [facility] Body mass index (BMI) [Percentile] Per age and sex 2022-11-24 20:23:00 49.81 % [facility] Systolic blood pressure 2022-11-17 20:37:00 121 mm[Hg] [facility] Diastolic blood pressure 2022-11-17 20:37:00 62 mm[Hg] [facility] Heart rate 2022-11-17 20:37:00 84 /min [facility] Body temperature 2022-11-17 20:37:00 36.33 Neris [facility] Respiratory rate 2022-11-17 20:37:00 18 /min [facility] Body height 2022-11-17 20:37:00 165.1 cm [facility] Body weight 2022-11-17 20:37:00 57.561 kg [facility] BMI 2022-11-17 20:37:00 21.12 kg/m2 [facility] Body mass index (BMI) [Percentile] Per age and sex 2022-11-17 20:37:00 49.12 % [facility] Systolic blood pressure 2022-11-03 21:43:00 107 mm[Hg] [facility] Diastolic blood pressure 2022-11-03 21:43:00 74 mm[Hg] [facility] Heart rate 2022-11-03 21:43:00 85 /min [facility] Body temperature 2022-11-03 21:43:00 36 Neris [facility] Respiratory rate 2022-11-03 21:43:00 18 /min [facility] Body height 2022-11-03 21:43:00 165.1 cm [facility] [facility] Body weight 2022-11-03 21:43:00 56.382 kg [facility] BMI 2022-11-03 21:43:00 20.68 kg/m2 [facility] Body mass index (BMI) [Percentile] Per age and sex 2022-11-03 21:43:00 43.45 % [facility] Systolic blood pressure 2022-10-20 20:06:00 100 mm[Hg] [facility] Diastolic blood pressure 2022-10-20 20:06:00 62 mm[Hg] [facility] Heart rate 2022-10-20 20:06:00 80 /min [facility] Body temperature 2022-10-20 20:06:00 35.33 Neris [facility] Respiratory rate 2022-10-20 20:06:00 18 /min [facility] Body height 2022-10-20 20:06:00 165.1 cm [facility] Body weight 2022-10-20 20:06:00 53.842 kg [facility] BMI 2022-10-20 20:06:00 19.75 kg/m2 [facility] Body mass index (BMI) [Percentile] Per age and sex 2022-10-20 20:06:00 30.59 % [facility] Systolic blood pressure 2022-10-06 19:31:00 110 mm[Hg] [facility] Diastolic blood pressure 2022-10-06 19:31:00 69 mm[Hg] [facility] Heart rate 2022-10-06 19:31:00 82 /min [facility] Body temperature 2022-10-06 19:31:00 36.33 Neris [facility] Respiratory rate 2022-10-06 19:31:00 18 /min [facility] Body height 2022-10-06 19:31:00 160 cm [facility] Body weight 2022-10-06 19:31:00 53.252 kg [facility] BMI 2022-10-06 19:31:00 20.80 kg/m2 [facility] Body mass index (BMI) [Percentile] Per age and sex 2022-10-06 19:31:00 45.44 % [facility] Systolic blood pressure 2022-09-08 21:21:00 99 mm[Hg] [facility] Diastolic blood pressure 2022-09-08 21:21:00 67 mm[Hg] [facility] Heart rate 2022-09-08 21:21:00 94 /min [facility] Body temperature 2022-09-08 21:21:00 36.94 Neris [facility] Respiratory rate 2022-09-08 21:21:00 16 /min [facility] Body height 2022-09-08 21:21:00 160 cm [facility] Body weight 2022-09-08 21:21:00 51.166 kg [facility] BMI 2022-09-08 21:21:00 19.98 kg/m2 [facility] Body mass index (BMI) [Percentile] Per age and sex 2022-09-08 21:21:00 34.41 % [facility] Systolic blood pressure 2022-08-25 19:13:00 102 mm[Hg] [facility] Diastolic blood pressure 2022-08-25 19:13:00 49 mm[Hg] [facility] Heart rate 2022-08-25 19:13:00 81 /min [facility] Body temperature 2022-08-25 19:13:00 36.61 Neris [facility] Respiratory rate 2022-08-25 19:13:00 18 /min [facility] Body height 2022-08-25 19:13:00 160 cm [facility] Body weight 2022-08-25 19:13:00 50.037 kg [facility] BMI 2022-08-25 19:13:00 19.54 kg/m2 [facility] Body mass index (BMI) [Percentile] Per age and sex 2022-08-25 19:13:00 28.38 % [facility] Systolic blood pressure 2022-06-16 15:09:00 121 mm[Hg] [facility] Diastolic blood pressure 2022-06-16 15:09:00 85 mm[Hg] [facility] Heart rate 2022-06-16 15:09:00 100 /min [facility] Body temperature 2022-06-16 15:09:00 36.44 Neris [facility] Respiratory rate 2022-06-16 15:09:00 18 /min [facility] Body height 2022-06-16 15:09:00 160 cm [facility] Body weight 2022-06-16 15:09:00 45.927 kg [facility] BMI 2022-06-16 15:09:00 17.94 kg/m2 [facility] Body mass index (BMI) [Percentile] Per age and sex 2022-06-16 15:09:00 9.73 % [facility] Procedures Procedure Date / Time Performed Performing Clinician Source DISCLOSURE AND CONSENT, MEDICAL AND SURGICAL PROCEDURES 2023-07-08 05:01:00 Doctor Unassigned, [place] [facility] POCT TEST 2023-07-04 19:40:00 Benjamin Shipman [facility] POCT TEST 2023-02-18 16:20:00 Benjamin Shipman [facility] URINALYSIS 2022-12-16 14:27:00 Tamara Isamar [facility] SGOT (ASPARTATE AMINO TRANSFER) 2022-12-16 13:49:00 Tamara [facility] CREATININE 2022-12-16 13:49:00 Tamara [facility] ALANINE AMINO TRANSFERASE(SGPT 2022-12-16 13:49:00 Tamara [facility] LACTATE DEHYDROGENASE 2022-12-16 13:49:00 Tamara [facility] URIC ACID 2022-12-16 13:49:00 Tamara [facility] CBC WITH DIFF 2022-12-16 13:49:00 Tamara Isamar [facility] EXTRA TUBE LAV 2022-12-16 13:49:00 Lonnie Willis [facility] EXTRA TUBE LT. GREEN 2022-12-16 13:49:00 Ricky Willis [facility] CBC WITH DIFF 2022-12-15 08:53:00 Leda Orosc[facility] VENOUS CORD GAS 2022-12-14 12:58:00 Davian Warren [facility] CENTRAL NEURAXIAL BLOCK 2022-12-14 07:24:00 Douglas Adan [facility] SGOT (ASPARTATE AMINO TRANSFER) 2022-12-14 02:40:00 Younes, [facility] CREATININE 2022-12-14 02:40:00 Moni [facility] ALANINE AMINO TRANSFERASE(SGPT 2022-12-14 02:40:[address] [facility] LACTATE DEHYDROGENASE 2022-12-14 02:40:[address] [facility] URIC ACID 2022-12-14 02:40:00 Moni [facility] CBC WITH DIFF 2022-12-14 02:40:00 Alley Montenegro [facility] URINALYSIS 2022-12-14 02:40:00 Moni [facility] HEPATITIS B SURFACE ANTIGEN 2022-12-14 02:40:00 Kelvin [facility] HB ABO GROUPING 2022-12-14 02:40:00 Kelvin [facility] GC & CHLAMYDIA AMPLIFIED ASSAY 2022-12-14 02:40:00 Kelvin [facility] RHO (D) IMMUNE GLOBULIN 2022-12-14 02:40:00 Chilango Orosco [facility] PROTEIN CREAT RATIO URINE RANDOM 2022-12-14 02:40:[address] [facility] HIV 1/2 AG-AB WITH REFLEX 2022-12-14 02:40:00 Kelvin [facility] SYPHILIS IGG/IGM 2022-12-14 02:40:00 Kelvin [facility] POCT URINALYSIS 2022-12-13 21:06:00 Jamil Shipman [facility] DME/SUPPLY JUSTIFICATION 2022-12-10 05:01:00 Doc tor Unassigned, [place] [facility] POCT URINALYSIS 2022-12-08 19:30:00 Jamil Shipman [facility] POCT URINALYSIS 2022-11-24 20:24:00 Jamil Shipman [facility] POCT URINALYSIS 2022-11-17 20:40:00 Jamil Shipman [facility] SECOND AND THIRD TRIMESTER ULTRASOUND 2022-11-10 19:46:00 Jamil Shipman [facility] POCT URINALYSIS 2022-11-03 21:44:00 Jamil Shipman [facility] POCT URINALYSIS 2022-10-20 20:07:00 Jamil Shipman [facility] TDAP VACCINE, >11 YRS, IM 2022-10-06 19:56:47 Jamil Shipman [facility] POCT URINALYSIS 2022-10-06 19:34:00 Jamil Shipman [facility] ASSIGNMENT OF BENEFITS 2022-10-06 19:23:02 Docto r Unassigned, [place] [facility] POCT URINALYSIS 2022-09-08 00:00:00 Jamil Shipman [facility] POCT URINALYSIS 2022-08-25 19:14:00 Jamil Shipman [facility] CBC WITH DIFF 2022-06-16 16:25:00 Jamil Shipman [facility] RUBELLA SCREEN IGG 2022-06-16 16:25:00 Mikki Shipman [facility] VZV ANTIBODY SCREEN 2022-06-16 16:25:00 Benjamin Shipman [facility] HEPATITIS B SURFACE ANTIGEN 2022-06-16 16:25:00 Jamil Shipman [facility] HB ABO GROUPING 2022-06-16 16:25:00 Jamil Shipman [facility] URINE CULTURE 2022-06-16 16:25:00 Jamil Shipman [facility] GC & CHLAMYDIA AMPLIFIED ASSAY 2022-06-16 16:25:00 Jamil Shipman [facility] HIV 1/2 AG-AB WITH REFLEX 2022-06-16 16:25:00 Jamil Shipman [facility] GALV ONLY - SYPHILIS IGG/IGM 2022-06-16 16:25:00 Jamil Shipman [facility] POCT URINALYSIS W/O SPECIFIC GRAVITY 2022-06-16 15:01:00 Jamil Shipman [facility] POCT TEST 2022-06-16 15:00:00 Benjamin Shipman [facility] VACCINATION OF A MINOR 2022-06-16 14:36:53 Docto r Unassigned, [place] [facility] Encounters Start Date/Time End Date/Time Encounter Type Admission Type Attending Clinicians Care Facility Care Department Encounter ID Source 2024-03-09 00:00:00 2024-03-09 10:53:17 Telephone Maggy Lee [facility] [place] ELASTIC YARN TWISTER HELPER [facility] MATERNAL & CHILD [facility] 1..840.114 350.1.13.10 4.2.7.2.686 [id number] [facility] 2024-03-07 15:45:00 2024-03-07 16:37:51 Outpatient R CHARLIE EWING [facility] [id number] [facility] 2024-03-07 15:45:00 2024-03-07 16:37:51 Office Visit Chuy [facility] ELASTIC YARN TWISTER HELPER [facility] MATERNAL & CHILD [facility] 1..840.114 350.1.13.10 4.2.7.2.686 [id number] [facility] 2024-01-18 10:00:00 2024-01-18 10:00:00 Outpatient R CHEPE LIU [facility] [id number] [facility] 2023-12-18 00:00:00 2023-12-18 00:00:00 Telephone Teena Leahy [facility] 1..840.114 350.1.13.10 4.2.7.2.686 [id number] [facility] 2023-12-18 00:00:00 2023-12-18 00:00:00 Telephone Debbie Rasheed [facility] [place]?[facility] MEDICAL OFFICE BUILDING 1.840.114 350.1.13.10 4.2.7.2.686 [id number] [facility] 2023-12-17 00:00:00 2023-12-17 00:00:00 Telephone EliandmitriallynTeena [facility] MEDICAL OFFICE BUILDING 1..114 350.1.13.10 4.2.7.2.686 [id number] [facility] 2023-12-16 19:20:00 2023-12-16 19:44:08 Outpatient R DEBBIE RASHEED [facility] [id number] [facility] 2023-12-16 19:20:00 2023-12-16 19:44:08 Urgent Care WiliDebbie Unknown, Attending [facility] MEDICAL OFFICE BUILDING 1.114 350.1.13.10 4.2.7.2.686 [id number] [facility] 2023-11-09 00:00:00 2023-11-09 00:00:00 Telephone Maira Temple [facility] 1..114 350.1.13.10 4.2.7.2.686 [id number] [facility] 2023-08-17 13:30:00 2023-08-17 13:30:00 Outpatient R JAMIL SHIPMAN [facility] [id number] [facility] 2023-07-08 00:00:00 2023-07-08 00:00:00 Orders Only Doctor Unassigned, [place] [facility] 1.114 350.1.13.10 4.2.7.2.686 [id number] [facility] 2023-07-04 14:30:00 2023-07-04 15:04:48 Outpatient R JAMIL SHIPMAN [facility] [id number] [facility] 2023-07-04 14:30:00 2023-07-04 15:04:48 Office Visit Jamil Shipman [facility] ELASTIC YARN TWISTER HELPER [facility] CHILD [facility] 1..840.114 350.1.13.10 4.2.7.2.686 [id number] [facility] 2023-04-27 14:30:00 2023-04-27 14:30:00 Outpatient R JAMIL SHIPMAN [facility] [id number] [facility] 2023-04-27 00:00:00 2023-04-27 00:00:00 Telephone Jamil Shipman [facility] ELASTIC YARN TWISTER HELPER [facility] 1..840.114 350.1.13.10 4.2.7.2.686 [id number] [facility] 2023-03-31 08:30:00 2023-03-31 08:30:00 Outpatient R JAMIL SHIPMAN [facility] [id number] [facility] 2023-03-16 00:00:00 2023-03-16 00:00:00 Telephone Jamil Shipman [facility] [place] ELASTIC YARN TWISTER HELPER [facility] 1..840.114 350.1.13.10 4.2.7.2.686 [id number] [facility] 2023-03-09 13:00:00 2023-03-09 13:00:00 Outpatient R JAMIL SHIPMAN [facility] [id number] [facility] 2023-02-18 10:45:00 2023-02-18 11:25:44 Outpatient R JAMIL SHIPMAN [facility] [id number] [facility] 2023-02-18 10:45:00 2023-02-18 11:25:44 Office Visit Jamil Shipman [facility] ELASTIC YARN TWISTER HELPER [facility] 1.2.840.114 350.1.13.10 4.2.7.2.686 [id number] [facility] 2023-01-04 08:45:00 2023-01-04 13:05:21 Outpatient R MILINDMADAYMAGGY [facility] [id number] [facility] 2023-01-04 08:45:00 2023-01-04 13:05:21 Routine Visit Maggy Lee [facility] ELASTIC YARN TWISTER HELPER [facility] MATERNAL & [facility] 1.2.840.114 350.1.13.10 4.2.7.2.686 [id number] [facility] 2022-12-25 00:00:00 2022-12-25 00:00:00 Nurse Triage Milla [facility] 1.2.840.114 350.1.13.10 4.2.7.2.686 [id number] [facility] 2022-12-13 19:11:00 2022-12-16 12:49:00 Hospital Encounter Lonnie Willis [facility] 1.2.840.114 350.1.13.10 4.2.7.2.686 [id number] [facility] 2022-12-16 00:00:00 2022-12-16 00:00:00 Encounter 1.2.840.1 71600.1.1 3.104.2.7 .[id number] 1.2.840.114 350.1.13.10 4.2.7.2.696 [id number] [facility] 2022-12-14 01:54:00 2022-12-14 08:53:00 [facility].114 350.1.13.10 4.2.7.2.686 [id number] [facility] 2022-12-13 16:00:00 2022-12-13 16:15:08 Outpatient R JAMIL SHIPMAN [facility] [id number] [facility] 2022-12-13 16:00:00 2022-12-13 16:15:08 Outpatient R JAMIL SHIPMAN [facility] [id number] [facility] 2022-12-13 16:00:00 2022-12-13 16:15:08 Routine Visit Jamil Shipman [facility] ELASTIC YARN TWISTER HELPER [facility] & CHILD [facility] 1.2.840.114 350.1.13.10 4.2.7.2.686 [id number] [facility] 2022-12-10 00:00:00 2022-12-10 00:00:00 Orders Only Doctor Unassigned, [place] [facility] 1.2.840.114 350.1.13.10 4.2.7.2.686 [id number] [facility] 2022-12-10 00:00:00 2022-12-10 00:00:00 Nurse Triage Michelle Song [facility] 1.2.840.114 350.1.13.10 4.2.7.2.686 [id number] [facility] 2022-12-09 00:00:00 2022-12-09 00:00:00 Abstract Jamil Shipman [facility] [place] ELASTIC YARN TWISTER HELPER [facility] & CHILD [facility] 1.2.840.114 350.1.13.10 4.2.7.2.686 [id number] [facility] 2022-12-08 15:30:00 2022-12-08 15:30:00 Routine Visit Jamil Shipman [facility] ELASTIC YARN TWISTER HELPER [facility] & CHILD [facility] 1.2.840.114 350.1.13.10 4.2.7.2.686 [id number] [facility] 2022-12-08 13:30:00 2022-12-08 14:57:22 Outpatient P LETTY MARTÍNEZ [facility] [id number] [facility] 2022-12-08 13:30:00 2022-12-08 14:00:00 Boat Garnisher Visit Ultrasound, Femi Parker Gay [facility] [place] ELASTIC YARN TWISTER HELPER [facility] & CHILD [facility] 1..840.114 350.1.13.10 4.2.7.2.686 [id number] [facility] 2022-12-01 16:00:00 2022-12-01 16:00:00 Outpatient R JAMIL SHIPMAN [facility] [id number] [facility] 2022-11-25 00:00:00 2022-11-25 00:00:00 Telephone Jamil Shipman [facility] [place] ELASTIC YARN TWISTER HELPER [facility] & CHILD [facility] 1..840.114 350.1.13.10 4.2.7.2.686 [id number] [facility] 2022-11-24 15:45:00 2022-11-24 16:00:00 Routine Visit Jamil Shipman [facility] [place] ELASTIC YARN TWISTER HELPER [facility] & CHILD [facility] ..840.114 350.1.13.10 4.2.7.2.686 [id number] [facility] 2022-11-24 15:45:00 2022-11-24 15:45:00 Outpatient R JAMIL SHIPMAN [facility] [id number] [facility] 2022-11-18 00:00:00 2022-11-18 00:00:00 Abstract Jamil Shipman [facility] ELASTIC YARN TWISTER HELPER [facility] & CHILD [facility] 1..840.114 350.1.13.10 4.2.7.2.686 [id number] [facility] 2022-11-17 15:30:00 2022-11-17 15:57:14 Outpatient R JAMIL SHIPMAN [facility] [id number] [facility] 2022-11-17 15:30:00 2022-11-17 15:57:14 Routine Visit Jamil Shipman [facility] [place] ELASTIC YARN TWISTER HELPER [facility] & CHILD [facility] 1.2.840.114 350.1.13.10 4.2.7.2.686 [id number] [facility] 2022-11-13 00:00:00 2022-11-13 00:00:00 Nurse Triage Merline Loyola [facility] 1.2840.114 350.1.13.10 4.2.7.2.686 [id number] [facility] 2022-11-10 13:30:00 2022-11-10 14:20:18 Boat Garnisher Visit Ultrasound, Femi Parker [facility] [place] ELASTIC YARN TWISTER HELPER [facility] & CHILD [facility] 1.2.840.114 350.1.13.10 4.2.7.2.686 [id number] [facility] 2022-11-10 13:30:00 2022-11-10 13:30:00 Outpatient FEMI MELCHOR SHANNON [facility] [id number] [facility] 2022-11-03 15:30:00 2022-11-03 15:58:36 Outpatient R JAMIL SHIPMAN [facility] [id number] [facility] 2022-11-03 15:30:00 2022-11-03 15:58:36 Routine Visit Jamil Shipman [facility] [place] ELASTIC [facility] 1.2840.114 350.1.13.10 4.2.7.2.686 [id number] [facility] 2022-10-20 14:00:00 2022-10-20 14:32:17 Outpatient R JAMIL SHIPMAN [facility] [id number] [facility] 2022-10-20 14:00:00 2022-10-20 14:32:17 Routine Visit Jamil Shipman [facility] ELASTIC YARN TWISTER HELPER [facility] & CHILD [facility] 1.2.840.114 350.1.13.10 4.2.7.2.686 [id number] [facility] 2022-10-18 00:00:00 2022-10-18 00:00:00 Telephone Jamil Shipman [facility] [place] ELASTIC YARN TWISTER HELPER [facility] & CHILD [facility] 1.2.840.114 350.1.13.10 4.2.7.2.686 [id number] [facility] 2022-10-07 00:00:00 2022-10-07 00:00:00 Telephone Jamil Shipman [facility] [place] ELASTIC YARN TWISTER HELPER [facility] & CHILD [facility] 1.2.840.114 350.1.13.10 4.2.7.2.686 [id number] [facility] 2022-10-06 13:15:00 2022-10-06 14:15:36 Outpatient R JAMIL SHIPMAN [facility] [id number] [facility] 2022-10-06 13:15:00 2022-10-06 14:15:36 Routine Visit Jamil Shipman [facility] [place] ELASTIC YARN TWISTER HELPER [facility] & CHILD [facility] 1.2.840.114 350.1.13.10 4.2.7.2.686 [id number] [facility] 2022-10-06 00:00:00 2022-10-06 00:00:00 Orders Only Doctor Unassigned, [place] [facility] 1.2.840.114 350.1.13.10 4.2.7.2.686 [id number] [facility] 2022-10-06 00:00:00 2022-10-06 00:00:00 Abstract Jamil Shipman [facility] ELASTIC YARN TWISTER HELPER [facility] MATERNAL & CHILD [facility] 1.2.840.114 350.1.13.10 4.2.7.2.686 [id number] [facility] 2022-09-30 13:00:00 2022-09-30 14:12:43 Boat Garnisher Visit Ultrasound, Violeta Graham [facility] ELASTIC YARN TWISTER HELPER [facility] CHILD [facility] 1.2.840.114 350.1.13.10 4.2.7.2.686 [id number] [facility] 2022-09-30 13:00:00 2022-09-30 13:00:00 Outpatient VIOLETA AMOS [facility] [id number] [facility] 2022-09-17 09:45:00 2022-09-17 09:56:01 Outpatient WAQAS BETANCUR [facility] [id number] [facility] 2022-09-17 09:45:00 2022-09-17 09:56:01 Telemedici ne Visit Liliana Saenz Joseph W [facility] ELASTIC YARN TWISTER HELPER [facility] & CHILD [facility] 1.2.840.114 350.1.13.10 4.2.7.2.686 [id number] [facility] 2022-09-09 15:00:00 2022-09-09 16:00:00 Boat Garnisher Visit Ultrasound, Mariajose Esparza [facility] ELASTIC YARN TWISTER HELPER [facility] & CHILD [facility] 1.2.840.114 350.1.13.10 4.2.7.2.686 [id number] [facility] 2022-09-09 15:00:00 2022-09-09 15:00:00 Outpatient P MARIAJOSE NUNEZ SANGEETA [facility] [id number] [facility] 2022-09-09 00:00:00 2022-09-09 00:00:00 Telephone Jamil Shipman [facility] ELASTIC YARN TWISTER HELPER [facility] & CHILD [facility] 1.2.840.114 350.1.13.10 4.2.7.2.686 [id number] [facility] 2022-09-09 00:00:00 2022-09-09 00:00:00 Abstract Jamil Shipman [facility] [place] [employer] [facility] 1.2.840.114 350.1.13.10 4.2.7.2.686 [id number] [facility] 2022-09-08 14:45:00 2022-09-08 15:42:06 Outpatient R JAMIL SHIPMAN [facility] [id number] [facility] 2022-09-08 14:45:00 2022-09-08 15:42:06 Routine Visit UmbertoJamil Tanay [facility] [place] [employer] [facility] CH[facility] 1.840.114 350.1.13.10 4.2.7.2.686 [id number] [facility] 2022-08-25 13:15:00 2022-08-25 13:46:15 Outpatient R MIKKI SHIPMANOLA [facility] [id number] [facility] 2022-08-25 13:15:00 2022-08-25 13:46:15 Routine Visit Jamil Shipman [place] [employer] [facility] 1.2.840.114 350.1.13.10 4.2.7.2.686 [id number] [facility] 2022-08-23 00:00:00 2022-08-23 00:00:00 Telephone ArjunwenceslaofelixJamil Tanya [facility] [place] [employer] [facility] CHILD [facility] 1.2.840.114 350.1.13.10 4.2.7.2.686 [id number] [facility] 2022-08-17 00:00:00 2022-08-17 00:00:00 Telephone [facility]il [facility] [facility] [place] [facility] [employer] HELPER [facility] 1.2.840.114 350.1.13.10 4.2.7.2.686 [id number] [facility] 2022-07-14 11:00:00 2022-07-14 11:00:00 Outpatient P [facility] [id number] [facility] 2022-07-07 13:30:00 2022-07-07 13:30:00 Outpatient P [facility] [place] [id number] [facility] 2022-07-01 00:00:00 2022-07-01 00:00:00 Telephone Jamil Shipman [facility] [place] [employer] [employer] HEL[employer] [facility]ILD [facility] 1.2.840.114 350.1.13.10 4.2.7.2.686 [id number] [facility] 2022-06-22 00:00:00 2022-06-22 00:00:00 Telephone Jamil Shipman [facility] [place] [employer] [employer] HEL[employer] [facility]ILD [facility] 1.2.840.114 350.1.13.10 4.2.7.2.686 [id number] [facility] 2022-06-16 10:00:00 2022-06-16 11:32:10 Outpatient R JAMIL SHIPMAN [facility] [id number] [facility] 2022-06-16 10:00:00 2022-06-16 11:32:10 Initial Visit Jamil Shipman [facility] [place] [employer] [employer] [facility] 1.2.840.114 350.1.13.10 4.2.7.2.686 [id number] [facility] 2022-06-16 00:00:00 2022-06-16 00:00:00 Orders Only Doctor Unassigned, [place] [facility] 1.840.114 350.1.13.10 4.2.7.2.686 [id number] [facility] 2022-06-11 10:00:00 2022-06-11 10:00:00 Outpatient JAMIL SINCLAIR [facility] [id number] [facility] 2021-09-29 00:00:00 2021-09-29 00:00:00 Letter (Out) Jacquie Moon [facility] 1.84.114 350.1.13.10 4.2.7.2.686 [id number] [facility] 2021-09-28 15:15:00 2021-09-28 16:05:33 Laboratory Only Only, Adc Pob2 Test DonnyKristine morales [facility] 1.84.114 350.1.13.10 4.2.7.2.686 [id number] [facility] 2021-09-28 15:15:00 2021-09-28 15:15:00 Outpatient HENOK CERVANTESTA [facility] [id number] [facility] 2021-09-24 15:00:00 2021-09-24 15:15:00 Laboratory Only Only, Adc Test Johanna Conti [facility] 1.84.114 350.1.13.10 4.2.7.2.686 [id number] [facility] 2021-09-24 15:00:00 2021-09-24 15:00:00 Outpatient R GALLITO [facility] [id number] [facility] 2021-09-24 00:00:00 2021-09-24 00:00:00 Orders Only Doctor Unassigned, [place] [facility] 1.84114 350.1.13.10 4.2.7.2.686 [id number] [facility] Results Test Description Test Time Test Comments Results Result Co mments Source [facility] [id number] 19:40:00* Test Item Value Reference Range Interpretation Comme nts POCT PREG (test code = 1605) Negative On board controls acceptable with C Line (test code = 3574) Yes POCT PREG LOT # (test code = 3575) POCT PREG TEST DATE ( test code = 3576) Lab Interpretation (test cod e = 85467-7) Normal [facility] [id number] 16:24:00* Test Item Value Reference Range Interpretation Comme nts POCT PREG (test code = 1605) Negative On board controls acceptable with C Line (test code = 3574) Yes POCT PREG LOT # (test code = 3575) POCT PREG TEST DATE (test code = 3576) RICHELLE (test code = RICHELLE) accurate developme nt and interpretation of all internal controls [facility] [id number] 16:24:00* Test Item Value Reference Range Interpretation Comme nts POCT PREG (test code = 1605) Negative On board controls acceptable with C Line (test code = 3574) Yes POCT PREG LOT # (test code = 3575) POCT PREG TEST DATE (test code = 3576) RICHELLE (test code = RICHELLE) accurate developme nt and interpretation of all internal controls [facility] [id number] 16:24:00* Test Item Value Reference Range Interpretation Comme nts POCT PREG (test code = 1605) Negative On board controls acceptable with C Line (test code = 3574) Yes POCT PREG LOT # (test code = 3575) POCT PREG TEST DATE (test code = 3576) RICHELLE (test code = RICHELLE) accurate developme nt and interpretation of all internal controls [facility] [id number] 16:24:00* Test Item Value Reference Range Interpretation Comme nts POCT PREG (test code = 1605) Negative On board controls acceptable with C Line (test code = 3574) Yes POCT PREG LOT # (test code = 3575) POCT PREG TEST DATE (test code = 3576) RICHELLE (test code = RICHELLE) accurate developme nt and interpretation of all internal controls [facility] CenterALANINE AMINO TRANSFERASE([id number] 14:16:06* Test Item Value Reference Range Interpretation Comme nts ALTv (test code = 1742-6) 12 U/L 5-35 Lab Interpretation (test cod e = 64266-1) Normal [facility] CenterSGOT (ASPARTATE AMINO TRANSFER)2022-12-16 14:16:06* Test Item Value Reference Range Interpretation Comme nts AST(SGOT) (test code = 5519940049) 37 U/L 13-40 Lab Interpretation (test cod e = 00189-8) Normal [facility] CenterCREATININE2023-04-13 14:16:05* Test Item Value Reference Range Interpretation Comme nts CREATININE (test code = 1435936936) 0.59 mg/dL 0.50-1.04 RICHELLE (test code = [...] imaging tests). Lab Interpretation (test code = 89650-2) Normal [facility] CenterURIC [id number] 14:16:05* Test Item Value Reference Range Interpretation Comme nts URIC ACID (test code = 8232940920) 5.9 mg/dL 2.9-6.0 Lab Interpretation (test cod e = 15415-4) Normal [facility] CenterLACTATE [id number] 14:16:05* Test Item Value Reference Range Interpretation Comme nts LDH (test code = 3032192386) 235 U/L 120-246 Lab Interpretation (test cod e = 26346-7) Normal [facility] CenterCB WITH [id number] 14:09:06* Test Item Value Reference Range Interpretation Comme nts WBC (test code = 6690-2) 11.18 See_Comment [Automated [employer]] The system which generated this result transmitted reference range: 4.50 - 13.50 10*3/?L. The reference range was not used to interpret this result as normal/abnormal. RBC (test code = 789-8) 2.78 See_Comment L [Automated [employer]] The system which generated this result transmitted [...] g/dL 32.0-36.0 L RDW-SD (test code = 68576-5) 53.2 fL 38.5-49.0 H RDW-CV (test code = 788-0) 17.6 % 11.5-14.0 H PLT (test code = 777-3) 214 See_Comment [Automated messa ge] The system which generated this result transmitted reference range: 135 - 361 10*3/?L. The reference range was not used to interpret this result as normal/abnormal. MPV (test code = 97995-9) 10.8 fL 9.4-13.3 NRBC/100 WBC (test code = 2189739110) 0.0 See_Comment [Automated me ssage] The system which generated this result transmitted reference range: 0.0 - 10.0 /100 WBCs. The reference range was not used to interpret this result as normal/abnormal. NRBC x10^3 (test code = 3626668837) See_Comment [Automated messa ge] The system which generated this result transmitted reference range: 10*3/?L. The reference range was not used to interpret this result as normal/abnormal. GRAN MAT (NEUT) % (test code = 770-8) 72.2 % IMM GRAN % (test code = 3012454215) 0.70 % LYMPH % (test code = 736-9) 21.5 % MONO % (test code = 5905-5) 4.0 % EOS % (test code = 713-8) 1.4 % BASO % (test code = 706-2) 0.2 % GRAN MAT x10^3(ANC) (test code = 7979154690) 8.07 10*3/uL 1.50-10.30 IMM GRAN x10^3 (test code = 3752944908) 0.08 10*3/uL 0.00-0.06 H LYMPH x10^3 (test code = 731-0) 2.40 10*3/uL 0.70-7.40 MONO x10^3 (test code = 742-7) 0.45 10*3/uL 0.00-0.50 EOS x10^3 (test code = 711-2) 0.16 10*3/uL 0.00-0.40 BASO x10^3 (test code = 704-7) 0.00-0.10 Lab Interpretation (test code = 50063-5) Abnormal [facility] (D) IMMUNE [id number] 00:14:56* Test Item Value Reference Range Interpretation Comme nts RHIG CANDIDATE? (test code = 5188) No- see comment Patient is not a candidate for RhIg- Patient is Rh Positive.Performed at [facility] [place] Laboratory Services - [facility] Blood [address] [address]kpm Free: [phone] No. [id number] [facility] ONLY - [place] [id number] 14:37:43* Test Item Value Reference Range Interpretation Comme nts Syphilis IgG/IgM (test code = 17038-0) Non-reactive Non-reactive RICHELLE (test code = RICHELLE) Non-reactive - No serologic evidence of T. pallidum infection. Cannot exclude incubating or early syphilis. Submit a second specimen in 2-4 weeks if syphilis is clinically suspected. Equivocal - Further testing to follow. Reactive - Further testing to follow. Lab Interpretation (test code = 94042-7) Normal [facility] CenterVENOUS CORD [id number] 13:10:06* Test Item Value Reference Range Interpretation Comme [facility] VENOUS BASE EXCESS, CORD (test code = 7760999185) -4.4 mEq/L VENOUS PH, CORD (test code = 3774897908) 7.33 7.25-7.45 VENOUS PC02, CORD (test code = 2498638100) 42 See_Comment [Automated me ssage] The system which generated this result transmitted reference range: 27 - 49 mmHg. The reference range was not used to interpret this result as normal/abnormal. VENOUS PO2, CORD (test code = 2998600062) 16 See_Comment L [Automated me ssage] The system which generated this result transmitted reference range: 17 - 41 mmHg. The reference range was not used to interpret this result as normal/abnormal. VENOUS BICARBONATE, CORD (test code = 4785586683) 21 See_Comment [Automa chan message] The system which generated this result transmitted reference range: 12 - 29 mEq/L. The reference range was not used to interpret this result as normal/abnormal. Lab Interpretation (test code = 74688-1) Abnormal [facility] CenterHI 1/2 AG-AB WITH [id number] 04:11:14* Test Item Value Reference Range Interpretation Comme [facility] HIV Semi-quantitative (test code = 37214-0) 0.08 Negative RICHELLE (test code = RICHELLE) Non-reactive for HIV-1 antigen and HIV-1/HIV-2 antibodies. ?No laboratory evidence of HIV infection. ?Repeat in 2-4 weeks if acute HIV infection is suspected. [facility] CenterHepatitis B Surface [id number] 04:02:55 * Test Item Value Reference Range Interpretation Comme [facility] HBsAg Semi-Quantitative (linda t code = 5195-3) 0.05 Negative [facility] CenterLactate Rxojquxfwtfft8677-71-01 03:29:49* Test Item Value Reference Range Interpretation Comme [facility] LDH (test code = 1208316909) 378 U/L 120-246 H Slight hemolysis Lab Interpretation (test code = 92428-9) Abnormal [facility] CenterUric Acid [id number] 03:29:29* Test Item Value Reference Range Interpretation Comme [facility] URIC ACID (test code = 8938230910) 7.1 mg/dL 2.9-6.0 H Lab Interpretation (test cod e = 35587-0) Abnormal [facility] CenterSerum Sjnfupelmb8503-54-98 03:29:29* Test Item Value Reference Range Interpretation Comme [facility] CREATININE (test code = 4102513487) 0.60 mg/dL 0.50-1.04 RICHELLE (test code = [...] imaging tests). Lab Interpretation (test code = 08596-7) Normal [facility] CenterSGOT (Asparate Amino Transfer)2022-12-14 03:29:29* Test Item Value Reference Range Interpretation Comme nts AST(SGOT) (test code = 3132071864) 24 U/L 13-40 Lab Interpretation (test cod e = 19657-4) Normal [facility] CenterAlanine Amino Transferase (SGPT)2022-12-14 03:29:29* Test Item Value Reference Range Interpretation Comme nts ALTv (test code = 1742-6) 10 U/L 5-35 Lab Interpretation (test cod e = 69575-1) Normal [facility] CenterCBC with [id number] 03:06:00* Test Item Value Reference Range Interpretation Comme nts WBC (test code = 6690-2) 8.50 See_Comment [Automated [employer]] The system which generated this result transmitted reference range: 4.50 - 13.50 10*3/?L. The reference range was not used to interpret this result as normal/abnormal. RBC (test code = 789-8) 3.23 See_Comment L [Automated [employer]] The system which generated this result [...] g/dL 32.0-36.0 L RDW-SD (test code = 12506-9) 52.6 fL 38.5-49.0 H RDW-CV (test code = 788-0) 17.1 % 11.5-14.0 H PLT (test code = 777-3) 218 See_Comment [Automated messa ge] The system which generated this result transmitted reference range: 135 - 361 10*3/?L. The reference range was not used to interpret this result as normal/abnormal. MPV (test code = 81557-0) 11.8 fL 9.4-13.3 NRBC/100 WBC (test code = 6256435398) 0.0 See_Comment [Automated [employer] ssage] The system which generated this result transmitted reference range: 0.0 - 10.0 /100 WBCs. The reference range was not used to interpret this result as normal/abnormal. NRBC x10^3 (test code = 0452241364) See_Comment [Automated messa ge] The system which generated this result transmitted reference range: 10*3/?L. The reference range was not used to interpret this result as normal/abnormal. GRAN MAT (NEUT) % (test code = 770-8) 81.1 % IMM GRAN % (test code = 8558016606) 0.60 % LYMPH % (test code = 736-9) 12.5 % MONO % (test code = 5905-5) 5.6 % EOS % (test code = 713-8) 0.0 % BASO % (test code = 706-2) 0.2 % GRAN MAT x10^3(ANC) (test code = 6867532747) 6.89 10*3/uL 1.50-10.30 IMM GRAN x10^3 (test code = 3229331569) 0.05 10*3/uL 0.00-0.06 LYMPH x10^3 (test code = 731-0) 1.06 10*3/uL 0.70-7.40 MONO x10^3 (test code = 742-7) 0.48 10*3/uL 0.00-0.50 EOS x10^3 (test code = 711-2) 0.00-0.40 BASO x10^3 (test code = 704-7) 0.00-0.10 Lab Interpretation (test code = 56222-3) Abnormal [facility] CenterType and Screen - ONCE [id number] 02:47:00 * Test Item Value Reference Range Interpretation Comme nts ABO & RH (test code = 20) A POSITIVE IAT (test code = 1185) Negative [facility] CenterPOCT URINALYSIS W SPECIFIC [id number] 21:06:00* Test Item Value Reference Range Interpretation [...] APPEAR (test code = 3267) . [facility] CenterPOCT URINALYSIS W SPECIFIC [id number] 19:30:00* Test Item Value Reference Range Interpretation [...] U APPEAR (test code = 3267) . [facility] URINALYSIS W SPECIFIC [id number] 20:24:00* Test Item Value Reference Range Interpretation [...] U APPEAR (test code = 3267) . [facility] URINALYSIS W SPECIFIC [id number] 20:40:00* Test Item Value Reference Range Interpretation [...] POCT U APPEAR (test code = 3267) [facility] URINALYSIS W SPECIFIC [id number] 21:44:00* Test Item Value Reference Range Interpretation [...] U APPEAR (test code = 3267) . [facility] URINALYSIS W SPECIFIC [id number] 20:08:00* Test Item Value Reference Range Interpretation [...] U APPEAR (test code = 3267) . [facility] URINALYSIS W SPECIFIC [id number] 19:34:00* Test Item Value Reference Range Interpretation [...] POCT U APPEAR (test code = 3267) [facility] URINALYSIS W SPECIFIC [id number] 19:34:00* Test Item Value Reference Range Interpretation [...] POCT U APPEAR (test code = 3267) [facility] URINALYSIS W SPECIFIC [id number] 19:34:00* Test Item Value Reference Range Interpretation [...] POCT U APPEAR (test code = 3267) [facility] URINALYSIS W SPECIFIC [id number] 21:24:00* Test Item Value Reference Range Interpretation [...] U APPEAR (test code = 3267) . [facility] URINALYSIS W SPECIFIC [id number] 19:14:00* Test Item Value Reference Range Interpretation [...] U APPEAR (test code = 3267) . [facility] URINALYSIS W SPECIFIC [id number] 19:14:00* Test Item Value Reference Range Interpretation [...] U APPEAR (test code = 3267) . [facility] URINALYSIS W SPECIFIC [id number] 19:14:00* Test Item Value Reference Range Interpretation [...] APPEAR (test code = 3267) . [facility] CenterPOCT URINALYSIS W SPECIFIC [id number] 19:14:00* Test Item Value Reference Range Interpretation [...] APPEAR (test code = 3267) . [facility] CenterVZV ANTIBODY [id number] 17:05:33* Test Item Value Reference Range Interpretation Comme [facility] VZV IgG antibody (test code = 94886-2) Negative Negative RICHELLE (test code = RICHELLE) Positive - Indicat es the patient was exposed to VZV through infection or vaccination.Negative - Indicates the patient could be susceptible to VZV infection.Equivocal - A second specimen should be sent for testing. [facility] CenterRUBELLA SCREEN (ERLINDA) [id number] 17:05:13 * Test Item Value Reference Range Interpretation Comme [facility] Rubella screen IgG (test code = 3735205550) Equivocal Negative RICHELLE (test code = RICHELLE) Positive - Indicat es the patient was exposed to Rubella through infection or vaccination.Negative - Indicates the patient could be susceptible to Rubella infection.Equivocal - A second specimen should be sent. [facility] CenterGALV ONLY - [place] IGG/[id number] 15:58:45* Test Item Value Reference Range Interpretation Comme nts Syphilis IgG/IgM (test code = 51834-5) Non-reactive Non-reactive RICHELLE (test code = RICHELLE) Non-reactive - No serologic evidence of T. pallidum infection. Cannot exclude incubating or early syphilis. Submit a second specimen in 2-4 weeks if syphilis is clinically suspected. Equivocal - Further testing to follow. Reactive - Further testing to follow. Lab Interpretation (test code = 16431-7) Normal [facility]V 1/2 AG-AB WITH [id number] 06:51:47* Test Item Value Reference Range Interpretation Comme nts HIV Semi-quantitative (test code = 92395-1) Negative Negative RICHELLE (test code = RICHLELE) Non-reactive for HIV-1 antigen and HIV-1/HIV-2 antibodies. ?No laboratory evidence of HIV infection. ?Repeat in 2-4 weeks if acute HIV infection is suspected. [facility] CenterHEPATITIS B SURFACE [id number] 04:40:24 * Test Item Value Reference Range Interpretation Comme nts HBsAg Semi-Quantitative (linda t code = 5195-3) Negative Negative [facility] CenterCBC WITH [id number] 04:08:51* Test Item Value Reference Range Interpretation Comme nts WBC (test code = 6690-2) See_Comment [Automated [employer]] The system which generated this result transmitted reference range: 4.50 - 13.50 10*3/?L. The reference range was not used to interpret this result as normal/abnormal. RBC (test code = 789-8) See_Comment [Automated [employer]] The system which generated this result [...] 34.4 g/dL 32-36 RDW-SD (test code = 49032-9) 38.3 fL 38.5-49 L RDW-CV (test code = 788-0) 11.7 % 11.5-14 PLT (test code = 777-3) See_Comment [Automated [employer]] The system which generated this result transmitted reference range: 135 - 361 10*3/?L. The reference range was not used to interpret this result as normal/abnormal. MPV (test code = 98958-6) 10.6 fL 9.4-13.3 IPF % (test code = 3449960780) 3.2 % 0-7.4 Platelet count measured by fluorescence method. NRBC/100 WBC (test code = 1057714689) See_Comment [Automated [employer]] The system which generated this result transmitted reference range: 0.0 - 10.0 /100 WBCs. The reference range was not used to interpret this result as normal/abnormal. NRBC x10^3 (test code = 6678141413) See_Comment [Automated [employer]] The system which generated this result transmitted reference range: 10*3/?L. The reference range was not used to interpret this result as normal/abnormal. GRAN MAT (NEUT) % (test code = 770-8) 77.9 % IMM GRAN % (test code = 6699536547) 0.40 % LYMPH % (test code = 736-9) 15.9 % MONO % (test code = 5905-5) 5.5 % EOS % (test code = 713-8) 0.1 % BASO % (test code = 706-2) 0.2 % GRAN MAT x10^3(ANC) (test code = 1561659793) 7.06 10*3/uL 1.5-10.3 IMM GRAN x10^3 (test code = 4234319328) 0.04 10*3/uL 0-0.06 LYMPH x10^3 (test code = 731-0) 1.44 10*3/uL 0.7-7.4 MONO x10^3 (test code = 742-7) 0.50 10*3/uL 0-0.5 EOS x10^3 (test code = 711-2) 0-0.4 BASO x10^3 (test code = 704-7) 0-0.1 BANDS (test code = 0880872192) Increased A Lab Interpretation (test code = 83134-9) Abnormal [facility] CenterPRENATAL WORKUP, BLOOD [id number] 04:05:19 * Test Item Value Reference Range Interpretation Comme nts ABO & RH (test code = 20) A POSITIVE [facility] - [facility] Blood [address] [address]Wrhm Free: [phone] No. [id number] IAT (test code = 1185) Negative [facility] Laboratory [facility] Blood [address] Free: [phone] No. [id number] [facility] URINALYSIS W/O SPECIFIC [id number] 15:01:00* Test Item Value Reference Range Interpretation [...] = 3257) Large Negative - Negati ve [facility] URINALYSIS W/O SPECIFIC [id number] 15:01:00* Test Item Value Reference Range Interpretation [...] 3257) Large Negative - Negati ve [facility] CenterPOCT [id number] 15:00:00* Test Item Value Reference Range Interpretation Comme nts POCT PREG (test code = 1605) Positive On board controls acceptable with C Line (test code = 3574) Yes POCT PREG LOT # (test code = 3575) POCT PREG TEST DATE ( test code = 3576) [facility] CenterPOCT [id number] 15:00:00* Test Item Value Reference Range Interpretation Comme nts POCT PREG (test code = 1605) Positive On board controls acceptable with C Line (test code = 3574) Yes POCT PREG LOT # (test code = 3575) POCT PREG TEST DATE ( test code = 3576) [facility] CenterCT/NG, NAAT, [id number] 19:24:50* Test Item Value Reference Range Interpretation Comme nts GONORRHEA, NAAT (test code = 54603) NEGATIVE NEGATIVE IMPORTANT NO JOSÉ MIGUEL: SEE ANNOUNCEMENT AT [email or web address] Note: Assay methodology is nucleic acid amplification by ict support engineer mediated amplification (TMA) utilizing the Aptima Combo 2 Assay. CHLAMYDIA, NAAT (test code = 93976) NEGATIVE NEGATIVE IMPORTANT NO JOSÉ MIGUEL: SEE ANNOUNCEMENT AT [email or web address] Note: Assay methodology is nucleic acid amplification by ict support engineer mediated amplification (TMA) utilizing the Aptima Combo 2 Assay. VAGINAL PATHOGENS DNA [id number] 17:16:50* Test Item Value Reference Range Interpretation Comme nts PARAG SPECIES (test code = 03439) NEGATIVE NEGATIVE G. VAGINALIS (test code = 08324) POSITIVE NEGATIVE A T. VAGINALIS (test code = 83997) NEGATIVE NEGATIVE UNLESS OTHERWISE INDICATED, ALL TESTING PERFORMED ATCLINICAL PATHOLOGY [employer], [employer] [address] [place] [address] TRACK REPAIR LABORER: VAMSI HEATON M.D. CLIA NUMBER [id number] [place]. [id number] 04:27:22* Test Item Value Reference Range Interpretation Comme nts RPR RESULT (test code = 3501) NON-REACTIVE NON-REACTIVE RPR TITER (test code = 3500) NOT INDIC. TITER NOT INDIC. HIV 1/2 4TH GEN, RFLX [id number] 03:17:47* Test Item Value Reference Range Interpretation Comme nts HIV 1/2 4TH GEN, RFLX CONF ( test code = 3514) NON-REACTIVE NON-REACTIVE HEPATITIS PANEL, [id number] 03:17:47* Test Item Value Reference Range Interpretation Comme nts HEPATITIS A IgM (test code = 14342) NON-REACTIVE NON-REACTIVE HEPATITIS B CORE IgM (test code = 4644) NON-REACTIVE NON-REACTIVE HEPATITIS B SURF AG (test code = 2739) NON-REACTIVE NON-REACTIVE HEPATITIS C ANTIBODY (test code = 4675) NON-REACTIVE NON-REACTIVE INTERPRETATION HEPATITIS A: (test code = 2552) (NOTE) Hepatitis A serology shows no evidence of acute hepatitis A. INTERPRETATION HEPATITIS B: (test code = 83925) (NOTE) Hepatitis B serology shows no evidence of acute hepatitis B andno indication of exposure to hepatitis B virus in the previous von eight months. INTERPRETATION HEPATITIS C: (test code = 85968) (NOTE) Hepatitis C serology shows no evidence of exposure to hepatitisC virus at this time. It can take up to 12 months after exposure tothe hepatitis C virus for antibodies to become detectable in the blood in certain patients. Notes Date/Time Note Provider Source 2024-03-09 10:52:32 Called pt, discussed results and poc. Verbalized understanding. Elizabeth Durand RN 03/09/24 10:53 AM [facility] 2024-03-09 08:14:03 Called pt, no answer. Left vm. Elizabeth Durand RN 03/09/24 8:14 AM [facility] 2024-03-09 07:00:38 Please call patient and let her know she does have chlamydia and to take doxycycline that was prescribed to her on 03/07. Her partner already tested positive and is being treated. T [facility] 2023-12-18 16:56:51 Pt states moxifloxacin is not covered under insurance plan. Pt advised this is the preferred tx and she could use a GoodRx coupon or pay out of pocket. Pt states she will try t find a coupon but may need alternative rx if original is unaffordable. Pt will call back for further assistance. Lauren Matos RN [facility] 2023-12-18 16:28:43 LM for pt to return call. Lauren Matos RN [facility] 2023-12-18 16:24:12 Carlos Jefferson is a 18 year old female Patient calling about medication and questions regarding what they are for. Please call [phone] (home) Shani Bansal [facility] 2023-12-18 09:13:[address] [facility] 2023-12-18 08:53:58 Carlos Jefferson is a 18 year old female Patient would like doxycycline hyclate 100 mg tablet and moxifloxacin 400 mg tablet be sent to [facility] [address] [id number] Irene Puente [facility] 2023-12-17 17:13:34 Patient positive for Chlamydia and M. Genitalium Reviewed results with her, educated on safe sex practices. LMP was last week and she has IUD All questions were answered. [facility] 2023-11-09 09:01:55 Carlos Jefferson [id number] 11/09/23 Incoming call from patient after receiving [...] me for a [facility] exam in [place], [place]. It is closer to where I live. Thank you." Patient was scheduled for Thursday January 18, 2024 at 10:00 AM and arriving at 9:45 AM at our [facility]. Patient was given the date, time and location of our clinic. Maira Temple RN 11/09/2023 9:02 AM [employer] NET DEVELOPER Maira Temple RN [facility] 2023-04-27 16:11:06 Formatting of this n ote might be different from the original. Patient has appointment scheduled for 07/04/23. Rafaela Sosa [facility] 2023-04-27 15:12:13 Formatting of this n ote might be different from the original. Pt requesting r/s procedure appt Anastasiia Cline [facility]
[2025-06-21 17:38] LABS: Absolute Lymphocytes (CBC) 1.7 K/uL (0.7-4.9); Hematocrit 31.4 % (36.0-45.0); Hemoglobin 9.8 g/dL (12.0-15.0); MCH 23.2 pg (27.0-35.0); MCHC 31.1 g/dL (32.0-36.0); MCV 74.5 fL (80-100); MPV 8.0 fL (7.6-11.3); Nucleated RBC Absolute Count 0.0 (0-0); Nucleated Red Blood Cells % 0.0 % (0-0); RBC Red Blood Cell Count 4.22 M/uL (3.86-4.86); White Blood Count 8.00 thou/uL (4.3-10.9)
[2025-06-21 17:39] LABS: Sqamous Epithelial <5 /HPF (None Seen); Urine Culture Reflex Order NOT NEEDED; Urine Microscopic Reflex YN ORDER UMIC
[2025-06-21 17:47] LABS: PT Prothrombin Time 13.1 SECONDS (10-13.0); PTT, Activated Partial Thromb 27.9 SECONDS (27.2-37.4); Protime INR 1.16
[2025-06-21] MEDS ORDERED: NA CHLORIDE 0.9% 1,000 ML ONE (17:47)
[2025-06-21 18:01] LABS: ALT/SGPT 16 U/L (13-56); AST/SGOT 13 U/L (15-37); Albumin 4.1 g/dL (3.4-5.0); Albumin/Globulin Ratio 1.0 (1.1-1.8); Alkaline Phosphatase 66 U/L (45-117); Anion Gap 11.7 mEq/L (5.0-15.0); BUN Blood Urea Nitrogen 7 mg/dL (7-18); Globulin 4.1 g/dL (2.3-3.5); Glucose Level 82 mg/dL (74-106); METHAMPHETAM NEGATIVE (NEGATIVE); Potassium 3.7 mEq/L (3.5-5.1); THC Cannibis NEGATIVE (NEGATIVE)
--- NOTE | 2025-06-21 18:07 | ER ---
Nurse's Notes [facility] Name: Samina Daly Age: 20 yrs Sex: Female : 2005 Arrival Date: 06/21/2025 Time: 17:08 Bed 15 Private MD: Diagnosis: Alcohol abuse Presentation: 06/21 17:21 Chief complaint: EMS states: TONED OUT TO PATIENTS HOME DUE TO POSSIBLY OVER DOSING ON cm10 HYDROXYZINE. PT STATES THAT SHE DID NOT TAKE ANY PILLS, "I DUMPED THEM OUT AND DIDN'T TAKE THEM." PT DENIES ANY SI OR HI AT THIS TIME. PT STATES THAT SHE HAD 2 TALL BOYS. Coronavirus screen: Client denies travel out of the [place] in the last 14 days. Ebola Screen: No symptoms or risks identified at this time. Initial Sepsis Screen: Does the patient meet any 2 criteria? HR > 90 bpm. Does the patient have a suspected source of infection? No. Patient's initial sepsis screen is negative. Risk Assessment: Do you want to hurt yourself or someone else? Patient reports no desire to harm self or others. Onset of symptoms was June 21, 2025. 17:21 Method Of Arrival: [facility] cm10 17:21 Acuity: SOCOR[place] 3 cm10 17:33 Care prior to arrival: IV initiated. 20 GA, in the left antecubital area, Glucose cm10 check: 74. Triage Assessment: 17:33 General: Appears in no apparent distress. comfortable, Behavior is calm, cooperative. cm10 Pain: Denies pain. Neuro: No deficits noted. Level of Consciousness is awake, alert, obeys commands, Oriented to person, place, time, situation, Appropriate for age. Respiratory: No deficits noted. Airway is patent Respiratory effort is even, unlabored, Respiratory pattern is regular, symmetrical. [employer] FORMER: 18:33 unknown kj2 Historical: - Allergies: 17:32 NKDA; cm10 - PMHx: 17:32 allergies; Anemia; cm10 - Immunization history:: Adult Immunizations up to date. - Infectious Disease History:: Denies. - Social history:: Smoking status: Reported history of juuling and/or vaping. Patient uses street drugs, marijuana. Screenin:30 [facility] ED Fall Risk Assessment (Adult) History of falling in the last 3 months, kj2 including since admission No falls in past 3 months (0 pts) Confusion or Disorientation No (0 pts) Intoxicated or Sedated Yes (3 pts) Impaired Gait No (0 pts) Mobility Assist Device Used No (0 pt) Altered Elimination No (0 pt) Score/Fall Risk Level 0 - 2 = Low Risk Oriented to surroundings, Hourly rounding (assess needs \\T\\ fall precautionary measures) done. Abuse screen: Denies threats or abuse. Denies injuries from another. Nutritional screening: No deficits noted. Tuberculosis screening: No symptoms or risk factors identified. Assessment: 17:30 General: Appears in no apparent distress. Behavior is agitated. Pain: Denies pain. kj2 Neuro: Level of Consciousness is awake, alert, obeys commands, Oriented to person, place, time, situation. Cardiovascular: Patient's skin is warm and dry. Respiratory: Airway is patent Respiratory effort is unlabored. GI: No signs and/or symptoms were reported involving the gastrointestinal system. : No signs and/or symptoms were reported regarding the genitourinary system. 18:11 Reassessment: patient refused EKG and normal saline. kj2 18:31 Reassessment: Patient appears in no apparent distress at this time. tech walked [facility] with patient as she was picked up by her aunt. Psych: 17:30 [place] Suicide Severity Screening: In the past month, have you wished you were kj2 or wished you could go to sleep and not wake up? Patient responds "No." "In the past month, have you actually had any thoughts of killing yourself?" Patient responds "no." "In your lifetime, have you ever done anything, started to do anything, or prepared to do anything to end your life?" Patient responds "no.". Subjective: Patient's mood is irritable. Objective: Patient is cooperative. Interventions: no HI or SI. Safety Checks: Personal items have not been removed. Door is open. No visitors are present at this time. Patient uses unknown. Commitment: Patient will be a voluntary commitment. Vital Signs: 17:21 BP 131 / 84; Pulse 106; Resp 19; Temp 97.7(IR); Pulse Ox 100% on R/A; Weight 45.36 kg; cm10 Height 5 ft. 6 in. ; Pain 0/10; 18:32 BP 128 / 82; Pulse 100; Resp 20; Temp 98; Pulse Ox 100% on R/A; kj2 17:21 Body Mass Index 16.14 (45.36 kg, 167.64 cm) cm10 17:21 Pain Scale: Adult cm10 ED Course: 17:18 Patient arrived in ED. cj3 17:19 [facility]ose[facility]C [facility] dr5 17:19 Philipp Fountain MD is Attending Physician. dr5 17:30 Patient has correct armband on for positive identification. Call light in reach. Side kj2 rails up X 1. Provided Education on: call light. 17:32 Triage completed. cm10 17:32 Arm band placed on right wrist. Patient placed in an exam room, on a stretcher. cm10 17:33 Maintain EMS IV. Dressing intact. Good blood return noted. Site clean \\T\\ dry. Gauge \\T\\ cm 10 site: 20G LEFT AC. Flushed with 10 mL NS. 17:35 Acetaminophen Sent. rk3 17:35 Basic Metabolic Panel Sent. rk3 17:35 CBC with Diff Sent. rk3 17:36 ETOH Level Sent. rk3 17:36 Hepatic Function Sent. rk3 17:36 PT-INR Sent. rk3 17:36 Ptt, Activated Sent. rk3 17:36 Salicylate Sent. rk3 17:36 Urine Drug Screen Sent. rk3 17:54 Kayleigh Serrano, RN is Primary Nurse. kj2 18:33 No provider procedures requiring assistance completed. IV discontinued, intact, kj2 bleeding controlled, No redness/swelling at site. Pressure dressing applied. Administered Medications: 17:58 Not Given (Patient Refused): ns 0.9% 1000 ml IV at 1000 ml once; to be given as a bolus kj2 over 60 minutes Medication: 18:33 VIS not applicable for this client. kj2 Outcome: 18:06 Discharge ordered by . dr5 18:27 Discharge ordered by . dr5 18:33 Discharged to home ambulatory, kj2 18:33 Condition: stable 18:33 Discharge instructions given to patient, Instructed on discharge instructions, follow up and referral plans. Demonstrated understanding of instructions, 18:34 Patient left the ED. kj2 Signatures: Melinda Cline RN RN cm10 Kayleigh Serrano RN RN kj2 Kevin Posey FNP-C CONSTRUCTION SITE MANAGER-Cdr5 Luis Joshi rk3 Ale Jones cj3
--- NOTE | 2025-06-21 18:07 | EDPHYS ---
Physician Documentation [facility] Name: Samina Daly Age: 20 yrs Sex: Female : 2005 Arrival Date: 06/21/2025 Time: 17:08 Bed 15 Private MD: ED Physician Philipp Fountain HPI: 06/21 20:50 This 20 yrs old Female presents to ER via EMS with complaints of ETOH Abuse. dr5 20:50 Onset: The symptoms/episode began/occurred acutely. Patient is a 20-year-old female dr5 with history of anemia coming in with possible overdose of hydroxyzine. EMS reports that patient has been cooperative during entire event. Patient states that she was upset with her boyfriend, dumped out all his hydroxyzine, and he reported her as taking them. Patient reports to drinking alcohol this afternoon with a couple tall boys. Patient denies suicidal or homicidal ideation. Patient reports that she has had multiple issues with his boyfriend.. SECURITY SERVICES MANAGER: 18:33 unknown kj2 Historical: - Allergies: 17:32 NKDA; cm10 - PMHx: 17:32 allergies; Anemia; cm10 - Immunization history:: Adult Immunizations up to date. - Infectious Disease History:: Denies. - Social history:: Smoking status: Reported history of juuling and/or vaping. Patient uses street drugs, marijuana. ROS: 20:50 Constitutional: as per hpi dr5 Exam: 20:50 Constitutional: This is a well developed, well nourished patient who is awake, alert, dr5 and in no acute distress. Head/Face: Normocephalic, atraumatic. Eyes: Pupils equal round and reactive to light, extra-ocular motions intact. Lids and lashes normal. Conjunctiva and sclera are non-icteric and not injected. Cornea within normal limits. Periorbital areas with no swelling, redness, or edema. Neck: Trachea midline, no thyromegaly or masses palpated, and no cervical lymphadenopathy. Supple, full range of motion without nuchal rigidity, or vertebral point tenderness. No Meningismus. Chest/axilla: Normal chest wall appearance and motion. Nontender with no deformity. No lesions are appreciated. Cardiovascular: Regular rate and rhythm with a normal S1 and S2. Normal PMI, no JVD. No pulse deficits. Respiratory: Lungs have equal breath sounds bilaterally, clear to auscultation. No rales, rhonchi or wheezes noted. No increased work of breathing, no retractions or nasal flaring. Back: No spinal tenderness. No costovertebral tenderness. Full range of motion. Skin: Warm, dry with normal turgor. Normal color with no rashes, no lesions, and no evidence of cellulitis. MS/ Extremity: Pulses equal, no cyanosis. Neurovascular intact. Full, normal range of motion. Neuro: Awake and alert, GCS 15, oriented to person, place, time, and situation. Cranial nerves II-XII grossly intact. Motor strength 5/5 in all extremities. Sensory grossly intact. Cerebellar exam normal. Normal gait. Vital Signs: 17:21 BP 131 / 84; Pulse 106; Resp 19; Temp 97.7(IR); Pulse Ox 100% on R/A; Weight 45.36 kg; cm10 Height 5 ft. 6 in. ; Pain 0/10; 18:32 BP 128 / 82; Pulse 100; Resp 20; Temp 98; Pulse Ox 100% on R/A; kj2 17:21 Body Mass Index 16.14 (45.36 kg, 167.64 cm) cm10 17:21 Pain Scale: Adult cm10 MDM: 17:23 Medical Screening Exam initiated nirmala 20:50 Differential Diagnosis Alcohol discussion, anemia, , acute kidney injury, dr5 overdose. Data reviewed: vital signs, nurses notes, lab test result(s), CBC, white blood cell count, hemoglobin, hematocrit, platelets, drug level(s), acetaminophen, alcohol, electrolytes, sodium, potassium, chloride, serum bicarbonate, BUN, creatinine, serum glucose. Consideration of Admission/Observation Escalation of care including admission/observation considered. Escalation considered if patient was suicidal. I considered the following discharge prescriptions or medication management in the emergency department I discussed and recommended Over The Counter medications, Medications were administered in the Emergency Department. See MAR. Care significantly affected by the following chronic conditions: Anemia. Care significantly affected by the following Social Determinants of Health: Poor access to healthcare and/or lack of insurance, Poor access to transportation, Misuse of alcohol and/or drugs, Problems related to employment. Counseling: I had a detailed discussion with the patient and/or guardian regarding the historical points, exam findings, and any diagnostic results supporting the discharge/admit diagnosis, the presence of at least one elevated blood pressure reading (>120/80) during this emergency department visit, lab results, radiology results, the need for outpatient follow up, for definitive care, a family practitioner, to return to the emergency department if symptoms worsen or persist or if there are any questions or concerns that arise at home. Special discussion: I discussed with the patient/guardian in detail that at this point there is no indication for admission to the hospital. It is understood, however, that if the symptoms persist or worsen the patient needs to return immediately for re-evaluation. ED course: Patient is not suicidal / homicidal. Patient's aunt came to pick her up and we walked her out and put her in the car. Will have patient follow-up primary care doctor. All question answered. Strict ER precautions given.. 06/21 17: Order name: Acetaminophen; Complete Time: 18:21 dr5 06/21 17:19 Order name: Basic Metabolic Panel; Complete Time: 18:21 dr5 06/21 17:19 Order name: CBC with Diff; Complete Time: 18:02 dr5 06/21 17:19 Order name: ETOH Level; Complete Time: 18:21 dr5 06/21 17:19 Order name: Hepatic Function; Complete Time: 18:21 dr5 06/21 17:19 Order name: PT-INR; Complete Time: 17:50 dr5 06/21 17: Order name: Ptt, Activated; Complete Time: 17:50 dr5 06/21 17:19 Order name: Salicylate; Complete Time: 18:21 dr5 06/21 17:19 Order name: Urine Drug Screen; Complete Time: 18:02 dr5 06/21 17: Order name: UA Rfx Raphael Cult if indicated; Complete Time: 17:43 dr5 06/21 17: Order name: Test, Urine; Complete Time: 17:43 dr5 06/21 17: Order name: EKG; Complete Time: 17:20 dr5 06/21 17: Order name: IV Saline Lock; Complete Time: 17:35 dr5 06/21 17: Order name: Labs collected and sent; Complete Time: 17:35 dr5 06/21 17:19 Order name: Suicide Screening ([place]) dr5 Administered Medications: 17:58 Not Given (Patient Refused): ns 0.9% 1000 ml IV at 1000 ml once; to be given as a bolus kj2 over 60 minutes Disposition: 06/22 07:57 Co-signature as Attending Physician, Philipp Fountain MD I agree with the assessment and nirmala plan of care. Disposition Summary: 06/21/25 18:27 Discharge Ordered Notes: Location: Home(06/21/25 18:27) dr5 Condition: Stable(06/21/25 18:27) dr5 Diagnosis - Alcohol abuse(06/21/25 18:27) dr5 Followup: dr5 - With: Emergency Department - When: As needed - Reason: Worsening of condition Followup: dr5 - With: Private Physician - When: 1 - 2 days - Reason: Recheck today's complaints, Continuance of care, Re-evaluation by your physician Discharge Instructions: - Discharge Summary Sheet dr5 - Alcohol Intoxication dr5 Forms: - Medication Reconciliation Form dr5 - Patient Portal Instructions dr5 - Leadership Thank You Letter dr5 Signatures: Dispatcher [employer] EDPhilipp Guzman MD MD cha Martinez, Clarissa, RN RN cm10 Kayleigh Serrano RN RN kj2 Kevin Posey, CHRISTELLE-C SECONDS GRADER-Cdr5 Corrections: (The following items were deleted from the chart) 06/21 17:20 17:20 ACETAMINOPHEN+C.LAB.BRZ ordered. EDMS EDMS 17:20 17:20 BASIC METABOLIC PANEL+C.LAB.BRZ ordered. EDMS EDMS 17:20 17:20 CBC+H.LAB.BRZ ordered. EDMS EDMS 17:20 17:20 ETHANOL+C.LAB.BRZ ordered. EDMS EDMS 17:20 17:20 HEPATIC FUNCTION+C.LAB.BRZ ordered. EDMS EDMS 17:20 17:20 PROTIME (+INR)+COAG.LAB.BRZ ordered. EDMS EDMS 17:20 17:20 PTT, ACTIVATED+COAG.LAB.BRZ ordered. EDMS EDMS 17:20 17:20 SALICYLATE+C.LAB.BRZ ordered. EDMS EDMS 17:20 17:20 URINE DRUG SCREEN+UC.LAB.BRZ ordered. EDMS EDMS 17:20 17:20 UA Rfx Raphael Cult if indicated+U.LAB.BRZ ordered. EDMS EDMS 17:20 17:20 Test, Urine+UC.LAB.BRZ ordered. EDMS EDMS 18:03 17:19 EKG - Nurse/Tech ordered. dr5 kj2 18:10 18:06 Home dr5 dr5 18:10 18:06 Stable dr5 dr5 18:10 18:06 Alcohol abuse dr5 dr5
[2025-06-21 18:19] LABS: Bilirubin Indirect, Calculated 0.1 mg/dL (0.2-0.8)
[2025-06-21 23:29] VITALS: O2SAT 100
[2025-06-21 23:31] VITALS: BP 128/82; TEMP 98
== END 2025-06-21 18:34 | disposition home or self-care (01) ==
LOC: ER 17:08
DX: F10.10 Alcohol abuse, uncomplicated (principal); F17.290 Nicotine dependence, other tobacco product, uncomplicated; F12.90 Cannabis use, unspecified, uncomplicated
CPT/HCPCS: 36415; 80048; 80076; 80143; 80179; 80307; 81001; 81025; 82077; 85025; 85610; 85730; 99284; J7030